=== PATIENT | female | born 1935 | race Caucasian/White ===

== ENCOUNTER 2020-09-26 16:56 | Inpatient (IN) | payer MEDICARE, OTHER, SELFPAY ==
[2020-09-26] VITALS (16 sets, daily range): BP systolic 141–269; BP diastolic 45–107; PULSE 67–83; RESP 12–22; TEMP 36.4–36.8; O2SAT 94–96; BMI 22.1; BMI 22.8
--- NOTE | 2020-09-26 17:09 | ECG_ITS ---
Test Reason : STROKE Blood Pressure : / mmHG Vent. Rate : 068 BPM Atrial Rate : 068 BPM P-R Int : 134 ms QRS Dur : 092 ms QT Int : 428 ms P-R-T Axes : 059 029 079 degrees QTc Int : 455 ms Normal sinus rhythm Possible Left atrial enlargement Left ventricular hypertrophy with repolarization abnormality Abnormal ECG When compared with ECG of 29-JUL-2005 08:41, No significant change was found Referred By: Yue Mao Electronically Signed By:Cisco Grubbs
--- NOTE | 2020-09-26 17:09 | CT_ITS ---
EXAMINATION: CT HEAD WITHOUT CONTRAST (STROKE PROTOCOL) CLINICAL INFORMATION: Stroke protocol. COMPARISON: None TECHNIQUE: Contiguous axial imaging was performed from the skull base to vertex without intravenous administration of contrast. Coronal and sagittal reformatted images are performed at CT scanner This CT examination was performed using dose optimization techniques as appropriate, variously including the following: *Automated exposure control *Adjustment of mA and/or kV according to patient size (this includes techniques or standardized protocols for targeted exams where dose is matched to indication/reason for exam; i.e. extremities or head) *Use of iterative reconstruction technique DLP: 691 mGy-cm FINDINGS: There is a focal parenchymal bleed in the right thalamus which is acute. This is hyperdense and measures about 1.2 cm transverse. There is a small hypodense surrounding rim around the bleed. There is no extra-axial collection. There is no intraventricular hemorrhage. There is atrophy with prominence of the ventricles and the sulci and hypodensity of the periventricular white matter due to chronic small vessel ischemic disease. There are vascular calcifications of the internal carotid arteries bilaterally. The visualized sinuses and middle ears and mastoid air cells show no significant mucosal thickening. There are no air-fluid levels. CT/CT head for stroke IMPRESSION: Acute hemorrhage in the right thalamus. This critical result was discussed with Dr. Mao 09/26/2020, 5:25 PM It was ascertained that the content and urgency of the report was understood at the time of direct communication.
[2020-09-26] MEDS: Labetalol HCL 100 MG/20 ML VIAL 10 MG IVPUSH (17:25)
[2020-09-26 17:34] LABS: Glucose, Whole Blood 79 mg/dL (60-115)
--- NOTE | 2020-09-26 17:34 | ED.NEUROSD ---
HPI - Neuro Symptoms/Deficit General Chief Complaint: Neuro Symptoms/Deficit Stated Complaint: Weakness Time Seen by Provider: 09/26/20 17:04 Source: patient Mode of arrival: ambulatory Limitations: no limitations History of Present Illness HPI Narrative: 84-year-old female who is otherwise healthy no known history of hypertension presented today with left-sided body weakness started about an hour ago. Patient was walking with her son after she finished walking started feel oozy and felt left-sided weakness and unbalanced, patient had to set down before she fell, patient otherwise declined any headache, no nausea, no vomiting, no blurry vision. Patient walked into the emergency department while was triaged patient was rushed into the emergency department for stroke protocol, patient was rushed to the CT which showed right thalamic small bleed with slight vasogenic edema but no brain shift, patient's blood pressure was 264 over 80 initially, patient is still asymptomatic except feeling oozy. Related Data Home Medications Medication Instructions Recorded Confirmed atorvastatin 40 mg PO DAILY 09/26/20 09/26/20 levothyroxine 100 mcg PO DAILY 09/26/20 09/26/20 lisinopril 10 mg PO DAILY 09/26/20 09/26/20 Allergies Allergy/AdvReac Type Severity Reaction Status Date / Time levofloxacin [From Levaquin] Allergy Mild Rash Verified 09/26/20 17:05 Review of Systems Review of Systems: All other systems are reviewed and are negative Constitutional: Reports as per HPI and Reports no additional constitutional complaints Eyes: Reports as per HPI and Reports no additional eye complaints Reports system reviewed and no additional complaints, except as documented Cardiovascular: Reports as per HPI and Reports no additional cardiovascular complaints Respiratory: Reports as per HPI and Reports no additional respiratory complaints Gastrointestinal: Reports as per HPI and Reports no additional gastrointestinal complaints Genitourinary: Reports no additional female genitourinary complaints Musculoskeletal: Reports no additional musculoskeletal complaints Skin/Breast: Reports system reviewed and no additional complaints, except as docu Psychiatric: Reports no additional psychiatric complaints Endocrine: Reports no additional endocrine complaints Hematologic/Lymphatic: Reports no additional hematologic/lymphatic complaints Allergic/Immunologic: Reports no additional allergic/immunologic complaints Reports system reviewed and no additional complaints, except as documented and Reports Abnormal speech present PMFSH Social History Social History Alcohol intake: never Smoked in Last 30 Days: No Use of substances other than those prescribed or required for medical reasons: No Advance Directives: No Advance Directives Information Provided: Yes Physical Exam Vital Signs: Vital Signs: Last Vital Signs Temp 98.3 F 09/26/20 17:19 Pulse 75 09/26/20 19:07 Resp 18 09/26/20 19:07 BP 235/89 H 09/26/20 19:07 Pulse Ox 95 09/26/20 19:07 Body Mass Index 22.1 Vital signs have been reviewed as normal and appeared to be correct. Hypertensive. Heart rate normal. Respiration rate normal. Temperature normal. Oxygen saturation normal. Appearance: Alert. Oriented X3. No acute distress. Head: Normal external exam. Normocephalic. Atraumatic. No Torres signs noted. No raccoon eyes noted Eyes: PERRLA. EOMI. Conjunctiva and sclera normal. Eyelids normal. ENT: EAC normal. TM's Normal. Pharynx normal. Uvula midline. Moist mucous membranes. No trismus noted. No drooling noted. No muffled voice noted. Neck: Normal inspection. Neck supple. FROM. No adenopathy. Thyroid Normal. No meningeal signs. No neck mass noted. CVS: Normal heart rate and rhythm. Heart sound normal. No murmurs noted. Pulses normal throughout. Respiratory: No respiratory distress. Painless inspiration. Breath sounds normal. No wheezes/rales/rhonchi noted. Chest nontender. No accessory muscle usage noted or decreased air movement noted. Abdomen: Soft and nontender. Bowel sounds normal in all 4 quadrants. No distention noted. No organomegaly noted. No visible injury noted. Back: No CVA tenderness. Full range of motion noted. Skin: Skin warm and dry. Normal skin color. Normal skin turgor. No rashes/lesions/lacerations noted. Extremities: No lower extremity edema. Extremities exhibit normal range of motion. Extremities nontender. Neuro: Oriented X 3. No motor deficit (maybe slight left lower extremities weakness is appreciated) patient still able to walk with slight limping. No sensory deficit. Reflexes normal. Course Course Course Narrative: Assessment and plan. 84-year-old female who is otherwise healthy no known history of hypertension walked in with left-sided weakness, patient found to have likely hypertensive right thalamic bleed. The case was discussed with Dr. Novak who recommended to blood pressure management and admit to ICU. The case discussed with Dr. Thompson the quality control industrial engineer, who agreed to admit the patient to the ICU. Patient received 1 dose of labetalol, patient will start on nicarddipine IV drip. Reevaluation(s) Reevaluation #1: Patient still with left-sided weakness, neuro exam is unchanged, blood pressure is 148/107 after 1 dose of labetalol, troponin was elevated but patient has no chest pain and no EKG, will keep serial troponin check. Time: 18:27 Reevaluation #2: Blood pressure has been fluctuating while she is in the emergency department, will start patient on nicardipine drip now to titrate systolic blood pressure between 160-180. Time: 19:10 MDM - Neuro Symptoms/Deficit Lab Data Result diagrams: 09/26/20 18:16 09/26/20 17:30 Labs: Lab Results 09/26/20 09/26/20 09/26/20 Range/Units 17:30 17:30 17:30 WBC 4.4 L (4.8-10.8) X10*3/uL RBC 3.54 L (4.20-5.50) X10*6/uL Hgb 11.4 L (12.0-16.0) g/dl Hct 35.5 L (37-47) % MCV 100.3 H (80-98) fL MCH 32.2 (27.0-33.0) pg MCHC 32.1 (31.0-35.0) g/dl RDW 11.5 (11.0-16.0) % Plt Count 189 (160-400) X10*3/uL MPV 11.9 (9.4-12.3) fL Immature Gran % (Auto) 0.5 H (0.0-0.4) % Neut % (Auto) 61.6 (45-73) % Lymph % (Auto) 25.7 (20-40) % [place] % (Auto) 9.7 (2-11) % Eos % (Auto) 2.0 (0-4) % Baso % (Auto) 0.5 (0-2) % Lymph # (Auto) 1.1 L (1.2-4.9) X10*3/uL [place] # (Auto) 0.4 (0.1-1.2) X10*3/uL Eos # (Auto) 0.1 (0.0-0.4) X10*3/uL Baso # (Auto) 0.0 (0.0-0.2) X10*3/uL Abs Immat Gran (auto) 0.02 (0.00-0.03) X10*3/uL Absolute Neuts (auto) 2.7 (2.0-8.3) X10*3/uL Absolute Nucleated RBC 0.000 (0.0-0.012) X10*3/uL Nucleated RBC % (auto) 0.0 (0.0-0.2) /100WBC PT 11.9 (10.8-13.0) SEC INR 1.0 (0.9-1.1) APTT 31.9 (24.1-38.0) SEC Sodium 143 (135-145) mmol/L Potassium 4.3 (3.3-5.1) mmol/l Chloride 105 (96-108) mmol/L Carbon Dioxide 26 (22-29) mmol/L Anion Gap 16 (12-20) BUN 26 H (9-16) mg/dL Creatinine 1.46 H (0.5-1.4) mg/dL Estim Creat Clear Calc 22.6 Estimated GFR 34 POC Glucose (60-115) mg/dL Random Glucose 80 (60-115) mg/dL Calcium 8.7 (8.4-10.2) mg/dL Total Creatine Kinase 164 H (26-140) U/L Troponin I High Sens (<3.5-17.0) ng/L 09/26/20 09/26/20 Range/Units 17:30 17:31 WBC (4.8-10.8) X10*3/uL RBC (4.20-5.50) X10*6/uL Hgb (12.0-16.0) g/dl Hct (37-47) % MCV (80-98) fL MCH (27.0-33.0) pg MCHC (31.0-35.0) g/dl RDW (11.0-16.0) % Plt Count (160-400) X10*3/uL MPV (9.4-12.3) fL Immature Gran % (Auto) (0.0-0.4) % Neut % (Auto) (45-73) % Lymph % (Auto) (20-40) % [place] % (Auto) (2-11) % Eos % (Auto) (0-4) % Baso % (Auto) (0-2) % Lymph # (Auto) (1.2-4.9) X10*3/uL [place] # (Auto) (0.1-1.2) X10*3/uL Eos # (Auto) (0.0-0.4) X10*3/uL Baso # (Auto) (0.0-0.2) X10*3/uL Abs Immat Gran (auto) (0.00-0.03) X10*3/uL Absolute Neuts (auto) (2.0-8.3) X10*3/uL Absolute Nucleated RBC (0.0-0.012) X10*3/uL Nucleated RBC % (auto) (0.0-0.2) /100WBC PT (10.8-13.0) SEC INR (0.9-1.1) APTT (24.1-38.0) SEC Sodium (135-145) mmol/L Potassium (3.3-5.1) mmol/l Chloride (96-108) mmol/L Carbon Dioxide (22-29) mmol/L Anion Gap (12-20) BUN (9-16) mg/dL Creatinine (0.5-1.4) mg/dL Estim Creat Clear Calc Estimated GFR POC Glucose 79 (60-115) mg/dL Random Glucose (60-115) mg/dL Calcium (8.4-10.2) mg/dL Total Creatine Kinase (26-140) U/L Troponin I High Sens 167.8 H (<3.5-17.0) ng/L Imaging Data CT scan - head: Radiologist's impression: Acute right thalamic hemorrhage. ECG Data Interpretation: Normal sinus rhythm at 68 beats per minutes, normal interval, LVH. NIH Stroke Scale Level of Consciousness: Responds only with reflex motor or autonomic effects, or unresponsive Level of Consciousness Questions: Answers both questions correctly Level of Consciousness Commands: Performs both tasks correctly Best Gaze: Normal Visual: No visual loss Facial Palsy: Normal Motor Arm (Right): No drift Motor Arm (Left): No drift Motor Leg (Right): No drift Motor Leg (Left): Drift Limb Ataxia: Absent Sensory: Normal Best Language: No aphasia Dysarthia: Normal Extinction and Inattention: No abnormality Score: 4 Critical Care Time Critical Care Time Critical Care Time: Yes Total Critical Care Time: 60 Attestation: I spent 60 minutes providing critical care level to the patient, including bedside care, reviewing labs, radiographic study, talking to consultants, discussing situation with patient and family. Monitoring vital sign and blood pressure. Discharge Plan Discharge Clinical Impression: Hypertensive emergency, Intracranial hemorrhage Patient Disposition: Admitted As Inpatient
[2020-09-26 17:40] LABS: Basophils Percent Auto 0.5 % (0-2); Eosinophils Absolute Auto 0.1 X10*3/uL (0.0-0.4); Hematocrit 35.5 % (37-47); Hemoglobin 11.4 g/dl (12.0-16.0); Imm Gran Abs Auto 0.02 X10*3/uL (0.00-0.03); Imm Gran Pct Auto 0.5 % (0.0-0.4); Lymphocytes Absolute Auto 1.1 X10*3/uL (1.2-4.9); Lymphocytes Percent Auto 25.7 % (20-40); MANUAL DIFF FLAG NO; Mean Corpuscular HGB Conc 32.1 g/dl (31.0-35.0); Mean Corpuscular Hemoglobin 32.2 pg (27.0-33.0); Mean Corpuscular Volume 100.3 fL (80-98); Mean Platelet Volume 11.9 fL (9.4-12.3); Monocytes Absolute Auto 0.4 X10*3/uL (0.1-1.2); Monocytes Percent Auto 9.7 % (2-11); Neutrophils Absolute Auto 2.7 X10*3/uL (2.0-8.3); Neutrophils Percent Auto 61.6 % (45-73); Platelet Count 189 X10*3/uL (160-400); Red Blood Count 3.54 X10*6/uL (4.20-5.50); Red Cell Distribution Width 11.5 % (11.0-16.0); White Blood Count 4.4 X10*3/uL (4.8-10.8)
[2020-09-26 17:46] LABS: Prothrombin Time 11.9 SEC (10.8-13.0)
[2020-09-26 17:48] LABS: Partial Thromboplastin Time 31.9 SEC (24.1-38.0)
[2020-09-26 18:09] LABS: Anion Gap 16 (12-20); Blood Urea Nitrogen 26 mg/dL (9-16); Calcium 8.7 mg/dL (8.4-10.2); Carbon Dioxide 26 mmol/L (22-29); Chloride 105 mmol/L (96-108); Creatinine Clr Calc Pharmacy 22.6; Estimated Glomerular Filt Rate 34; Glucose Random 80 mg/dL (60-115); Potassium 4.3 mmol/l (3.3-5.1); Sodium 143 mmol/L (135-145)
[2020-09-26 18:21] LABS: Troponin-I High Sensitivity 167.8 ng/L (<3.5-17.0)
[2020-09-26 18:28] LABS: MANUAL DIFF FLAG NO
[2020-09-26 18:37] LABS: HCO3 VBG 25 mmol/L; PCO2 VBG 53 mmhg; PO2 VBG 40 mmhg; pH VBG 7.29 (7.32-7.43)
[2020-09-26 18:38] LABS: Base Excess VBG -2.2 mmol/L; Blood Gas Serial # 5414; Oxygen Saturation VBG 68.3 %
[2020-09-26 18:39] LABS: Basophils Percent Auto 0.5 % (0-2); Eosinophils Absolute Auto 0.1 X10*3/uL (0.0-0.4); Eosinophils Percent Auto 1.4 % (0-4); Hematocrit 32.4 % (37-47); Hemoglobin 10.3 g/dl (12.0-16.0); Imm Gran Abs Auto 0.01 X10*3/uL (0.00-0.03); Imm Gran Pct Auto 0.2 % (0.0-0.4); Lymphocytes Percent Auto 23.1 % (20-40); Mean Corpuscular HGB Conc 31.8 g/dl (31.0-35.0); Mean Corpuscular Hemoglobin 32.1 pg (27.0-33.0); Mean Corpuscular Volume 100.9 fL (80-98); Mean Platelet Volume 12.2 fL (9.4-12.3); Monocytes Absolute Auto 0.5 X10*3/uL (0.1-1.2); Neutrophils Absolute Auto 2.8 X10*3/uL (2.0-8.3); Neutrophils Percent Auto 63.8 % (45-73); Platelet Count 189 X10*3/uL (160-400); Red Blood Count 3.21 X10*6/uL (4.20-5.50); Red Cell Distribution Width 11.5 % (11.0-16.0); White Blood Count 4.4 X10*3/uL (4.8-10.8)
[2020-09-26 18:45] LABS: COVID-19 Test Negative (Negative); IDNOW Serial# 9DD0AD1C
--- NOTE | 2020-09-26 19:06 | PC.NURSE ---
1803 drip not started and on hold due to b/p 147/106. aware
[2020-09-26] MEDS: niCARdipine HCL 25 MG in 0.9 % Sodium Chloride 250 ML 52 MG IVCONT (19:14)
[2020-09-26 19:37] LABS: Stroke Lab Use COMPLETE
--- NOTE | 2020-09-26 20:48 | PM.CCHP ---
History of Present Illness Date of Service: 09/26/20 Chief Complaint: Weakness The patient is a 84-year-old female with a past medical history of hypertension and hypothyroidism who presented to emergency room with acute left-sided weakness. Wanted emergency room the patient reported feeling ? oozy? and loss of balance while in the waiting room. Her blood pressure noted to be 264/96. Stroke protocol initiated CT scan showed small acute hemorrhage in the right thalamus. She denied any headache, no nausea, no vomiting, no blurry vision. Neurology was consulted. Dr. Novak states this is hypertensive right thalamic bleed, and recommend blood pressure management. Labetalol was given in the ED. Nicardipine drip was initiated. Admitted to the ICU for closely hemodynamic monitoring Review of Systems Constitutional: Constitutional: Reports as per [facility] Past Medical History Medical History (Updated 09/26/20 @ 21:39 by Dakota Nguyen) Hypertension Family History Family history: reviewed and not pertinent Surgical History Surgical History (Updated 09/26/20 @ 21:40 by Dakota Nguyen) H/O thyroidectomy Social History Social History (Updated 09/26/20 @ 21:40 by Dakota Nguyen) Household Members: Children Household Members Other:: Lives with son Alcohol intake: never Smoked in Last 30 Days: No Use of substances other than those prescribed or required for medical reasons: No Advance Directives: No Advance Directives Information Provided: Yes Meds Allergies Allergy/AdvReac Type Severity Reaction Status Date / Time levofloxacin [From Levaquin] Allergy Mild Rash Verified 09/26/20 17:05 Home Medications Medication Instructions Recorded Confirmed Type atorvastatin 40 mg PO DAILY 09/26/20 09/26/20 History levothyroxine 100 mcg PO DAILY 09/26/20 09/26/20 History lisinopril 10 mg PO DAILY 09/26/20 09/26/20 History Physical Exam Vital Signs: Vital Signs: Last Vital Signs Temp 98.3 F 09/26/20 17:19 Pulse 80 09/26/20 20:07 Resp 19 09/26/20 19:38 BP 198/72 H 09/26/20 20:07 Pulse Ox 95 09/26/20 19:07 Body Mass Index 22.1 Const: General: cooperative, comfortable and no acute distress Orientation/consciousness: patient oriented x3 HENMT: Head: Yes normal to inspection Eyes: Pupils: Equal, round and reactive pupils present Neck: Neck: Yes supple and Yes no JVD Resp: Effort & Inspection: normal respiratory effort Auscultation: clear to auscultation bilaterally Cardio: Jugular venous distension: no JVD Rate: regular rate Heart sounds: S1 normal heart sound present and S2 normal heart sound present GI: Inspection: Yes normal to inspection Palpation (GI): Soft to palpation Auscultation: normal bowel sounds Neuro: General: patient oriented x3, moves all extremities and Normal light touch and pain sensation Cranial nerves: Yes Equal, round and reactive pupils present Cognition (Neuro): normal cognition Speech: Other speech findings present (Neuro) Motor exam (neuro): 5/5 motor strength present throughout Results Labs CBC and Chem 7: 09/26/20 18:16 09/26/20 17:30 Labs: Laboratory Results - last 24 hr 09/26/20 09/26/20 09/26/20 17:30 17:30 17:30 MCV 100.3 H MCH 32.2 MCHC 32.1 RDW 11.5 Plt Count 189 MPV 11.9 Immature Gran % (Auto) 0.5 H Neut % (Auto) 61.6 Lymph % (Auto) 25.7 [place] % (Auto) 9.7 Eos % (Auto) 2.0 Baso % (Auto) 0.5 Lymph # (Auto) 1.1 L [place] # (Auto) 0.4 Eos # (Auto) 0.1 Baso # (Auto) 0.0 Abs Immat Gran (auto) 0.02 Absolute Neuts (auto) 2.7 Absolute Nucleated RBC 0.000 Nucleated RBC % (auto) 0.0 PT 11.9 INR 1.0 APTT 31.9 VBG pH VBG pCO2 VBG pO2 VBG HCO3 VBG O2 Saturation VBG Base Excess Anion Gap 16 Estim Creat Clear Calc 22.6 Estimated GFR 34 POC Glucose Random Glucose 80 Calcium 8.7 Total Creatine Kinase 164 H Troponin I High Sens COVID-19 (JAMES) COVID-19 Clin Com 09/26/20 09/26/20 09/26/20 17:30 17:31 18:16 MCV 100.9 H MCH 32.1 MCHC 31.8 RDW 11.5 Plt Count 189 MPV 12.2 Immature Gran % (Auto) 0.2 Neut % (Auto) 63.8 Lymph % (Auto) 23.1 [place] % (Auto) 11.0 Eos % (Auto) 1.4 Baso % (Auto) 0.5 Lymph # (Auto) 1.0 L [place] # (Auto) 0.5 Eos # (Auto) 0.1 Baso # (Auto) 0.0 Abs Immat Gran (auto) 0.01 Absolute Neuts (auto) 2.8 Absolute Nucleated RBC 0.000 Nucleated RBC % (auto) 0.0 PT INR APTT VBG pH VBG pCO2 VBG pO2 VBG HCO3 VBG O2 Saturation VBG Base Excess Anion Gap Estim Creat Clear Calc Estimated GFR POC Glucose 79 Random Glucose Calcium Total Creatine Kinase Troponin I High Sens 167.8 H COVID-19 (JAMES) COVID-19 Clin Com 09/26/20 09/26/20 18:16 18:16 MCV MCH MCHC RDW Plt Count MPV Immature Gran % (Auto) Neut % (Auto) Lymph % (Auto) [place] % (Auto) Eos % (Auto) Baso % (Auto) Lymph # (Auto) [place] # (Auto) Eos # (Auto) Baso # (Auto) Abs Immat Gran (auto) Absolute Neuts (auto) Absolute Nucleated RBC Nucleated RBC % (auto) PT INR APTT VBG pH 7.29 L VBG pCO2 53 VBG pO2 40 VBG HCO3 25 VBG O2 Saturation 68.3 VBG Base Excess -2.2 Anion Gap Estim Creat Clear Calc Estimated GFR POC Glucose Random Glucose Calcium Total Creatine Kinase Troponin I High Sens COVID-19 (JAMES) Negative COVID-19 Clin Com See Note Imaging Radiologist's Impressions: Impressions Head CT 09/26/20 17:09 IMPRESSION: Acute hemorrhage in the right thalamus. This critical result was discussed with Dr. Mao 09/26/2020, 5:25 PM It was ascertained that the content and urgency of the report was understood at the time of direct communication. Assessment and Plan (1) Intracranial hemorrhage: Start date: 09/26/20 Status: Acute 84-year-old female with history of hypertension, here for hypertensive right thalamic hemorrhage. Neuro: Hypertensive right thalamic hemorrhage- patient with no acute neurological changes. Neurology services appreciated. Will cont to achieve blood pressure management with nicardipine drip. Avoid hypotension. Maintain SBP 160-180. Frequent neuro checks Cardiac: Hypertensive emergency, initial BP 260/96. On nicardipine drip. Wean nicardipine drip as stated above. Pulmonary: No acute issues. Renal: No acute issues. Endo: No acute issues. GI: No acute issues. heme/onc: No acute issues. Misc: No acute issues. DVT: Pneumatic boots. NO DVT ANTICOAGULATION FOR THE 1ST 24 HOURS Diet: NPO (2) Hypertensive emergency: Start date: 09/26/20 Status: Acute
[2020-09-27] VITALS (19 sets, daily range): BP systolic 114–188; BP diastolic 38–116; PULSE 60–78; RESP 16–24; TEMP 36.3–36.7; O2SAT 91–96; BMI 21.5
[2020-09-27] MEDS: niCARdipine HCL 25 MG in 0.9 % Sodium Chloride 250 ML 26 MG IVCONT (06:29)
[2020-09-27 06:36] LABS: Alanine Aminotransferase 9 U/L (0-31); Albumin Level 3.9 g/dL (3.5-5.0); Alkaline Phosphatase 75 U/L (39-117); Anion Gap 13 (12-20); Aspartate Amino Transferase 19 U/L (5-31); Bilirubin Total 0.4 mg/dL (0.0-1.0); Blood Urea Nitrogen 21 mg/dL (9-16); Calcium 8.3 mg/dL (8.4-10.2); Carbon Dioxide 27 mmol/L (22-29); Chloride 105 mmol/L (96-108); Creatinine Clr Calc Pharmacy 30.6; Estimated Glomerular Filt Rate 48; Glucose Random 109 mg/dL (60-115); Magnesium 1.8 mg/dL (1.6-2.6); Phosphorus 4.2 mg/dL (2.7-4.5); Sodium 141 mmol/L (135-145); Total Protein 6.6 g/dL (6.5-8.0)
[2020-09-27] MEDS: lisinopriL 20 MG TABLET PO (08:19)
--- NOTE | 2020-09-27 09:36 | PC.NURSE ---
Admitted patient to ICU, room 261. Patient calm, cooperative, oriented x4. BP elevated - on nicardipine drip. Patient neuros - slight left side facial drop noted when not smiling, patient equal strength, but patient having issues w/ manipulation / dexterity in left hand. Patient also unsteady when up to commode, 1 assist to and from commode. Patient repositions independently otherwise. Patient c/o small headache at start of night, but then reported it was relieved, patient sleeping intermit. Titrated nicardipine on and off for SBP 160-180 goal. SBP went down to 130's for a short time - no change in neuro symptoms w/ lower BP. Dr Thompson in - ordered Lisinopril 20mg to be given - given & monitoring BP. Patient now transfer to [facility] level of care.
--- NOTE | 2020-09-27 11:20 | PM.NEUROCN ---
History of Present Illness Data of Consult Service Date: 09/27/20 Primary Care Provider: Mati Raya MD 84 years old woman with underlying history of hypothyroidism and hypertension came to emergency room with new onset of left-sided weakness and dizziness. Her head CT revealed a right thalamic bleed and her blood pressure was quite high and she was admitted for blood pressure management and intensive care unit. This morning she was feeling better though stating that left side was still not the weight used to be in her left hand was clumsy. There was no headache or sign of distress or dizziness or nausea or vomiting. She was right handed Review of Systems Review of Systems: No recent cold or flu-like illness trauma or seizure. [facility] Past Medical History Medical History (Updated 09/27/20 @ 03:51 by Washington Montelongo RN) High cholesterol Hypertension Hypothyroidism Right shoulder injury Family History Family history: reviewed and not pertinent Surgical History Surgical History (Updated 09/26/20 @ 21:40 by Dakota Nguyen) H/O thyroidectomy Social History Social History (Updated 09/26/20 @ 21:40 by Dakota Nguyen) Household Members: Children Household Members Other:: son lives w/ her - [place] Housing: Other Housing Other:: co-op Do you presently have visiting nurse or other home services: No Alcohol intake: never Smoking Status: Former smoker Smoked in Last 30 Days: No Smoking Quit Date: many years ago Use of substances other than those prescribed or required for medical reasons: No Have you been hit, kicked, punched, or otherwise hurt by someone within the past year? If so, by whom?: No Do you feel safe in your current relationship?: Yes Is there a partner from a previous relationship who is making you feel unsafe now?: No Are you made to feel afraid or neglected: No Spiritual Healthcare Practices: none Ep[employer]alian Healthcare Practices: none Cultural Healthcare Practices: none Advance Directives: No Advance Directives Information Provided: Yes Do you have thoughts of harming others: None Do you have a plan to hurt others: No Plan Recently lost weight without trying: No Meds Allergies Allergy/AdvReac Type Severity Reaction Status Date / Time levofloxacin [From Levaquin] Allergy Mild Rash Verified 09/26/20 17:05 Home Medications Medication Instructions Recorded Confirmed Type atorvastatin 40 mg PO DAILY 09/26/20 09/26/20 History levothyroxine 100 mcg PO DAILY 09/26/20 09/26/20 History lisinopril 10 mg PO DAILY 09/26/20 09/26/20 History Physical Exam Vital Signs: Vital Signs: Last Vital Signs Temp 97.4 F 09/27/20 08:00 Pulse 78 09/27/20 10:00 Resp 17 09/27/20 10:00 BP 164/116 H 09/27/20 10:00 Pulse Ox 96 09/27/20 10:00 Body Mass Index 21.5 She was alert and awake with normal spontaneity of speech fluency comprehension and affect. Pupils were round reactive to light. External ocular muscles were intact. Visual grewal are full to threat. There was mild left-sided facial flatness. Left hand was slightly clumsy while she was eating her breakfast. She had difficulty raising her right arm above shoulder level stating that her right shoulder was painful. Deep tendon reflexes were trace to absent with flexor plantars. Results Labs CBC & Chem 7: 09/26/20 18:16 09/27/20 05:08 Labs: Short CBC 09/26/20 09/26/20 Range/Units 17:30 18:16 WBC 4.4 L 4.4 L (4.8-10.8) X10*3/uL Hgb 11.4 L 10.3 L (12.0-16.0) g/dl Hct 35.5 L 32.4 L (37-47) % Plt Count 189 189 (160-400) X10*3/uL BMP 09/26/20 09/27/20 17:30 05:08 Sodium 143 141 Potassium 4.3 4.0 Chloride 105 105 Carbon Dioxide 26 27 BUN 26 H 21 H Creatinine 1.46 H 1.08 Calcium 8.7 8.3 L Cardiac Enzymes 09/26/20 Range/Units 17:30 Total Creatine Kinase 164 H (26-140) U/L Liver Function 09/27/20 Range/Units 05:08 Total Bilirubin 0.4 (0.0-1.0) mg/dL AST 19 (5-31) U/L ALT 9 (0-31) U/L Alkaline Phosphatase 75 (39-117) U/L Albumin 3.9 (3.5-5.0) g/dL Noncontrast head CT revealed a small right mid thalamic hyperdense signal abnormality suggestive of bleed and underlying chronic microvascular ischemic changes. Assessment and Plan (1) Intracranial hemorrhage: Status: Acute 84 years old woman with hypertensive right thalamic small bleed. She was doing reasonably well with no sign of distress headache dizziness or nausea or vomiting. She had mild clumsiness of left hand. Blood pressure was somewhat better. She was educated about this problem and was advised to take her blood pressure medicines regularly and check her blood pressure at regular intervals. For now, her blood pressure medicine regimen should be adjusted but I would avoid too aggressive management to avoid hypotension that might cause more problem. Target systolic blood pressure for next week or so is about 140-160. Physical therapy and occupational therapy consultation is recommended. She could come out of the ICU to intermediate care unit bed.
[2020-09-27] MEDS: Labetalol HCL 100 MG/20 ML VIAL 20 MG IVPUSH (12:14)
--- NOTE | 2020-09-27 13:00 | CT_ITS ---
EXAMINATION: CT HEAD WITHOUT CONTRAST CLINICAL INFORMATION: Thalamic hemorrhage. COMPARISON: CT head from 09/26/2020. TECHNIQUE: Contiguous axial imaging was performed from the skull base to vertex without intravenous administration of contrast. This CT examination was performed using dose optimization techniques as appropriate, variously including the following: *Automated exposure control. *Adjustment of mA and/or kV according to patient size (this includes techniques or standardized protocols for targeted exams where dose is matched to indication/reason for exam; i.e. extremities or head). *Use of iterative reconstruction technique. DLP: 610 mGy-cm FINDINGS: Stable appearance of hyperattenuating hemorrhagic products centered in the right thalamus, measuring 1.2 x 1.1 x 1.1 cm. Hypoattenuating surrounding edema appears to a similar degree as that from exam from 09/26/2020. There is no evidence of new intracranial hemorrhage or edematous territorial infarction. Scattered hypoattenuation in the periventricular and deep white matter are consistent with moderate microangiopathy. Brock-white matter differentiation is preserved. Proportional prominence of the ventricles and sulcal spaces. No evidence for obstructive hydrocephalus. No abnormal mass effect or midline shift. No extra-axial fluid collections. Calcific atherosclerotic disease of the intracranial internal carotid and vertebral arteries. No hyperdense vessel sign. No acute soft tissue or osseous abnormalities. Mild mucosal thickening of the paranasal sinuses. Leftward nasal septal deviation. Prominent right mastoid and middle ear effusion. The left-sided mastoid air cells and middle ear cavities are clear. CT/CT head/brain wo con IMPRESSION: 1. Stable right thalamic hemorrhage and surrounding vasogenic edema. 2. No new intracranial hemorrhage or edematous territorial infarction. Moderate underlying microangiopathy and generalized cerebral volume loss. 3. Prominent right-sided mastoid/middle ear effusion.
--- NOTE | 2020-09-27 13:08 | P.PNCC_ITS ---
Subjective Subjective Date of Service: 09/27/20 Interval History: 84-year-old lady with underlying history of hypertension and hypothyroidism admitted on 09/26/2020 with left-sided weakness secondary to acute right-sided thalamic hemorrhage and hypertensive emergency. Patient started on Cardene drip to maintain systolic blood pressure in 160s. She was evaluated by neurology service and admitted to intensive care unit for further monitoring. Overnight with no events. Titrated off Cardene drip. No changes in neurologic status. Physical Exam Vital Signs: Vital Signs: Last Vital Signs Temp 97.6 F 09/27/20 12:00 Pulse 60 09/27/20 12:23 Resp 16 09/27/20 12:23 BP 188/67 H 09/27/20 12:28 Pulse Ox 95 09/27/20 12:00 Body Mass Index 21.5 Const: General: no acute distress, alert and awake Orientation/consciousness: patient oriented x3 Eyes: Sclerae: sclerae normal EOM: EOMs intact bilaterally Neck: Neck: Yes no lymphadenopathy, Yes trachea midline and Yes supple Resp: Effort & Inspection: normal respiratory effort and no respiratory distress Auscultation: clear to auscultation bilaterally Cardio: Rate: regular rate Rhythm: abnormal rhythm irregularly irregular Heart sounds: no gallops, no murmurs and no rubs GI: Palpation (GI): Soft to palpation and Other GI palpation findings present ( Nontender) Auscultation: normal bowel sounds Neuro: General: patient oriented x3 and other (Left upper and lower extremity motor 4/5, otherwise 5/5) Extrem: General: Yes no pedal edema, No clubbing and No cyanosis Objective Data Labs CBC & Chem 7: 09/26/20 18:16 09/27/20 05:08 Labs: Laboratory Results - last 24 hr 09/26/20 09/26/20 09/26/20 17:30 17:30 17:30 WBC 4.4 L RBC 3.54 L Hgb 11.4 L Hct 35.5 L MCV 100.3 H MCH 32.2 MCHC 32.1 RDW 11.5 Plt Count 189 MPV 11.9 Immature Gran % (Auto) 0.5 H Neut % (Auto) 61.6 Lymph % (Auto) 25.7 [place] % (Auto) 9.7 Eos % (Auto) 2.0 Baso % (Auto) 0.5 Lymph # (Auto) 1.1 L [place] # (Auto) 0.4 Eos # (Auto) 0.1 Baso # (Auto) 0.0 Abs Immat Gran (auto) 0.02 Absolute Neuts (auto) 2.7 Absolute Nucleated RBC 0.000 Nucleated RBC % (auto) 0.0 PT 11.9 INR 1.0 APTT 31.9 VBG pH VBG pCO2 VBG pO2 VBG HCO3 VBG O2 Saturation VBG Base Excess Sodium 143 Potassium 4.3 Chloride 105 Carbon Dioxide 26 Anion Gap 16 BUN 26 H Creatinine 1.46 H Estim Creat Clear Calc 22.6 Estimated GFR 34 POC Glucose Random Glucose 80 Calcium 8.7 Phosphorus Magnesium Total Bilirubin AST ALT Alkaline Phosphatase Total Creatine Kinase 164 H Troponin I High Sens Total Protein Albumin COVID-19 (JAMES) COVID-[address] [facility] 09/26/20 09/26/20 09/26/20 17:30 17:31 18:16 WBC 4.4 L RBC 3.21 L Hgb 10.3 L Hct 32.4 L MCV 100.9 H MCH 32.1 MCHC 31.8 RDW 11.5 Plt Count 189 MPV 12.2 Immature Gran % (Auto) 0.2 Neut % (Auto) 63.8 Lymph % (Auto) 23.1 [place] % (Auto) 11.0 Eos % (Auto) 1.4 Baso % (Auto) 0.5 Lymph # (Auto) 1.0 L [place] # (Auto) 0.5 Eos # (Auto) 0.1 Baso # (Auto) 0.0 Abs Immat Gran (auto) 0.01 Absolute Neuts (auto) 2.8 Absolute Nucleated RBC 0.000 Nucleated RBC % (auto) 0.0 PT INR APTT VBG pH VBG pCO2 VBG pO2 VBG HCO3 VBG O2 Saturation VBG Base Excess Sodium Potassium Chloride Carbon Dioxide Anion Gap BUN Creatinine Estim Creat Clear Calc Estimated GFR POC Glucose 79 Random Glucose Calcium Phosphorus Magnesium Total Bilirubin AST ALT Alkaline Phosphatase Total Creatine Kinase Troponin I High Sens 167.8 H Total Protein Albumin COVID-19 (JAMES) COVID-[facility] 09/26/20 09/26/20 09/27/20 18:16 18:16 05:08 WBC RBC Hgb Hct MCV MCH MCHC RDW Plt Count MPV Immature Gran % (Auto) Neut % (Auto) Lymph % (Auto) [place] % (Auto) Eos % (Auto) Baso % (Auto) Lymph # (Auto) [place] # (Auto) Eos # (Auto) Baso # (Auto) Abs Immat Gran (auto) Absolute Neuts (auto) Absolute Nucleated RBC Nucleated RBC % (auto) PT INR APTT VBG pH 7.29 L VBG pCO2 53 VBG pO2 40 VBG HCO3 25 VBG O2 Saturation 68.3 VBG Base Excess -2.2 Sodium 141 Potassium 4.0 Chloride 105 Carbon Dioxide 27 Anion Gap 13 BUN 21 H Creatinine 1.08 Estim Creat Clear Calc 30.6 Estimated GFR 48 POC Glucose Random Glucose 109 D Calcium 8.3 L Phosphorus 4.2 Magnesium 1.8 Total Bilirubin 0.4 AST 19 ALT 9 Alkaline Phosphatase 75 Total Creatine Kinase Troponin I High Sens Total Protein 6.6 Albumin 3.9 COVID-19 (JAMES) Negative COVID-19 Clin Com See Note Progress Note: A&P Assessment and plan (1) Hypertensive emergency: Status: Acute Assessment and Plan: Assessment: 84-year-old lady admitted with acute right thalamic hemorrhage and hypertensive emergency, monitored in the intensive care unit. Plan: Neuro: Acute right thalamic hemorrhage, appears to be a hypertensive bleed. Neurology service care appreciated. Repeat CT head is pending. No changes in neurologic status. Maintain systolic blood pressure under 180. Passed bedside swallow evaluation. Cardiac: Hypertensive emergency, resolved. Titrated off Cardene drip. Restarted on lisinopril. Pulmonary: No acute issues. Renal: No acute issues. Endo: No acute issues. Underlying history of hypothyroidism GI: No acute issues. ID: No acute issues Heme/Onc: No acute issues. Psych: No acute issues. Miscellaneous: No acute issues. Prophylaxis: Intermittent pneumatic compression Diet: Regular Critical care time spent: 45 minutes (2) Intracranial hemorrhage: Status: Acute (3) Hypertension: Status: Acute (4) Afib: Status: Acute Time Spent With Patient Total time spent with greater than 50% in coordination of care (as documented) at patient's floor/unit and/or counseling patient:: 0 Critical Care Time 45
--- NOTE | 2020-09-27 13:43 | MHC.CM.PN ---
09/27/2020 IMM Female DX Intra-cranial bleed HTN. She lives with her son Duane. She is A+Ox3 independent. Today She required 1 assist to ambulate. LOMAX UE dexterity impaired. DP TBD by Pts recovery. Home vs STR. CM will follow to assess for dc needs.
--- NOTE | 2020-09-27 15:40 | PC.NURSE ---
Shift note Pt awake and alert with noted left sided weakness. left arm drifting with activity and dexterity off. Pt stats that she has been complaining to her son about her weakness and inability to open/ handle objects. Stood at bedside with 1 assist and took 4-5 steps to the chair. Pt noted to have elevated BP despite increase in meds and nicardapine gtt off- labetalol 20 mg ivp adm per orders with decreased SBP to 115. Dr. Thompson made aware.
[2020-09-28] VITALS (13 sets, daily range): BP systolic 137–207; BP diastolic 47–95; PULSE 61–75; RESP 14–20; TEMP 36.4–36.7; O2SAT 95–98; BMI 21.5
[2020-09-28] MEDS: Labetalol HCL 100 MG/20 ML VIAL 20 MG IVPUSH ×2 (00:14→04:06)
[2020-09-28 05:16] LABS: Basophils Percent Auto 0.1 % (0-2); Eosinophils Absolute Auto 0.1 X10*3/uL (0.0-0.4); Eosinophils Percent Auto 1.5 % (0-4); Hematocrit 32.9 % (37-47); Hemoglobin 10.4 g/dl (12.0-16.0); Imm Gran Abs Auto 0.01 X10*3/uL (0.00-0.03); Imm Gran Pct Auto 0.1 % (0.0-0.4); Lymphocytes Absolute Auto 1.5 X10*3/uL (1.2-4.9); Lymphocytes Percent Auto 21.2 % (20-40); Mean Corpuscular HGB Conc 31.6 g/dl (31.0-35.0); Mean Corpuscular Hemoglobin 31.6 pg (27.0-33.0); Mean Platelet Volume 12.2 fL (9.4-12.3); Monocytes Absolute Auto 0.8 X10*3/uL (0.1-1.2); Monocytes Percent Auto 11.9 % (2-11); Neutrophils Absolute Auto 4.5 X10*3/uL (2.0-8.3); Neutrophils Percent Auto 65.2 % (45-73); Platelet Count 195 X10*3/uL (160-400); Red Blood Count 3.29 X10*6/uL (4.20-5.50); Red Cell Distribution Width 11.5 % (11.0-16.0); White Blood Count 6.9 X10*3/uL (4.8-10.8)
[2020-09-28 05:17] LABS: MANUAL DIFF FLAG NO
[2020-09-28 05:42] LABS: Anion Gap 13 (12-20); Blood Urea Nitrogen 29 mg/dL (9-16); Calcium 8.7 mg/dL (8.4-10.2); Carbon Dioxide 28 mmol/L (22-29); Chloride 104 mmol/L (96-108); Creatinine Clr Calc Pharmacy 23.1; Estimated Glomerular Filt Rate 35; Glucose Random 109 mg/dL (60-115); Potassium 4.3 mmol/l (3.3-5.1); Sodium 141 mmol/L (135-145)
[2020-09-28] MEDS: Levothyroxine Sodium 100 MCG TABLET PO (06:14)
--- NOTE | 2020-09-28 06:48 | PC.NURSE ---
Patient administered two doses of IV labetolol 20mg as ordered for SBP >160 suring the midnight shift. Both doses were effective. Pt was asymptomatic, notified. no new orders at this time. Patient resting in bed, up to bedside commode, neuros intact with dexterity issues to the left hand as well as unsteady gait. Patient is alert and oriented X 4 but does have moments of disorientation and needs reorientation. Patient also appears to be very suspicious of staff but was calm and cooperative.
[2020-09-28] MEDS: lisinopriL 20 MG TABLET PO (09:14)
--- NOTE | 2020-09-28 12:39 | HO.PM.IMPN ---
Subjective Subjective Date of Service: 09/28/20 Interval History: mild LUE weakness no chest pain worried about managing at home where she cares for her disabled son Physical Exam Vital Signs: Vital Signs: Last Vital Signs Temp 97.6 F 09/28/20 08:00 Pulse 61 09/28/20 09:14 Resp 17 09/28/20 08:00 BP 179/68 H 09/28/20 09:14 Pulse Ox 97 09/28/20 08:00 Body Mass Index 21.5 Gen: in no acute distress HEENT: sclera anicteric, moist mucus membranes Neck: supple Lungs: clear to auscultation bilaterally Heart: regular rate and rhythm, no murmurs Abd: soft, non-tender, non-distended Ext: no edema Skin: warm/well-perfused Neuro: alert and oriented x3, mild LUE weakness, RUE evaluation limited by chronic pain in shoulder Psych: appropriate affect Objective Data Current Medications Generic Name Dose Route Start Last Admin Trade Name Freq PRN Reason Stop Dose Admin Amlodipine Besylate 5 mg 09/28/20 12:30 Amlodipine Besylate 5 Mg Tablet PO DAILY [facility] Protocol Levothyroxine Sodium 100 mcg 09/28/20 06:00 09/28/20 06:14 Levothyroxine Sodium 100 Mcg Tablet PO 100 mcg DAILY@0600 [facility] Administration Lisinopril 20 mg 09/27/20 09:00 09/28/20 09:14 Lisinopril 20 Mg Tablet PO 20 mg DAILY [facility] Administration Protocol Pharmacy Consult 1 each 09/26/20 17:49 Consult Rx Perform Med Rec MISCELLANE ONCE PRN Consult order Labs CBC & Chem 7: 09/28/20 04:52 09/28/20 04:52 Labs: Laboratory Results - last 24 hr 09/28/20 09/28/20 04:52 04:52 WBC 6.9 RBC 3.29 L Hgb 10.4 L Hct 32.9 L MCV 100.0 H MCH 31.6 MCHC 31.6 RDW 11.5 Plt Count 195 MPV 12.2 Immature Gran % (Auto) 0.1 Neut % (Auto) 65.2 Lymph % (Auto) 21.2 [place] % (Auto) 11.9 H Eos % (Auto) 1.5 Baso % (Auto) 0.1 Lymph # (Auto) 1.5 [place] # (Auto) 0.8 Eos # (Auto) 0.1 Baso # (Auto) 0.0 Abs Immat Gran (auto) 0.01 Absolute Neuts (auto) 4.5 Absolute Nucleated RBC 0.000 Nucleated RBC % (auto) 0.0 Sodium 141 Potassium 4.3 Chloride 104 Carbon Dioxide 28 Anion Gap 13 BUN 29 H Creatinine 1.43 H Estim Creat Clear Calc 23.1 Estimated GFR 35 Random Glucose 109 Calcium 8.[address] 09/26/20 17:09 IMPRESSION: Acute hemorrhage in the right thalamus. This critical result was discussed with Dr. Mao 09/26/2020, 5:25 PM It was ascertained that the content and urgency of the report was understood at the time of direct communication. Head CT 09/27/20 13:00 IMPRESSION: 1. Stable right thalamic hemorrhage and surrounding vasogenic edema. 2. No new intracranial hemorrhage or edematous territorial infarction. Moderate underlying microangiopathy and generalized cerebral volume loss. 3. Prominent right-sided mastoid/middle ear effusion. Assessment and Plan (1) Hypertensive emergency: Status: Acute (2) Intracranial hemorrhage: Status: Acute (3) Thalamic hemorrhage with stroke: Status: Acute Assessment and Plan: hospital d#3 84yo F with HTN + hypothyroidism admitted to the ICU with R thalamic hemorrhagic stroke associated with hypertensive urgency, managed with nicardipine drip stepped down to [facility] 09/27/20 # hypertensive urgency - now on lisniopril 20 mg daily [was on 10 mg daily], add amlodipine 5 mg daily. target SBP 140-160 per Neurology. needs home BP monitor # thalamic hemorrhagic CVA - repeat CT head stable. BP control, PT/OT evaluations # KACIE - recheck BMP in am # hypothyroidism - continue LT4 # VTE ppx - SCDs # dispo - likely home with VNA/PT/OT, requests home health aide, will consult JOSE I updated the pt's son Duane via telephone
[2020-09-28] MEDS: amLODIPine Besylate 5 MG TABLET PO (13:18)
[2020-09-29] VITALS (11 sets, daily range): BP systolic 140–219; BP diastolic 58–91; PULSE 65–75; RESP 17–19; TEMP 36.1–36.7; O2SAT 95–99; BMI 21.7
[2020-09-29] MEDS: Levothyroxine Sodium 100 MCG TABLET PO (05:38)
[2020-09-29 06:29] LABS: MANUAL DIFF FLAG NO
[2020-09-29 06:30] LABS: Basophils Percent Auto 0.3 % (0-2); Eosinophils Absolute Auto 0.1 X10*3/uL (0.0-0.4); Eosinophils Percent Auto 1.7 % (0-4); Hematocrit 32.7 % (37-47); Hemoglobin 10.4 g/dl (12.0-16.0); Imm Gran Abs Auto 0.02 X10*3/uL (0.00-0.03); Imm Gran Pct Auto 0.3 % (0.0-0.4); Lymphocytes Absolute Auto 1.3 X10*3/uL (1.2-4.9); Lymphocytes Percent Auto 17.6 % (20-40); Mean Corpuscular HGB Conc 31.8 g/dl (31.0-35.0); Mean Corpuscular Volume 100.6 fL (80-98); Mean Platelet Volume 12.6 fL (9.4-12.3); Monocytes Absolute Auto 1.1 X10*3/uL (0.1-1.2); Monocytes Percent Auto 14.6 % (2-11); Neutrophils Absolute Auto 4.7 X10*3/uL (2.0-8.3); Neutrophils Percent Auto 65.5 % (45-73); Platelet Count 198 X10*3/uL (160-400); Red Blood Count 3.25 X10*6/uL (4.20-5.50); Red Cell Distribution Width 11.6 % (11.0-16.0); White Blood Count 7.2 X10*3/uL (4.8-10.8)
[2020-09-29 06:55] LABS: Anion Gap 14 (12-20); Blood Urea Nitrogen 30 mg/dL (9-16); Calcium 8.3 mg/dL (8.4-10.2); Carbon Dioxide 26 mmol/L (22-29); Chloride 106 mmol/L (96-108); Creatinine Clr Calc Pharmacy 25.2; Estimated Glomerular Filt Rate 39; Glucose Random 92 mg/dL (60-115); Potassium 4.5 mmol/l (3.3-5.1); Sodium 141 mmol/L (135-145)
[2020-09-29] MEDS: lisinopriL 20 MG TABLET PO (08:10)
[2020-09-29] MEDS: amLODIPine Besylate 5 MG TABLET PO ×2 (08:10→15:54)
[2020-09-29 08:38] LABS: Prothrombin Time Whole Bld POC 12.1 sec (11.1-13.5)
--- NOTE | 2020-09-29 13:19 | MHC.STROKE ---
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 WE DISCUSSED HER DIAGNOSIS, I GAVE HER A SCREENSHOT OF THE CT WITH THE AREA OF THE BLEED IDENTIFIED. WE DISCUSSED HER RISK FACTORS, SPECIFICALLY HTN. SHE SAID HER SON HAS A BLOOD PRESSURE MACHINE AND I ADVISED HER TO TAKE HER BLOOD PRESSURE DAILY. WE REVIEWED STROKE EDUCATION BOOKLET AND POWER POINT SLIDES. I ANSWERED HER QUESTIONS. SHE LIVES WITH HER SON, SHE NO LONGER DRIVES. HER SON BUYS HER GROCERIES AND HELPS HER. I DID HAVE HER SON A STROKE PATIENT IN 2017 AND WE DISCUSSED HIS STROKE WELL. SHE WILL BE GOING HOME WITH A.
--- NOTE | 2020-09-29 15:28 | MHC.CM.PN ---
per rounds antixcapated dc for tues referral to [facility] for homept per physical therapy recemmendation
--- NOTE | 2020-09-29 15:38 | P.PNIM_ITS ---
Subjective Subjective Date of Service: 09/29/20 Interval History: seen and examined feels fine denies symptoms of htn -- no nguyen, blurred vision, cp/sob or other ROS General - no fevers or chills Cardiovascular - no chest pain Respiratory - no shortness of breath or cough Abdominal- no abdominal pain, nausea, vomiting, diarrhea Physical Exam Vital Signs: Vital Signs: Last Vital Signs Temp 97.6 F 09/29/20 15:27 Pulse 72 09/29/20 15:27 Resp 19 09/29/20 15:27 BP 219/91 H 09/29/20 15:27 Pulse Ox 96 09/29/20 15:27 Body Mass Index 21.7 Const: Other: General - no acute distress, appears comfortable Cardiovascular - regular rate and rhythm, S1-S2 Lungs - normal respiratory effort, clear to auscultation bilaterally, no wheezing Abdomen - soft, non-tender, no rebound or guarding Extremities - no edema bilaterally Neuro - awake and alert, no focal deficits Objective Data Current Medications Generic Name Dose Route Start Last Admin Trade Name Jesus PRN Reason Stop Dose Admin Amlodipine Besylate 5 mg 09/28/20 12:30 09/29/20 08:10 Amlodipine Besylate 5 Mg Tablet PO 5 mg DAILY [facility] Administration Protocol Levothyroxine Sodium 100 mcg 09/28/20 06:00 09/29/20 05:38 Levothyroxine Sodium 100 Mcg Tablet PO 100 mcg DAILY@0600 [facility] Administration Lisinopril 20 mg 09/27/20 09:00 09/29/20 08:10 Lisinopril 20 Mg Tablet PO 20 mg DAILY [facility] Administration Protocol Pharmacy Consult 1 each 09/26/20 17:49 Consult Rx Perform Med Rec MISCELLANE ONCE PRN Consult order Labs CBC & Chem 7: 09/29/20 05:39 09/29/20 05:39 Assessment and Plan (1) Hypertensive emergency: Status: Acute (2) Intracranial hemorrhage: Status: Acute (3) Thalamic hemorrhage with stroke: Status: Acute Assessment and Plan: hospital d#3 84yo F with HTN + hypothyroidism admitted to the ICU with R thalamic hemorrhagic stroke associated with hypertensive urgency, managed with nicardipine drip stepped down to [facility] 09/27/20 1. Hypertensive Emergency Remains uncontrolled - give norvasc 5mg now and increase to 10mg daily, continue lisinopril 2. thalamic hemorrhagic CVA - repeat CT head stable. BP control, PT/OT evaluations 3. KACIE improving, monitor 4. hypothyroidism synthroid Full Code DVT pptx, mechanical due to brain bleed Updated son Duane.
[2020-09-30] VITALS (11 sets, daily range): BP systolic 141–190; BP diastolic 60–87; PULSE 69–78; RESP 15–22; TEMP 36.3–36.8; O2SAT 94–97
[2020-09-30] MEDS: hydrALAZINE HCl 20 MG/ML VIAL 5 MG IVPUSH (00:48)
[2020-09-30 05:13] LABS: Anion Gap 15 (12-20); Blood Urea Nitrogen 28 mg/dL (9-16); Calcium 8.6 mg/dL (8.4-10.2); Carbon Dioxide 26 mmol/L (22-29); Chloride 104 mmol/L (96-108); Creatinine Clr Calc Pharmacy 26.7; Estimated Glomerular Filt Rate 41; Glucose Random 85 mg/dL (60-115); Potassium 4.4 mmol/l (3.3-5.1); Sodium 141 mmol/L (135-145)
[2020-09-30] MEDS: Levothyroxine Sodium 100 MCG TABLET PO (05:20)
[2020-09-30] MEDS: lisinopriL 20 MG TABLET PO ×2 (08:33→09:10)
[2020-09-30] MEDS: amLODIPine Besylate 5 MG TABLET 10 MG PO (08:33)
--- NOTE | 2020-09-30 17:56 | HO.PM.IMPN ---
Subjective Subjective Date of Service: 09/30/20 Interval History: seen and examined no new complaints ROS General - no fevers or chills Cardiovascular - no chest pain Respiratory - no shortness of breath or cough Abdominal- no abdominal pain, nausea, vomiting, diarrhea Physical Exam Vital Signs: Vital Signs: Last Vital Signs Temp 97.7 F 09/30/20 15:58 Pulse 75 09/30/20 15:58 Resp 17 09/30/20 15:58 BP 146/87 H 09/30/20 15:58 Pulse Ox 97 09/30/20 15:58 Body Mass Index 21.7 Const: Other: General - no acute distress, appears comfortable Cardiovascular - regular rate and rhythm, S1-S2 Lungs - normal respiratory effort, clear to auscultation bilaterally, no wheezing Abdomen - soft, non-tender, no rebound or guarding Extremities - no edema bilaterally Neuro - awake and alert, no focal deficits Objective Data Current Medications Generic Name Dose Route Start Last Admin Trade Name Freq PRN Reason Stop Dose Admin Amlodipine Besylate 10 mg 09/30/20 09:00 09/30/20 08:33 Amlodipine Besylate 5 Mg Tablet PO 10 mg DAILY [facility] Administration Protocol Hydralazine HCl 5 mg 09/30/20 00:03 09/30/20 00:48 Hydralazine Hcl 20 Mg/Ml Vial IVPUSH 5 mg Q6H PRN Administration SBP > 160 Levothyroxine Sodium 100 mcg 09/28/20 06:00 09/30/20 05:20 Levothyroxine Sodium 100 Mcg Tablet PO 100 mcg DAILY@0600 [facility] Administration Lisinopril 40 mg 10/01/20 09:00 Lisinopril 40 Mg Tablet PO DAILY [facility] Protocol Pharmacy Consult 1 each 09/26/20 17:49 Consult Rx Perform Med Rec MISCELLANE ONCE PRN Consult order Labs CBC & Chem 7: 09/29/20 05:39 09/30/20 04:02 Assessment and Plan (1) Hypertensive emergency: Status: Acute (2) Intracranial hemorrhage: Status: Acute (3) Thalamic hemorrhage with stroke: Status: Acute Assessment and Plan: hospital d#3 84yo F with HTN + hypothyroidism admitted to the ICU with R thalamic hemorrhagic stroke associated with hypertensive urgency, managed with nicardipine drip stepped down to [facility] 09/27/20 1. Hypertensive Emergency improving, but still not ideal - required IV hydralazine over now increase lisinopril to 40mg daily and continue norvasc may need 3rd antihypertensives if uncontrolled tomorrow 2. thalamic hemorrhagic CVA - repeat CT head stable. BP control, PT/OT evaluations 3. KACIE improving, monitor 4. hypothyroidism synthroid Full Code DVT pptx, mechanical due to brain bleed d/w the son Duane @ [phone]
[2020-09-30] MEDS: Acetaminophen 325 MG TABLET 650 MG PO (20:12)
[2020-10-01 03:18] VITALS: BP 154/69; PULSE 70; RESP 16; TEMP 36.5; O2SAT 93
[2020-10-01 06:00] VITALS: BMI 22.4
[2020-10-01] MEDS: Levothyroxine Sodium 100 MCG TABLET PO (06:25)
[2020-10-01 08:00] VITALS: BP 185/79; PULSE 63; RESP 20; TEMP 36.6; O2SAT 94
[2020-10-01] MEDS: Acetaminophen 325 MG TABLET 650 MG PO (08:30)
[2020-10-01] MEDS: amLODIPine Besylate 5 MG TABLET 10 MG PO (08:30)
[2020-10-01] MEDS: lisinopriL 40 MG TABLET PO (08:30)
[2020-10-01 12:00] VITALS: BP 166/72; BP 93/53; PULSE 59; PULSE 65; RESP 16; TEMP 36.4; TEMP 37.2; O2SAT 95
--- NOTE | 2020-10-01 13:07 | P.DS_ITS ---
DS: Providers Provider Date of Service: 10/01/20 Date of admission: 09/26/20 17:42 Primary care physician: Mati Raya MD DS: Diagnosis Discharge Diagnosis (1) Hypertensive emergency: Status: Acute (2) Intracranial hemorrhage: Status: Acute (3) Thalamic hemorrhage with stroke: Status: Acute DS: Medications Discharge Medications Home Medications: Home Medications Medication Instructions Recorded Confirmed atorvastatin 40 mg PO DAILY 09/26/20 09/26/20 levothyroxine 100 mcg PO DAILY 09/26/20 09/26/20 Previous Rx's Medication Instructions Recorded amlodipine [Norvasc] 10 mg PO DAILY #30 tab 10/01/20 lisinopril 40 mg PO DAILY #30 tab 10/01/20 DS: Summary Hospital Course Hospital Course: Patient presented with left-sided weakness. Her CT of the head showed a right thalamic infarct. She was noted to be significantly hypertensive. She was admitted to the intensive care and started on a nicardipine drip with close neuro monitoring. Fortunately she was able to be weaned and started on oral antihypertensives and subsequently transitioned to the floor. Neurology saw the patient and recommended target systolic blood pressure of 1 40-160 for the next week or so. On the floor, her antihypertensives were further up titrated. She ultimately required increasing her baseline lisinopril from 10 mg to 40 mg daily and Norvasc was added slowly initially with 5 mg which subsequently increased to 10 mg daily. With these measures, her blood pressure over 24 hours remained below 160 systolic. She did not require any IV antihypertensives for more than 36 hours prior to discharge. She was seen by Physical therapy and Occupational therapy and will be discharged home with services. Short-term rehabilitation was declined by the patient. She will be discharged home with lisinopril 40 mg and Norvasc 10 mg daily. \ Time Spent with Patient Time attestation: Total time spent providing and/or coordinating discharge services: Discharge coordination time: Greater than 30 minutes Quality: Stroke Pt Provided Written Stroke Discharge Instructions: Patient given written information Physical Exam Vital Signs: Vital Signs: Last Vital Signs Temp 98.9 F 10/01/20 12:00 Pulse 65 10/01/20 12:00 Resp 16 10/01/20 12:00 BP 166/72 H 10/01/20 12:00 Pulse Ox 95 10/01/20 12:00 Body Mass Index 22.4 Const: Other: General - no acute distress, appears comfortable Cardiovascular - regular rate and rhythm, S1-S2 Lungs - normal respiratory effort, clear to auscultation bilaterally, no wheezing Abdomen - soft, nontender, no rebound or guarding Extremities - no edema bilaterally Neuro - awake and alert, LUE mild weakness, RUE exam limited by chronic R shoulder pain; speech normal DS: Data Data Completed and Pending Labs on day of discharge: Laboratory Tests 09/26/20 09/26/20 09/26/20 17:30 17:30 17:30 WBC 4.4 L RBC 3.54 L Hgb 11.4 L Hct 35.5 L MCV 100.3 H MCH 32.2 MCHC 32.1 RDW 11.5 Plt Count 189 MPV 11.9 Immature Gran % (Auto) 0.5 H Neut % (Auto) 61.6 Lymph % (Auto) 25.7 Pitkin % (Auto) 9.7 Eos % (Auto) 2.0 Baso % (Auto) 0.5 Lymph # (Auto) 1.1 L Pitkin # (Auto) 0.4 Eos # (Auto) 0.1 Baso # (Auto) 0.0 Abs Immat Gran (auto) 0.02 Absolute Neuts (auto) 2.7 Absolute Nucleated RBC 0.000 Nucleated RBC % (auto) 0.0 PT 11.9 Whole Blood PT INR 1.0 Whole Blood INR APTT 31.9 VBG pH VBG pCO2 VBG pO2 VBG HCO3 VBG O2 Saturation VBG Base Excess Sodium 143 Potassium 4.3 Chloride 105 Carbon Dioxide 26 Anion Gap 16 BUN 26 H Creatinine 1.46 H Estim Creat Clear Calc 22.6 Estimated GFR 34 POC Glucose Random Glucose 80 Calcium 8.7 Phosphorus Magnesium Total Bilirubin AST ALT Alkaline Phosphatase Total Creatine Kinase 164 H Troponin I High Sens Total Protein Albumin COVID-19 (JAMES) COVID-19 Clin Com 09/26/20 09/26/20 09/26/20 17:30 17:31 17:39 WBC RBC Hgb Hct MCV MCH MCHC RDW Plt Count MPV Immature Gran % (Auto) Neut % (Auto) Lymph % (Auto) Pitkin % (Auto) Eos % (Auto) Baso % (Auto) Lymph # (Auto) Pitkin # (Auto) Eos # (Auto) Baso # (Auto) Abs Immat Gran (auto) Absolute Neuts (auto) Absolute Nucleated RBC Nucleated RBC % (auto) PT Whole Blood PT 12.1 INR Whole Blood INR 1.0 APTT VBG pH VBG pCO2 VBG pO2 VBG HCO3 VBG O2 Saturation VBG Base Excess Sodium Potassium Chloride Carbon Dioxide Anion Gap BUN Creatinine Estim Creat Clear Calc Estimated GFR POC Glucose 79 Random Glucose Calcium Phosphorus Magnesium Total Bilirubin AST ALT Alkaline Phosphatase Total Creatine Kinase Troponin I High Sens 167.8 H Total Protein Albumin COVID-19 (JAMES) COVID-19 Clin Com 09/26/20 09/26/20 09/26/20 18:16 18:16 18:16 WBC 4.4 L RBC 3.21 L Hgb 10.3 L Hct 32.4 L MCV 100.9 H MCH 32.1 MCHC 31.8 RDW 11.5 Plt Count 189 MPV 12.2 Immature Gran % (Auto) 0.2 Neut % (Auto) 63.8 Lymph % (Auto) 23.1 Pitkin % (Auto) 11.0 Eos % (Auto) 1.4 Baso % (Auto) 0.5 Lymph # (Auto) 1.0 L Pitkin # (Auto) 0.5 Eos # (Auto) 0.1 Baso # (Auto) 0.0 Abs Immat Gran (auto) 0.01 Absolute Neuts (auto) 2.8 Absolute Nucleated RBC 0.000 Nucleated RBC % (auto) 0.0 PT Whole Blood PT INR Whole Blood INR APTT VBG pH 7.29 L VBG pCO2 53 VBG pO2 40 VBG HCO3 25 VBG O2 Saturation 68.3 VBG Base Excess -2.2 Sodium Potassium Chloride Carbon Dioxide Anion Gap BUN Creatinine Estim Creat Clear Calc Estimated GFR POC Glucose Random Glucose Calcium Phosphorus Magnesium Total Bilirubin AST ALT Alkaline Phosphatase Total Creatine Kinase Troponin I High Sens Total Protein Albumin COVID-19 (JAMES) Negative COVID-19 Clin Com See Note 09/27/20 09/28/20 09/28/20 05:08 04:52 04:52 WBC 6.9 RBC 3.29 L Hgb 10.4 L Hct 32.9 L MCV 100.0 H MCH 31.6 MCHC 31.6 RDW 11.5 Plt Count 195 MPV 12.2 Immature Gran % (Auto) 0.1 Neut % (Auto) 65.2 Lymph % (Auto) 21.2 Pitkin % (Auto) 11.9 H Eos % (Auto) 1.5 Baso % (Auto) 0.1 Lymph # (Auto) 1.5 Pitkin # (Auto) 0.8 Eos # (Auto) 0.1 Baso # (Auto) 0.0 Abs Immat Gran (auto) 0.01 Absolute Neuts (auto) 4.5 Absolute Nucleated RBC 0.000 Nucleated RBC % (auto) 0.0 PT Whole Blood PT INR Whole Blood INR APTT VBG pH VBG pCO2 VBG pO2 VBG HCO3 VBG O2 Saturation VBG Base Excess Sodium 141 141 Potassium 4.0 4.3 Chloride 105 104 Carbon Dioxide 27 28 Anion Gap 13 13 BUN 21 H 29 H Creatinine 1.08 1.43 H Estim Creat Clear Calc 30.6 23.1 Estimated GFR 48 35 POC Glucose Random Glucose 109 D 109 Calcium 8.3 L 8.7 Phosphorus 4.2 Magnesium 1.8 Total Bilirubin 0.4 AST 19 ALT 9 Alkaline Phosphatase 75 Total Creatine Kinase Troponin I High Sens Total Protein 6.6 Albumin 3.9 COVID-19 (JAMES) COVID-19 Clin [facility] 09/29/20 09/29/20 09/30/20 05:39 05:39 04:02 WBC 7.2 RBC 3.25 L Hgb 10.4 L Hct 32.7 L MCV 100.6 H MCH 32.0 MCHC 31.8 RDW 11.6 Plt Count 198 MPV 12.6 H Immature Gran % (Auto) 0.3 Neut % (Auto) 65.5 Lymph % (Auto) 17.6 L Pitkin % (Auto) 14.6 H Eos % (Auto) 1.7 Baso % (Auto) 0.3 Lymph # (Auto) 1.3 Pitkin # (Auto) 1.1 Eos # (Auto) 0.1 Baso # (Auto) 0.0 Abs Immat Gran (auto) 0.02 Absolute Neuts (auto) 4.7 Absolute Nucleated RBC 0.000 Nucleated RBC % (auto) 0.0 PT Whole Blood PT INR Whole Blood INR APTT VBG pH VBG pCO2 VBG pO2 VBG HCO3 VBG O2 Saturation VBG Base Excess Sodium 141 141 Potassium 4.5 4.4 Chloride 106 104 Carbon Dioxide 26 26 Anion Gap 14 15 BUN 30 H 28 H Creatinine 1.31 1.24 Estim Creat Clear Calc 25.2 26.7 Estimated GFR 39 41 POC Glucose Random Glucose 92 85 Calcium 8.3 L 8.6 Phosphorus Magnesium Total Bilirubin AST ALT Alkaline Phosphatase Total Creatine Kinase Troponin I High Sens Total Protein Albumin COVID-19 (JAMES) COVID-19 Clin Com Discharge Plan Discharge Patient Disposition: Home Health Service Referrals: [facility] [Outside] Mati Raya MD [Primary Care Provider] - Discharge Medications: New amlodipine [Norvasc] 10 mg tablet 10 mg PO DAILY Qty: 30 RF: 0 lisinopril 40 mg tablet 40 mg PO DAILY Qty: 30 RF: 0 Continued atorvastatin 40 mg Tablet 40 mg PO DAILY RF: 0 levothyroxine 100 mcg Tablet 100 mcg PO DAILY RF: 0 Discontinued lisinopril 10 mg Tablet 10 mg PO DAILY RF: 0 Discharge Orders: Discharge Order (Routine); Ordered 10/01/20 Ordered By: Campos Correa Diet: advance to usual diet and low salt diet Activity on Discharge: As tolerated Visit Report Forms: Patient Portal Discharge page Care Plan Goals: To stay healthy and out of the hospital. Health Concerns: Stroke Uncontrolled hypertension Plan of Treatment: Take Lisinopril 40mg daily and Amlodipine 10mg daily. If your blood pressure is consistently above 160/90 or you have any new neurological symptoms -- return to the emergency room immediately Follow up with primary care doctor within 1 week You will have PT/OT and visiting nursing services at home
--- NOTE | 2020-10-01 13:13 | W.MHC.F2F ---
Service Date Service Date: 10/01/20 Encounter Date of encounter: 10/01/20 Reasons for Services Reason for senior living: medication treatment and other (monitoring blood pressure and neurological status) Reason for physical therapy: home safety and mobility and gait/transfer training Reason for occupational therapy: home safety and mobility and gait/transfer training MD Overseeing Care: Mati Raya Homebound: Leaving the home is medically contraindicated at this time without the asist of a device and/or another person due th the listed conditions above and below. Reason homebound: unsteady gait / fall risk and unable to drive Certification: Based on the above findings, I certify that this patient is confined to the home and needs intermittent senior living care, physical therapy and/or speech therapy, or continues to need occupational therapy. The patient is under my care, and I have initiated the establishment of the plan of care. The patient will be followed by a physician who will periodically review the plan of care.
== END 2020-10-01 15:34 | disposition home health service (06) | DRG 64 ==
LOC: HO.ED 17:49 → HO.ICU 18:40 → HO.IMC 09-28 10:40
PROVIDERS: Family Medicine; Admitting Provider Internal Medicine Pulmonary Disease; Emergency Provider Emergency Medicine; PCP Internal Medicine; Visit Provider Family Medicine
DX: I62.9 Nontraumatic intracranial hemorrhage, unspecified (principal); I63.89 Other cerebral infarction; G81.94 Hemiplegia, unspecified affecting left nondominant side; I16.1 Hypertensive emergency; E03.9 Hypothyroidism, unspecified; I10 Essential (primary) hypertension; R29.704 NIHSS score 4; I48.91 Unspecified atrial fibrillation; E78.00 Pure hypercholesterolemia, unspecified; Z20.828 Contact with and (suspected) exposure to other viral communicable diseases; Z79.899 Other long term (current) drug therapy
CPT/HCPCS: 36415; 70450; 80048; 80053; 82550; 82803; 82947; 83735; 84100; 84484; 85025; 85610; 85730; 87635; 93005; 96365; 96375; 97110; 97116; 97161; 97165; 97535; 99285; 99291

== ENCOUNTER 2020-10-20 08:25 | Outpatient (REF) | payer MEDICARE, OTHER, SELFPAY ==
[2020-10-20 09:20] LABS: Blood Urea Nitrogen 28 mg/dL (9-16); Estimated Glomerular Filt Rate 35
== END 2020-10-20 08:26 | disposition home or self-care (01) ==
LOC: HO.LAB 08:25
PROVIDERS: PCP Internal Medicine; Visit Provider Internal Medicine
DX: R79.9 Abnormal finding of blood chemistry, unspecified (principal)
CPT/HCPCS: 36415; 82565; 84520

== ENCOUNTER 2020-11-10 11:50 | Outpatient (REF) | payer MEDICARE, OTHER, SELFPAY ==
[2020-11-10 13:16] LABS: Blood Urea Nitrogen 30 mg/dL (9-16); Estimated Glomerular Filt Rate 32
[2020-11-10 13:32] LABS: TSH reflex Free T4 0.41 uIU/mL (0.32-4.0)
== END 2020-11-10 11:51 | disposition home or self-care (01) ==
LOC: HO.LNP 11:50
PROVIDERS: Visit Provider Internal Medicine
DX: R79.9 Abnormal finding of blood chemistry, unspecified (principal); E03.9 Hypothyroidism, unspecified
CPT/HCPCS: 82565; 84443; 84520

== ENCOUNTER 2020-11-26 09:57 | Outpatient (REF) | payer MEDICARE, OTHER, SELFPAY ==
--- NOTE | ~2020-11-26 | XR_ITS ---
EXAMINATION: XR SHOULDER, RIGHT CLINICAL INFORMATION: Right shoulder pain COMPARISON: None TECHNIQUE: Right shoulder is imaged in 3 views. FINDINGS: There are osteoarthritic changes involving the glenohumeral joint with joint narrowing and subchondral sclerosis. No visible erosive change. No definite visible chondrocalcinosis. There are likely small geodes subchondral humeral head. There is mild flattening femoral head which may represent pressure erosion lateral healed trauma or chronic avascular necrosis. The acromioclavicular alignment is normal. XR/XR shoulder RT min 2V IMPRESSION: 1. Advanced osteoarthritic changes right glenohumeral joint. 2. Mild flattening humeral head, possibly old healed trauma or chronic avascular necrosis.
== END 2020-11-26 09:58 | disposition home or self-care (01) ==
LOC: HO.HOSX 09:57
PROVIDERS: PCP Internal Medicine; Visit Provider Physician Assistant
DX: M19.111 Post-traumatic osteoarthritis, right shoulder (principal)
CPT/HCPCS: 73030; 99202

== ENCOUNTER → 2020-11-28 10:51 | Outpatient (BNVA) | payer MEDICARE, OTHER, SELFPAY | PROVIDERS: PCP Internal Medicine; Visit Provider Orthopaedic Surgery | DX: M12.811 Other specific arthropathies, not elsewhere classified, right shoulder (principal); I61.9 Nontraumatic intracerebral hemorrhage, unspecified | CPT/HCPCS: 20610; 99212; J1100 ==

== ENCOUNTER 2020-12-11 10:21 | Outpatient (REF) | payer MEDICARE, OTHER, SELFPAY ==
[2020-12-11 11:18] LABS: Blood Urea Nitrogen 27 mg/dL (9-16); Estimated Glomerular Filt Rate 37
== END 2020-12-11 10:22 | disposition home or self-care (01) ==
LOC: HO.LNP 10:21
PROVIDERS: PCP Internal Medicine; Visit Provider Internal Medicine
DX: R79.89 Other specified abnormal findings of blood chemistry (principal)
CPT/HCPCS: 82565; 84520

== ENCOUNTER 2021-01-08 09:00 | Outpatient (RCR) | payer MEDICARE, OTHER, SELFPAY ==
--- NOTE | 2020-12-23 16:13 | MHC.PT.EP ---
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 SHE REPORTS A RECENT STROKE IN [place]PT[place] LIMITING HER MOBILITY BUT STRENGTH OF LEFT LOWER EXTREMITY IS RETURNING AND SHE IS PLEASED WITH HER PROGRESS IN THAT REGARD. AT THIS TIME ROSINA IS PURSUING POSSIBLE SURGERY VERSUS CONSERVATIVE TREATMENT. UPON EXAM TODAY SHE DEMONSTRATES DECREASED GH ROM, ROUGH JOINT CREPITUS, POOR STRENGTH, ALTERED POSTURE AND PAIN WITH MOVEMENT. FUNCTIONAL LIMITATIONS INCLUDE DECREASED USE OF UPPER EXTREMITY FOR ADLs AND HOME MAKING TASKS, DECREASED ABILITY TO PERFORM LIFTING, REACHING, PUSHING AND PULLING, SHE REPORTS DECREASED ABILITY TO PARTICIPATE IN FITNESS AND RECREATIONAL ACTIVITIES AND DISRUPTED SLEEP. Frequency and Duration: The patient will be seen 2 X WEEK FOR 6 WEEKS Short Term Goals: TO INITIATE HEP AND EDUC IN JOINT PROTECTION AND APPROPRIATE GH POSITIONING. Retirement Goals: IN 6 WEEKS TO PERFORM ACTIVE SHOULDER ELEVATION TO 90 DEGREES WITH PAIN NO GREATER THAN 3/10 TO PERFORM ALL DRESSING AND BATHING TASKS INDEPENDENTLY WITH ASSISTIVE DEVICES NEEDED WITH PAIN NO GREATER THAN 3/10 TO REPORT NO PAIN AT REST TO DEMONSTRATE INDEPENDENCE WITH HEP AND SELF MANAGEMENT OF RESIDUAL SYMPTOMS Treatment Plan: Modalities to reduce pain, spasms and effusion. Manual therapy to restore motion and function. Therapeutic exercise to improve strength and flexibility. Neuromuscular re-education for posture and balance. Therapeutic activities to return to functional activities of daily living. Electronically signed by: ROLANDA OLVERA PT, DPT Please sign and return to therapist. Thank you for your referral.
--- NOTE | 2021-02-18 08:19 | MHC.PT.DC ---
[facility] [place] Office [place] Office [place] Office [address] Elisabeth Jean [address] [phone] F: [phone] F: [phone] F: [phone] F: [phone] Physical Therapy Discharge Report Diagnosis: RIGHT SHOULDER PAIN, AWAITING POSSIBLE TSA Date of Surgery: NA Date of Evaluation: 12/23/20 Date of Discharge: 01/29/21 Treatments to Date: 5 Cancellations to Date: 0 No Shows to Date: 0 Discharge Status: Discharge Summary: Qian continues to have very limited mobility/shoulder AROM and significant pain resulting in poor tolerance for PT. She reports she is ready to call orthopedics to discuss TSA. She is currently independent with a home program focused on maintaining mobility and promoting strength in UE as able. She is has been educated in joint protection and pain management strategies. Electronically signed by: Belle Crystal PT, DPT Please sign and return to therapist. Thank you for your referral.
== END 2021-02-18 08:20 | disposition other institution (70) ==
LOC: HO.PT 09:00
PROVIDERS: PCP Internal Medicine; Visit Provider Orthopaedic Surgery
DX: M12.811 Other specific arthropathies, not elsewhere classified, right shoulder (principal)
CPT/HCPCS: 97110; 97112; 97162; 97535

== ENCOUNTER 2021-04-14 10:28 | Outpatient (REF) | payer MEDICARE, OTHER, SELFPAY ==
[2021-04-14 10:33] LABS: MANUAL DIFF FLAG NO
[2021-04-14 10:45] LABS: Basophils Percent Auto 0.7 % (0-2); Eosinophils Absolute Auto 0.2 X10*3/uL (0.0-0.4); Hematocrit 36.2 % (37-47); Hemoglobin 11.3 g/dl (12.0-16.0); Imm Gran Abs Auto 0.01 X10*3/uL (0.00-0.03); Imm Gran Pct Auto 0.2 % (0.0-0.4); Lymphocytes Absolute Auto 1.5 X10*3/uL (1.2-4.9); Lymphocytes Percent Auto 34.4 % (20-40); Mean Corpuscular HGB Conc 31.2 g/dl (31.0-35.0); Mean Corpuscular Hemoglobin 31.5 pg (27.0-33.0); Mean Corpuscular Volume 100.8 fL (80-98); Mean Platelet Volume 11.9 fL (9.4-12.3); Monocytes Absolute Auto 0.7 X10*3/uL (0.1-1.2); Monocytes Percent Auto 15.9 % (2-11); Neutrophils Absolute Auto 1.9 X10*3/uL (2.0-8.3); Neutrophils Percent Auto 44.8 % (45-73); Platelet Count 246 X10*3/uL (160-400); Red Blood Count 3.59 X10*6/uL (4.20-5.50); Red Cell Distribution Width 11.9 % (11.0-16.0); White Blood Count 4.2 X10*3/uL (4.8-10.8)
[2021-04-14 10:51] LABS: Estimated Average Glucose 97 mg/dL
[2021-04-14 10:55] LABS: Alanine Aminotransferase 9 U/L (0-31); Albumin Level 4.2 g/dL (3.5-5.0); Alkaline Phosphatase 73 U/L (39-117); Anion Gap 10 (12-20); Aspartate Amino Transferase 16 U/L (5-31); Bilirubin Total 0.4 mg/dL (0.0-1.0); Blood Urea Nitrogen 28 mg/dL (9-16); Carbon Dioxide 24 mmol/L (22-29); Chloride 111 mmol/L (96-108); Cholesterol 138 mg/dL; Estimated Glomerular Filt Rate 33; Glucose Fasting 101 mg/dL (60-99); HDL Cholesterol 62 mg/dL; LDL Cholesterol Calculated 64 mg/dl; Potassium 4.3 mmol/L (3.3-5.1); Sodium 141 mmol/L (135-145); Total Protein 7.3 g/dL (6.5-8.0); Triglycerides 61 mg/dL
[2021-04-14 11:05] LABS: Glucose Urine UA NEG (NEG); Leukocyte Esterase Urine 1+ (NEG); Nitrite Urine NEG (NEG); PH 5.5 (5.0-8.0); Urine Blood NEG (NEG); Urine Ketones NEG (NEG); Urine Protein NEG (NEG-TRACE)
[2021-04-14 11:10] LABS: Appearance Urine CLEAR; Color Urine YELLOW
[2021-04-14 11:18] LABS: TSH reflex Free T4 0.25 uIU/mL (0.32-4.0); Vitamin D 25-OH Total 60.8 ng/mL (>30)
[2021-04-14 11:23] LABS: Reflex LDLD? No
[2021-04-14 11:26] LABS: Creatinine Urine 88.83 mg/dL; Microalbum/Creatinine Ratio Ur 67.5 ug/mg cr
[2021-04-14 11:53] LABS: Bacteria Urine TRACE /LPF; RBC Urine 0 /HPF (0); Squamous Epithelial Cell Urine 2+ /LPF
[2021-04-14 11:55] LABS: Free T4 (Free Thyroxine) 1.16 ng/dL (0.71-1.85)
== END 2021-04-14 10:29 | disposition home or self-care (01) ==
LOC: HO.LNP 10:28
PROVIDERS: Visit Provider Internal Medicine
DX: E03.9 Hypothyroidism, unspecified (principal); E78.00 Pure hypercholesterolemia, unspecified; R73.09 Other abnormal glucose; M85.80 Other specified disorders of bone density and structure, unspecified site; E55.9 Vitamin D deficiency, unspecified
CPT/HCPCS: 80053; 80061; 81001; 81003; 82043; 82306; 83036; 84439; 84443; 85025

== ENCOUNTER 2021-07-24 10:28 | Outpatient (REF) | payer MEDICARE, OTHER, SELFPAY ==
[2021-07-24 11:13] LABS: TSH reflex Free T4 0.16 uIU/mL (0.32-4.0)
[2021-07-24 12:27] LABS: Free T4 (Free Thyroxine) 1.24 ng/dL (0.71-1.85)
== END 2021-07-24 10:29 | disposition home or self-care (01) ==
LOC: HO.LNP 10:28
PROVIDERS: PCP Internal Medicine; Visit Provider Internal Medicine
DX: E03.9 Hypothyroidism, unspecified (principal)
CPT/HCPCS: 84439; 84443

== ENCOUNTER 2021-08-17 12:54 | Outpatient (REF) | payer MEDICARE, OTHER, SELFPAY ==
--- NOTE | ~2021-08-17 | XR_ITS ---
EXAMINATION: XR SHOULDER, RIGHT CLINICAL INFORMATION: Right shoulder pain. COMPARISON: 11/26/2020 TECHNIQUE: AP external rotation, Grashey, scapular Y, and axillary views of the right shoulder. FINDINGS: Severe osteoarthritic changes are seen at the glenohumeral joint with narrowing sclerosis and osteophytes. The humeral head is again noted to be flattened. Differential diagnosis as described previously including old trauma or chronic avascular necrosis. XR/XR shoulder RT min 2V IMPRESSION: Unchanged severe degenerative changes right shoulder with flattening and deformity of the humeral head as described above.
== END 2021-08-17 12:55 | disposition home or self-care (01) ==
LOC: HO.XRAY 12:54
PROVIDERS: Visit Provider Internal Medicine
DX: M25.511 Pain in right shoulder (principal)
CPT/HCPCS: 73030

== ENCOUNTER 2021-08-25 11:30 | Outpatient (REF) | payer MEDICARE, OTHER, SELFPAY ==
--- NOTE | ~2021-08-25 | US_ITS ---
EXAMINATION: US ABDOMEN LIMITED CLINICAL INFORMATION: Periumbilical mass. ?hernia. COMPARISON: None TECHNIQUE: Real-time imaging of the periumbilical region as indicated by the patient. FINDINGS: In the area of periumbilical region where patient complains of pain, there is no mass or hernia seen. There is no abdominal wall dehiscence. The gallbladder appears distended with echogenic sludge with possible nonechogenic stones but no gallbladder wall thickening. US/US abdomen limited IMPRESSION: No abnormality seen on limited ultrasound imaging through the periumbilical region. No hernia or mass. Distended gallbladder with echogenic sludge and likely nonechogenic stones. No gallbladder wall thickening.
== END 2021-08-25 11:31 | disposition home or self-care (01) ==
LOC: HO.HMGCX 11:30
PROVIDERS: PCP Internal Medicine; Visit Provider Internal Medicine
DX: R19.05 Periumbilic swelling, mass or lump (principal)
CPT/HCPCS: 76705

== ENCOUNTER 2021-09-03 09:45 | Outpatient (REF) | payer MEDICARE, OTHER, SELFPAY ==
--- NOTE | ~2021-09-03 | XR_ITS ---
EXAMINATION: XR CHEST CLINICAL INFORMATION: Rales COMPARISON: Chest x-ray 09/26/2006 TECHNIQUE: 2 views of the chest were obtained. FINDINGS: Cardiac silhouette is normal in size. Atherosclerotic disease of the aortic arch. Hyperinflated lungs consistent with emphysematous changes. No gross lobar consolidation. No pleural effusion or pneumothorax. Subtle linear opacities of left lung base are most suggestive of scarring. Diffuse osteopenia with degenerative changes of the spine. Compression deformity at the thoracolumbar junction is age indeterminate. XR/XR chest 2V IMPRESSION: No acute pulmonary pathology.
== END 2021-09-03 09:46 | disposition home or self-care (01) ==
LOC: HO.XRAY 09:45
PROVIDERS: Visit Provider Internal Medicine
DX: R09.89 Other specified symptoms and signs involving the circulatory and respiratory systems (principal)
CPT/HCPCS: 71046

== ENCOUNTER 2021-10-22 10:35 | Outpatient (REF) | payer MEDICARE, OTHER, SELFPAY ==
[2021-10-22 10:57] LABS: Estimated Average Glucose 94 mg/dL; Hemoglobin A1C 89.2839 umol/L; Hemoglobin A1c % 4.9 %
[2021-10-22 11:14] LABS: Alanine Aminotransferase 6 U/L (0-31); Alkaline Phosphatase 83 U/L (39-117); Aspartate Amino Transferase 15 U/L (5-31); Bilirubin Direct < 0.2 mg/dL (0.0-0.5); Bilirubin Total 0.3 mg/dL (0.0-1.0); Cholesterol 137 mg/dL; Glucose Fasting 91 mg/dL (60-99); HDL Cholesterol 57 mg/dL; LDL Cholesterol Calculated 65 mg/dl; Triglycerides 77 mg/dL
[2021-10-22 12:08] LABS: Reflex LDLD? No
== END 2021-10-22 10:36 | disposition home or self-care (01) ==
LOC: HO.LNP 10:35
PROVIDERS: PCP Internal Medicine; Visit Provider Internal Medicine
DX: R73.03 Prediabetes (principal); E78.00 Pure hypercholesterolemia, unspecified
CPT/HCPCS: 80061; 80076; 82947; 83036

== ENCOUNTER 2022-04-23 10:55 | Outpatient (REF) | payer MEDICARE, OTHER, SELFPAY ==
[2022-04-23 11:01] LABS: MANUAL DIFF FLAG NO
[2022-04-23 11:27] LABS: Basophils Percent Auto 0.2 % (0-2); Eosinophils Absolute Auto 0.1 X10*3/uL (0.0-0.4); Eosinophils Percent Auto 2.2 % (0-4); Hematocrit 34.4 % (37.0-47.0); Hemoglobin 10.9 g/dl (12.0-16.0); Imm Gran Abs Auto 0.01 X10*3/uL (0.00-0.03); Imm Gran Pct Auto 0.2 % (0.0-0.4); Lymphocytes Absolute Auto 1.5 X10*3/uL (1.2-4.9); Lymphocytes Percent Auto 26.4 % (20-40); Mean Corpuscular HGB Conc 31.7 g/dl (31.0-35.0); Mean Corpuscular Hemoglobin 32.2 pg (27.0-33.0); Mean Corpuscular Volume 101.5 fL (80.0-98.0); Mean Platelet Volume 11.5 fL (9.4-12.3); Monocytes Absolute Auto 0.8 X10*3/uL (0.1-1.2); Monocytes Percent Auto 14.2 % (2-11); Neutrophils Absolute Auto 3.1 x10*3/uL (2.0-8.3); Neutrophils Percent Auto 56.8 % (45-73); Platelet Count 242 X10*3/uL (160-400); Red Blood Count 3.39 X10*6/uL (4.20-5.50); Red Cell Distribution Width 11.9 % (11.0-16.0); White Blood Count 5.5 X10*3/uL (4.8-10.8)
[2022-04-23 11:36] LABS: Appearance Urine HAZY; Color Urine YELLOW; Glucose Urine UA NEG (NEG); Leukocyte Esterase Urine 1+ (NEG); Nitrite Urine NEG (NEG); PH 5.5 (5.0-8.0); Specific Gravity - Urine 1.015 (1.005-1.025); Urine Blood NEG (NEG); Urine Ketones NEG (NEG); Urine Protein TRACE MG/DL (NEG-TRACE)
[2022-04-23 11:37] LABS: Alanine Aminotransferase 9 U/L (0-31); Alkaline Phosphatase 73 U/L (39-117); Anion Gap 13 (12-20); Aspartate Amino Transferase 16 U/L (5-31); Bilirubin Total 0.4 mg/dL (0.0-1.0); Blood Urea Nitrogen 22 mg/dL (9-16); Calcium 8.5 mg/dL (8.4-10.2); Carbon Dioxide 23 mmol/L (22-29); Chloride 109 mmol/L (96-108); Cholesterol 138 mg/dL; Estimated Glomerular Filt Rate 42; Glucose Fasting 133 mg/dL (60-99); HDL Cholesterol 58 mg/dL; LDL Cholesterol Calculated 59 mg/dl; Potassium 4.4 mmol/L (3.3-5.1); Sodium 141 mmol/L (135-145); Triglycerides 109 mg/dL
[2022-04-23 11:50] LABS: Estimated Average Glucose 94 mg/dL; Hemoglobin A1c % 4.9 %
[2022-04-23 12:00] LABS: Vitamin D 25-OH Total 67.6 ng/mL (>30)
[2022-04-23 12:09] LABS: RBC Urine 0-2 /HPF (0); Squamous Epithelial Cell Urine TRACE /LPF; Urine Talc Crystals 2+ /LPF
[2022-04-23 12:47] LABS: Creatinine Urine 48.75 mg/dL; Microalbum/Creatinine Ratio Ur 145.6 ug/mg cr
[2022-04-23 13:15] LABS: Free T4 (Free Thyroxine) 1.24 ng/dL (0.71-1.85)
== END 2022-04-23 10:56 | disposition home or self-care (01) ==
LOC: HO.LNP 10:55
PROVIDERS: Visit Provider Internal Medicine
DX: I10 Essential (primary) hypertension (principal); E03.9 Hypothyroidism, unspecified; R73.03 Prediabetes; E78.00 Pure hypercholesterolemia, unspecified; E55.9 Vitamin D deficiency, unspecified
CPT/HCPCS: 80053; 80061; 81001; 82043; 82306; 83036; 84439; 84443; 85025

== ENCOUNTER 2022-08-16 11:22 | Outpatient (REF) | payer MEDICARE, OTHER, SELFPAY ==
[2022-08-16 13:03] LABS: TSH reflex Free T4 5.24 uIU/mL (0.32-4.0)
[2022-08-16 14:02] LABS: Free T4 (Free Thyroxine) 1.06 ng/dL (0.71-1.85)
== END 2022-08-16 11:23 | disposition home or self-care (01) ==
LOC: HO.LNP 11:22
PROVIDERS: Visit Provider Internal Medicine
DX: E03.9 Hypothyroidism, unspecified (principal)
CPT/HCPCS: 84439; 84443

== ENCOUNTER 2022-09-25 09:33 | Inpatient (IN) | payer MEDICARE, OTHER, SELFPAY ==
[2022-09-25] VITALS (8 sets, daily range): BP systolic 133–168; BP diastolic 57–80; PULSE 71–94; RESP 14–21; TEMP 36.3–37; O2SAT 88–96
--- NOTE | ~2022-09-25 | XR_ITS ---
EXAMINATION: XR CHEST CLINICAL INFORMATION: Rhonchi, cough, Covid 19 COMPARISON: CTA chest and chest x-ray September 25, 2022 TECHNIQUE: Frontal view of the chest was obtained. FINDINGS: Cardiac silhouette is normal in size. The lungs are adequately aerated. There is diffuse coarsening of the interstitial markings consistent with chronic changes. There is no gross lobar consolidation identified. No pleural effusion or pneumothorax. Old posttraumatic changes of the right shoulder. XR/XR chest 1V IMPRESSION: Chronic lung changes without acute pulmonary pathology.
--- NOTE | ~2022-09-25 | CT_ITS ---
EXAMINATION: CT ANGIOGRAM OF THE CHEST WITH AND WITHOUT CONTRAST (CT PULMONARY ANGIOGRAM FOR PE) CLINICAL INFORMATION: Reason for Exam hypoxia, elevated ddimer COMPARISON: Chest radiograph 09/25/2022 TECHNIQUE: Prior to contrast administration, noncontrast localization images were obtained. Subsequently, multidetector volumetric imaging was performed from the thoracic inlet to below the diaphragms following the administration of 65 mL Omnipaque 350 intravenous contrast. No contrast reaction reported Sagittal, coronal, and MIP oblique sagittal reformatted images were obtained on the CT workstation, uploaded to PACS, and reviewed. This CT examination was performed using dose optimization techniques as appropriate, variously including the following: *Automated exposure control *Adjustment of mA and/or kV according to patient size (this includes techniques or standardized protocols for targeted exams where dose is matched to indication/reason for exam; i.e. extremities or head) *Use of iterative reconstruction technique Total exam dose-length product 251 mGy-cm FINDINGS: QUALITY OF STUDY/CONTRAST BOLUS: Satisfactory. PULMONARY ARTERIES: No central or segmental pulmonary emboli. THORACIC AORTA: No aneurysm or dissection. LUNG: Underlying changes of COPD are present. Multiple areas of tree-in-bud opacities are seen peripherally most prominent in the right upper lobe laterally There is atelectasis/collapse in the posterior basal segment of the left lower lobe there is bronchial wall thickening and occlusion of bronchi extending to this area. There is traction bronchiectasis and some subpleural fibrotic changes seen in the right middle lobe PLEURA: No pleural effusion or pneumothorax. MEDIASTINUM: Thyroid is small if present coronary calcification is present. Heart size normal. No mediastinal or hilar lymphadenopathy. No evidence of septal bowing or right heart strain. CHEST WALL/AXILLA: No axillary or internal mammary lymphadenopathy. OSSEOUS STRUCTURES: No acute or suspicious osseous abnormality. UPPER ABDOMEN: The right kidney is small and atrophic. Extensive vascular calcifications are present. No reflux of contrast into the hepatic veins to suggest elevated right heart pressures. CT/CT angio chest PE protocol IMPRESSION: 1. No evidence of pulmonary emboli. 2. Underlying COPD with some fibrotic changes 3. Tree-in-bud opacities in the right upper lobe consistent with infectious/inflammatory disease. 4. Left lower lobe atelectasis/collapse with bronchial wall thickening and occlusion of bronchi. 5. Atrophic right kidney. VTE: negative.
--- NOTE | ~2022-09-25 | XR_ITS ---
EXAMINATION: XR CHEST CLINICAL INFORMATION: Cough COMPARISON: Chest x-ray September 03, 2021 TECHNIQUE: Frontal view of the chest was obtained. FINDINGS: Cardiac silhouette is at the upper limits of normal in size. The lungs are mildly hyperinflated. Mild diffuse chronic coarsening of the interstitial markings. There is no lobar consolidation. No pleural effusion or pneumothorax. Old posttraumatic changes of the right shoulder. XR/XR chest 1V IMPRESSION: Emphysematous changes of the lungs without acute pulmonary pathology.
--- NOTE | 2022-09-25 09:37 | ECG_ITS ---
Test Reason : weakness Blood Pressure : / mmHG Vent. 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
--- NOTE | 2022-09-25 09:47 | ED_ITS ---
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 She presents with her son who she lives with to help provide history. He states a couple of weeks ago he had a cough and then his mom got it. He reports her cough is keeping her up at night and not allowing her to sleep. He reports her PO intake has decreased. She feels extremely weak and nauseated on arrival to the ER. She had loose stool on her legs and bottom. Unknown if fevers at home. She reports some mild chest pain with coughing. No abdominal pain but states loose stool and she cannot say when it started. She states she feels confused. MD complaint: cough and weakness Onset (ago): day(s) (03-26) Location: chest Radiation: non-radiation Severity: moderate Quality: aching Pain Consistency: constant Relieving factors: none Exacerbating factors: movement Associated symptoms: confusion, chest pain, cough, loss of appetite, malaise, nausea/vomiting, shortness of breath and weakness Treatments prior to arrival: none Related Data Home Medications Medication Instructions Recorded Confirmed atorvastatin 40 mg tablet 40 mg PO BEDTIME 09/26/20 09/25/22 ascorbic acid (vitamin C) 500 mg 500 mg PO DAILY 09/25/22 09/25/22 tablet glucosamine HCl-vitamin D3 1,000 1 tab PO DAILY 09/25/22 09/25/22 mg-200 unit tablet levothyroxine 88 mcg tablet 1 tab PO DAILY@0630 09/25/22 09/25/22 valsartan 320 mg tablet 1 tab PO DAILY 09/25/22 09/25/22 Previous Rx's Medication Instructions Recorded amlodipine 10 mg tablet (Norvasc) 10 mg PO DAILY #30 tabs 10/01/20 Allergies Allergy/AdvReac Type Severity Reaction Status Date / Time levofloxacin [From Levaquin] Allergy Mild Rash Verified 11/28/20 11:06 Review of Systems Review of Systems: Yes all other systems are reviewed and are negative PMFSH Past Medical History Medical History (Updated 09/25/22 @ 11:31 by ADARSH Marcos) High cholesterol Hypertension Hypothyroidism Right shoulder injury Rotator cuff arthropathy of right shoulder Thalamic hemorrhage with stroke Surgical History H/O thyroidectomy Social History Social History Household Members: Children Household Members Other:: son lives w/ her - [place] Housing: Other Housing Other:: co-op Do you presently have visiting nurse or other home services: No Alcohol intake: never Advance Directives: Yes Advance Directives Information Provided: Yes Advance Directives on File: No service: No Current occupational status: retired Physical Exam ED Vital Signs: Vital Signs - 24 hr 09/25/22 09:38 09/25/22 10:55 09/25/22 10:57 Temperature 98.4 F Pulse Rate 94 Respiratory Rate 18 Blood Pressure 168/80 H Pulse Oximetry 94 88 L 92 Oxygen Delivery Method Room Air Room Air Nasal Cannula Oxygen Flow Rate 2 09/25/22 11:28 Temperature 98.2 F Pulse Rate 91 Respiratory Rate 21 H Blood Pressure 154/75 H Pulse Oximetry 96 Oxygen Delivery Method Nasal Cannula Oxygen Flow Rate 2 BMI result Body Mass Index 20.0 Appearance: Alert elderly female laying on the stretcher. Oriented X3. Appears ill Eyes: Pupils equal, round and reactive to light. ENT: Pharynx normal. Dry mucus membranes Neck: Normal inspection. Neck supple. CVS: Normal heart rate and rhythm. Pulses normal. Respiratory: No respiratory distress. Breath sounds normal. Abdomen: Soft and nontender. +BS x4 Skin: Skin warm and dry. Normal skin color. Normal skin turgor. No rashes. Extremities: No lower extremity edema. Neuro: Oriented X 3. No motor deficit. No sensory deficit. Generalized weakness noted. Course Course Course Narrative: 86 yo female with history of HTN, hemorrhage stoke 2020 due to HTN emergency, h ypothyroidism who presents to the ER with 7-8 days of not feeling well - sxs include cough, congestion, diarrhea, weakness, decreased PO intake. On arrival to the ER she is hemodyncamically stable and afebrile. She appears ill. She had episode of loose, yellowish stool. Will check viral swabs, UA, CXR and medicate with zofran & IVF for now. Will reassess. Reevaluation(s) Reevaluation #1: Found to be COVID positive. She is vaccinated x4, has never had COVID before. CXR reviewed - appreciated new patchy opacities bilaterally new compared to prior c/w viral PNA. will treat with IV decadron. Time: 10:45 Reevaluation #2: SpO2 88% on RA. No resp distress. Placed on 2L NC with improvement in saturations to 92%. WBC 16K. procalcitonin low. UA pending. Holding off on antibiotics for now. Time: 10:57 Reevaluation #3: UA negative. No other signs of bacterial infection to indicate abx. not septic at this time. Hospitalist TT for admission. Time: 12:00 Medications Administered Discontinued Medications Generic Name Dose Route Start Last Admin Trade Name Freq PRN Reason Stop Dose Admin Dexamethasone Sodium Phosphate 6 mg 09/25/22 10:45 09/25/22 10:53 Dexamethasone Sod Phosphate 4 Mg/Ml Vial IVPUSH 09/25/22 10:46 6 mg ONCE ONE Administration Sodium Chloride 1,000 mls @ 999 mls/hr 09/25/22 10:00 09/25/22 11:45 Ns IVCONT 09/25/22 11:00 Infused .Q1H1M SARA Infusion Ondansetron HCl 4 mg 09/25/22 09:58 09/25/22 10:53 Ondansetron Hcl 4 Mg/2 Ml Vial IVPUSH 09/25/22 09:59 4 mg ONCE ONE Administration Medical Decision Making Differential Diagnosis Differential Diagnoses: The differential diagnosis associated with the presentation includes COVID, flu, RSV, other viral etiology, pneumonitis, pneumonia, aspiration, UTI, other infectious process Admission/Observation Consideration of admission/observation: Escalation of care including admission/observation considered Patient found to be hypoxic to 88% on room air, COVID positive, will require admission as she is requiring supplemental oxygen. Consult Healthcare Provider Management of the patient was discussed with: Hospitalist Lab Data MDM Lab Attestation statement: I reviewed the patient's lab results. Labs independently reviewed. Leukocytosis noted to 16.1. Stable macrocytic a nemia. No significant metabolic derangement COVID positive. CRP elevated at 8 09/25/22 10:29 09/25/22 10:29 Labs: Lab Results 09/25/22 09/25/22 09/25/22 Range/Units 09:42 09:42 10:29 WBC 16.1 H (4.8-10.8) X10*3/uL RBC 3.39 L (4.20-5.50) X10*6/uL Hgb 10.7 L (12.0-16.0) g/dl Hct 33.8 L (37.0-47.0) % MCV 99.7 H (80.0-98.0) fL MCH 31.6 (27.0-33.0) pg MCHC 31.7 (31.0-35.0) g/dl RDW 12.4 (11.0-16.0) % Plt Count 221 (160-400) X10*3/uL MPV 10.8 (9.4-12.3) fL Immature Gran % (Auto) 0.6 H (0.0-0.4) % Neut % (Auto) 84.3 H (45-73) % Lymph % (Auto) 4.5 L (20-40) % [place] % (Auto) 10.4 (2-11) % Eos % (Auto) 0.1 (0-4) % Baso % (Auto) 0.1 (0-2) % Lymph # (Auto) 0.7 L (1.2-4.9) X10*3/uL [place] # (Auto) 1.7 H (0.1-1.2) X10*3/uL Eos # (Auto) 0.0 (0.0-0.4) X10*3/uL Baso # (Auto) 0.0 (0.0-0.2) X10*3/uL Abs Immat Gran (auto) 0.09 H (0.00-0.03) X10*3/uL Absolute Neuts (auto) 13.6 H (2.0-8.3) x10*3/uL Absolute Nucleated RBC 0.000 (0.0-0.012) X10*3/uL Nucleated RBC % (auto) 0.0 (0.0-0.2) /100WBC Sodium (135-145) mmol/L Potassium (3.3-5.1) mmol/L Chloride (96-108) mmol/L Carbon Dioxide (22-29) mmol/L Anion Gap (12-20) BUN (9-16) mg/dL Creatinine (0.5-1.4) mg/dL Estim Creat Clear Calc Estimated GFR Random Glucose (60-115) mg/dL Calcium (8.4-10.2) mg/dL Magnesium (1.6-2.6) mg/dL Total Bilirubin (0.0-1.0) mg/dL Direct Bilirubin (0.0-0.5) mg/dL AST (5-31) U/L ALT (0-31) U/L Alkaline Phosphatase (39-117) U/L Troponin I High Sens (<3.5-17.0) ng/L C-Reactive Protein (< or = 0.50) mg/dL Total Protein (6.5-8.0) g/dL Albumin (3.5-5.0) g/dL Procalcitonin ng/mL Urine Color Urine Appearance Urine pH (5.0-9.0) Ur Specific [place] (1.005-1.025) Urine Protein (Neg-Trace) mg/dL Urine Glucose (UA) (Negative) mg/dL Urine Ketones (Negative) mg/dL Urine Blood (Negative) Urine Nitrite (Negative) Ur Leukocyte Esterase (Negative) Urine RBC (0-2) /HPF Urine WBC (0-5) /HPF Ur Squamous Epith Cells (0-2) /HPF Urine Bacteria (None Seen) Hyaline Casts (0-2) /LPF COVID-19 (JAMES) Positive A (Negative) COVID-19 Clin Com See Note Influenza Type A (BENJI) Negative (Negative) Influenza Type B (BENJI) Negative (Negative) Influenza A & B Note See Note 09/25/22 09/25/22 09/25/22 Range/Units 10:29 10:29 10:29 WBC (4.8-10.8) X10*3/uL RBC (4.20-5.50) X10*6/uL Hgb (12.0-16.0) g/dl Hct (37.0-47.0) % MCV (80.0-98.0) fL MCH (27.0-33.0) pg MCHC (31.0-35.0) g/dl RDW (11.0-16.0) % Plt Count (160-400) X10*3/uL MPV (9.4-12.3) fL Immature Gran % (Auto) (0.0-0.4) % Neut % (Auto) (45-73) % Lymph % (Auto) (20-40) % [place] % (Auto) (2-11) % Eos % (Auto) (0-4) % Baso % (Auto) (0-2) % Lymph # (Auto) (1.2-4.9) X10*3/uL [place] # (Auto) (0.1-1.2) X10*3/uL Eos # (Auto) (0.0-0.4) X10*3/uL Baso # (Auto) (0.0-0.2) X10*3/uL Abs Immat Gran (auto) (0.00-0.03) X10*3/uL Absolute Neuts (auto) (2.0-8.3) x10*3/uL Absolute Nucleated RBC (0.0-0.012) X10*3/uL Nucleated RBC % (auto) (0.0-0.2) /100WBC Sodium 143 (135-145) mmol/L Potassium 4.0 (3.3-5.1) mmol/L Chloride 111 H (96-108) mmol/L Carbon Dioxide 21 L (22-29) mmol/L Anion Gap 15 (12-20) BUN 23 H (9-16) mg/dL Creatinine 1.32 (0.5-1.4) mg/dL Estim Creat Clear Calc 26.3 Estimated GFR 38 Random Glucose 111 (60-115) mg/dL Calcium 8.8 (8.4-10.2) mg/dL Magnesium 1.9 (1.6-2.6) mg/dL Total Bilirubin 0.4 (0.0-1.0) mg/dL Direct Bilirubin 0.2 (0.0-0.5) mg/dL AST 15 (5-31) U/L ALT 7 (0-31) U/L Alkaline Phosphatase 84 (39-117) U/L Troponin I High Sens 37.4 H (<3.5-17.0) ng/L C-Reactive Protein 8.10 H (< or = 0.50) mg/dL Total Protein 7.1 (6.5-8.0) g/dL Albumin 4.0 (3.5-5.0) g/dL Procalcitonin ng/mL Urine Color Urine Appearance Urine pH (5.0-9.0) Ur Specific [place] (1.005-1.025) Urine Protein (Neg-Trace) mg/dL Urine Glucose (UA) (Negative) mg/dL Urine Ketones (Negative) mg/dL Urine Blood (Negative) Urine Nitrite (Negative) Ur Leukocyte Esterase (Negative) Urine RBC (0-2) /HPF Urine WBC (0-5) /HPF Ur Squamous Epith Cells (0-2) /HPF Urine Bacteria (None Seen) Hyaline Casts (0-2) /LPF COVID-19 (JAMES) (Negative) COVID-19 Clin Com Influenza Type A (BENJI) (Negative) Influenza Type B (BENJI) (Negative) Influenza A & B Note 09/25/22 09/25/22 Range/Units 10:29 11:22 WBC (4.8-10.8) X10*3/uL RBC (4.20-5.50) X10*6/uL Hgb (12.0-16.0) g/dl Hct (37.0-47.0) % MCV (80.0-98.0) fL MCH (27.0-33.0) pg MCHC (31.0-35.0) g/dl RDW (11.0-16.0) % Plt Count (160-400) X10*3/uL MPV (9.4-12.3) fL Immature Gran % (Auto) (0.0-0.4) % Neut % (Auto) (45-73) % Lymph % (Auto) (20-40) % [place] % (Auto) (2-11) % Eos % (Auto) (0-4) % Baso % (Auto) (0-2) % Lymph # (Auto) (1.2-4.9) X10*3/uL [place] # (Auto) (0.1-1.2) X10*3/uL Eos # (Auto) (0.0-0.4) X10*3/uL Baso # (Auto) (0.0-0.2) X10*3/uL Abs Immat Gran (auto) (0.00-0.03) X10*3/uL Absolute Neuts (auto) (2.0-8.3) x10*3/uL Absolute Nucleated RBC (0.0-0.012) X10*3/uL Nucleated RBC % (auto) (0.0-0.2) /100WBC Sodium (135-145) mmol/L Potassium (3.3-5.1) mmol/L Chloride (96-108) mmol/L Carbon Dioxide (22-29) mmol/L Anion Gap (12-20) BUN (9-16) mg/dL Creatinine (0.5-1.4) mg/dL Estim Creat Clear Calc Estimated GFR Random Glucose (60-115) mg/dL Calcium (8.4-10.2) mg/dL Magnesium (1.6-2.6) mg/dL Total Bilirubin (0.0-1.0) mg/dL Direct Bilirubin (0.0-0.5) mg/dL AST (5-31) U/L ALT (0-31) U/L Alkaline Phosphatase (39-117) U/L Troponin I High Sens (<3.5-17.0) ng/L C-Reactive Protein (< or = 0.50) mg/dL Total Protein (6.5-8.0) g/dL Albumin (3.5-5.0) g/dL Procalcitonin 0.46 ng/mL Urine Color Yellow Urine Appearance Clear Urine pH 5.5 (5.0-9.0) Ur Specific [place] 1.020 (1.005-1.025) Urine Protein 100 (2+) H (Neg-Trace) mg/dL Urine Glucose (UA) Negative (Negative) mg/dL Urine Ketones Negative (Negative) mg/dL Urine Blood Negative (Negative) Urine Nitrite Negative (Negative) Ur Leukocyte Esterase Negative (Negative) Urine RBC 0-2 (0-2) /HPF Urine WBC 0-5 (0-5) /HPF Ur Squamous Epith Cells 0-2 (0-2) /HPF Urine Bacteria None Seen (None Seen) Hyaline Casts 0-2 (0-2) /LPF COVID-19 (JAMES) (Negative) COVID-19 Clin Com Influenza Type A (BENJI) (Negative) Influenza Type B (BENJI) (Negative) Influenza A & B Note Independent Interpretation I performed an independent interpretation of an: EKG and Plain X-Ray Interpretation: EKG @ 10:06 - normal sinus rhythm, ventricular rate 84 beats per minute, LVH, normal LA interval, normal QTC, no significant change from prior 2020 cxr with mild bilateral opacities which are new from prior Radiology Impression Discussion of test interpretation with radiology: I have reviewed the radiologist's reading. Radiologist Impression: FINDINGS: Cardiac silhouette is at the upper limits of normal in size. The lungs are mildly hyperinflated. Mild diffuse chronic coarsening of the interstitial markings. There is no lobar consolidation. No pleural effusion or pneumothorax. Old posttraumatic changes of the right shoulder. XR/XR chest 1V IMPRESSION: Emphysematous changes of the lungs without acute pulmonary pathology Independent Historian Clinical information obtained from an independent historian. History obtained from or confirmed by: Other (Son who she lives with) External Record Review External record reviewed: Inpatient record and Prior outpatient labs Prescription Management I considered prescription management with: Antibiotic Critical Care Time Critical Care Time Critical Care Time: Yes Total Critical Care Time: 41 Attestation: I have personally provided critical care time exclusive of time spent on separately billable procedures. Time includes review of lab data, radiology results, discussion with consultants, and monitoring for potential decompensation. Intervention performed as documented. Discharge Plan Discharge Clinical Impression: COVID-19, Generalized weakness, Hypoxia Patient Disposition: Admitted As Inpatient
[2022-09-25 10:07] LABS: COVID-19 Test Positive (Negative); IDNOW Serial# 9DB6401D
[2022-09-25 10:20] LABS: IDNOW Serial# 55D5AD1C; Influenza A Negative (Negative); Influenza B2 Negative (Negative)
[2022-09-25 10:39] LABS: Basophils Percent Auto 0.1 % (0-2); Eosinophils Percent Auto 0.1 % (0-4); Hematocrit 33.8 % (37.0-47.0); Hemoglobin 10.7 g/dl (12.0-16.0); Imm Gran Abs Auto 0.09 X10*3/uL (0.00-0.03); Imm Gran Pct Auto 0.6 % (0.0-0.4); Lymphocytes Absolute Auto 0.7 X10*3/uL (1.2-4.9); Lymphocytes Percent Auto 4.5 % (20-40); Mean Corpuscular HGB Conc 31.7 g/dl (31.0-35.0); Mean Corpuscular Hemoglobin 31.6 pg (27.0-33.0); Mean Corpuscular Volume 99.7 fL (80.0-98.0); Mean Platelet Volume 10.8 fL (9.4-12.3); Monocytes Absolute Auto 1.7 X10*3/uL (0.1-1.2); Neutrophils Absolute Auto 13.6 x10*3/uL (2.0-8.3); Neutrophils Percent Auto 84.3 % (45-73); Platelet Count 221 X10*3/uL (160-400); Red Blood Count 3.39 X10*6/uL (4.20-5.50); Red Cell Distribution Width 12.4 % (11.0-16.0); SCAN SMEAR FLAG 1; White Blood Count 16.1 X10*3/uL (4.8-10.8)
[2022-09-25 10:48] LABS: Monocytes Percent Auto 10.4 % (2-11)
[2022-09-25 10:49] LABS: MANUAL DIFF FLAG NO
[2022-09-25] MEDS: 0.9 % Sodium Chloride 1,000 ML 999 ML IVCONT (10:50)
[2022-09-25] MEDS: dexAMETHasone sod phosphate 4 MG/ML VIAL 6 MG IVPUSH (10:53)
[2022-09-25] MEDS: ondansetron HCL 4 MG/2 ML VIAL IVPUSH (10:53)
[2022-09-25 10:57] LABS: Troponin-I High Sensitivity 37.4 ng/L (<3.5-17.0)
[2022-09-25 11:05] LABS: Alanine Aminotransferase 7 U/L (0-31); Alkaline Phosphatase 84 U/L (39-117); Anion Gap 15 (12-20); Aspartate Amino Transferase 15 U/L (5-31); Bilirubin Direct 0.2 mg/dL (0.0-0.5); Bilirubin Total 0.4 mg/dL (0.0-1.0); Blood Urea Nitrogen 23 mg/dL (9-16); Calcium 8.8 mg/dL (8.4-10.2); Carbon Dioxide 21 mmol/L (22-29); Chloride 111 mmol/L (96-108); Creatinine Clr Calc Pharmacy 26.3; Estimated Glomerular Filt Rate 38; Glucose Random 111 mg/dL (60-115); Magnesium 1.9 mg/dL (1.6-2.6); Sodium 143 mmol/L (135-145); Total Protein 7.1 g/dL (6.5-8.0)
[2022-09-25 11:10] LABS: Procalcitonin 0.46 ng/mL
[2022-09-25 11:32] LABS: Appearance Urine Clear; Color Urine Yellow; Glucose Urine UA Negative (Negative); Leukocyte Esterase Urine Negative (Negative); Nitrite Urine Negative (Negative); PH 5.5 (5.0-9.0); UMIC TRIGGER UACC YES; Urine Blood Negative (Negative); Urine Ketones Negative (Negative); Urine Protein 100 (2+) mg/dL (Neg-Trace)
[2022-09-25 11:34] LABS: Bacteria Urine None Seen (None Seen); Hyaline Casts Urine 0-2 /LPF (0-2); RBC Urine 0-2 /HPF (0-2); Squamous Epithelial Cell Urine 0-2 /HPF (0-2); WBC Urine 0-5 /HPF (0-5)
--- NOTE | 2022-09-25 11:53 | PHA.MEDREC ---
Pharmacy Consult ? Medication Reconciliation Pharmacy has completed the medication reconciliation.spoke with son john who had a med list with him. patient was given all AM medications today.
[2022-09-25 12:22] LABS: Troponin-I High Sensitivity 27.7 ng/L (<3.5-17.0)
--- NOTE | 2022-09-25 13:13 | PM.IMHP ---
History of Present Illness Date of Service: 09/25/22 Attending physician on admission: Magdy Randellshant Chief Complaint: shortness of breath, cough, congestion 86-year-old female with history of hypertension, hypothyroidism, hx thalamic stroke, hyperlipidemia presented to the ED from home earlier today for evaluation of 1 week of worsening cough, congestion, malaise, and dyspnea on exertion. Her p.o. intake has also been decreased with intermittent episodes of nausea but she states she has been eating and drinking. She had 1 episode of diarrhea this morning. Her son who is present on exam, states he had a cough several weeks ago. Denies any fevers, chills, headache, abdominal pain, vomiting, melena, hematochezia, lightheadedness, palpitations, chest pressure. On arrival, patient hemodynamically stable, but developed hypoxia with oximetry of 88%, placed on 2L supplemental O2. WBC 16.1. Mild macromyctic anemia with H/H 10.7/33.8% consistent with baseline. Renal function baseline with CKD stage 3. No significant electrolyte abnormality. CRP 8.10. Procalcitonin 0.46. CXR with diffuse emphysematous changes. Positive for COVID 19. Negative for influenza. She is fully vaccinated against COVID19 with booster x 2. Pt to be admitted for COVID-19 with acute hypoxemic respiratory failure. Review of Systems Review of Systems: General: +malaise, +anorexia. No fevers, unintentional weight loss HEENT: +congestion. No blurred vision, diplopia. No sore throat, rhinorrhea, sinus pain, ear pain Cardiovascular: No chest pain, palpitations, or leg edema Respiratory: +shortness of breath, +cough, No wheezing GI: +diarrhea. No abdominal pain, nausea, vomiting, constipation, melena, hematochezia : No dysuria, hematuria, increased urinary frequency, decreased urinary output MSK: No myalgia, back pain Neuro: No headaches, weakness, paresthesias Skin: No rashes or lesions [facility] Medical History (Updated 09/25/22 @ 13:27 by ADARSH Berumen) COVID-19 High cholesterol Hypertension Hypothyroidism Right shoulder injury Rotator cuff arthropathy of right shoulder Thalamic hemorrhage with stroke Surgical History H/O thyroidectomy Social History Household Members: Children Household Members Other:: son lives w/ her - [place] Housing: Other Housing Other:: co-op Do you presently have visiting nurse or other home services: No Alcohol intake: never Advance Directives: Yes Advance Directives Information Provided: Yes Advance Directives on File: No service: No Current occupational status: retired Meds Allergies Allergy/AdvReac Type Severity Reaction Status Date / Time levofloxacin [From Levaquin] Allergy Mild Rash Verified 11/28/20 11:06 Active Medications: Current Medications Acetaminophen (Acetaminophen 325 Mg Tablet) 650 mg PO Q6H PRN PRN Reason: Pain, Mild (Pain Scale 1-3) Dexamethasone Sodium Phosphate (Dexamethasone Sod Phosphate 4 Mg/Ml Vial) 6 mg IVPUSH DAILY SARA Enoxaparin Sodium (Enoxaparin Sodium 40 Mg/0.4 Ml Syringe) 40 mg SUBCUT Q24H SARA Remdesivir 200 mg/ Sodium (Chloride) 210 mls @ 105 mls/hr IV ONCE ONE Stop: 09/25/22 15:59 Remdesivir 100 mg/ Sodium (Chloride) 230 mls @ 115 mls/hr IV Q24H SARA Stop: 09/29/22 15:59 Ondansetron HCl (Ondansetron Hcl 4 Mg/2 Ml Vial) 4 mg IVPUSH Q8H PRN PRN Reason: Nausea and Vomiting Pharmacy Consult (Consult Rx Perform Med Rec) 1 each MISCELLANE ONCE PRN PRN Reason: Consult order Home Medications Medication Instructions Recorded Confirmed Last Taken Type atorvastatin 40 mg tablet 40 mg PO BEDTIME 09/26/20 09/25/22 09/25/22 History ascorbic acid (vitamin C) 500 mg 500 mg PO DAILY 09/25/22 09/25/22 09/25/22 History tablet glucosamine HCl-vitamin D3 1,000 1 tab PO DAILY 09/25/22 09/25/22 09/25/22 History mg-200 unit tablet levothyroxine 88 mcg tablet 1 tab PO DAILY@0630 09/25/22 09/25/22 09/25/22 History valsartan 320 mg tablet 1 tab PO DAILY 09/25/22 09/25/22 09/25/22 History Physical Exam Vital Signs and Narrative: Vital Signs: Last Vital Signs Temp 98.2 F 09/25/22 11:28 Pulse 91 09/25/22 11:28 Resp 21 H 09/25/22 11:28 BP 154/75 H 09/25/22 11:28 Pulse Ox 96 09/25/22 11:28 O2 Del Method 09/25/22 11:28 O2 Flow Rate 2 09/25/22 11:28 BMI result Body Mass Index 20.0 Constitutional - Awake and Alert, No apparent distress Eyes - PERRLA, EOMI Cardiovascular - S1S2, RRR, No edema Respiratory - Normal lung expansion, Normal respiratory effort, No respiratory distress on 2L supplemental O2. Diffuse coarse crackles bilaterally. No wheezing Gastrointestinal - NT / ND; +BS; No rebound or guarding Extremities - no calf tenderness bilaterally, no swelling Skin - Warm/Dry Neurological - Alert & oriented x3, CN II-XII in tact, 5/5 strength BUE and BLE Psychological - Appropriate affect Results Labs 09/25/22 10:29 09/25/22 10:29 Labs: Laboratory Results - last 24 hr 09/25/22 09/25/22 09/25/22 09:42 09:42 10:29 MCV 99.7 H MCH 31.6 MCHC 31.7 RDW 12.4 Plt Count 221 MPV 10.8 Immature Gran % (Auto) 0.6 H Neut % (Auto) 84.3 H Lymph % (Auto) 4.5 L [place] % (Auto) 10.4 Eos % (Auto) 0.1 Baso % (Auto) 0.1 Lymph # (Auto) 0.7 L [place] # (Auto) 1.7 H Eos # (Auto) 0.0 Baso # (Auto) 0.0 Abs Immat Gran (auto) 0.09 H Absolute Neuts (auto) 13.6 H Absolute Nucleated RBC 0.000 Nucleated RBC % (auto) 0.0 Anion Gap Estim Creat Clear Calc Estimated GFR Random Glucose Calcium Magnesium Total Bilirubin Direct Bilirubin AST ALT Alkaline Phosphatase Troponin I High Sens C-Reactive Protein Total Protein Albumin Procalcitonin Urine Color Urine Appearance Urine pH Ur Specific [place] Urine Protein Urine Glucose (UA) Urine Ketones Urine Blood Urine Nitrite Ur Leukocyte Esterase Urine RBC Urine WBC Ur Squamous Epith Cells Urine Bacteria Hyaline Casts COVID-19 (JAMES) Positive A COVID-19 Clin Com See Note Influenza Type A (BENJI) Negative Influenza Type B (BENJI) Negative Influenza A & B Note See Note 09/25/22 09/25/22 09/25/22 10:29 10:29 10:29 MCV MCH MCHC RDW Plt Count MPV Immature Gran % (Auto) Neut % (Auto) Lymph % (Auto) [place] % (Auto) Eos % (Auto) Baso % (Auto) Lymph # (Auto) [place] # (Auto) Eos # (Auto) Baso # (Auto) Abs Immat Gran (auto) Absolute Neuts (auto) Absolute Nucleated RBC Nucleated RBC % (auto) Anion Gap 15 Estim Creat Clear Calc 26.3 Estimated GFR 38 Random Glucose 111 Calcium 8.8 Magnesium 1.9 Total Bilirubin 0.4 Direct Bilirubin 0.2 AST 15 ALT 7 Alkaline Phosphatase 84 Troponin I High Sens 37.4 H C-Reactive Protein 8.10 H Total Protein 7.1 Albumin 4.0 Procalcitonin Urine Color Urine Appearance Urine pH Ur Specific [place] Urine Protein Urine Glucose (UA) Urine Ketones Urine Blood Urine Nitrite Ur Leukocyte Esterase Urine RBC Urine WBC Ur Squamous Epith Cells Urine Bacteria Hyaline Casts COVID-19 (JAMES) COVID-19 Clin Com Influenza Type A (BENJI) Influenza Type B (BENJI) Influenza A & B Note 09/25/22 09/25/22 09/25/22 10:29 11:22 11:42 MCV MCH MCHC RDW Plt Count MPV Immature Gran % (Auto) Neut % (Auto) Lymph % (Auto) [place] % (Auto) Eos % (Auto) Baso % (Auto) Lymph # (Auto) [place] # (Auto) Eos # (Auto) Baso # (Auto) Abs Immat Gran (auto) Absolute Neuts (auto) Absolute Nucleated RBC Nucleated RBC % (auto) Anion Gap Estim Creat Clear Calc Estimated GFR Random Glucose Calcium Magnesium Total Bilirubin Direct Bilirubin AST ALT Alkaline Phosphatase Troponin I High Sens 27.7 H C-Reactive Protein Total Protein Albumin Procalcitonin 0.46 Urine Color Yellow Urine Appearance Clear Urine pH 5.5 Ur Specific [place] 1.020 Urine Protein 100 (2+) H Urine Glucose (UA) Negative Urine Ketones Negative Urine Blood Negative Urine Nitrite Negative Ur Leukocyte Esterase Negative Urine RBC 0-2 Urine WBC 0-5 Ur Squamous Epith Cells 0-2 Urine Bacteria None Seen Hyaline Casts 0-2 COVID-19 (JAMES) COVID-19 Clin Com Influenza Type A (BENJI) Influenza Type B (BENJI) Influenza A & B Note Imaging Radiologist's Impressions: Impressions Chest X-Ray 09/25/22 10:39 IMPRESSION: Emphysematous changes of the lungs without acute pulmonary pathology. Assessment and Plan (1) COVID-19: Status: Acute (2) Acute hypoxemic respiratory failure: Status: Acute (3) Generalized weakness: Status: Acute Plan 86-year-old female with history of hypertension, hypothyroidism, hx thalamic stroke, hyperlipidemia admitted for management of COVID-19 with acute hypoxemic respiratory failure. # acute hypoxemic respiratory failure-secondary to COVID-19 -desatting to 88% on room air. Continue supplemental O2 to maintain oximetry >92%. -CXR negative for pneumonia but shows diffuse emphysematous changes -VBG, D-dimer, BNP pending # COVID-19 with hypoxia -CRP 8.10, procalcitonin 0.46. WBC 16.1. CXR negative for pneumonia, antibiotics not indicated at this time -IV remdesivir -IV Decadron -symptomatic management -regular diet -consider ID consult if no improvement -consider chest CT if no improvement -follow CBC, BMP -Consider PT eval # hypertension-reasonably controlled -continue home meds # hypothyroidism -stable-last free T4 1.06 -continue levothyroxine # hyperlipidemia -continue statin # chronic macrocytic anemia -vitamin B12 and folic acid pending -H/H baseline DVT prophylaxis-Lovenox DNR/DNI Patient requires inpatient stay of at least 2 midnights for management of COVID-19 with acute hypoxemic respiratory failure on IV remdesivir and Decadron and requiring supplemental O2. Time Spent With Patient Time: Total time managing care of this patient today ____ minutes. Quality Stroke Does the patient have a stroke diagnosis?: No VTE Prior VTE?: No VTE Risk Level:: Medical - moderate - high VTE Device Contraindication: Treatment Not Indicated VTE Drug Contraindication: N/A - Med Ordered
[2022-09-25 13:41] LABS: Venous Blood Gas Refer to POC result
[2022-09-25 13:46] LABS: VBG Base Excess -6.1 mmol/L; VBG HCO3 17 mmol/L (22-26); VBG pCO2 28 mmHg; VBG pH 7.39 (7.32-7.43); VBG pO2 112 mmHg
[2022-09-25 13:50] LABS: D Dimer High Sensitivity 331 NG/ML
[2022-09-25 14:11] LABS: B Type Natriuretic Peptide 205 pg/mL (<100)
[2022-09-25 14:29] LABS: Folate 8.7 ng/mL (> or = 4.0); Vitamin B12 958 pg/mL (200-900)
[2022-09-25] MEDS: Remdesivir 200 MG in 0.9 % Sodium Chloride 210 ML 105 MG IV (14:57)
--- NOTE | 2022-09-25 17:37 | PC.NURSE ---
report given to [facility] [place]
[2022-09-25] MEDS: iohexoL 350 MG/ML 100 ML INFUS..BTL IV (17:57)
[2022-09-25] MEDS: Enoxaparin Sodium 30 MG/0.3 ML SYRINGE SUBCUT (18:29)
[2022-09-25] MEDS: Atorvastatin Calcium 40 MG TABLET PO (20:35)
[2022-09-26] VITALS: BP 154/68; PULSE 80; RESP 16; TEMP 36.1; O2SAT 93
[2022-09-26 04:00] VITALS: BP 160/75; PULSE 74; RESP 16; TEMP 36.5; O2SAT 97
[2022-09-26] MEDS: Levothyroxine Sodium 88 MCG TABLET PO (06:10)
[2022-09-26 06:22] LABS: MANUAL DIFF FLAG NO
[2022-09-26 06:24] LABS: Basophils Percent Auto 0.1 % (0-2); Eosinophils Percent Auto 0.1 % (0-4); Hematocrit 35.3 % (37.0-47.0); Hemoglobin 10.9 g/dl (12.0-16.0); Imm Gran Abs Auto 0.09 X10*3/uL (0.00-0.03); Imm Gran Pct Auto 0.6 % (0.0-0.4); Lymphocytes Absolute Auto 0.7 X10*3/uL (1.2-4.9); Lymphocytes Percent Auto 5.1 % (20-40); Mean Corpuscular HGB Conc 30.9 g/dl (31.0-35.0); Mean Corpuscular Hemoglobin 31.8 pg (27.0-33.0); Mean Corpuscular Volume 102.9 fL (80.0-98.0); Mean Platelet Volume 11.2 fL (9.4-12.3); Monocytes Absolute Auto 1.1 X10*3/uL (0.1-1.2); Monocytes Percent Auto 7.6 % (2-11); Neutrophils Percent Auto 86.5 % (45-73); Platelet Count 213 X10*3/uL (160-400); Red Blood Count 3.43 X10*6/uL (4.20-5.50); Red Cell Distribution Width 12.6 % (11.0-16.0); White Blood Count 13.9 X10*3/uL (4.8-10.8)
[2022-09-26 06:42] LABS: Anion Gap 14 (12-20); Blood Urea Nitrogen 28 mg/dL (9-16); Calcium 8.2 mg/dL (8.4-10.2); Carbon Dioxide 22 mmol/L (22-29); Chloride 114 mmol/L (96-108); Creatinine Clr Calc Pharmacy 28.9; Estimated Glomerular Filt Rate 43; Glucose Random 114 mg/dL (60-115); Potassium 4.7 mmol/L (3.3-5.1); Sodium 145 mmol/L (135-145)
[2022-09-26 08:00] VITALS: BP 150/75; PULSE 75; TEMP 36.7; O2SAT 98
[2022-09-26] MEDS: amLODIPine Besylate 10 MG TABLET PO (09:14)
[2022-09-26] MEDS: Ascorbic Acid 500 MG TABLET PO (09:14)
[2022-09-26] MEDS: dexAMETHasone sod phosphate 4 MG/ML VIAL 6 MG IVPUSH (09:14)
[2022-09-26] MEDS: Valsartan 320 MG TABLET PO (09:14)
[2022-09-26 12:00] VITALS: BP 149/80; PULSE 79; RESP 16; TEMP 36.8; O2SAT 97
--- NOTE | 2022-09-26 12:01 | HO.PM.IMPN ---
Subjective Subjective Date of Service: 09/26/22 Interval History: Seen in follow up for COVID-19, acute hypoxemic respiratory failure Interval history: Pt reporting cough. Resting comfortably in chair on 2L O2. Afebrile Review of Systems Review of Systems: Yes all other systems are reviewed and are negative Physical Exam Vital Signs: Vital Signs: Last Vital Signs Temp 98.0 F 09/26/22 08:00 Pulse 75 09/26/22 08:00 Resp 16 09/26/22 04:00 BP 150/75 H 09/26/22 08:00 Pulse Ox 98 09/26/22 08:00 O2 Del Method 09/26/22 08:00 O2 Flow Rate 2 09/26/22 08:00 BMI result Body Mass Index 20.0 Objective Data Active Medications Acetaminophen (Acetaminophen 325 Mg Tablet) 650 mg PO Q6H PRN PRN Reason: Pain, Mild (Pain Scale 1-3) Albuterol Sulfate (Albuterol Sulfate (0.083%) 2.5 Mg/3 Ml Vial.Neb) 2.5 mg INHALE Q3H PRN PRN Reason: Shortness of Breath/Wheezing Amlodipine Besylate (Amlodipine Besylate 10 Mg Tablet) 10 mg PO DAILY [facility]; Protocol Last Admin: 09/26/22 09:14 Dose: 10 mg Documented By: ANGIE Ascorbic Acid (Ascorbic Acid 500 Mg Tablet) 500 mg PO DAILY [facility] Last Admin: 09/26/22 09:14 Dose: 500 mg Documented By: ANGIE Atorvastatin Calcium (Atorvastatin Calcium 40 Mg Tablet) 40 mg PO BEDTIME [facility] Last Admin: 09/25/22 20:35 Dose: 40 mg Documented By: BOOM Dexamethasone Sodium Phosphate (Dexamethasone Sod Phosphate 4 Mg/Ml Vial) 6 mg IVPUSH DAILY [facility] Last Admin: 09/26/22 09:14 Dose: 6 mg Documented By: ANGIE Enoxaparin Sodium (Enoxaparin Sodium 30 Mg/0.3 Ml Syringe) 30 mg SUBCUT Q24H [facility] Last Admin: 09/25/22 18:29 Dose: 30 mg Documented By: KALEB Guaifenesin (Guaifenesin 200 Mg/10 Ml 10 Ml Liquid) 10 ml PO Q4H PRN PRN Reason: Cough Remdesivir 100 mg/ Sodium (Chloride) 230 mls @ 115 mls/hr IV Q24H [facility] Stop: 09/29/22 15:59 Levothyroxine Sodium (Levothyroxine Sodium 88 Mcg Tablet) 88 mcg PO DAILY@0600 [facility] Last Admin: 09/26/22 06:10 Dose: 88 mcg Documented By: BOOM Ondansetron HCl (Ondansetron Hcl 4 Mg/2 Ml Vial) 4 mg IVPUSH Q8H PRN PRN Reason: Nausea and Vomiting Pharmacy Consult (Consult Rx Perform Med Rec) 1 each MISCELLANE ONCE PRN PRN Reason: Consult order Valsartan (Valsartan 320 Mg Tablet) 320 mg PO DAILY [facility]; Protocol Last Admin: 09/26/22 09:14 Dose: 320 mg Documented By: ANGIE Labs 09/26/22 06:15 09/26/22 06:15 Labs: Laboratory Results - last 24 hr 09/25/22 09/25/22 09/25/22 10:29 11:42 13:21 MCV MCH MCHC RDW Plt Count MPV Immature Gran % (Auto) Neut % (Auto) Lymph % (Auto) [place] % (Auto) Eos % (Auto) Baso % (Auto) Lymph # (Auto) [place] # (Auto) Eos # (Auto) Baso # (Auto) Abs Immat Gran (auto) Absolute Neuts (auto) Absolute Nucleated RBC Nucleated RBC % (auto) D-Dimer High Sensitivty 331 VBG pH VBG pCO2 VBG pO2 VBG HCO3 VBG O2 Saturation VBG Base Excess Anion Gap Estim Creat Clear Calc Estimated GFR Random Glucose Calcium Troponin I High Sens 27.7 H B-Natriuretic Peptide Vitamin B12 958 H Folate 8.7 09/25/22 09/25/22 09/26/22 13:21 13:38 06:15 MCV 102.9 H MCH 31.8 MCHC 30.9 L RDW 12.6 Plt Count 213 MPV 11.2 Immature Gran % (Auto) 0.6 H Neut % (Auto) 86.5 H Lymph % (Auto) 5.1 L [place] % (Auto) 7.6 Eos % (Auto) 0.1 Baso % (Auto) 0.1 Lymph # (Auto) 0.7 L [place] # (Auto) 1.1 Eos # (Auto) 0.0 Baso # (Auto) 0.0 Abs Immat Gran (auto) 0.09 H Absolute Neuts (auto) 12.0 H Absolute Nucleated RBC 0.000 Nucleated RBC % (auto) 0.0 D-Dimer High Sensitivty VBG pH 7.39 VBG pCO2 28 VBG pO2 112 VBG HCO3 17 L VBG O2 Saturation 100.0 VBG Base Excess -6.1 Anion Gap Estim Creat Clear Calc Estimated GFR Random Glucose Calcium Troponin I High Sens B-Natriuretic Peptide 205 H Vitamin B12 Folate 09/26/22 06:15 MCV MCH MCHC RDW Plt Count MPV Immature Gran % (Auto) Neut % (Auto) Lymph % (Auto) [place] % (Auto) Eos % (Auto) Baso % (Auto) Lymph # (Auto) [place] # (Auto) Eos # (Auto) Baso # (Auto) Abs Immat Gran (auto) Absolute Neuts (auto) Absolute Nucleated RBC Nucleated RBC % (auto) D-Dimer High Sensitivty VBG pH VBG pCO2 VBG pO2 VBG HCO3 VBG O2 Saturation VBG Base Excess Anion Gap 14 Estim Creat Clear Calc 28.9 Estimated GFR 43 Random Glucose 114 Calcium 8.2 L D Troponin I High Sens B-Natriuretic Peptide Vitamin B12 Folate Assessment and Plan (1) Acute hypoxemic respiratory failure: Status: Acute (2) COVID-19: Status: Acute Plan 86-year-old female with history of hypertension, hypothyroidism, hx thalamic stroke, hyperlipidemia admitted for management of COVID-19 with acute hypoxemic respiratory failure. # acute hypoxemic respiratory failure-secondary to COVID-19 - Continue supplemental O2 to maintain oximetry >92%, titrate as tolerated -DDimer 331. CTA chest negative for PE, does show tree in bed pattern RUL suggestive of inflammatory/infectious process -VBG reassuring # COVID-19 with hypoxia -WBC trending down, now 13.1. CXR negative yesterday, however has new rhonchi RML/RLL. Repeat CXR ordered -IV remdesivir -IV Decadron -symptomatic management -regular diet -follow CBC, BMP -PT eval # hypertension-reasonably controlled -continue home meds # hypothyroidism -stable-last free T4 1.06 -continue levothyroxine # hyperlipidemia -continue statin # chronic macrocytic anemia -vitamin B12 and folic acid pending -H/H baseline DVT prophylaxis-Lovenox DNR/DNI Patient requires ongoing inpt stay for management of COVID-19 with acute hypoxemic respiratory failure on IV remdesivir and Decadron and requiring supplemental O2. Time Spent With Patient Time: Total time managing care of this patient today 35 minutes. Quality Stroke Does the patient have a stroke diagnosis?: No VTE Prior VTE?: No VTE Risk Level:: Medical - moderate - high VTE Device Contraindication: Treatment Not Indicated VTE Drug Contraindication: N/A - Med Ordered
--- NOTE | 2022-09-26 12:26 | MHC.CM.PN ---
Lives with son Duane in two story home. Patient's bedroom and full bathroom are both on second floor. Patient at times sleeps on the couch but is required to manage a full flight of stairs to take a shower or bathe. She owns a walker for her ambulatory needs. Her son Duane drives her where she needs to go. No prior VNA. Family is not interested in considering any SNF options, should SNF be recommended. They are however, open to in-home nursing and PT should it be determined it necessary. CM to follow.
[2022-09-26] MEDS: Remdesivir 100 MG in 0.9 % Sodium Chloride 230 ML 115 MG IV (15:31)
[2022-09-26 16:00] VITALS: BP 145/85; PULSE 82; RESP 17; TEMP 36.7; O2SAT 97
[2022-09-26] MEDS: Enoxaparin Sodium 30 MG/0.3 ML SYRINGE SUBCUT (17:24)
[2022-09-26] MEDS: methylPREDNISolone Sod Succ 40 MG/ML VIAL IVPUSH (17:25)
[2022-09-26] MEDS: Doxycycline Monohydrate 100 MG CAPSULE PO (17:25)
[2022-09-26 20:00] VITALS: BP 173/70; PULSE 78; RESP 18; TEMP 36.1; O2SAT 92
[2022-09-26] MEDS: Atorvastatin Calcium 40 MG TABLET PO (20:49)
[2022-09-26] MEDS: Melatonin 3 MG TABLET 6 MG PO (22:05)
[2022-09-27] VITALS: BP 177/72; PULSE 82; RESP 20; TEMP 36.2; O2SAT 93
[2022-09-27 03:13] VITALS: BP 160/60; PULSE 81; RESP 20; TEMP 36.1; O2SAT 94
[2022-09-27] MEDS: methylPREDNISolone Sod Succ 40 MG/ML VIAL IVPUSH (05:37)
[2022-09-27] MEDS: Doxycycline Monohydrate 100 MG CAPSULE PO (05:37)
[2022-09-27] MEDS: Levothyroxine Sodium 88 MCG TABLET PO (05:37)
[2022-09-27 06:35] LABS: Hematocrit 33.9 % (37.0-47.0); Hemoglobin 10.9 g/dl (12.0-16.0); Mean Corpuscular HGB Conc 32.2 g/dl (31.0-35.0); Mean Corpuscular Hemoglobin 32.2 pg (27.0-33.0); Mean Corpuscular Volume 100.3 fL (80.0-98.0); Mean Platelet Volume 11.2 fL (9.4-12.3); Platelet Count 236 X10*3/uL (160-400); Red Blood Count 3.38 X10*6/uL (4.20-5.50); Red Cell Distribution Width 12.4 % (11.0-16.0)
[2022-09-27 06:43] LABS: WBC ABN SCTR FOR CBC 1
[2022-09-27 06:44] LABS: Anion Gap 15 (12-20); Blood Urea Nitrogen 34 mg/dL (9-16); Calcium 8.3 mg/dL (8.4-10.2); Carbon Dioxide 20 mmol/L (22-29); Chloride 110 mmol/L (96-108); Creatinine Clr Calc Pharmacy 28.1; Estimated Glomerular Filt Rate 41; Glucose Random 152 mg/dL (60-115); Potassium 4.5 mmol/L (3.3-5.1); Sodium 140 mmol/L (135-145)
[2022-09-27 07:25] LABS: Band Neutrophils Percent 1 % (3-5); Lymphocytes Percent Manual 4 % (20-40); Monocytes Percent Manual 1 % (2-11); Neutrophils Percent Manual 94 % (45-73)
[2022-09-27 07:27] LABS: Macrocytosis 1+ (5-14) /OIF; Ovalocytes 1+ (5-14) /OIF; Platelet Estimate NORMAL (NORMAL); Platelet Morphology Comment NORMAL; RBC Morphology NOTED
[2022-09-27 08:00] VITALS: BP 134/74; PULSE 84; RESP 20; TEMP 36.4; O2SAT 94
[2022-09-27 08:04] LABS: Lymphocytes Absolute Manual 0.5 X10*3/uL (1.2-4.9); Monocytes Absolute Manual 0.1 X10*3/uL (0.1-1.2); Neutrophils Absolute Manual 11.3 X10*3/uL (2.0-8.3); White Blood Count 11.9 X10*3/uL (4.8-10.8)
[2022-09-27] MEDS: dexAMETHasone sod phosphate 4 MG/ML VIAL 6 MG IVPUSH (09:32)
[2022-09-27] MEDS: amLODIPine Besylate 10 MG TABLET PO (09:32)
[2022-09-27] MEDS: Ascorbic Acid 500 MG TABLET PO (09:32)
[2022-09-27] MEDS: hydroCHLOROthiazide 12.5 MG TABLET PO (09:32)
[2022-09-27] MEDS: Valsartan 320 MG TABLET PO (09:32)
--- NOTE | 2022-09-27 09:48 | MHC.CM.PN ---
Addendum entered by Alize Xie 09/27/22 15:51: IMM 09/27/22 Addendum entered by Alize Xie 09/27/22 15:49: PT eval rec Home with PT. Preferences obtained, referral sent. Family will provide transportation home. Original Note: Female Covid+ Lives with son DP Home with family assist and transport. Patient and son are not interested in discharge to a facility. If VNA needed willing to accept. CM will follow for discharge needs.
[2022-09-27 11:16] VITALS: PULSE 100; O2SAT 97
[2022-09-27 11:24] VITALS: BP 137/69; PULSE 77; RESP 16; TEMP 37; O2SAT 94
[2022-09-27] MEDS: Remdesivir 100 MG in 0.9 % Sodium Chloride 230 ML 115 MG IV (14:09)
[2022-09-27 15:21] VITALS: BP 149/67; PULSE 75; RESP 20; TEMP 36.5; O2SAT 96
--- NOTE | 2022-09-27 15:23 | HO.PM.IMPN ---
Subjective Subjective Date of Service: 09/27/22 Interval History: Seen in follow up for COVID-19, acute hypoxemic respiratory failure Interval history: Pt reporting cough. Resting comfortably in chair on 2L O2. Afebrile Review of Systems Review of Systems: Yes all other systems are reviewed and are negative Physical Exam Vital Signs: Vital Signs: Last Vital Signs Temp 97.7 F 09/27/22 15:21 Pulse 75 09/27/22 15:21 Resp 20 09/27/22 15:21 BP 149/67 H 09/27/22 15:21 Pulse Ox 96 09/27/22 15:21 O2 Del Method 09/27/22 15:21 O2 Flow Rate 2 09/26/22 16:00 BMI result Body Mass Index 20.0 Objective Data Active Medications Acetaminophen (Acetaminophen 325 Mg Tablet) 650 mg PO Q6H PRN PRN Reason: Pain, Mild (Pain Scale 1-3) Albuterol Sulfate (Albuterol Sulfate (0.083%) 2.5 Mg/3 Ml Vial.Neb) 2.5 mg INHALE Q3H PRN PRN Reason: Shortness of Breath/Wheezing Amlodipine Besylate (Amlodipine Besylate 10 Mg Tablet) 10 mg PO DAILY [facility]; Protocol Last Admin: 09/27/22 09:32 Dose: 10 mg Documented By: ANGIE Ascorbic Acid (Ascorbic Acid 500 Mg Tablet) 500 mg PO DAILY [facility] Last Admin: 09/27/22 09:32 Dose: 500 mg Documented By: ANGIE Atorvastatin Calcium (Atorvastatin Calcium 40 Mg Tablet) 40 mg PO BEDTIME [facility] Last Admin: 09/26/22 20:49 Dose: 40 mg Documented By: ISAEL Albuterol Sulfate 2.5 mg/ (Ipratropium [place] 0.5 mg) 0 mg INHALE RQ4H WHILE AWAKE [facility] Last Admin: 09/27/22 14:33 Dose: Not Given Documented By: MARA Non-Admin Reason: Patient Refused Dexamethasone Sodium Phosphate (Dexamethasone Sod Phosphate 4 Mg/Ml Vial) 6 mg IVPUSH DAILY [facility] Last Admin: 09/27/22 09:32 Dose: 6 mg Documented By: ANGIE Doxycycline Monohydrate (Doxycycline Monohydrate 100 Mg Capsule) 100 mg PO Q12H [facility] Last Admin: 09/27/22 05:37 Dose: 100 mg Documented By: ISAEL Enoxaparin Sodium (Enoxaparin Sodium 30 Mg/0.3 Ml Syringe) 30 mg SUBCUT Q24H [facility] Last Admin: 09/26/22 17:24 Dose: 30 mg Documented By: ANGIE Guaifenesin (Guaifenesin 200 Mg/10 Ml 10 Ml Liquid) 10 ml PO Q4H PRN PRN Reason: Cough Hydrochlorothiazide (Hydrochlorothiazide 12.5 Mg Tablet) 12.5 mg PO DAILY [facility]; Protocol Last Admin: 09/27/22 09:32 Dose: 12.5 mg Documented By: ANGIE Remdesivir 100 mg/ Sodium (Chloride) 230 mls @ 115 mls/hr IV Q24H [facility] Stop: 09/29/22 15:59 Last Admin: 09/27/22 14:09 Dose: 115 mls/hr Documented By: ANGIE Levothyroxine Sodium (Levothyroxine Sodium 88 Mcg Tablet) 88 mcg PO DAILY@0600 [facility] Last Admin: 09/27/22 05:37 Dose: 88 mcg Documented By: ISAEL Melatonin (Melatonin 3 Mg Tablet) 6 mg PO BEDTIME PRN PRN Reason: Insomnia Last Admin: 09/26/22 22:05 Dose: 6 mg Documented By: ISAEL Methylprednisolone Sodium Succinate (Methylprednisolone Sod Succ 40 Mg/Ml Vial) 40 mg IVPUSH Q12H [facility] Last Admin: 09/27/22 05:37 Dose: 40 mg Documented By: ISAEL Ondansetron HCl (Ondansetron Hcl 4 Mg/2 Ml Vial) 4 mg IVPUSH Q8H PRN PRN Reason: Nausea and Vomiting Pharmacy Consult (Consult Rx Perform Med Rec) 1 each MISCELLANE ONCE PRN PRN Reason: Consult order Valsartan (Valsartan 320 Mg Tablet) 320 mg PO DAILY [facility]; Protocol Last Admin: 09/27/22 09:32 Dose: 320 mg Documented By: ANGIE Labs 09/27/22 06:21 09/27/22 06:21 Labs: Laboratory Results - last 24 hr 09/27/22 09/27/22 06:21 06:21 MCV 100.3 H MCH 32.2 MCHC 32.2 RDW 12.4 Plt Count 236 MPV 11.2 Immature Gran % (Auto) Cancelled Neut % (Auto) Cancelled Lymph % (Auto) Cancelled [place] % (Auto) Cancelled Eos % (Auto) Cancelled Baso % (Auto) Cancelled Lymph # (Auto) Cancelled [place] # (Auto) Cancelled Eos # (Auto) Cancelled Baso # (Auto) Cancelled Abs Immat Gran (auto) Cancelled Absolute Neuts (auto) Cancelled Absolute Nucleated RBC 0.000 Nucleated RBC % (auto) 0.0 Neutrophils % (Manual) 94 H Band Neutrophils % 1 L Lymphocytes % (Manual) 4 L Monocytes % (Manual) 1 L Abs Neuts (Manual) 11.3 H Lymphocytes # (Manual) 0.5 L Monocytes # (Manual) 0.1 Platelet Estimate NORMAL Plt Morphology Comment NORMAL RBC Morphology NOTED Macrocytosis 1+ (5-14) Ovalocytes 1+ (5-14) Anion Gap 15 Estim Creat Clear Calc 28.1 Estimated GFR 41 Random Glucose 152 H Calcium 8.3 L Assessment and Plan Time Spent With Patient Time: Total time managing care of this patient today ____ minutes. Quality Stroke Does the patient have a stroke diagnosis?: No VTE Prior VTE?: No VTE Risk Level:: Medical - moderate - high VTE Device Contraindication: Treatment Not Indicated VTE Drug Contraindication: N/A - Med Ordered
--- NOTE | 2022-09-27 16:32 | PM.DS ---
DS: Providers Provider Date of Service: 09/27/22 Date of admission: 09/25/22 13:03 Date of discharge: 09/27/22 Primary care physician: Mati Raya MD Admitting clinician: Emelina Fabian Attending physician on admission: Magdy Tucker Attending physician on discharge: Campos Correa Discharging clinician: Emelina Fabian DS: Diagnosis Discharge Diagnosis (1) Acute hypoxemic respiratory failure: Status: Acute (2) COVID-19: Status: Acute DS: Summary Hospital Course Hospital Course: HPI on admission 09/25/22: 86-year-old female with history of hypertension, hypothyroidism, hx thalamic stroke, hyperlipidemia presented to the ED from home earlier today for evaluation of 1 week of worsening cough, congestion, malaise, and dyspnea on exertion.? Her p.o. intake has also been decreased with intermittent episodes of nausea but she states she has been eating and drinking.? She had 1 episode of diarrhea this morning. Her son who is present on exam, states he had a cough several weeks ago. Denies any fevers, chills, headache, abdominal pain, vomiting, melena, hematochezia, lightheadedness, palpitations, chest pressure. On arrival, patient hemodynamically stable, but developed hypoxia with oximetry of 88%, placed on 2L supplemental O2. WBC 16.1. Mild macromyctic anemia with H/H 10.7/33.8% consistent with baseline. Renal function baseline with CKD stage 3. No significant electrolyte abnormality. CRP 8.10. Procalcitonin 0.46. CXR with diffuse emphysematous changes. Positive for COVID 19. Negative for influenza. She is fully vaccinated against COVID19 with booster x 2. Pt to be admitted for COVID-19 with acute hypoxemic respiratory failure. Hospital Course: Pt admitted with acute hypoxemic respiratory failure secondary to COVID-19. DDimer elevated at 331. Subsequent CTA chest negative for PE, but did not show underlying COPD/emphysemic and fibrotic changes with tree-in-bud opacities consistent with infectious/inflammatory disease and LLL atelectasis with bronchial wall thickening and occlusion of bronchi. Treated with 3 days IV remdesivir. On D2 noted to have rhonchi RML/RLL and expiratory wheezes. Repeat CXR negative for focal pneumonia. Duonebs added along with IV solumedrol and doxycycline to cover for mild COPD exacerbation and possible superimposed bacterial infection. O2 successfully weaned. Additional COVID-19 symptoms relatively mild requiring symptomatic treatment. Kept on airborne/contact precautions. Evaluted by PT recommending home PT services which she will be discharged with. She will be discharged home with PO prednisone 40mg and doxycycline 100mg BID x 4days. Given albuterol to use prn. Counseled on CDC isolation and masking guidelines. Follow up wtih PCP soon. Status at Discharge Functional status at discharge: uses cane/walker Overall status at discharge: patient is progressing back to baseline Time Spent with Patient Time attestation: Total time managing care of this patient today 45 minutes. Discharge coordination time: Greater than 30 minutes Quality: Safe Use of Opioids Does Pt have an Active Cancer Diagnosis on the Problem List?: No Quality: Stroke Does the patient have a stroke diagnosis?: No Physical Exam Vital Signs: Vital Signs: Last Vital Signs Temp 97.7 F 09/27/22 15:21 Pulse 75 09/27/22 15:21 Resp 20 09/27/22 15:21 BP 149/67 H 09/27/22 15:21 Pulse Ox 96 09/27/22 15:21 O2 Del Method 09/27/22 15:21 O2 Flow Rate 2 09/26/22 16:00 BMI result Body Mass Index 20.0 Constitutional - Awake and Alert, No apparent distress Eyes - PERRLA, EOMI Cardiovascular - S1S2, RRR, No edema Respiratory - Normal lung expansion, Normal respiratory effort, No respiratory distress, rhonchi rml/rll Gastrointestinal - NT / ND; +BS; No rebound or guarding Extremities - no calf tenderness bilaterally, no swelling Skin - Warm/Dry Neurological - Alert & oriented x3 Psychological - Appropriate affect DS: Data Data Completed and Pending Labs on day of discharge: Laboratory Results - last 24 hr 09/27/22 09/27/22 06:21 06:21 WBC 11.9 H RBC 3.38 L Hgb 10.9 L Hct 33.9 L MCV 100.3 H MCH 32.2 MCHC 32.2 RDW 12.4 Plt Count 236 MPV 11.2 Immature Gran % (Auto) Cancelled Neut % (Auto) Cancelled Lymph % (Auto) Cancelled [place] % (Auto) Cancelled Eos % (Auto) Cancelled Baso % (Auto) Cancelled Lymph # (Auto) Cancelled [place] # (Auto) Cancelled Eos # (Auto) Cancelled Baso # (Auto) Cancelled Abs Immat Gran (auto) Cancelled Absolute Neuts (auto) Cancelled Absolute Nucleated RBC 0.000 Nucleated RBC % (auto) 0.0 Neutrophils % (Manual) 94 H Band Neutrophils % 1 L Lymphocytes % (Manual) 4 L Monocytes % (Manual) 1 L Abs Neuts (Manual) 11.3 H Lymphocytes # (Manual) 0.5 L Monocytes # (Manual) 0.1 Platelet Estimate NORMAL Plt Morphology Comment NORMAL RBC Morphology NOTED Macrocytosis 1+ (5-14) Ovalocytes 1+ (5-14) Sodium 140 Potassium 4.5 Chloride 110 H Carbon Dioxide 20 L Anion Gap 15 BUN 34 H Creatinine 1.23 Estim Creat Clear Calc 28.1 Estimated GFR 41 Random Glucose 152 H Calcium 8.3 L Discharge Plan Discharge Anticipated Discharge Date/Time: 09/27/22 16:18 Patient Disposition: Home Health Service Discharge Diagnosis: COVID-19 with acute hypoxemic respiratory failure Referrals: Mati Raya MD [Primary Care Provider] - 1 Week Discharge Medications: New doxycycline monohydrate 100 mg Capsule 100 mg PO Q12H Qty: 8 0RF prednisone 20 mg tablet 40 mg PO DAILY Qty: 8 0RF albuterol sulfate 90 mcg/actuation HFA aerosol inhaler 2 puff inhalation Q6H PRN (Reason: shortness of breath or wheezing) Qty: 8.5 0RF Continued atorvastatin 40 mg Tablet 40 mg PO BEDTIME amlodipine [Norvasc] 10 mg tablet 10 mg PO DAILY Qty: 30 0RF levothyroxine 88 mcg tablet 1 tab PO DAILY@0630 ascorbic acid (vitamin C) 500 mg Tablet 500 mg PO DAILY valsartan 320 mg tablet 1 tab PO DAILY glucosamine HCl-vitamin D3 1,000-200 mg-unit Tablet 1 tab PO DAILY Discharge Orders: Discharge Order (Routine); Ordered 09/27/22 Ordered By: Emelina Fabian Diet: Regular diet Activity on Discharge: As tolerated Stand Alone Forms: Patient Portal Discharge page Care Plan Goals: Resolve COVID-19. Continue treatment for acute pneumonitis/superimposed bacteria lung infection related to COVID-19. Continue physical therapy at home to help with strengthening. Health Concerns: COVID-19 Acute pneumonitis Emphysema Generalized weakness, gait impairement Plan of Treatment: You were treated wtih 3 days of IV remdesivir for COVID-19 due to supplemental oxygen requirement on admission. You were successfully titrated off of oxygen and were breathing without difficulty on room air. Your chest CTA did show underlying emphysema and possible pneumonitis/superimposed bacterial infection, but not definitive pneumonia. Given the background of emphysema we supported your lungs/respiratory function with doxycycline, IV steroids, and nebulizer treatments. PT evaluated you recommending home PT services. On discharge: -Continue doxycycline 100mg twice daily x 8 doses (next dose due 530pm tonight). Be sure to take this medication WITH FOOD AND FULL GLASS OF WATER. Do not lie down for 1 hour after taking -Continue prednisone 40mg (2 tabs) daily x 4 days (next dose due tomorrow am around 6am) -Use albuterol inhaler as needed 2 puffs every 6 hours for shortness of breath or wheezing -[facility] will be contacting you for home PT services -Continue isolating and wear a mask according to CDC guidelines Follow up with PCP soon Assessment: See above Discharge Date/Time: 09/27/22 17:22
--- NOTE | 2022-09-28 10:25 | W.MHC.F2F ---
Service Date Service Date: 09/28/22 Encounter Date of encounter: 09/27/22 Encounter: Pt admitted for acute hypoxemic respiratory failure due to COVID-19 with mild COPD exaceration. Treated with IV remdesivir, IV steroid, duonebs, doxycycline for superimposed bacterial infection. Weaned from O2. Evaluted by PT recommending home PT services for impaired gait pattern, impaired standing balance, muscle weakness, postural asymmetry. Uses cane and walker at baseline. Reasons for Services Signs and symptoms assessed: impaired gait pattern, impaired standing balance, muscle weakness, postural asymmetry Reason for physical therapy: home safety and mobility, therapeutic exercises and gait/transfer training Reason for occupational therapy: home safety and mobility and gait/transfer training Homebound: Leaving the home is medically contraindicated at this time without the asist of a device and/or another person due th the listed conditions above and below. Reason homebound: unsteady gait / fall risk, poor balance / fall risk and weakness related to hospital stay Certification: Based on the above findings, I certify that this patient is confined to the home and needs intermittent snf care, physical therapy and/or speech therapy, or continues to need occupational therapy. The patient is under my care, and I have initiated the establishment of the plan of care. The patient will be followed by a physician who will periodically review the plan of care. Time Spent With Patient Time: Total time managing care of this patient today 45 minutes.
== END 2022-09-27 17:22 | disposition home health service (06) | DRG 177 ==
LOC: HO.ED 11:31 → HO.EDOVER 13:10 → HO.IMC 17:13
PROVIDERS: Physician Assistant; Admitting Provider Physician Assistant; Emergency Provider Emergency Medicine Emergency Medical Services; PCP Internal Medicine; Visit Provider Physician Assistant
DX: U07.1 COVID-19 (principal); J96.01 Acute respiratory failure with hypoxia; J98.11 Atelectasis; Z66 Do not resuscitate; D53.9 Nutritional anemia, unspecified; J43.9 Emphysema, unspecified; I10 Essential (primary) hypertension; E78.00 Pure hypercholesterolemia, unspecified; E03.9 Hypothyroidism, unspecified; Z86.73 Personal history of transient ischemic attack (TIA), and cerebral infarction without residual deficits; Z88.1 Allergy status to other antibiotic agents; Z79.890 Hormone replacement therapy; Z79.899 Other long term (current) drug therapy
CPT/HCPCS: 36415; 71045; 71275; 80048; 80076; 81001; 82607; 82746; 82803; 83735; 83880; 84145; 84484; 85007; 85025; 85027; 85379; 86140; 87502; 87635; 93005; 96361; 96374; 96375; 97161; 99285; J0248; J1100; J1650; J2405; J2920; Q9967

== ENCOUNTER 2022-11-12 16:00 | Outpatient (REF) | payer MEDICARE, OTHER, SELFPAY ==
[2022-11-12 17:07] LABS: TSH reflex Free T4 3.79 uIU/mL (0.32-4.0)
== END 2022-11-12 16:01 | disposition home or self-care (01) ==
LOC: HO.LNP 16:00
PROVIDERS: Visit Provider Internal Medicine
DX: E03.9 Hypothyroidism, unspecified (principal)
CPT/HCPCS: 84443

== ENCOUNTER 2023-05-19 11:22 | Outpatient (REF) | payer MEDICARE, OTHER, SELFPAY ==
[2023-05-19 11:34] LABS: MANUAL DIFF FLAG NO
[2023-05-19 11:44] LABS: Basophils Percent Auto 0.7 % (0-2); Eosinophils Absolute Auto 0.1 X10*3/uL (0.0-0.4); Eosinophils Percent Auto 2.6 % (0-4); Hematocrit 37.3 % (37.0-47.0); Hemoglobin 11.9 g/dl (12.0-16.0); Imm Gran Abs Auto 0.01 X10*3/uL (0.00-0.03); Imm Gran Pct Auto 0.2 % (0.0-0.4); Lymphocytes Absolute Auto 1.4 X10*3/uL (1.2-4.9); Lymphocytes Percent Auto 29.6 % (20-40); Mean Corpuscular HGB Conc 31.9 g/dl (31.0-35.0); Mean Corpuscular Hemoglobin 31.5 pg (27.0-33.0); Mean Corpuscular Volume 98.7 fL (80.0-98.0); Mean Platelet Volume 11.7 fL (9.4-12.3); Monocytes Absolute Auto 0.6 X10*3/uL (0.1-1.2); Monocytes Percent Auto 13.9 % (2-11); Neutrophils Absolute Auto 2.4 x10*3/uL (2.0-8.3); Platelet Count 208 X10*3/uL (160-400); Red Blood Count 3.78 X10*6/uL (4.20-5.50); Red Cell Distribution Width 12.5 % (11.0-16.0); White Blood Count 4.6 X10*3/uL (4.8-10.8)
[2023-05-19 12:02] LABS: Estimated Average Glucose 97 mg/dL
[2023-05-19 12:05] LABS: Appearance Urine Cloudy; Color Urine Yellow; Glucose Urine UA Negative (Negative); Leukocyte Esterase Urine Large (3+) (Negative); Nitrite Urine Negative (Negative); PH 5.5 (5.0-9.0); Specific Gravity - Urine 1.015 (1.005-1.025); UMIC TRIGGER UACC YES; Urine Blood Small (1+) (Negative); Urine Ketones Negative (Negative); Urine Protein 100 (2+) mg/dL (Neg-Trace)
[2023-05-19 12:17] LABS: Bacteria Urine 3+ (None Seen); Hyaline Casts Urine 0-2 /LPF (0-2); RBC Urine 0-2 /HPF (0-2); UACC Culture Trigger YES; WBC Urine >50 /HPF (0-5)
[2023-05-19 12:35] LABS: Alanine Aminotransferase 9 U/L (0-31); Albumin Level 4.3 g/dL (3.5-5.0); Alkaline Phosphatase 73 U/L (39-117); Anion Gap 13 (12-20); Aspartate Amino Transferase 18 U/L (5-31); Bilirubin Total 0.4 mg/dL (0.0-1.0); Blood Urea Nitrogen 28 mg/dL (9-16); Calcium 9.6 mg/dL (8.4-10.2); Carbon Dioxide 26 mmol/L (22-29); Chloride 106 mmol/L (96-108); Cholesterol 155 mg/dL (<200); Estimated Glomerular Filt Rate 38; Glucose Fasting 117 mg/dL (60-99); HDL Cholesterol 63 mg/dL (>40); LDL Cholesterol Calculated 75 mg/dL (<100); Potassium 4.3 mmol/L (3.3-5.1); Sodium 141 mmol/L (135-145); TSH reflex Free T4 1.33 uIU/mL (0.32-4.0); Total Protein 7.7 g/dL (6.5-8.0); Triglycerides 85 mg/dL (<150); Vitamin D 25-OH Total 68.2 ng/mL (>30)
[2023-05-19 12:38] LABS: Microalbum/Creatinine Ratio Ur 316.4 ug/mg cr (<30)
== END 2023-05-19 11:23 | disposition home or self-care (01) ==
LOC: HO.LNP 11:22
PROVIDERS: Visit Provider Internal Medicine
DX: I10 Essential (primary) hypertension (principal); E03.9 Hypothyroidism, unspecified; R73.03 Prediabetes; E78.00 Pure hypercholesterolemia, unspecified; E55.9 Vitamin D deficiency, unspecified
CPT/HCPCS: 80053; 80061; 81001; 82043; 82306; 83036; 84443; 85025; 87086; 87147

== ENCOUNTER 2023-06-17 10:51 | Outpatient (REF) | payer MEDICARE, OTHER, SELFPAY ==
[2023-06-17 10:59] LABS: Appearance Urine Clear; Color Urine Yellow; Glucose Urine UA Negative (Negative); Leukocyte Esterase Urine Moderate (2+) (Negative); Nitrite Urine Negative (Negative); PH 5.5 (5.0-9.0); Specific Gravity - Urine 1.015 (1.005-1.025); UMIC TRIGGER UACC YES; Urine Blood Negative (Negative); Urine Ketones Negative (Negative); Urine Protein 30 (1+) mg/dL (Neg-Trace)
[2023-06-17 11:04] LABS: Bacteria Urine Trace (None Seen); Hyaline Casts Urine 0-2 /LPF (0-2); UACC Culture Trigger YES; WBC Urine 21-50 /HPF (0-5)
== END 2023-06-17 10:52 | disposition home or self-care (01) ==
LOC: HO.LNP 10:51
PROVIDERS: Visit Provider Internal Medicine
DX: R31.9 Hematuria, unspecified (principal)
CPT/HCPCS: 81001; 87086; 87147

== ENCOUNTER 2023-07-15 10:49 | Outpatient (REF) | payer MEDICARE, OTHER, SELFPAY ==
[2023-07-15 11:12] LABS: Appearance Urine Clear; Color Urine Yellow; Glucose Urine UA Negative (Negative); Leukocyte Esterase Urine Moderate (2+) (Negative); Nitrite Urine Negative (Negative); PH 5.5 (5.0-9.0); Specific Gravity - Urine 1.015 (1.005-1.025); UMIC TRIGGER UACC YES; Urine Blood Negative (Negative); Urine Ketones Negative (Negative); Urine Protein 30 (1+) mg/dL (Neg-Trace)
[2023-07-15 11:17] LABS: Bacteria Urine None Seen (None Seen); Hyaline Casts Urine 0-2 /LPF (0-2); RBC Urine 0-2 /HPF (0-2); UACC Culture Trigger YES
== END 2023-07-15 10:50 | disposition home or self-care (01) ==
LOC: HO.LNP 10:49
PROVIDERS: Visit Provider Internal Medicine
DX: R31.9 Hematuria, unspecified (principal)
CPT/HCPCS: 81001; 87086; 87088; 87147; 87186

== ENCOUNTER 2023-07-26 08:00 | Outpatient (REF) | payer MEDICARE, OTHER, SELFPAY ==
[2023-07-26 10:54] LABS: Appearance Urine Clear; Color Urine Yellow; Glucose Urine UA Negative (Negative); Leukocyte Esterase Urine Moderate (2+) (Negative); Nitrite Urine Negative (Negative); PH 5.5 (5.0-9.0); Specific Gravity - Urine 1.015 (1.005-1.025); UMIC TRIGGER UACC YES; Urine Blood Negative (Negative); Urine Ketones Negative (Negative); Urine Protein 30 (1+) mg/dL (Neg-Trace)
[2023-07-26 10:58] LABS: Bacteria Urine Trace (None Seen); Hyaline Casts Urine 0-2 /LPF (0-2); UACC Culture Trigger YES; WBC Urine 21-50 /HPF (0-5)
== END 2023-07-26 08:01 | disposition home or self-care (01) ==
LOC: HO.10HDLNP 08:00
PROVIDERS: Visit Provider Internal Medicine
DX: N39.0 Urinary tract infection, site not specified (principal)
CPT/HCPCS: 81001; 87086; 87147

== ENCOUNTER 2023-08-22 10:34 | Outpatient (REF) | payer MEDICARE, OTHER, SELFPAY ==
[2023-08-22 11:02] LABS: Appearance Urine Clear; Color Urine Yellow; Glucose Urine UA Negative (Negative); Leukocyte Esterase Urine Trace (Negative); Nitrite Urine Negative (Negative); PH 5.5 (5.0-9.0); Specific Gravity - Urine 1.025 (1.005-1.025); UMIC TRIGGER UACC YES; Urine Blood Negative (Negative); Urine Ketones Negative (Negative); Urine Protein Trace mg/dL (Neg-Trace)
[2023-08-22 11:07] LABS: Bacteria Urine None Seen (None Seen); Hyaline Casts Urine 0-2 /LPF (0-2); Squamous Epithelial Cell Urine 0-2 /HPF (0-2); WBC Urine 0-5 /HPF (0-5)
== END 2023-08-22 10:35 | disposition home or self-care (01) ==
LOC: HO.LNP 10:34
PROVIDERS: Visit Provider Internal Medicine
DX: R31.9 Hematuria, unspecified (principal)
CPT/HCPCS: 81001

== ENCOUNTER 2023-09-29 11:23 | Outpatient (REF) | payer MEDICARE, OTHER, SELFPAY ==
[2023-09-29 11:41] LABS: Appearance Urine Clear; Color Urine Yellow; Glucose Urine UA Negative (Negative); Leukocyte Esterase Urine Negative (Negative); Nitrite Urine Negative (Negative); PH 5.5 (5.0-9.0); Specific Gravity - Urine 1.015 (1.005-1.025); UMIC TRIGGER UACC YES; Urine Blood Negative (Negative); Urine Ketones Negative (Negative); Urine Protein 30 (1+) mg/dL (Neg-Trace)
[2023-09-29 11:48] LABS: Bacteria Urine None Seen (None Seen); Hyaline Casts Urine 0-2 /LPF (0-2); RBC Urine 0-2 /HPF (0-2); Squamous Epithelial Cell Urine 0-2 /HPF (0-2); WBC Urine 0-5 /HPF (0-5)
== END 2023-09-29 11:24 | disposition home or self-care (01) ==
LOC: HO.LNP 11:23
PROVIDERS: Visit Provider Internal Medicine
DX: R31.9 Hematuria, unspecified (principal)
CPT/HCPCS: 81001

== ENCOUNTER 2024-01-06 10:38 | Outpatient (REF) | payer MEDICARE, OTHER, SELFPAY ==
[2024-01-06 12:07] LABS: Alanine Aminotransferase 9 U/L (0-31); Albumin Level 4.2 g/dL (3.5-5.0); Alkaline Phosphatase 74 U/L (39-117); Aspartate Amino Transferase 16 U/L (5-31); Bilirubin Direct 0.2 mg/dL (0.0-0.5); Bilirubin Total 0.4 mg/dL (0.0-1.0); Cholesterol 156 mg/dL (<200); Glucose Fasting 103 mg/dL (60-99); HDL Cholesterol 64 mg/dL (>40); LDL Cholesterol Calculated 82 mg/dL (<100); Total Protein 7.6 g/dL (6.5-8.0); Triglycerides 54 mg/dL (<150)
[2024-01-06 14:15] LABS: Reflex LDLD? No
== END 2024-01-06 10:39 | disposition home or self-care (01) ==
LOC: HO.LNP 10:38
PROVIDERS: Visit Provider Internal Medicine
DX: R73.09 Other abnormal glucose (principal); E78.00 Pure hypercholesterolemia, unspecified
CPT/HCPCS: 80061; 80076; 82947; 83036

== ENCOUNTER 2024-06-07 11:07 | Outpatient (REF) | payer MEDICARE, OTHER, SELFPAY ==
[2024-06-07 11:12] LABS: MANUAL DIFF FLAG NO
[2024-06-07 11:26] LABS: Appearance Urine Cloudy; Color Urine Yellow; Glucose Urine UA Negative (Negative); Leukocyte Esterase Urine Moderate (2+) (Negative); Nitrite Urine Negative (Negative); PH 5.5 (5.0-9.0); Specific Gravity - Urine 1.015 (1.005-1.025); UMIC TRIGGER UACC YES; Urine Blood Negative (Negative); Urine Ketones Negative (Negative); Urine Protein 30 (1+) mg/dL (Neg-Trace)
[2024-06-07 11:34] LABS: Bacteria Urine 1+ (None Seen); Hyaline Casts Urine 0-2 /LPF (0-2); RBC Urine 0-2 /HPF (0-2); UACC Culture Trigger YES; WBC Urine >50 /HPF (0-5)
[2024-06-07 11:37] LABS: Basophils Percent Auto 0.6 % (0-2); Eosinophils Absolute Auto 0.1 X10*3/uL (0.0-0.4); Eosinophils Percent Auto 2.1 % (0-4); Hematocrit 37.1 % (37.0-47.0); Hemoglobin 11.5 g/dl (12.0-16.0); Imm Gran Abs Auto 0.02 X10*3/uL (0.00-0.03); Imm Gran Pct Auto 0.4 % (0.0-0.4); Lymphocytes Absolute Auto 1.7 X10*3/uL (1.2-4.9); Lymphocytes Percent Auto 34.4 % (20-40); Mean Corpuscular Hemoglobin 30.9 pg (27.0-33.0); Mean Corpuscular Volume 99.7 fL (80.0-98.0); Mean Platelet Volume 11.9 fL (9.4-12.3); Monocytes Absolute Auto 0.8 X10*3/uL (0.1-1.2); Monocytes Percent Auto 16.2 % (2-11); Neutrophils Absolute Auto 2.2 x10*3/uL (2.0-8.3); Neutrophils Percent Auto 46.3 % (45-73); Platelet Count 224 X10*3/uL (160-400); Red Blood Count 3.72 X10*6/uL (4.20-5.50); Red Cell Distribution Width 12.9 % (11.0-16.0); White Blood Count 4.8 X10*3/uL (4.8-10.8)
[2024-06-07 12:06] LABS: Alanine Aminotransferase 16 U/L (0-31); Albumin Level 4.1 g/dL (3.5-5.0); Alkaline Phosphatase 57 U/L (39-117); Anion Gap 13 (12-20); Aspartate Amino Transferase 14 U/L (5-31); Bilirubin Total 0.2 mg/dL (0.0-1.0); Blood Urea Nitrogen 21 mg/dL (9-16); Calcium 9.6 mg/dL (8.4-10.2); Carbon Dioxide 26 mmol/L (22-29); Chloride 106 mmol/L (96-108); Cholesterol 135 mg/dL (<200); Estimated Glomerular Filt Rate 40; Glucose Fasting 115 mg/dL (60-99); HDL Cholesterol 44 mg/dL (>40); LDL Cholesterol Calculated 64 mg/dL (<100); Potassium 4.1 mmol/L (3.3-5.1); Sodium 141 mmol/L (135-145); Total Protein 7.1 g/dL (6.5-8.0); Triglycerides 139 mg/dL (<150)
== END 2024-06-07 11:08 | disposition home or self-care (01) ==
LOC: HO.LNP 11:07
PROVIDERS: Visit Provider Internal Medicine
DX: I10 Essential (primary) hypertension (principal); E03.9 Hypothyroidism, unspecified; E78.00 Pure hypercholesterolemia, unspecified; E55.9 Vitamin D deficiency, unspecified
CPT/HCPCS: 80053; 80061; 81001; 82306; 84443; 85025; 87086

== ENCOUNTER 2024-07-19 15:32 | Outpatient (REF) | payer MEDICARE, OTHER, SELFPAY ==
[2024-07-19 16:00] LABS: Uric Acid 6.7 mg/dL (2.4-5.7)
== END 2024-07-19 15:33 | disposition home or self-care (01) ==
LOC: HO.LNP 15:32
PROVIDERS: Visit Provider Internal Medicine
DX: M10.072 Idiopathic gout, left ankle and foot (principal)
CPT/HCPCS: 84550

== ENCOUNTER 2024-10-11 13:42 | Outpatient (REF) | payer MEDICARE, OTHER, SELFPAY ==
[2024-10-11 14:31] LABS: Folate 5.8 ng/mL (> or = 4.0); Vitamin B12 1458 pg/mL (200-900)
--- OUTSIDE RECORDS SUMMARY | 2024-10-11 16:10 | XMS_ITS ---
Author Organization Mati Raya MD Address [address] [place] [phone] Care Team Providers Care Java Application Engineer Name Role Phone Mati Raya Primary Care Provider [phone] REASON FOR VISIT REFILL CELEBRX Medications Medication SIG (Take, Route, Fr equency, Duration) Notes Start Date End Date Status CeleBREX 200 MG 1 capsule with food Orally Once a day for 30 days 07/19/2024 Active Encounters Encounter Location Date Provider Diagnosis Mati Raya MD [address] [place] [phone] 08/13/2024 Mati Raya 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 Assessments Encounter Date Diagnosis (ICD Code) Assessment Notes Treatment Notes Treatment Clinical Notes Section Notes 08/13/2024 Acute idiopathic gout of left foot (ICD-10 - M10.072) Plan Of Treatment Medication Medication Name Sig Start Date Stop Date Notes CeleBREX 200 MG 1 capsule with food Orally Once a day for 30 days 07/19/2024 Next Appt Details Provider Name:Mati sol, 12/03/2024 07:30:00 AM, [address], [address], [place], [place], [phone], Provider Name:Mati Silverman ier, 12/10/2024 10:00:00 AM, [address] [place] [address], [address], [place], [phone], Provider Name:Mati Silverman ier, 06/06/2025 07:30:00 AM, [address] [place] [address], [address], [place], [phone], Provider Name:Mati Silverman ier, 06/13/2025 11:00:00 AM, [address] [place] [address], Suite [facility], [place], [phone], Progress Notes * Qian LARA CDOB:[birth year] (88 yo F)Acc No.[id number]:08/13/2024 Patient:?Qian Lara C :1935???Age:88 Y???Sex:Female Address:[address] [place] [address] , [place] [address] * Refills? Refill CeleBREX Capsule, 200 MG, Orally, 30, 1 capsule with food, Once a day, 30 days, Refills=0 * true * Date:? Generated for Bill somers/Juanita/Richsmitting on:?10/11/2024 04:10 PM EST
--- OUTSIDE RECORDS SUMMARY | 2024-10-11 16:10 | XMS_ITS ---
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 Assessments Encounter Date Diagnosis (ICD Code) Assessment Notes Treatment Notes Treatment Clinical Notes Section Notes 09/18/2024 Acute idiopathic gout of left foot (ICD-10 - M10.072) Plan Of Treatment Medication Medication Name Sig Start Date Stop Date Notes CeleBREX 200 MG 1 capsule with food Orally Once a day for 30 days 07/19/2024 Next Appt Details Provider Name:Mati sol, 12/03/2024 07:30:00 AM, [address], [address], [place], [phone], Provider Name:Mati Silverman ier, 12/10/2024 10:00:00 AM, [address], [address], [place], [phone], Provider Name:Mati Silverman ier, 06/06/2025 07:30:00 AM, [address] [facility], [address], [place], [phone], Provider Name:Mati Silverman ier, 06/13/2025 11:00:00 AM, [address] [facility], [address], [place], [phone], Progress Notes * Qian LARA CDOB:[birth year] (88 yo F)Acc No.[id number]:09/18/2024 Patient:?Qian Lara C :1935???Age:88 Y???Sex:Female [facility] [place] [address] * Refills? Continue CeleBREX Capsule, 200 MG, Orally, 30, 1 capsule with food, Once a day, 30 days, Refills=3 * true * Date:? Generated for Bill somers/Juanita/Richsmitting on:?10/11/2024 04:10 PM EST
--- OUTSIDE RECORDS SUMMARY | 2024-10-11 16:10 | XMS_ITS ---
Author Organization Mati Raya MD Address [address] [place], [place] [phone] Care Team Providers Care Roll On Worker Name Role Phone Mati Raya Primary Care Provider [phone] Allergies Allergen (clinical drug ingredient) Drug/Non Drug Allergy documented on EMR Reaction Allergy Type Onset Date Status levoquin (uncoded) rash Allergy A ctive REASON FOR VISIT Memory loss, confused x 1 month, Accompianied by her son Medications Medication SIG (Take, Route, Frequency, Duration) Notes Start Date End Date Status traMADol HCl 50 MG 1 tablet as needed Orally every 6 hours as needed for 30 days 09/24/2021 Not-Taking Tylenol 325 MG 1 tablet as needed Orally every 4 hrs Not-Taking CeleBREX 200 MG 1 capsule with food Orally Once a day for 30 days 07/19/2024 Active amLODIPine Besylate 10 MG 1 tablet Orall y Once a day for 90 days Active Donepezil HCl 5 MG 1 tablet at bedtime Orally Once a day for 30 days 10/11/2024 Active predniSONE 20 MG 2 tablets Orally Onc e a day for 5 days 07/19/2024 Not-Taking Levoxyl 88 MCG 1 tablet on an empty stomach in the morning Orally Once a day for 90 days Active Vitamin D 1000 UNIT 1 tablet Orally Once a day Active Valsartan 320 MG TAKE 1 TABLET BY TK TH EVERY DAY Orally Once a day Active Atorvastatin Calcium 40 MG TAKE 1 TABLET BY MOUTH EVERY DAY Active Vital Signs Blood pressure systolic 104 mm Hg 10/11/19 25 Blood pressure diastolic 58 mm Hg 025 Height 62 in 10/11/2024 Weight 118 lbs 10/11/2024 BMI 21.58 kg/m2 10/11/2024 weight is down 6 pounds [facility] 07-19-24 Encounters Encounter Location Date Provider Diagnosis Mati Raya MD [address] [place] [phone] 10/11/2024 Mati Raya Advancing dementia F03.90 Assessments Encounter Date Diagnosis (ICD Code) Assessment Notes Treatment Notes Treatment Clinical Notes Section Notes 10/11/2024 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) Plan Of Treatment Medication Medication Name Sig Start Date Stop Date Notes Donepezil HCl 5 MG 1 tablet at bedtime Orally Once a day for 30 days 10/11/2024 Pending Test Test Name Order Date VITAMIN B12 AND FOLATE 10/11/2024 Next Appt Details Provider Name:Mati sol, 12/03/2024 07:30:00 AM, [address] [place] [address], [address], [phone], Provider Name:Mati sol, 12/10/2024 10:00:00 AM, [address] [place] [address], [phone], Provider Name:Mati sol, 06/06/2025 07:30:00 AM, [address] [place] [address], [phone], Provider Name:Mati sol, 06/13/2025 11:00:00 AM, [address] [place] [address], [phone], Progress Notes * Qian LARA CDOB:[birth year] (88 yo F)Acc No.[id number]:10/11/2024 Progress Notes Patient:?Qian LARA Provider:?Mati Raya MD :1935???Age:88 Y???Sex:Female D ate:10/11/2024 Address:[address] [place] [address] [place], [id number] Subjective: * Chief Complaints: * ???1. Memory loss, confused x 1 month. 2. Accompianied by her son. * HPI: ???Symptom(s):?patient is a 88 yo female with complaint for the last month is confused. is getting worse. subtle but worse in late evening. * ROS:?General/Constitutional:?Denies?Chills.?Denies?Fatigue.?Denies?Fever.?Denies?Headache.?ENT:?Patient denies?decreased sense of smell, any loss of taste, sore throat.?Denies?Sore throat.?Respiratory:?Denies?Cough.?Denies?Shortness of breath at rest.?Denies?Shortness of breath with exertion.?Gastrointestinal:?Denies?Diarrhea.?Denies?Nausea.?Musculoskeletal:?Patient denies?muscle aches.?Peripheral Vascular:?Patient denies?red and blue toes.? 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 refuses meds - discussed 06/02/20. * Medications:?Taking Vitamin D 1000 UNIT Tablet 1 tablet Orally Once a day , Taking Levoxyl 88 MCG Tablet 1 tablet on an empty stomach in the morning Orally Once a day , Taking Atorvastatin Calcium 40 MG Tablet TAKE 1 TABLET BY MOUTH EVERY DAY , Taking Valsartan 320 MG Tablet TAKE 1 TABLET BY MOUTH EVERY DAY Orally Once a day , Taking amLODIPine Besylate 10 MG Tablet 1 tablet Orally Once a day , Taking CeleBREX 200 MG Capsule 1 capsule with food Orally Once a day , Not-Taking/PRN predniSONE 20 MG Tablet 2 tablets Orally Once a day , Not-Taking/PRN Tylenol 325 MG Tablet 1 tablet as needed Orally every 4 hrs , Not-Taking/PRN traMADol HCl 50 MG Tablet 1 tablet as needed Orally every 6 hours as needed , Medication List reviewed and reconciled with the patient * Allergies:?Levoquin: Rash. Objective: * Vitals:?Ht: 62, Wt: 118, BMI :21.58, BP:104/58, Wt-k.52. weight is down 6 pounds since 07-19-24. * Examination: ???General Examination: ?GENERAL APPEARANCE:?alert, well hydrated, in no distress.?HEAD:?normocephalic.?EYES:?extraocular movement full and smooth.?SKIN:?good turgor.?HEART:?grade 2/6 systolic murmur at left sternal border.?LUNGS:?no wheezes, rales, rhonchi, good air movement, clear to auscultation bilaterally.? 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 Plan: * Treatment: * Procedure Codes:?54920 VENIP UNCT, ROUTINE* * * The named appointment provid er may or may not be the originator of this progress note, and it is not deemed complete until electronically signed by the appointment provider. Sign off status: Pending * Provider:?Mati Raya MD Date:?0 10/11/2024 Generated for Bill somers/Juanita/Devynitting on:?10/11/2024 04:09 PM EST History and Physical Notes * HPI (History of Present Illness) Category Sub-Category Detail Notes Category Not es Symptom(s) patient is a 88 yo female with complaint for the last month is confused. is getting worse. subtle but worse in late evening Examination Category Sub-Category Detail Notes Category Not es General Examination GENERAL APPEARANCE: alert, w ell hydrated, in no distress HEAD: normocephalic EYES: extraocular movement full and smooth HEART: grade 2/6 systolic m urmur at left sternal border LUNGS: no wheezes, rales, r honchi, good air movement, clear to auscultation bilaterally SKIN: good turgor
== END 2024-10-11 13:43 | disposition home or self-care (01) ==
LOC: HO.LNP 13:42
PROVIDERS: Visit Provider Internal Medicine
DX: F03.90 Unspecified dementia, unspecified severity, without behavioral disturbance, psychotic disturbance, mood disturbance, and anxiety (principal)
CPT/HCPCS: 82607; 82746

== ENCOUNTER 2024-10-15 20:26 | Inpatient (IN) | payer MEDICARE, OTHER, SELFPAY ==
--- NOTE | ~2024-10-15 | MR_ITS ---
CLINICAL HISTORY: R O CVA MR Brain without gadolinium Comparison: CT/REG - CT HEAD/BRAIN WO CON - 09/27/20 15:43 EST Findings: No restricted diffusion. No intracranial mass or hemorrhage. Small focus of susceptibility artifact within the right ventral thalamus most likely represent remote lacunar hemorrhage / hemosiderin deposition. No midline shift. No hydrocephalus. Vascular flow voids are intact. Moderate generalized cerebral volume loss and moderate periventricular and subcortical T2/FLAIR hyperintensities consistent with chronic microvascular ischemic change. Orbital contents are unremarkable. The sinuses and mastoid air cells are clear. No focal bone lesion. IMPRESSION: No acute infarct, intracranial hemorrhage, or mass lesions. Moderate generalized cerebral volume loss and chronic microvascular ischemic changes of the periventricular and subcortical white matter. This document has been electronically signed by: Andrae Cross MD on 10/16/2024 19:35:45
--- NOTE | ~2024-10-15 | XR_ITS ---
CLINICAL HISTORY: weakness confusion 2 view chest x-ray Comparison: CR/SR - XR CHEST 1V - 09/26/22 14:07 EST Findings: Diffuse interstitial prominence in both lungs. No pleural effusion or pneumothorax. Normal size heart. No acute fracture. IMPRESSION: 1. Diffuse interstitial prominence in both lungs likely represent mild pulmonary edema. This document has been electronically signed by: Andrae Cross MD on 10/15/2024 21:42:42
[2024-10-15 20:38] VITALS: BP 155/66; PULSE 81; RESP 18; TEMP 37; O2SAT 90; BMI 22.5
--- NOTE | 2024-10-15 20:41 | ED.GENADULT ---
HPI - General Adult General Chief complaint: Altered Mental Status Stated complaint: +covid /confusion Time Seen by Provider: 10/15/24 23:28 Source: patient and family ( son) Mode of arrival: ambulatory Limitations: no limitations History of Present Illness ED Provider: DR. Mao HPI narrative: 88-year-old female brought in by her son after tested positive for COVID at home, son was concern about change of mental status and being confused. patient normally lives home with her son mostly independently for the last 2 days patient with decreased activity, son stated that she has been confused and disoriented for the past couple days. no subjective complaint of shortness of breath but patient found to have O2 sat of 90% on room air. No coughing, no fever, no chills. Related Data Home Medications ?Medication ?Instructions ?Recorded ?Confirmed atorvastatin 40 mg tablet 40 mg PO BEDTIME 09/26/20 09/25/22 ascorbic acid (vitamin C) 500 mg 500 mg PO DAILY 09/25/22 09/25/22 tablet glucosamine HCl-vitamin D3 1,000 1 tab PO DAILY 09/25/22 09/25/22 mg-200 unit tablet levothyroxine 88 mcg tablet 1 tab PO DAILY@0630 09/25/22 09/25/22 valsartan 320 mg tablet 1 tab PO DAILY 09/25/22 09/25/22 Previous Rx's ?Medication ?Instructions ?Recorded amlodipine 10 mg tablet (Norvasc) 10 mg PO DAILY #30 tabs 10/01/20 albuterol sulfate 90 mcg/actuation 2 puff inhalation Q6H PRN 09/27/22 aerosol inhaler shortness of breath or wheezing #8.5 grams doxycycline monohydrate 100 mg 100 mg PO Q12H #8 caps 09/27/22 capsule prednisone 20 mg tablet 40 mg (2 x 20 mg) PO DAILY #8 tabs 09/27/22 Allergies Allergy/AdvReac Type Severity Reaction Status Date / Time levofloxacin [From Levaquin] Allergy Mild Rash Verified 10/15/24 20:39 Review of Systems Review of Systems: All other systems are reviewed and are negative Constitutional: Reports as per HPI and Reports no additional constitutional complaints Eyes: Reports as per HPI and Reports no additional eye complaints Reports system reviewed and no additional complaints, except as documented Cardiovascular: Reports as per HPI and Reports no additional cardiovascular complaints Respiratory: Reports as per HPI and Reports no additional respiratory complaints Gastrointestinal: Reports as per HPI and Reports no additional gastrointestinal complaints Genitourinary: Reports no additional female genitourinary complaints Musculoskeletal: Reports no additional musculoskeletal complaints Skin/Breast: Reports system reviewed and no additional complaints, except as docu Psychiatric: Reports no additional psychiatric complaints Endocrine: Reports no additional endocrine complaints Hematologic/Lymphatic: Reports no additional hematologic/lymphatic complaints Allergic/Immunologic: Reports no additional allergic/immunologic complaints Reports system reviewed and no additional complaints, except as documented and Reports Abnormal speech present [facility] Past Medical History Medical History COVID-19 Rotator cuff arthropathy of right shoulder Thalamic hemorrhage with stroke Hypothyroidism High cholesterol Right shoulder injury Hypertension Surgical History H/O thyroidectomy Social History Social History Household Members: Children Household Members Other:: one sone Housing: House Housing Other:: co-op Do you presently have visiting nurse or other home services: No Alcohol intake: never Patient Tobacco Use Status: Never used Tobacco Advance Directives Date on File: 09/25/22 Do you have a plan to hurt others: No Plan service: No Current occupational status: retired Physical Exam ED Vital Signs: Vital Signs - 24 hr 10/15/24 20:38 Temperature 98.6 F Pulse Rate 81 Respiratory Rate 18 Blood Pressure 155/66 H Pulse Oximetry 90 L Oxygen Delivery Method Room Air BMI result Body Mass Index 22.5 Vital signs have been reviewed and appear to be correct. Blood pressure elevated. Heart rate normal. Respiratory rate normal. Temperature normal. Oxygen saturation normal. Appearance: Alert. Oriented X2, No acute distress. Head: Normal external exam. Normocephalic. Atraumatic. No Torres signs noted. No raccoon eyes noted Eyes: PERRLA. EOMI. Conjunctiva and sclera normal. Eyelids normal. ENT: TM's Normal. Pharynx normal. Uvula midline. Moist mucous membranes. No trismus noted. No drooling noted. No muffled voice noted. Neck: Normal inspection. Neck supple. FROM. No adenopathy. Thyroid Normal. No meningeal signs. No neck mass noted. CVS: Normal heart rate and rhythm. Heart sound normal. No murmurs noted. Pulses normal throughout. Respiratory: No respiratory distress. Painless inspiration. Breath sounds normal. No wheezes/rales/rhonchi noted. Chest nontender. No accessory muscle usage noted or decreased air movement noted. Abdomen: Soft and nontender. Bowel sounds normal in all 4 quadrants. No distention noted. No organomegaly noted. No visible injury noted. Back: No CVA tenderness. Full range of motion noted. Skin: Skin warm and dry. Normal skin color. Normal skin turgor. No rashes/lesions/lacerations noted. Extremities: No lower extremity edema. Extremities exhibit normal range of motion. Extremities nontender. Neuro: Oriented X 2 for time and person. Cranial nerve exam: II-XII are grossly intact No motor deficit. No sensory deficit. Reflexes normal. Course Course Course Narrative: RME performed by Francy Mario PA-C. Patient is an 88 year old assigned female at presenting to the emergency department with confusion and weakness. Patient's son states the patient has been acting more confused and tested positive for COVID-19 today. Detailed physical exam and review of systems are deferred to the truck dock material mover. EKG, labs, imaging, and swabs ordered. Patient placed back in the waiting room pending room availability and results. Reevaluation(s) Reevaluation #1: COVID-19 infection and hypoxia with mental status , no unremarkable chest x-ray, KACIE will IV hydrate. Admit, continue to L of nasal cannula. Time: 23:47 Medical Decision Making Differential Diagnosis Differential Diagnoses: The differential diagnosis associated with the presentation includes ( pneumonia, pneumothorax, pleural effusion, COVID-19 infection, influenza, RSV, hypoxia, ACS , dehydration, KACIE.) Admission/Observation Consideration of admission/observation: Escalation of care including admission/observation considered Consult Healthcare Provider Management of the patient was discussed with: Hospitalist ( Dr. Tucker) Lab Data MDM Lab Attestation statement: I reviewed the patient's lab results. 10/15/24 21:14 10/15/24 21:14 Labs: Lab Results 10/15/24 10/15/24 Range/Units 21:13 21:14 WBC 6.2 (4.8-10.8) X10*3/uL RBC 3.72 L (4.20-5.50) X10*6/uL Hgb 11.5 L (12.0-16.0) g/dl Hct 36.1 L (37.0-47.0) % MCV 97.0 (80.0-98.0) fL MCH 30.9 (27.0-33.0) pg MCHC 31.9 (31.0-35.0) g/dl RDW 13.0 (11.0-16.0) % Plt Count 135 L D (160-400) X10*3/uL MPV 12.3 (9.4-12.3) fL Immature Gran % (Auto) 0.2 (0.0-0.4) % Neut % (Auto) 58.1 (45-73) % Lymph % (Auto) 12.5 L (20-40) % Edmonson % (Auto) 28.0 H (2-11) % Eos % (Auto) 1.0 (0-4) % Baso % (Auto) 0.2 (0-2) % Lymph # (Auto) 0.8 L (1.2-4.9) X10*3/uL Edmonson # (Auto) 1.7 H (0.1-1.2) X10*3/uL Eos # (Auto) 0.1 (0.0-0.4) X10*3/uL Baso # (Auto) 0.0 (0.0-0.2) X10*3/uL Abs Immat Gran (auto) 0.01 (0.00-0.03) X10*3/uL Absolute Neuts (auto) 3.6 (2.0-8.3) x10*3/uL Absolute Nucleated RBC 0.000 (0.0-0.012) X10*3/uL Nucleated RBC % (auto) 0.0 (0.0-0.2) /100WBC Smear Tech's Comments VERIFIED Sodium 140 (135-145) mmol/L Potassium 4.3 (3.3-5.1) mmol/L Chloride 111 H (96-108) mmol/L Carbon Dioxide 23 (22-29) mmol/L Anion Gap 10 L (12-20) BUN 28 H (9-16) mg/dL Creatinine 1.48 H (0.5-1.4) mg/dL Estim Creat Clear Calc 18.9 Estimated GFR 33 Random Glucose 106 (60-115) mg/dL Calcium 9.3 (8.4-10.2) mg/dL Magnesium 2.1 (1.6-2.6) mg/dL Total Bilirubin 0.4 (0.0-1.0) mg/dL AST 22 (5-31) U/L ALT 8 (0-31) U/L Alkaline Phosphatase 79 (39-117) U/L Troponin I High Sens 43.3 H D (<3.5-17.0) ng/L Total Protein 7.3 (6.5-8.0) g/dL Albumin 4.0 (3.5-5.0) g/dL Influenza Type A (PCR) NEGATIVE (Negative) Influenza Type B (PCR) NEGATIVE (Negative) RSV RNA Qual (PCR) NEGATIVE (Negative) SARS-CoV-2 RNA (RT-PCR) POSITIVE A (Negative) Independent Interpretation I performed an independent interpretation of an: Plain X-Ray ( chest:Diffuse interstitial prominence in both lungs. No pleural effusion or pneumothorax. Normal size heart. No acute fracture.) Discharge Plan Discharge Clinical Impression: COVID-19, KACIE (acute kidney injury) Patient Disposition: Admitted As Inpatient Prescriptions: No Action atorvastatin 40 mg Tablet 40 mg PO BEDTIME amlodipine [Norvasc] 10 mg tablet 10 mg PO DAILY Qty: 30 0RF levothyroxine 88 mcg tablet 1 tab PO DAILY@0630 ascorbic acid (vitamin C) 500 mg Tablet 500 mg PO DAILY valsartan 320 mg tablet 1 tab PO DAILY glucosamine HCl-vitamin D3 1,000-200 mg-unit Tablet 1 tab PO DAILY doxycycline monohydrate 100 mg Capsule 100 mg PO Q12H Qty: 8 0RF prednisone 20 mg tablet 40 mg PO DAILY Qty: 8 0RF albuterol sulfate 90 mcg/actuation HFA aerosol inhaler 2 puff inhalation Q6H PRN (Reason: shortness of breath or wheezing) Qty: 8.5 0RF Print Language: Lao
--- NOTE | 2024-10-15 20:42 | ECG_ITS ---
Test Reason : CONFUSION Blood Pressure : */* mmHG Vent. Rate : 80 BPM Atrial Rate : 80 BPM P-R Int : 130 ms QRS Dur : 80 ms QT Int : 374 ms P-R-T Axes : 63 27 83 degrees QTcB Int : 431 ms Normal sinus rhythm Minimal voltage criteria for LVH, may be normal variant ( Sokolow-Beltran ) Borderline ECG When compared with ECG of 25-Sep-2022 10:06, No significant change was found Referred By: Francy Mario Electronically Signed By: VERONICA FONTENOT
[2024-10-15 21:36] LABS: Alanine Aminotransferase 8 U/L (0-31); Alkaline Phosphatase 79 U/L (39-117); Anion Gap 10 (12-20); Aspartate Amino Transferase 22 U/L (5-31); Basophils Percent Auto 0.2 % (0-2); Bilirubin Total 0.4 mg/dL (0.0-1.0); Blood Urea Nitrogen 28 mg/dL (9-16); Calcium 9.3 mg/dL (8.4-10.2); Carbon Dioxide 23 mmol/L (22-29); Chloride 111 mmol/L (96-108); Creatinine Clr Calc Pharmacy 18.9; Eosinophils Absolute Auto 0.1 X10*3/uL (0.0-0.4); Estimated Glomerular Filt Rate 33; Glucose Random 106 mg/dL (60-115); Hematocrit 36.1 % (37.0-47.0); Hemoglobin 11.5 g/dl (12.0-16.0); Imm Gran Abs Auto 0.01 X10*3/uL (0.00-0.03); Imm Gran Pct Auto 0.2 % (0.0-0.4); Lymphocytes Absolute Auto 0.8 X10*3/uL (1.2-4.9); Lymphocytes Percent Auto 12.5 % (20-40); MANUAL DIFF FLAG SCAN; Magnesium 2.1 mg/dL (1.6-2.6); Mean Corpuscular HGB Conc 31.9 g/dl (31.0-35.0); Mean Corpuscular Hemoglobin 30.9 pg (27.0-33.0); Mean Platelet Volume 12.3 fL (9.4-12.3); Monocytes Absolute Auto 1.7 X10*3/uL (0.1-1.2); Neutrophils Absolute Auto 3.6 x10*3/uL (2.0-8.3); Neutrophils Percent Auto 58.1 % (45-73); Platelet Count 135 X10*3/uL (160-400); Potassium 4.3 mmol/L (3.3-5.1); Red Blood Count 3.72 X10*6/uL (4.20-5.50); SCAN SMEAR FLAG 1; Sodium 140 mmol/L (135-145); Total Protein 7.3 g/dL (6.5-8.0); White Blood Count 6.2 X10*3/uL (4.8-10.8)
[2024-10-15 21:43] LABS: Troponin-I High Sensitivity 43.3 ng/L (<3.5-17.0)
[2024-10-15 21:59] LABS: Influenza A PCR NEGATIVE (Negative); Influenza B PCR NEGATIVE (Negative); Resp Syncy Virus RNA Qual PCR NEGATIVE (Negative); SARS COV2 PCR INHOUSE POSITIVE (Negative)
[2024-10-15 22:09] LABS: SLIDE REVIEW VERIFIED
[2024-10-16] VITALS (7 sets, daily range): BP systolic 122–168; BP diastolic 54–74; PULSE 67–90; RESP 14–20; TEMP 36.6–36.8; O2SAT 93–98; BMI 21.3
[2024-10-16] MEDS: 0.9 % Sodium Chloride 1,000 ML 999 ML IV (00:08)
--- NOTE | 2024-10-16 00:51 | MHC.EDTECH ---
Patient repeated labs drawn and sent to lab ,And Patient belongings list done .
--- NOTE | 2024-10-16 00:52 | PM.IMHP ---
History of Present Illness Date of Service: 10/16/24 Attending physician on admission: Magdy Tucker Chief Complaint: confusion, COVD Patient is an 88-year-old female with a past medical history significant for HTN, HLD, hypothyroid, thalamic stroke (5 years ago), CKD unspecified, and COPD, who presented to the ED today due to confusion and mild cough for the past 2 days. The patient reports some aphasia however son disagrees. She denies any weakness. She has a mild runny nose but denies any congestion, sore throat, chest pain, orthopnea, abdominal pain or urinary symptoms including frequency, urgency or dysuria. She does have a history of chronic UTIs. She does not use any medications for COPD at baseline aside from albuterol as needed. Previously when she had COVID she had confusion. Review of Systems Constitutional: Constitutional: Denies body ache(s), Denies chills, Denies fatigue, Denies fever(s) and Denies headache(s) Eyes: Eyes: Denies change in vision, Denies loss of vision and Denies photophobia ENT: Denies headache(s), Denies nasal congestion, Reports nasal discharge and Denies sore throat Cardiovascular: Cardiovascular: Denies chest pain, Denies rapid heart rate, Denies leg edema, Denies lightheadedness, Denies dyspnea and Denies dyspnea on exertion Respiratory: Respiratory: Denies chest congestion, Reports cough, Denies dyspnea, Denies dyspnea on exertion and Denies wheezing Gastrointestinal: Gastrointestinal: Denies melena, Denies hematochezia, Denies constipation, Denies diarrhea, Denies nausea and Denies vomiting Genitourinary: Genitourinary: Denies hematuria, Denies difficulty voiding, Denies dysuria and Denies urinary urgency Musculoskeletal: Musculoskeletal: Denies back pain, Denies myalgias and Denies muscle weakness Integumentary/Breasts: Skin/Breast: Denies rash Neurologic: Reports confusion, Denies headache(s), Denies lack of coordination, Denies focal weakness, Denies loss of vision and Denies seizure-like activity Psychiatric: Psychiatric: Reports confusion Endocrine: Endocrine: Denies fatigue Hematologic/Lymphatic: Hematologic/Lymphatic: Denies easy bleeding and Denies easy bruising Allergic/Immunologic: Allergic/Immunologic: Denies wheezing [facility] Medical History (Updated 10/16/24 @ 01:20 by Annette Jackson PA-C) CKD (chronic kidney disease) stage 3, GFR 30-59 ml/min COVID-19 Rotator cuff arthropathy of right shoulder Thalamic hemorrhage with stroke Hypothyroidism High cholesterol Right shoulder injury Hypertension Surgical History H/O thyroidectomy Social History Household Members: Children Household Members Other:: one sone Housing: House Housing Other:: co-op Do you presently have visiting nurse or other home services: No Alcohol intake: never Patient Tobacco Use Status: Never used Tobacco Advance Directives Date on File: 09/25/22 service: No Current occupational status: retired Narrative: No smoking, alcohol or drug use Meds Allergies Allergy/AdvReac Type Severity Reaction Status Date / Time levofloxacin [From Levaquin] Allergy Mild Rash Verified 10/15/24 20:39 Active Medications: Current Medications Acetaminophen (Acetaminophen 325 Mg Tablet) 975 mg PO Q6H PRN PRN Reason: Pain, Mild 1-3,fever,headache Benzonatate (Benzonatate 100 Mg Capsule) 100 mg PO TID PRN PRN Reason: Cough Calcium Carbonate (Calcium Carbonate 750 Mg Tab.Chew) 750 mg PO Q4H PRN PRN Reason: Heartburn Magnesium Hydroxide (Milk Of Magnesia 30 Ml Oral.Susp) 30 ml PO DAILY PRN PRN Reason: Constipation Melatonin (Melatonin 3 Mg Tablet) 6 mg PO BEDTIME PRN PRN Reason: Insomnia Ondansetron HCl (Ondansetron Hcl 4 Mg/2 Ml Vial) 4 mg IVPUSH Q8H PRN PRN Reason: Nausea and Vomiting Sodium Chloride (0.9 % Sodium Chloride Flush 3 Ml Syringe) 3 [facility] Medications ?Medication ?Instructions ?Recorded ?Confirmed ?Last Taken ?Type atorvastatin 40 mg tablet 40 mg PO BEDTIME 09/26/20 09/25/22 09/25/22 History ascorbic acid (vitamin C) 500 mg 500 mg PO DAILY 09/25/22 09/25/22 09/25/22 History tablet glucosamine HCl-vitamin D3 1,000 1 tab PO DAILY 09/25/22 09/25/22 09/25/22 History mg-200 unit tablet levothyroxine 88 mcg tablet 1 tab PO DAILY@0630 09/25/22 09/25/22 09/25/22 History valsartan 320 mg tablet 1 tab PO DAILY 09/25/22 09/25/22 09/25/22 History Physical Exam Vital Signs and Narrative: Vital Signs: Last Vital Signs Temp 98.0 F 10/16/24 00:03 Pulse 73 10/16/24 00:03 Resp 20 10/16/24 00:03 BP 139/56 L 10/16/24 00:03 Pulse Ox 98 10/16/24 00:03 O2 Del Method Nasal Cannula 10/16/24 00:03 O2 Flow Rate 2 10/16/24 00:03 BMI result Body Mass Index 22.5 General: Alert, oriented to person and place, does not know year or her age. no acute distress Resp: Mild congestion bilaterally, diminished throughout, no wheezing CVS: S1, S2, RRR GI: +BS, NT, no distention Skin: Warm, dry Neuro: Cranial nerves II-XII grossly intact bilaterally. Motor grossly intact bilaterally. Sensation intact bilateral upper and lower extremities. No pronator drift. Extremities: No lower extremity edema Psych: Appropriate affect Const: General: confusion Orientation/consciousness: confusion Eyes: Direct Ophthalmoscopy: No photophobia Neuro: General: confusion Results Labs 10/15/24 21:14 10/15/24 21:14 Labs: Laboratory Results - last 24 hr 10/15/24 10/15/24 21:13 21:14 MCV 97.0 MCH 30.9 MCHC 31.9 RDW 13.0 Plt Count 135 L D MPV 12.3 Immature Gran % (Auto) 0.2 Neut % (Auto) 58.1 Lymph % (Auto) 12.5 L Rock % (Auto) 28.0 H Eos % (Auto) 1.0 Baso % (Auto) 0.2 Lymph # (Auto) 0.8 L Rock # (Auto) 1.7 H Eos # (Auto) 0.1 Baso # (Auto) 0.0 Abs Immat Gran (auto) 0.01 Absolute Neuts (auto) 3.6 Absolute Nucleated RBC 0.000 Nucleated RBC % (auto) 0.0 Smear Tech's Comments VERIFIED Anion Gap 10 L Estim Creat Clear Calc 18.9 Estimated GFR 33 Random Glucose 106 Calcium 9.3 Magnesium 2.1 Total Bilirubin 0.4 AST 22 ALT 8 Alkaline Phosphatase 79 Troponin I High Sens 43.3 H D Total Protein 7.3 Albumin 4.0 Influenza Type A (PCR) NEGATIVE Influenza Type B (PCR) NEGATIVE RSV RNA Qual (PCR) NEGATIVE SARS-CoV-2 RNA (RT-PCR) POSITIVE A Assessment and Plan (1) Acute hypoxemic respiratory failure: Status: Acute (2) AMS (altered mental status): Status: Acute (3) COVID-19: Status: Acute (4) CKD (chronic kidney disease) stage 3, GFR 30-59 ml/min: Status: Acute Plan Patient is an 88-year-old female with a past medical history significant for HTN, HLD, hypothyroid, thalamic stroke (5 years ago), CKD unspecified, and COPD, who presented to the ED today due to confusion and mild cough for the past 2 days. History for hemorrhagic CVA as well as confusion with COVID on separate occasions in the past. acute hypoxic respiratory failure secondary to COVID - WBC normal, no fever, no tachycardia or tachypnea, no sepsis - CXR with mild pulmonary edema - BNP 137 - EKG with NSR, troponin 43.3, repeat 38.9 - started on 2 L via NC in ED with improvement of oxygen saturation from 90-98%, titrate off as appropriate - COVID positive, flu and RSV negative - Tessalon as needed for cough - supportive care - monitor CBC and BMP Altered mental status - history of CVA, MRI brain ordered to r/o repeat - neurologic exam normal - UA not yet done - consider confusion secondary to metabolic acidosis from COVID-19 if above w/u negative HTN - continue home meds HLD - continue home meds Hypothyroid - TSH pending - continue home meds CKD 3B - creatinine 1.48, appears around baseline - given 1 L IV fluids in ED - monitor BMP COPD unspecified - no acute exacerbation - albuterol as needed med rec not complete upon admission DNR/DNI VTE prophylaxis: Pneumoboots until MRI back Patient with acute hypoxic respiratory failure and altered mental status secondary to COVID, requiring admission for at least 2 midnight stay for supplemental oxygen and further workup. Quality Stroke Does the patient have a stroke diagnosis?: No VTE Prior VTE?: No VTE Risk Level:: Medical - moderate - high VTE Device Contraindication: N/A - Device Ordered VTE Drug Contraindication: Treatment Not Indicated
[2024-10-16 01:09] LABS: B Type Natriuretic Peptide 137 pg/mL (<100); Troponin-I High Sensitivity 38.9 ng/L (<3.5-17.0)
--- OUTSIDE RECORDS SUMMARY | 2024-10-16 01:24 | XMS_ITS ---
Author Organization [facility] Address [address] [place] [address] RANDY Lugo [address] Care Team Providers Care Stress Test Technician Name Role Phone Mati Raya MD Primary Care Provider Karissa Hanley Unavailable [phone] Encounters Encounter Location Date Provider Diagnosis [address] [address] 07/20/2024 Karissa Neal Plan Of Treatment No Information Progress Notes * Qian LARADOB:1935 (88 yo F)Acc No.[id number]:07/20/2024 Progress Notes Patient:?Qian LARA Provider:?Karissa Neal DPM :1935???Age:88 Y???Sex:Female D ate:07/20/2024 Address:[address] [place] [address] [id number] Pcp:Mati Raya MD Subjective: * Chief Complaints: * ??? * Medical History:? Objective: * Vitals:? Assessment: Plan: * Treatment: * Images: * The named appointment provid er may or may not be the originator of this progress note, and it is not deemed complete until electronically signed by the appointment provider. Sign off status: Pending * Provider:?Karissa Neal DPM Date:?1 09/19/2023 Generated for Dharai ng/Fakeng/eTransmitting on:?10/16/2024 01:24 AM EST
--- OUTSIDE RECORDS SUMMARY | 2024-10-16 01:25 | XMS_ITS ---
Author Organization Mati Raya MD Address [address] [place] [phone] Care Team Providers Care Corrections Identification Technician Name Role Phone Mati Raya Primary Care Provider Medications Medication SIG (Take, Route, Fr equency, Duration) Notes Start Date End Date Status CeleBREX 200 MG 1 capsule with food Orally Once a day for 30 days 07/19/2024 Active Encounters Encounter Location Date Provider Diagnosis Mati Raya MD [address] [place] [phone] 09/18/2024 Mati Raya Acute idiopathic gout of [...] AM, [address], [address], [place], [phone], Provider Name:Mati Silverman ier, 12/10/2024 10:00:00 AM, [address], [address], [place], [phone], Provider Name:Mati Silverman ier, 06/06/2025 07:30:00 AM, [address] [facility], [address], [place], [phone], Provider Name:Mati Silverman ier, 06/13/2025 11:00:00 AM, [address] [facility], [address], [place], [phone], Progress Notes * Qian LARA CDOB:[birth year] (88 yo F)Acc No.[id number]:09/18/2024 Patient:?Qian Lara C :1935???Age:88 Y???Sex:Female Address: [address] , [place] [address] * Refills? Continue CeleBREX Capsule, 200 MG, Orally, 30, 1 capsule with food, Once a day, 30 days, Refills=3 * true * Date:? Generated for Bill somers/Juanita/Richsmitting on:?10/16/2024 01:25 AM EST
--- OUTSIDE RECORDS SUMMARY | 2024-10-16 01:25 | XMS_ITS ---
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 Assessments [...] Details Provider Name:Mati sol, 12/03/2024 07:30:00 AM, [address] [place] [address], [address], [phone], Provider Name:Mati sol, 12/10/2024 10:00:00 AM, [address] [place] [address], [phone], Provider Name:Mati sol, 06/06/2025 07:30:00 AM, [address] [place] [address], [phone], Provider Name:Mati sol, 06/13/2025 11:00:00 AM, [address] [place] [address], [phone], Progress Notes * Qian LARA CDOB:[birth year] (88 yo F)Acc No.[id number]:10/11/2024 Progress Notes Patient:?Qian LARA Provider:?Mati Raya MD :1935???Age:88 Y???Sex:Female D ate:10/11/2024 Address:[address] [place] [address] [place], [id number] Subjective: * Chief Complaints: * ???1. Memory [...] Hypertension, Anemia, Colonoscopy 2005 due in 2015, [employer] appt 11/30 in [place], Osteoporosis. refuses meds [...] 90 (Primary)??? Plan: * Treatment: * Procedure Codes:?89087 VENIP UNCT, ROUTINE* * * The named appointment provid er may or may not be the originator of this progress note, and it is not deemed complete until electronically signed by the appointment provider. Sign off status: Pending * Provider:?Mati Raya MD Date:?0 10/11/2024 Generated for Bill somers/Juanita/Devynitting on:?10/16/2024 01:25 AM EST History and Physical Notes * HPI [...]
--- OUTSIDE RECORDS SUMMARY | 2024-10-16 01:25 | XMS_ITS | Patient Health Record ---
Author Organization [facility] [place] Address [address] [facility] [place] [place] [address] Care Team Providers Care Liquefied Natural Gas Operator Name Role Phone Mati Raya MD Primary Care Provider Karissa Hanley Unavailable [phone] Jose Huerta Unavailable [phone] Allergies Allergen (clinical drug ingredient) Drug/Non Drug Allergy documented on EMR Reaction Allergy Type Onset Date Status Levaquin Unknown Drug Allergy Active Reason For Referral No Information Medications Medication SIG (Take, Route, Frequency, Duration) Notes Start Date End Date Status Levothyroxine Sodium 88 MCG 1 capsule in the morning on an empty stomach Orally Once a day Active Glucosamine Active Vitamin C Active Valsartan 320 MG 1 tablet Orally Once a day Active amLODIPine Besylate Active Ciclopirox Olamine 0.77 % 1 application to affected area Externally Twice a day for 30 days 05/30/2017 Not-Taking Lisinopril 10 MG Orally QD Not -Taking Atorvastatin Calcium 40 MG Orally Once a day Active amLODIPine Besylate 10 MG 1 tablet Orall y Once a day Active Levothyroxine Sodium 75 MCG Orally Once a day Not-Taking Vitamin D Not-Taking Medrol reji 4mg as directed orally a s directed for 6 days 06/25/2024 Not-Taking Social History Tobacco Use: Social History Observation Description Date Details (start date - stop date) Former Smoker NA - NA Tobacco Use/Smoking Question Answer Notes Are you a: former smoker Additional Findings: Tobacco Non-User Current no n-smoker Alcohol Screen Question Answer Notes Did you have a drink containing alcohol in the p ast year? No Points 0 Interpretation Negative Tobacco use other than smoking: Question Answer Notes Are you an other tobacco user? 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 Rx drug management (4) Vital Signs Blood pressure diastolic 75 mm Hg 06/25/2024 Height 5 ft 4 in in 07/16/2024 Blood pressure systolic 118 mm Hg 06/25/2024 Weight 120 lbs 07/16/2024 BMI 20.6 kg/m2 07/16/2024 Procedures Procedure Date Ordered Date Performed Result Body Sit e , A7383-QYHZE/INJECT, JOINT/BURSA 06/25/2024 N/A Encounters Encounter Location Date Provider Diagnosis [facility] [address] 06/25/2024 Karissa Neal 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 ; Pain in joint involving left ankle and foot M25.572 ; Gout of left foot M10.9 and Bursitis of intermetatarsal bursa of right foot M77.51 [facility] [address] 07/16/2024 Jose Huerta Chronic gout involvi ng toe with tophus M1A.9XX1 ; Pain in joint involving left ankle and foot M25.572 and Gout of left foot M10.9 Assessments Encounter Date Diagnosis (ICD Code) Assessment Notes Treatment Notes Treatment Clinical Notes Section Notes 06/25/2024 Chronic gout involving toe with tophus (ICD-10 - M1A.9XX1) Rx drug management (4) 07/16/2024 Chronic gout involving toe with tophus (ICD-10 - M1A.9XX1) 07/16/2024 Pain in joint involving left ankle and foot (ICD-10 - M25.572) 06/25/2024 Pain in joint involving left ankle and foot (ICD-10 - M25.572) 07/16/2024 Gout of left foot (ICD-10 - M10.9) 06/25/2024 Gout of left foot (ICD-10 - M10.9) Rx drug management (4) 06/25/2024 Bursitis of intermetatarsal bursa of right foot (ICD-10 - M77.51) Patient Educated with: RICE THERAPY.pdf (RICE THERAPY.pdf) Patient Educated with: INJECTIONTHER APY.pdf (INJECTIONTHE RAPY.pdf) 06/25/2024 Other Patient Educated with: GOUT.pdf (GOUT.pdf) Patient Educated with: LOW PURINE DIET.pdf (LOW PURINE DIET.pdf) Patient Educated with: GOUT.pdf (GOUT.pdf) Patient Educated with: LOW PURINE DIET.pdf (LOW PURINE DIET.pdf) Patient Educated with: RICE THERAPY.pdf (RICE THERAPY.pdf) Patient Educated with: INJECTIONTHER APY.pdf (INJECTIONTHE RAPY.pdf) 07/16/2024 Other Plan Of Treatment Pending Test Test Name Order Date X ray : Foot, left 3V 06/25/2024 X ray : Foot, right 3V 06/25/2024 [id number] NAIL, 6 OR MORE 02/24/2017 [id number] NAIL, 6 OR MORE 05/30/2017 [id number] NAIL, 6 OR MORE 08/29/2017 [id number] NAIL, 6 OR MORE 11/28/2017 [id number] NAIL, 6 OR MORE 02/27/2018 [id number] NAIL, 1-5 11/01/2016 25556- Debride <25 sq cm 08/09/2016 65401, I5660-EFKYU/INJECT, JOINT/BURSA 1 Insurance Providers Payer Name Payer Address Payer Phone Subscriber Number Group Number Insured Name Patient Relationship to Insured Coverage Start Date Coverage End Date Medicare National [employer] [address] [place] [address] [id number] Qian Evans Self - patient is the insured [employer]) [address] [place] [id number] [phone] [id number] Qian Evans Self - patient is the insured Medical (General) History Medical History History ICD Code Thyroid disorder Hypertension covid-19 High Blood Pressure Stroke Mumps Chicken pox Surgical History Surgery Date(Month/Year) tonsillectomy Hospitalization History Reason Date(Month/Year) [facility] [place]- Covid 2021
--- OUTSIDE RECORDS SUMMARY | 2024-10-16 01:25 | XMS_ITS ---
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 Name Role Phone Mati Raya MD Primary Care Provider Karissa Hanley Unavailable [phone] Allergies Allergen (clinical drug ingredient) Drug/Non Drug Allergy documented on EMR Reaction Allergy Type Onset Date Status Levaquin Unknown Drug Allergy Active REASON FOR VISIT Pcp-06/16/24, Foot pain Medications Medication SIG (Take, Route, Frequency, Duration) Notes Start Date End Date Status Lisinopril 10 MG Orally QD Not -Taking Levothyroxine Sodium 75 MCG Orally Once a day Not-Taking Atorvastatin Calcium 40 MG Orally Once a day Active Ciclopirox Olamine 0.77 % 1 application to affected area Externally Twice a day for 30 days 05/30/2017 Not-Taking Medrol reji 4mg as directed orally a s directed for 6 days 06/25/2024 Active Vitamin D Not-Taking amLODIPine Besylate Active Valsartan 320 MG 1 tablet Orally Once a day Active Levothyroxine Sodium 88 MCG 1 capsule in the morning on an empty stomach Orally Once a day Active amLODIPine Besylate 10 MG 1 tablet Orall y Once a day Active Glucosamine Active Vitamin C Active Social History Tobacco Use: Social History Observation [...] Status W/U Status Risk Notes Problem Gout (22980132) Gout of right foot (M10.9) Active confirmed Rx drug management (4) 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 (848395160 ) 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 Rx drug management (4) Problem Gout (34947945) Gout of left foot (M10.9) Active confirmed Rx drug management (4) Vital Signs Height 5 ft 4 in in 06/25/2024 Weight 120 lbs 06/25/2024 BMI 20.6 kg/m2 06/25/2024 Blood pressure systolic 118 mm Hg 06/25/20 24 Blood pressure diastolic 75 mm Hg 024 Procedures Procedure Date Ordered Date Performed Result Body Sit e , U6852-OZESH/INJECT, JOINT/BURSA 06/25/2024 N/A Encounters Encounter Location Date Provider Diagnosis [facility] [address] [address] 06/25/2024 Karissa Bowlingaker 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 ; Pain in joint involving left ankle and foot M25.572 ; Gout of left foot M10.9 and Bursitis of intermetatarsal bursa of right foot M77.51 Assessments Encounter Date Diagnosis (ICD Code) Assessment Notes Treatment Notes Treatment Clinical Notes Section Notes 06/25/2024 Chronic gout involving toe with tophus (ICD-10 - M1A.9XX1) Rx drug management (4) 06/25/2024 Pain in joint involving left ankle and foot (ICD-10 - M25.572) 06/25/2024 Gout of left foot (ICD-10 - [...] Patient Educated with: INJECTIONTHER APY.pdf (INJECTIONTHE RAPY.pdf) Plan Of Treatment Medication Medication Name Sig Start Date Stop Date Notes Medrol reji 4mg as directed orally as directed for 6 days 1 Treatment Notes Assessment Notes Bursitis of intermetatarsal bursa of right foot Patient Educated with: RICE THERAPY.pdf (RICE THERAPY.pdf) Patient Educated with: INJECTIONTHERAPY.pdf (INJECTIONTHERAPY.pdf) Other Patient Educated wit h: GOUT.pdf (GOUT.pdf) Patient Educated with: LOW PURINE DIET.pdf (LOW PURINE DIET.pdf) Patient Educated with: GOUT.pdf (GOUT.pdf) Patient Educated with: LOW PURINE DIET.pdf (LOW PURINE DIET.pdf) Patient Educated with: RICE THERAPY.pdf (RICE THERAPY.pdf) Patient Educated with: INJECTIONTHERAPY.pdf (INJECTIONTHERAPY.pdf) Pending Test Test Name Order Date X ray : Foot, left 3V 06/25/2024 X ray : Foot, right 3V 06/25/2024 [id number], [id number]/INJECT, JOINT/BURSA 1 Next Appt Details Follow Up: 3 Weeks, Reason: Procedure Notes * Category Sub-Category Detail Notes Injection Sm. Joint, Bursa , J0702 In jection - 1st MPJ with 1cc of 1 percent Xylo.pl with 3mg Celestone Soluspan utilizing aseptic technique. The patient tolerated the procedure well. A dry sterile dressing was applied. Post injection instructions were dispensed, verbally discussed, and confirmed understood by the patient. I explained that a steroid and local anesthetic injection usually decreases pain and inflammation in order to restore proper function. I explained the possible complications including but not limited to signs/symptoms of steroid flare, change/deviation in toe position, infection, bruising, atrophy, discoloration of skin, and that additional injections may be necessary. Patient relates post-procedural pain assessment improved at ( 0-1) out of 10, LEFT Progress Notes * Qian LARADOB:1935 (88 yo F)Acc No.[id number]:06/25/2024 Progress Notes Patient:?Qian Lara Provider:?Karissa Neal DPM :1935???Age:88 Y???Sex:Female D ate:06/25/2024 Address:[address] [place] [address] , [place], [id number] Pcp:Mati Raya MD Subjective: * Chief Complaints: * ???Pcp-06/16/24Foot pain * HPI: ???Foot Pain:?Nature:?aching, swelling, tenderness, throbbing.?Location:?Great toe joint.?Onset:?sudden, unknown, denies trauma, denies any history of open lesions.?Course:?worse.?Aggravated:?any pressure.?Treatments:?rest/alter normal daily activity, extra strength tylenol.?Severity/Quality:?Pre-injection procedure pain assessment - (9 ) out of 10.?Misc:?Patient states previous conservative therapy has not provided acceptable relief. Despite previous treatments/efforts, patient continues to relate substantial pain and significant functional disability during activity , Patient normally takes daily walks for exercise but has been unable secondary to the pain in her left foot, she has taken extra strength tylenol daily without relief, The patient denies to have received any vaccine therapy within the past month.? * ROS:?General/Constitutional:?Nausea?denies.?Vomiting?denies.?Hunger Thirst?denies.?Loss appetite?denies.?Chills?denies.?Fatigue?denies.?Fever?denies.?Night Sweats?denies.?Unexplained weight loss?denies.?Unexplained weight gain?denies.?HEENTM:?Dentures?denies.?Dizziness?denies.?Glasses/contacts?admits.?Retinopathy?de nies.?Blurred/double vision?denies.?TMJ?denies.?Discharge/drainage?denies.?Implants?denies.?Sore throat?denies.?Dental implants?denies.?Hard of hearing ?denies.?Difficulty chewing/swallowing/speaking?denies.?Nose bleeds?denies.?Sore mouth?denies.?Respiratory:?On Oxygen?denies.?Pneumonia/pleurisy?denies.?Bronchitis?denies.?Emphysema?denies.?C oughing?denies.?Cough blood?denies.?Shortness of breath?denies.?Wheezing?denies.?Cardiovascular:?Pacemaker?denies.?MVP?denies.?WPW?denies.?CHF?denies.?Heart attack?denies.?Septal defect?denies.?Rapid beat?denies.?Chest pain ?denies.?Atrial Fib.?denies.?Murmur/Palpitations?denies.?Gastrointestinal:?Hemorrhoids?denies.?Stomach/Abdominal pain?denies.?Dark blood stool?denies.?Irritable bowel ?denies.?Constipation?denies.?Diarrhea?denies.?Hematology:?Swelling?denies.?Clots?denies.?Varicose Veins?denies.?Bruising?denies.?Bleeding problem?denies.?Genitourinary:?Blood urine?denies.?Frequent/Painfu/urination/bladder control?denies.?Kidney stones?denies.?Infection (UTI)?denies.?Nephropathy?denies.?sex trans dis (STD)?denies.?Prostate?denies.?Musculoskeletal:?Hammertoes?denies.?Bunions?admits.?Back Pain?denies.?Muscle Cramps/ Resting?denies.?Muscle cramps / walking?denies.?Generalized aches and pains?denies.?Weakness?denies.?Integ.:?Martinez?denies.?Scars?denies.?Corns/calluses?denies.?Ingrown nails?denies.?Painful nails?denies.?Open Sores?denies.?Rashes?denies.?Neurologic:?Difficulty sleeping?denies.?Brain disorder?denies.?Numbness?denies.?Balance trouble?denies.?Confusion?denies.?Fainting/blackouts?denies.?Tingling?denies.?Tr emors?denies.? * Medical History:? * Surgical History:?tonsillect eusebio * Hospitalization/Major Diagno stic Procedure:?[facility] – [place]- Covid 2021 * Family History:?Mother: dece ased, diagnosed with Other malignant neoplasm of unspecified site.?Father: .?Son(s): poor circulation, diagnosed with Unspecified essential hypertension, Unspecified heart disease, Unspecified cerebral artery occlusion with cerebral infarction.?Siblings: diagnosed with Unspecified heart disease.? * Social History:?Tobacco Use:?Tobacco Use/Smoking?Are you a:?former smoker ?Additional Findings: Tobacco Non-User?Current non-smoker ?Tobacco use other than smoking?Are you an other tobacco user??No ???Drugs/Alcohol:?Drugs?Have you used drugs other than those for medical reasons in the past 12 months??No ?Alcohol Screen?Did you have a drink containing alcohol in the past year??No ?Points?0 ?Interpretation?Negative ???Miscellaneous:?Caffeine: yes, frequency:. ?Children: yes, 4. ?no Exercise. ?Marital status: . ?Occupation: retired, [employer]. * Medications:?TakingGlucosami ne Vitamin C amLODIPine Besylate 10 MG Tablet 1 tablet Orally Once a dayLevothyroxine Sodium 88 MCG Capsule 1 capsule in the morning on an empty stomach Orally Once a dayValsartan 320 MG Tablet 1 tablet Orally Once a dayamLODIPine Besylate Atorvastatin Calcium 40 MG Tablet Orally Once a dayTaking Glucosamine Taking Vitamin C Taking amLODIPine Besylate 10 MG Tablet 1 tablet Orally Once a dayTaking Levothyroxine Sodium 88 MCG Capsule 1 capsule in the morning on an empty stomach Orally Once a dayTaking Valsartan 320 MG Tablet 1 tablet Orally Once a dayTaking amLODIPine Besylate Taking Atorvastatin Calcium 40 MG Tablet Orally Once a dayNot-Taking/PRNVitamin D Levothyroxine Sodium 75 MCG Tablet Orally Once a dayLisinopril 10 MG Tablet Orally QDCiclopirox Olamine 0.77 % Cream 1 application to affected area Externally Twice a dayMedication List reviewed and reconciled with the patientNot-Taking/PRN Vitamin D Not-Taking/PRN Levothyroxine Sodium 75 MCG Tablet Orally Once a dayNot-Taking/PRN Lisinopril 10 MG Tablet Orally QDNot-Taking/PRN Ciclopirox Olamine 0.77 % Cream 1 application to affected area Externally Twice a dayMedication List reviewed and reconciled with the patient * Allergies:?Levaquinyes[Aller gies Verified] Objective: * Vitals:?Ht:5 ft 4 in, Wt:120 , BMI: 20.6, Shoe size: 8.5W, BP: 118/75 mm Hg, Ht- cm: 162.56 cm, Wt-k.43 kg. * Examination: ???General Examination: ?GENERAL APPEARANCE:?Reveals a pleasant, alert, well nourished, well- developed, well hydrated individual, who demonstrates proper attention to hygiene/body habitus, and is in no acute distress, Pt serves as own historian for office visit today, she is accompanied by her son who serves as an additional historian.?Orthopedic: ?GAIT ABNORMALITY:?antalgic.?BUNION:?(+) Pain on palpation, inflammation present, 1st MPJ Range of motion is limited with discomfort, 1st MPJ is erythematous and edematous, no open lesions, no streaking or lymphangitis, no fluctuance or crepitus.?X-Rays - IMAGING REPORT: ?Clinical Indication(s):? Evaluate for Fracture, Evaluate for Osteomyelitis.?Views:? 3 views of Foot, AP, LAT, MO .?Findings:? increase in soft tissue contour and density at the symptomatic site, radiolucent soft tissue gas absent.?HAV:? there is no Horace sign .?Fracture:?Negative fractures identified .?Signs of Osteomyelitis?Absent.?Vascular: ?DP PULSES(B):? 2/4, B/L.?PT PULSES(B):?0/4, B/L.?CAPILLARY FILL TIME:?3 secs. per digit.?TROPHIC CONDITION-TEXTURE/ELASTICITY/TURGOR/HAIR GROWTH(B):?fragile, thin, shiny skin , B/L.?TEMPERTURE GRADIENT(C):?normal, warm to cool, proximal to distal, B/L, B/L.?EDEMA(C):?absent, B/L.?VARICOSITIES:?present, moderate, nonpainful, B/L.?Neurological: ?SENSORY:?Neurological exam reveals intact sensorium, pain sensation normal, vibration sensation intact, pinprick sensation is normal in the lower extremities, Pt denies, anesthesia, burning, paresthesia, tingling, B/L.?Dermatologic: ?SKIN FINDINGS:?Skin exam reveals normal color, texture, elasticity, and turgor. There are no masses, nor excrescences. The interspaces are clear, B/L.? Assessment: * Assessment: 1.?Chronic gout involving to e with tophus - M1A.9XX1, Chronic problem, Worse (4), Rx drug management (4)?2.?Pain in joint involving left ankle and foot - M25.572?3.?Gout of left foot - M10.9, Acute problem, Complicated w/ Multiple Tx Options(4), Rx drug management (4)?4.?Bursitis of intermetatarsal bursa of right foot - M77.51 (Primary), Resistant to previous conservative treatment? Plan: * Treatment: 2.?Pain in joint involving l eft ankle and foot?Imaging: X ray : Foot, left 3V 3.?Others? Start Medrol reji Tablet Therapy Pack, 4mg, as directed, orally, as directed, 6 days, 1 reji, Refills 0.?? Notes: Patient Educated with: GOUT.pdf (GOUT.pdf) Patient Educated with: LOW PURINE DIET.pdf (LOW PURINE DIET.pdf) Patient Educated with: GOUT.pdf (GOUT.pdf) Patient Educated with: LOW PURINE DIET.pdf (LOW PURINE DIET.pdf) Patient Educated with: RICE THERAPY.pdf (RICE THERAPY.pdf) Patient Educated with: INJECTIONTHERAPY.pdf (INJECTIONTHERAPY.pdf)?? * Procedures:?Injection:?Sm. Joint, Bursa?, J701 Injection - 1st MPJ with 1cc of 1 percent?Xylo.pl?with 3mg Celestone Soluspan utilizing aseptic technique. The patient tolerated the procedure well. A dry sterile dressing was applied. Post injection instructions were dispensed, verbally discussed, and confirmed understood by the patient. I explained that a steroid and local anesthetic injection usually decreases pain and inflammation in order to restore proper function. I explained the possible complications including but not limited to signs/symptoms of steroid flare, change/deviation in toe position, infection, bruising, atrophy, discoloration of skin, and that additional injections may be necessary. Patient relates post-procedural pain assessment improved at ( 0-1) out of 10, LEFT.? * Imaging:? * ?Imaging: X ray : Foot, right 3V * Procedure Codes:? DRAIN /INJECT, JOINT/BURSA, Modifiers: XS , [id number] INJ BETAMETHSN ACTAT&SOD PHOSPH-3MG, Modifiers: XS , [id number] X-RAY EXAM OF LEFT FOOT 3V, Modifiers: 26 , LT * Preventive Medicine:? ??Counseling:?Discussion:?-04: Office or other outpatient visit for the evaluation and management of a new patient, which required a medically appropriate history and/or examination and MODERATE level of DECISION MAKING for: 1 OR MORE CHRONIC PROBLEM(S) THATS WORSENING, 2 STABLE CHRONIC PROBLEMS, A NEWLY DIAGNOSED PROBLEM WITH UNCERTAIN PROGNOSIS, AN ACUTE COMPLICATED INJURY WITH MULTIPLE TREATMENT OPTIONS, OR AN ACUTE PROBLEM WITH ACCOMPANYING SYSTEMIC SYMPTOMS, THAT POSE(S) A MODERATE RISK OF MORBIDITY. THIS CONDITION MAY ALSO INCLUDE RX DRUG MANAGEMENT, OR A DECISON FOR MINOR SURGERY. The visit on the day of the encounter encompassed interpreting the data and educating the patient as to the nature of their condition, treatment options available according to their individual PMH, meds, allergies, and overall health/living conditions, as well as any potential risks or complications that may occur from a failure to adhere to, and participate in, the recommended course of therapy. The discussion included a complete verbal, and/or written explanation of the examination results, any x-rays taken, the proposed diagnosis, and outline of the treatment plan. A schedule for future care needs was also explained. The patient verbalized an understanding of the instructions at this time and agreed to be an active participant in their treatment. If the patient should think of any questions or concerns after the visit, I have encouraged the patient to call the office.?Gout:?I explained to the patient the possible etiologies for Gout, including genetic, excess dietary protein, excess dietary sugar, alcohol, diuretic medications, dehydration, and/or previous surgery. An information sheet re: the foods to enjoy as well as avoid was dispensed and detailed at the time of visit. We discussed the risks/benefits of all the different treatment options for Gout including: No treatment at all, Rest, Ice, NSAIDs(only if well tolerated after meals), Oral steroids, Colchicine, New/supportive Shoegear, Foot/Ankle AFO Bracing, Arch support/shoe inserts, Custom orthoses, Topical analgesics including Aspercream/Voltaren gel/Custom compounded combination therapy, and Dietary modification. Advantages and disadvantages of each option were discussed and the patients questions re: shoegear, custom vs prefabricated inserts, activity level, PO vs Topical medications (and their respective potential complications/drug interactions/side effects including the possible interaction with statin medications ), diet, and consistency in home treatment regimens for optimal success were answered to their verbally confirmed satisfaction.?P.R.I.C.E.:?The patient was counseled on the use of P.R.I.C.E. and NSAIDS (if well tolerated) to aid in the recovery from their painful condition, The patient was counseled on the use of P.R.I.C.E. and NSAIDS (if well tolerated) to aid in the recovery from their painful condition.?Steriod Injection:?I explained that a steroid and local anesthetic injections are administered to relieve pain and inflammation and thereby meant to improve function. I explained the possible complications including but not limited to signs/symptoms of steroid flare, infection, bruising, atrophy, discoloration of skin, change/deviation in toe position, and that additional injections may be necessary, cortisone post-injection informative educational handout was dispensed to and reviewed with the patient, In order to prevent any compromise of an effective immune response, it was recommended the patient refrain from any vaccine therapy for the next month. Patient verbally confirmed understanding the previously mentioned protocol.? * Follow Up:?3 Weeks * Images: * Sign off status: Completed true * Provider:?Karissa Neal DPM Date:?1 Generated for Bill somers/Juanita/Dereck on:?10/16/2024 01:25 AM EST History and Physical Notes * HPI (History of Present Illness) Category Sub-Category Detail Notes Category Not es Foot Pain Nature: aching, swelling, tenderness , throbbing Location: Great toe joint Onset: sudden, unknown, den ies trauma, denies any history of open lesions Course: worse Aggravated: any pressure Treatments: rest/alter normal da caitlin activity, extra strength tylenol Severity/Quality: Pre-injection proced ure pain assessment - (9 ) out of 10 Misc: Patient states previ ous conservative therapy has not provided acceptable relief. Despite previous treatments/efforts, patient continues to relate substantial pain and significant functional disability during activity , Patient normally takes daily walks for exercise but has been unable secondary to the pain in her left foot, she has taken extra strength tylenol daily without relief, The patient denies to have received any vaccine therapy within the past month Examination Category Sub-Category Detail Notes Category Not es Neurological SENSORY: Neurological exa m reveals intact sensorium, pain sensation normal, vibration sensation intact, pinprick sensation is normal in the lower extremities, Pt denies, anesthesia, burning, paresthesia, tingling, B/L Dermatologic SKIN FINDINGS: Skin exam reveal s normal color, texture, elasticity, and turgor. There are no masses, nor excrescences. The interspaces are clear, B/L Orthopedic GAIT ABNORMALITY: antalgic BUNION: (+) Pain on palpatio n, inflammation present, 1st MPJ Range of motion is limited with discomfort, 1st MPJ is erythematous and edematous, no open lesions, no streaking or lymphangitis, no fluctuance or crepitus General Examination GENERAL APPEARANCE: Reveals a pleasant, alert, well nourished, well-developed, well hydrated individual, who demonstrates proper attention to hygiene/body habitus, and is in no acute distress, Pt serves as own historian for office visit today, she is accompanied by her son who serves as an additional historian Vascular DP PULSES (B): 2/4, B/L PT PULSES (B): 0/4, B/L CAPILLARY FILL TIME: 3 secs. per digit TEMPERTURE GRADIENT (C): normal, warm to cool, proximal to distal, B/L, B/L TROPHIC CONDITION-TEXTURE/ELASTICITY/TURGOR/HAIR GROWTH (B): fragile, thin, shiny skin , B/L EDEMA (C): absent, B/L VARICOSITIES: present, moderate, n onpainful, B/L X-Rays - IMAGING REPORT Findings: increase in soft tissue contour and density at the symptomatic site, radiolucent soft tissue gas absent Fracture: Negative fractures i dentified Signs of Osteomyelitis Absent HAV: there is no Horace s ign Views: 3 views of Foot, AP, LAT, MO Clinical Indication(s): Evaluate for Fra cture, Evaluate for Osteomyelitis
--- OUTSIDE RECORDS SUMMARY | 2024-10-16 01:25 | XMS_ITS ---
Author Organization [facility] navid Winston Address [address] [place] [address] [place] [address] Care Team Providers Care Assistant Real Estate Manager Name Role Phone Mati Raya MD Primary Care Provider Karissa Hanley Unavailable [phone] Jose Huerta Unavailable [phone] Allergies Allergen (clinical drug ingredient) Drug/Non Drug Allergy documented on EMR Reaction Allergy Type Onset Date Status Levaquin Unknown Drug Allergy Active REASON FOR VISIT Foot pain Medications Medication SIG (Take, Route, Frequency, Duration) Notes Start Date End Date Status Ciclopirox Olamine 0.77 % 1 application to affected area Externally Twice a day for 30 days 05/30/2017 Not-Taking Lisinopril 10 MG Orally QD Not -Taking Levothyroxine Sodium 75 MCG Orally Once a day Not-Taking Vitamin D Not-Taking Medrol reji 4mg as directed orally a s directed for 6 days 06/25/2024 Not-Taking Levothyroxine Sodium 88 MCG 1 capsule in the morning on an empty stomach Orally Once a day Active Glucosamine Active Vitamin C Active Valsartan 320 MG 1 tablet Orally Once a day Active Atorvastatin Calcium 40 MG Orally Once a day Active amLODIPine Besylate Active amLODIPine Besylate 10 MG 1 tablet Orall y Once a day Active Social History Tobacco Use: Social History [...] Are you an other tobacco user? No Vital Signs Height 5 ft 4 in in 07/16/2024 Weight 120 lbs 07/16/2024 BMI 20.6 kg/m2 07/16/2024 Encounters Encounter Location Date Provider Diagnosis [facility] [place] [address] 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 ; Pain in joint involving left ankle and foot M25.572 and Gout of left foot M10.9 Assessments Encounter Date Diagnosis (ICD Code) Assessment Notes Treatment Notes Treatment Clinical Notes Section Notes 07/16/2024 Chronic gout involving toe with tophus (ICD-10 - M1A.9XX1) 07/16/2024 Pain in joint involving left ankle and foot (ICD-10 - M25.572) 07/16/2024 Gout of left foot (ICD-10 - M10.9) 07/16/2024 Other Plan Of Treatment Next Appt Details Follow Up: prn, Reason: Progress Notes * Qian LARADOB:1935 (88 yo F)Acc No.[id number]:07/16/2024 Progress Notes Patient:?SANDYFLOSurendra Qian Provider:?Jose Huerta DPM :1935???Age:88 Y???Sex:Female D ate:07/16/2024 Address:[address] [place] [address] , [facility] Pcp:Mati Raya MD Subjective: * Chief Complaints: * ???Foot pain * HPI: ???Foot Pain:?Location:?Great toe joint , LEFT.?Treatments:?rest/alter normal daily activity, extra strength tylenol , ice, elevation, cortisone injection , medication ( Medrol dose pack).? * ROS:?General/Constitutional:?Nausea?denies.?Vomiting?denies.?Hunger Thirst?denies.?Loss appetite?denies.?Chills?denies.?Fatigue?denies.?Fever?denies.?Night Sweats?denies.?Unexplained weight loss?denies.?Unexplained [...] Surgical History:?tonsillect eusebio * Hospitalization/Major Diagno stic Procedure:?[facility]- Covid 2021 * Family History:?Mother: dece ased, diagnosed with Other malignant neoplasm of unspecified site.?Father: .?Son(s): poor circulation, diagnosed with Unspecified heart disease, Unspecified cerebral artery occlusion with cerebral infarction, Unspecified essential hypertension.?Siblings: diagnosed with Unspecified heart disease.? * Social History:?Tobacco Use:?Tobacco Use/Smoking?Are you a:?former smoker ?Additional Findings: Tobacco Non-User?Current non-smoker ?Tobacco use other than smoking?Are you an other tobacco user??No ???Drugs/Alcohol:?Drugs?Have you used drugs other than those for medical reasons in the past 12 months??No ?Alcohol Screen?Did you have a drink containing alcohol in the past year??No ?Points?0 ?Interpretation?Negative ???Miscellaneous:?Caffeine: yes, frequency:. ?Children: yes, 4. ?Exercise: no. ?Marital status: . 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 * Medications:?TakingamLODIPin e Besylate amLODIPine Besylate 10 MG Tablet 1 tablet Orally Once a day Atorvastatin Calcium 40 MG Tablet Orally Once a day Glucosamine Levothyroxine Sodium 88 MCG Capsule 1 capsule in the morning on an empty stomach Orally Once a day Valsartan 320 MG Tablet 1 tablet Orally Once a day Vitamin C Taking amLODIPine Besylate Taking amLODIPine Besylate 10 MG Tablet 1 tablet Orally Once a day Taking Atorvastatin Calcium 40 MG Tablet Orally Once a day Taking Glucosamine Taking Levothyroxine Sodium 88 MCG Capsule 1 capsule in the morning on an empty stomach Orally Once a day Taking Valsartan 320 MG Tablet 1 tablet Orally Once a day Taking Vitamin C Not-Taking/PRNMedrol reji 4mg Tablet Therapy Pack as directed orally as directed Vitamin D Levothyroxine Sodium 75 MCG Tablet Orally Once a day Lisinopril 10 MG Tablet Orally QD Ciclopirox Olamine 0.77 % Cream 1 application to affected area Externally Twice a day Medication List reviewed and reconciled with the patientNot-Taking/PRN Medrol reji 4mg Tablet Therapy Pack as directed orally as directed Not-Taking/PRN Vitamin D Not-Taking/PRN Levothyroxine Sodium 75 MCG Tablet Orally Once a day Not-Taking/PRN Lisinopril 10 MG Tablet Orally QD Not- Taking/PRN Ciclopirox Olamine 0.77 % Cream 1 application to affected area Externally Twice a day Medication List reviewed and reconciled with the patient * Allergies:?Levaquinyes[Aller gies Verified] Objective: * Vitals:?Ht: 5 ft 4 in, Wt:12 0, BMI: 20.6, Shoe size:8.5W, Ht-cm: 162.56 cm, Wt- k.43 kg. * Examination: ???Orthopedic: ?BUNION:?States 60-70 percent LESS, Pain on palpation, inflammation present, 1st MPJ Range of motion is limited with discomfort , LEFT.? Assessment: * Assessment: 1.?Chronic gout involving to e with tophus - M1A.9XX1???2.?Pain in joint involving left ankle and foot - M25.572???3.?Gout of left foot - M10.9???Specify :Acute problem, Stable,Response to treatment - Improvement??? Plan: * Treatment: * Procedure Codes:? * Preventive Medicine:? ??Counseling:?Discussion:?-13: Office or other outpatient visit for the evaluation and management of an established patient, which required a medically appropriate history and/or examination and LOW level of DECISION MAKING for: 1 STABLE ACUTE UNCOMPLICATED PROBLEM, 2 OR MORE MINOR PROBLEMS, OR 1 STABLE CHRONIC PROBLEM, THAT POSE(S) A LOW RISK FOR MORBIDITY/MORTALITY. The visit on the day of the [...] have encouraged the patient to call the office.?Consult:?The patient was counseled on the diagnosis, treatment options, and the need for a, PCP Consult for Uric acid testing, possible Rx Allopurinol, Pt indicated understanding the recommendations and accepts this treatment plan. The patient would like to make their appt themself.?Gout:?Given recent successful results to treatment, the patient wishes to continue with the present plan for their condition.? ??Screening/Special Tests:?Fall Risk?Screening:?No falls in the past year ?FALLS: Screening for Future Fall Risk?Have you had any falls with injury in the past year??No * Follow Up:?prn * Images: * Sign off status: Completed true * Provider:?Jose Huerta DPM Date:?2023 Generated for Bill somers/Juanita/Devynitting on:?10/16/2024 01:25 AM EST History and Physical Notes * HPI (History of Present Illness) Category Sub-Category Detail Notes Category Not es Foot Pain Location: Great toe joint , LEFT Treatments: rest/alter normal da caitlin activity, extra strength tylenol , ice, elevation, cortisone injection , medication ( Medrol dose pack) Examination Category Sub-Category Detail Notes Category Not es Orthopedic BUNION: States 60-70 per cent LESS, Pain on palpation, inflammation present, 1st MPJ Range of motion is limited with discomfort , LEFT
[2024-10-16 01:35] LABS: Thyroid Stimulating Hormone 0.72 uIU/mL (0.32-4.0)
--- NOTE | 2024-10-16 02:04 | MHC.EDTECH ---
Patient was assisted unto bedside commode ,urine sample collected and sent to lab ,vitals taken ,Patient resting quietly with eyes closed .
[2024-10-16 02:10] LABS: Appearance Urine Clear; Color Urine Yellow; Glucose Urine UA Negative (Negative); Leukocyte Esterase Urine Negative (Negative); Nitrite Urine Negative (Negative); Specific Gravity - Urine 1.015 (1.005-1.025); UMIC TRIGGER UACC YES; Urine Blood Negative (Negative); Urine Ketones Trace mg/dL (Negative); Urine Protein 30 (1+) mg/dL (Neg-Trace)
[2024-10-16 02:15] LABS: Bacteria Urine None Seen (None Seen); RBC Urine 0-2 /HPF (0-2); WBC Urine 0-5 /HPF (0-5)
--- NOTE | 2024-10-16 03:37 | MHC.EDTECH ---
0400 rounding done ,vitals taken ,Patient sleeping ,all safety measure in Place .
--- NOTE | 2024-10-16 06:03 | PC.NURSE ---
assist pt to commode, incont of urine, bed and gown changed. assist back into bed, resting comfortably, call franks w/in reach
[2024-10-16 06:15] LABS: Hemoglobin 11.8 g/dl (12.0-16.0); Mean Corpuscular HGB Conc 31.1 g/dl (31.0-35.0); Mean Corpuscular Hemoglobin 30.4 pg (27.0-33.0); Mean Corpuscular Volume 97.9 fL (80.0-98.0); Mean Platelet Volume 12.1 fL (9.4-12.3); PLT CLUMP 1; Red Blood Count 3.88 X10*6/uL (4.20-5.50); Red Cell Distribution Width 13.2 % (11.0-16.0); WBC ABN SCTR FOR CBC 1
[2024-10-16 06:27] LABS: Anion Gap 12 (12-20); Blood Urea Nitrogen 23 mg/dL (9-16); Calcium 9.1 mg/dL (8.4-10.2); Carbon Dioxide 21 mmol/L (22-29); Chloride 112 mmol/L (96-108); Creatinine Clr Calc Pharmacy 22.5; Estimated Glomerular Filt Rate 41; Glucose Random 85 mg/dL (60-115); Potassium 4.4 mmol/L (3.3-5.1); Sodium 141 mmol/L (135-145)
--- NOTE | 2024-10-16 06:39 | PC.NURSE ---
pt self removed IV from arm
[2024-10-16] MEDS: Levothyroxine Sodium 88 MCG TABLET PO (06:47)
[2024-10-16 07:08] LABS: Band Neutrophils Percent 4 % (3-5); Basophils Percent Manual 1 % (0-2); Eosinophils Percent Manual 3 % (0-4); Lymphocytes Percent Manual 22 % (20-40); Monocytes Percent Manual 29 % (2-11); Neutrophils Percent Manual 41 % (45-73)
[2024-10-16 07:10] LABS: Macrocytosis 1+ (5-14) /OIF; RBC Morphology NOTED
[2024-10-16 07:12] LABS: Large Platelet PRESENT; Ovalocytes 1+ (5-14) /OIF; Platelet Estimate SLIGHTLY DECREASED (NORMAL); Platelet Morphology Comment NOTED
[2024-10-16 07:13] LABS: Basophils Abs Manual 0.1 X10*3/uL (0.0-0.2); Eosinophils Absolute Manual 0.2 X10*3/uL (0.0-0.4); Lymphocytes Absolute Manual 1.2 X10*3/uL (1.2-4.9); Monocytes Absolute Manual 1.6 X10*3/uL (0.1-1.2); Neutrophils Absolute Manual 2.5 X10*3/uL (2.0-8.3); Platelet Count 132 X10*3/uL (160-400); White Blood Count 5.6 X10*3/uL (4.8-10.8)
--- NOTE | 2024-10-16 09:28 | PHA.MEDREC ---
Pharmacy Consult ? Medication Reconciliation Pharmacy has completed the medication reconciliation, spoke to patient's son Duane at bedside who had a list of pt's medications written out. When asked about donepezil, he was unfamiliar with it and did not recall, called [facility] and confirmed it was picked up on 10/11/24 so it was left on the list as it appears new.
[2024-10-16] MEDS: Donepezil HCl 5 MG TABLET PO (09:48)
[2024-10-16] MEDS: 0.9 % Sodium Chloride Flush 3 ML SYRINGE IVFLUSH ×2 (09:48→20:03)
[2024-10-16] MEDS: amLODIPine Besylate 10 MG TABLET PO (09:48)
--- NOTE | 2024-10-16 09:50 | PC.NURSE ---
pt is alert and at this time answering questions appropriately, knows that she is in a hospital but did state it was [facility], knows the month and the president, skin is pwd, respirations even and unlabored, ls clear, pt denies pain, but the pt does periodly remove her oxygen and she desats to 90, but jumps tight back to 95% with the oxygen, vs stable at this time, ns on the monitor mri screening form completed and faxed over
[2024-10-16] MEDS: Valsartan 320 MG TABLET PO (10:20)
[2024-10-16] MEDS: Celecoxib 200 MG CAPSULE PO (11:29)
[2024-10-16] MEDS: Cholecalciferol (Vitamin D3) 25 MCG TABLET 50 MCG PO (11:29)
[2024-10-16] MEDS: Cyanocobalamin (Vitamin B-12) 1,000 MCG TABLET 1000 MCG PO (11:30)
[2024-10-16] MEDS: Ascorbic Acid 500 MG TABLET PO ×2 (11:30→20:01)
--- NOTE | 2024-10-16 12:17 | PM.EVENT ---
Event Note Date of Service: 10/16/24 Event Note: Chart reviewed patient examined. No acute issues since admission. Agree with history and physical and plan as outlined Time Spent With Patient Time: Total time managing care of this patient today ____ minutes.
--- NOTE | 2024-10-16 12:36 | P.CDIM_ITS ---
PROVIDER RESPONSE TEXT: To clarify, the appropriate diagnosis supported by the clinical indicators: Acute QUERY TEXT: PHYSICIAN'S DOCUMENTATION REQUEST Date of Query: 10/16/2024 11:52 AM EST Patient Name: Qian Evans Admit Date: 10/16/2024 Dear Wellington Cruz DO, A review of the medical record indicates additional documentation may be needed. Please review below and update the documentation accordingly. Clinical Indicators: H&P 10/16 - Altered mental status. Consider confusion secondary to metabolic acidosis from COVID-19. Clarify which of the following accurately represents the acuity of the metabolic acidosis: Possible options might include: Acute Acute on chronic Chronic Other (explain) Clinically unable to determine (explain) Thank you, Karli Mckeon, CCS, CDIS Use of terms such as suspected, likely, concern for, or probable (associated with a specific diagnosi s that is being evaluated, monitored, or treated as if it exists) are acceptable and can be coded in the inpatient se tting, when documented at the time of discharge. Please use your independent medical judgment in providing your response. THIS QUERY IS PART OF THE PERMANENT MEDICAL RECORD
[2024-10-16] MEDS: Atorvastatin Calcium 40 MG TABLET PO (20:01)
[2024-10-17] VITALS: BP 164/64; PULSE 87; RESP 20; TEMP 36.7; O2SAT 96
[2024-10-17 04:00] VITALS: BP 153/70; PULSE 83; RESP 20; TEMP 36.9; O2SAT 95
--- NOTE | 2024-10-17 06:16 | HO.SKINPHOTO ---
Location: Category: Stage: Length: Width: Depth: cm
[2024-10-17] MEDS: Levothyroxine Sodium 88 MCG TABLET PO (06:25)
[2024-10-17 07:09] LABS: Basophils Percent Auto 0.3 % (0-2); Eosinophils Absolute Auto 0.1 X10*3/uL (0.0-0.4); Eosinophils Percent Auto 1.4 % (0-4); Hematocrit 38.6 % (37.0-47.0); Imm Gran Abs Auto 0.02 X10*3/uL (0.00-0.03); Imm Gran Pct Auto 0.3 % (0.0-0.4); Lymphocytes Absolute Auto 1.1 X10*3/uL (1.2-4.9); MANUAL DIFF FLAG SCAN; Mean Corpuscular HGB Conc 31.1 g/dl (31.0-35.0); Mean Corpuscular Hemoglobin 30.6 pg (27.0-33.0); Mean Corpuscular Volume 98.5 fL (80.0-98.0); Mean Platelet Volume 12.7 fL (9.4-12.3); Monocytes Absolute Auto 2.2 X10*3/uL (0.1-1.2); Monocytes Percent Auto 33.6 % (2-11); Neutrophils Percent Auto 47.4 % (45-73); Platelet Count 126 X10*3/uL (160-400); Red Blood Count 3.92 X10*6/uL (4.20-5.50); Red Cell Distribution Width 12.9 % (11.0-16.0); SCAN SMEAR FLAG 1; White Blood Count 6.4 X10*3/uL (4.8-10.8)
[2024-10-17 07:14] VITALS: BP 146/74; PULSE 87; RESP 17; TEMP 36.1; O2SAT 96
[2024-10-17 07:20] LABS: Anion Gap 16 (12-20); Blood Urea Nitrogen 20 mg/dL (9-16); Calcium 9.4 mg/dL (8.4-10.2); Carbon Dioxide 20 mmol/L (22-29); Chloride 109 mmol/L (96-108); Creatinine Clr Calc Pharmacy 25.2; Estimated Glomerular Filt Rate 46; Glucose Random 84 mg/dL (60-115); Potassium 4.5 mmol/L (3.3-5.1); Sodium 140 mmol/L (135-145)
[2024-10-17 08:21] LABS: SLIDE REVIEW VERIFIED
--- NOTE | 2024-10-17 09:00 | MHC.CM.PN ---
IMM 10/17/24 DELIEVERED TO PT'S SON/HCP ALICE AT NUMBER ON FILE D/T PT W/CONFUSION AND COVID19, ALICE REPORTS PT LIVES W/HIM, BEDROOM ON FIRST FLOOR AND VALENCIA ASSISTS PT'S WHEN SHE GOES UP AND DOWN THE STAIRS OTHER ESCOBAR PT IS INDEPENDENT W/MOBILITY IN THE HOME AND USES A ROLLATOR IN THE COMMUNITY, PT HAS NO VNA SERVICES HOWEVER DID HAVE A VNA THE LAST TIME SHE HAD COVID AND PT/SON OPEN TO VNA SERVICES IF RECOMMENDED. PCP ON FILE VERIFIED, ALICE REPORTS HE IS PT'S HCP AND WE SHOULD HAVE COPY ON FILE, CM WILL LOOK INTO PREVIOUS ADMITS THERE IS NO COPY ON TE2/Peonut.
[2024-10-17] MEDS: Cyanocobalamin (Vitamin B-12) 1,000 MCG TABLET 1000 MCG PO (09:18)
[2024-10-17] MEDS: Valsartan 320 MG TABLET PO (09:18)
[2024-10-17] MEDS: Celecoxib 200 MG CAPSULE PO (09:18)
[2024-10-17] MEDS: Cholecalciferol (Vitamin D3) 25 MCG TABLET 50 MCG PO (09:18)
[2024-10-17] MEDS: Donepezil HCl 5 MG TABLET PO (09:18)
[2024-10-17] MEDS: amLODIPine Besylate 10 MG TABLET PO (09:18)
[2024-10-17] MEDS: Ascorbic Acid 500 MG TABLET PO (09:18)
[2024-10-17] MEDS: 0.9 % Sodium Chloride Flush 3 ML SYRINGE IVFLUSH (09:19)
[2024-10-17 11:06] VITALS: BP 129/60; PULSE 84; RESP 18; TEMP 36.2; O2SAT 92
--- NOTE | 2024-10-17 12:27 | W.MHC.F2F ---
Service Date Service Date: 10/17/24 Encounter Date of encounter: 10/17/24 Reasons for Services Signs and symptoms assessed: respiratory status mental status monitoring physical therapy Reason for mcc: neurological assessment and other (respiratory assessment) Reason for physical therapy: home safety and mobility and therapeutic exercises Overseeing Care: Mati Raya Homebound: Leaving the home is medically contraindicated at this time without the asist of a device and/or another person due th the listed conditions above and below. Reason homebound: unsteady gait / fall risk and cognitively impaired / unsafe Certification: Based on the above findings, I certify that this patient is confined to the home and needs intermittent mcc care, physical therapy and/or speech therapy, or continues to need occupational therapy. The patient is under my care, and I have initiated the establishment of the plan of care. The patient will be followed by a physician who will periodically review the plan of care. Time Spent With Patient Time: Total time managing care of this patient today ____ minutes.
--- NOTE | 2024-10-17 12:28 | PM.DS ---
DS: Providers Provider Date of Service: 10/17/24 Date of admission: 10/16/24 01:22 Date of discharge: 10/17/24 Primary care physician: Mati Raya MD Consults: 10/17/24 10:41 Consult to Wound Care Routine Reason for consultation: stage 1 coccyx DS: Diagnosis Discharge Diagnosis (1) Acute hypoxemic respiratory failure: Status: Acute (2) AMS (altered mental status): Status: Acute (3) COVID-19: Status: Acute (4) CKD (chronic kidney disease) stage 3, GFR 30-59 ml/min: Status: Acute DS: Summary Hospital Course Hospital Course: HPI from admission H&P: Chief Complaint: confusion, COVD Patient is an 88-year-old female with a past medical history significant for HTN, HLD, hypothyroid, thalamic stroke (5 years ago), CKD unspecified, and COPD, who presented to the ED today due to confusion and mild cough for the past 2 days. The patient reports some aphasia however son disagrees. She denies any weakness. She has a mild runny nose but denies any congestion, sore throat, chest pain, orthopnea, abdominal pain or urinary symptoms including frequency, urgency or dysuria. She does have a history of chronic UTIs. She does not use any medications for COPD at baseline aside from albuterol as needed. Previously when she had COVID she had confusion. Hospital Course: Patient was placed on supplemental oxygen and isolation. She was given supportive care. Over the course of 2 nights in the hospital, her hypoxia has resolved. In regards to mental status, she has improve and is likely at baseline now. MRI is negative. She is tolerating RA. She will be d/c home on 5 more days of presdnisone. She will have VNA services at home. Discharge diagnosis: 1. Acute resp failure with hypoxia 2. Alterned mental status due Acute metabolic encephalopathy from to COVID / hypoxia 3. COVID 19 4. HTN 5. CKD3 6. HLD 7. Hypothyroidism Time Attestation Discharge Coordination Time (in mins): 40 Quality: Safe Use of Opioids Does Pt have an Active Cancer Diagnosis on the Problem List?: No Quality: Stroke Does the patient have a stroke diagnosis?: No Physical Exam Vital Signs: Vital Signs: Last Vital Signs Temp 97.1 F 10/17/24 11:06 Pulse 84 10/17/24 11:06 Resp 18 10/17/24 11:06 BP 129/60 10/17/24 11:06 Pulse Ox 92 10/17/24 11:06 O2 Del Method Room Air 10/17/24 11:06 O2 Flow Rate 2 10/17/24 07:14 BMI result Body Mass Index 21.3 Const: Other: General - no acute distress, appears comfortable Cardiovascular - regular rate and rhythm, S1-S2 Lungs - normal respiratory effort, clear to auscultation bilaterally, no wheezing Abdomen - soft, nontender, no rebound or guarding Extremities - no edema bilaterally Neuro - awake and alert, no focal deficits DS: Data Data Completed and Pending Completed studies during hospitalization [Text1]: Procedures Introduction of Remdesivir Anti-infective into Peripheral Vein, Percutaneous Approach, [employer] 5 (09/25/22) Labs on day of discharge: Laboratory Results - last 24 hr 10/17/24 06:37 WBC 6.4 RBC 3.92 L Hgb 12.0 Hct 38.6 MCV 98.5 H MCH 30.6 MCHC 31.1 RDW 12.9 Plt Count 126 L MPV 12.7 H Immature Gran % (Auto) 0.3 Neut % (Auto) 47.4 Lymph % (Auto) 17.0 L Baker % (Auto) 33.6 H Eos % (Auto) 1.4 Baso % (Auto) 0.3 Lymph # (Auto) 1.1 L Baker # (Auto) 2.2 H Eos # (Auto) 0.1 Baso # (Auto) 0.0 Abs Immat Gran (auto) 0.02 Absolute Neuts (auto) 3.0 Absolute Nucleated RBC 0.000 Nucleated RBC % (auto) 0.0 Smear Tech's Comments VERIFIED Sodium 140 Potassium 4.5 Chloride 109 H Carbon Dioxide 20 L Anion Gap 16 BUN 20 H Creatinine 1.11 Estim Creat Clear Calc 25.2 Estimated GFR 46 Random Glucose 84 Calcium 9.4 Discharge Plan Discharge Anticipated Discharge Date/Time: 10/17/24 12:25 Patient Disposition: Home Health Service Discharge Diagnosis: hypoxia, covid Referrals: Mati Raya MD [Primary Care Provider] - 1 Week Discharge Medications: New prednisone 20 mg tablet 40 mg PO DAILY Qty: 10 0RF Continued atorvastatin 40 mg Tablet 40 mg PO BEDTIME amlodipine [Norvasc] 10 mg tablet 10 mg PO DAILY Qty: 30 0RF levothyroxine 88 mcg tablet 1 tab PO DAILY@0600 ascorbic acid (vitamin C) 500 mg Tablet 500 mg PO BID valsartan 320 mg tablet 1 tab PO DAILY glucosamine HCl-vitamin D3 1,000-200 mg-unit Tablet 1 tab PO DAILY celecoxib 200 mg capsule 200 mg PO DAILY donepezil 5 mg tablet 5 mg PO BEDTIME cyanocobalamin (vitamin B-12) 1,000 mcg Tablet 1,000 mcg PO DAILY cholecalciferol (vitamin D3) [Vitamin D3] 50 mcg (2,000 unit) Tablet 50 mcg PO DAILY Discharge Orders: Discharge Order (Routine); Ordered 10/17/24 Ordered By: Campos Correa Diet: Advance to usual diet Activity on Discharge: As tolerated Stand Alone Forms: Patient Portal Discharge page Print Language: Sudanese Care Plan Goals: Finish 5 more days of prednisone Health Concerns: see d/c summary Plan of Treatment: see d/c summary Assessment: see d/c summary Patient Instructions: Prednisone (By mouth), COVID-19 (Coronavirus Disease 2019) (DC)
--- NOTE | 2024-10-17 13:48 | HO.WOUND ---
Wound Consult: Initial 88yr old?female admitted to [facility] on 10/16/24 - See progress notes and H&P for detailed history.? Wound consult placed for sacrum / buttock.? Patient agreeable to assessment and photo documentation.? Sacrum and Buttock Etiology: Fungal Dermatitis and MASD (Moisture Associated Skin Damage)?? Wound Bed: blanchable redness with scattered areas of partial thickness tissue loss advancing boarders with satellite lesions noted Drainage / Odor: None noted Edges: mirrored and advancing ? Rosa wound: Intact dry desquamation noted - No Induration, Fluctuance or Warmth noted Pain: mild tenderness reported Goals of Treatment: ? Antifungal powder or ointment to area twice a day for 10-14 days past clinical clearing Recommendations: 1. Turn and Reposition every 2 hours and as needed for patient comfort.? Use pillows or wedges to support off loading positions. 2. Off Load all bony prominences with use of pillows and heel boots if needed.? Apply Preventative foams where needed. ? 3. Monitor for incontinence and moisture control, use barrier creams when needed for prevention and treatment. 4. Provide adequate and supplemental nutrition.? 5. Order low air loss mattress. 6. When applicable maintain blood glucose levels per Providers order. 7. Sacrum and Buttock - Cleanse with PH balance wipes, pat dry with soft cloth.? Apply antifungal power or ointment to assist with moisture management twice daily. Be sure to dust of excess powder to prevent caking on skin and in folds. Apply per provider orders. Re-consult wound care Nurse for wound deterioration or wound changes.
--- NOTE | 2024-10-17 14:11 | MHC.CM.PN ---
PT MEDICALLY CLEARED FOR DC HOME W/NEW COMFORT PLUS VNA FOR SN/PT, CM ATTEMPTED TO MEET W/PT HOWEVER PT HAD ALREADY DISCHARGED W/SON, CM TO CONTACT PT'S SON TO INFORM HIM OF VNA WHO WILL BE CONTACTING HIM.
== END 2024-10-17 13:39 | disposition home health service (06) | DRG 177 ==
LOC: HO.ED 10-16 01:23 → HO.EDOVER 10-16 01:24 → HO.IMC 10-16 15:33
PROVIDERS: Physician Assistant Medical; Admitting Provider Physician Assistant; Emergency Provider Emergency Medicine; PCP Internal Medicine; Visit Provider Family Medicine
DX: U07.1 COVID-19 (principal); G93.41 Metabolic encephalopathy; J96.01 Acute respiratory failure with hypoxia; E87.21 Acute metabolic acidosis; I12.9 Hypertensive chronic kidney disease with stage 1 through stage 4 chronic kidney disease, or unspecified chronic kidney disease; B36.9 Superficial mycosis, unspecified; N18.32 Chronic kidney disease, stage 3b; J44.9 Chronic obstructive pulmonary disease, unspecified; Z66 Do not resuscitate; E78.5 Hyperlipidemia, unspecified; E89.0 Postprocedural hypothyroidism; Z86.73 Personal history of transient ischemic attack (TIA), and cerebral infarction without residual deficits; Z87.440 Personal history of urinary (tract) infections; Z79.890 Hormone replacement therapy; Z79.899 Other long term (current) drug therapy
CPT/HCPCS: 0241U; 36415; 70551; 71046; 80048; 80053; 81001; 83735; 83880; 84443; 84484; 85007; 85025; 85027; 93005; 99285

== ENCOUNTER → 2024-10-15 20:42 | Outpatient (BNV) | payer MEDICARE, OTHER, SELFPAY | PROVIDERS: Admitting Provider Physician Assistant; Emergency Provider Emergency Medicine; PCP Internal Medicine; Visit Provider Internal Medicine | DX: R41.0 Disorientation, unspecified (principal) | CPT/HCPCS: 93010 ==

== ENCOUNTER → 2024-10-15 20:42 | Outpatient (BNV) | payer MEDICARE, OTHER, SELFPAY | PROVIDERS: PCP Internal Medicine; Visit Provider Student in an Organized Health Care Education/Training Program | DX: R53.1 Weakness (principal); R41.0 Disorientation, unspecified | CPT/HCPCS: 71046 ==

== ENCOUNTER 2024-10-16 01:22 | Outpatient (BNV) | payer MEDICARE, OTHER, SELFPAY | END 2024-10-16 18:54 | PROVIDERS: Admitting Provider Physician Assistant; Emergency Provider Emergency Medicine; PCP Internal Medicine; Visit Provider Student in an Organized Health Care Education/Training Program | DX: G31.89 Other specified degenerative diseases of nervous system (principal); I67.82 Cerebral ischemia; R90.82 White matter disease, unspecified | CPT/HCPCS: 70551 ==

== ENCOUNTER → 2024-10-16 01:22 | Outpatient (BNV) | payer MEDICARE, OTHER, SELFPAY | PROVIDERS: Admitting Provider Physician Assistant; Emergency Provider Emergency Medicine; PCP Internal Medicine; Visit Provider Physician Assistant | DX: J96.01 Acute respiratory failure with hypoxia (principal); R41.82 Altered mental status, unspecified; U07.1 COVID-19; N18.30 Chronic kidney disease, stage 3 unspecified | CPT/HCPCS: 99239; G0180 ==

== ENCOUNTER 2024-10-23 11:17 | Outpatient (REF) | payer MEDICARE, OTHER, SELFPAY ==
--- NOTE | ~2024-10-23 | XR_ITS ---
EXAMINATION: XR CHEST CLINICAL INFORMATION: COUGH COMPARISON: 10/15/2024. 09/26/2022. TECHNIQUE: 2 views of the chest were obtained. FINDINGS: The cardiac, hilar, and mediastinal contours are normal. Aorta is calcified. Lungs are diffusely hyperaerated, hyperlucent, with fine increased interstitial markings diffusely, findings suggestive of COPD. There are calcified granulomata in the bilateral upper lung regions. There is no pneumothorax or pleural effusion. Chronic appearing wedge compression deformities of L1 and L4. Degenerative changes of the spine with exaggerated kyphosis. Degenerative changes right greater than left shoulder joints. XR/XR chest 2V IMPRESSION: 1. COPD without superimposed active disease. 2. Chronic compression deformities L1 and L4. Electronically signed by: Guillaume Schmidt MD 10/23/2024 11:53 AM SILVIO
== END 2024-10-23 11:18 | disposition home or self-care (01) ==
LOC: HO.XRAY 11:17
PROVIDERS: Visit Provider Internal Medicine
DX: R05.9 Cough, unspecified (principal)
CPT/HCPCS: 71046

== ENCOUNTER → 2024-10-23 11:23 | Outpatient (BNV) | payer MEDICARE, OTHER, SELFPAY | PROVIDERS: Visit Provider Radiology Diagnostic Radiology | DX: R05.9 Cough, unspecified (principal) | CPT/HCPCS: 71046 ==

== ENCOUNTER 2024-11-09 13:29 | Outpatient (REF) | payer MEDICARE, OTHER, SELFPAY ==
[2024-11-09 13:51] LABS: Appearance Urine Cloudy; Color Urine Dark Yellow; Glucose Urine UA Negative (Negative); Leukocyte Esterase Urine Trace (Negative); Nitrite Urine Negative (Negative); Specific Gravity - Urine 1.025 (1.005-1.025); UMIC TRIGGER UACC YES; Urine Blood Negative (Negative); Urine Ketones Trace mg/dL (Negative); Urine Protein 100 (2+) mg/dL (Neg-Trace)
--- OUTSIDE RECORDS SUMMARY | 2024-11-09 13:51 | XMS_ITS ---
Author Organization Mati Raya MD Address [address] [place], [place] [phone] Care Team Providers Care Training Lead Name Role Phone Mati Raya Primary Care Provider [phone] Allergies Allergen (clinical drug ingredient) Drug/Non Drug Allergy documented on EMR Reaction Allergy Type Onset Date Status levoquin (uncoded) rash Allergy A ctive REASON FOR VISIT PH/TCM Medications Medication SIG (Take, Route, Frequency, Duration) Notes Start Date End Date Status Mucinex Fast-Max Chest Jorge MS 400 MG/20ML as directed 20 ml Orally 4 times a day for 10 days 10/23/2024 Active Albuterol Sulfate HFA 108 (90 Base) MCG/ACT 1 puff as needed Inhalation every 4 hrs for 30 days 10/23/2024 Active Tylenol 325 MG 1 tablet as needed Orally every 4 hrs Not-Taking predniSONE 20 MG 2 tablets Orally Onc e a day for 5 days 07/19/2024 Not-Taking traMADol HCl 50 MG 1 tablet as needed Orally every 6 hours as needed for 30 days 09/24/2021 Not-Taking amLODIPine Besylate 10 MG 1 tablet Orall y Once a day for 90 days Active Valsartan 320 MG TAKE 1 TABLET BY TK TH EVERY DAY Orally Once a day Active Donepezil HCl 5 MG 1 tablet at bedtime Orally Once a day for 30 days 10/11/2024 Active CeleBREX 200 MG 1 capsule with food Orally Once a day for 30 days 07/19/2024 Active predniSONE 10 MG 1 tablet with food o r milk Orally 4 tabs for 3 days,3tabs for 3 days, 2 tabs for 3 days, and 1 tab for 3 days for 14 days 10/23/2024 Active Vitamin D 1000 UNIT 1 tablet Orally Once a day Active Atorvastatin Calcium 40 MG TAKE 1 TABLET BY MOUTH EVERY DAY Active Levoxyl 88 MCG 1 tablet on an empty stomach in the morning Orally Once a day for 90 days Active Vital Signs Blood pressure systolic 132 mm Hg 11/01/19 25 Blood pressure diastolic 50 mm Hg 025 Height 62 in 11/01/2024 Weight 115 lbs 11/01/2024 BMI 21.03 kg/m2 11/01/2024 Encounters Encounter Location Date Provider Diagnosis Mati Raya MD [address] [place] [address] [place] [phone] 11/01/2024 Mati Raya COVID-19 virus infection U07.1 Assessments Encounter Date Diagnosis (ICD Code) Assessment Notes Treatment Notes Treatment Clinical Notes Section Notes 11/01/2024 COVID-19 virus infection (ICD-10 - U07.1) has recovered with no symptoms. coming off prednison Plan Of Treatment Treatment Notes Assessment Notes COVID-19 virus infection has recovered w ith no symptoms. coming off prednison Next Appt Details Provider Name:Mati sol, 11/16/2024 08:15:00 AM, [address] [place] [address], [address] [place] [address], [phone], Provider Name:Mati sol, 12/03/2024 07:30:00 AM, [address] [place] [address], [address] [place] [address], [phone], Provider Name:Mati sol, 12/10/2024 10:00:00 AM, [address] [place] [address], [address], [phone], Provider Name:Mati Silverman ier, 06/06/2025 07:30:00 AM, [address], [address], [place], [phone], Provider Name:Mati Silverman ier, 06/13/2025 11:00:00 AM, [address], [address], [place], [phone], Progress Notes * Qian LARA CDOB:[birth year] (88 yo F)Acc No.[id number]:11/01/2024 Patient:?Qian LARA C Provider:?Mati Raya MD :1935???Age:88 Y???Sex:Female D ate:11/01/2024 Address:[address] [place] [address], [place], [id number] Subjective: * Chief Complaints: * ???PH/TCM * HPI: ???Symptom(s):?patient is a 88 yo female here for follow up of covid following recent? hospitalization. Discharge summary has been reviewed and medications reconcilled. * ROS:?General/Constitutional:?Denies?Chills.?Denies?Fatigue.?Denies?Fever.?Denies?Headache.?ENT:?Patient denies?decreased sense of smell, any loss of taste, sore throat.?Denies?Sore throat.?Respiratory:?Denies?Cough.?Denies?Shortness of breath at rest.?Denies?Shortness of breath with exertion.?Gastrointestinal:?Denies?Diarrhea.?Denies?Nausea.?Musculoskeletal:?Patient denies?muscle aches.?Peripheral Vascular:?Patient denies?red and blue toes.? * Medical History:? * Surgical History:? * Hospitalization/Major Diagno stic Procedure:? * Medications:?TakingVitamin D 1000 UNIT Tablet 1 tablet Orally Once a day Levoxyl 88 MCG Tablet 1 tablet on an empty stomach in the morning Orally Once a day Atorvastatin Calcium 40 MG Tablet TAKE 1 TABLET BY MOUTH EVERY DAY Valsartan 320 MG Tablet TAKE 1 TABLET BY MOUTH EVERY DAY Orally Once a day amLODIPine Besylate 10 MG Tablet 1 tablet Orally Once a day CeleBREX 200 MG Capsule 1 capsule with food Orally Once a day Donepezil HCl 5 MG Tablet 1 tablet at bedtime Orally Once a day predniSONE 10 MG Tablet 1 tablet with food or milk Orally 4 tabs for 3 days,3tabs for 3 days, 2 tabs for 3 days, and 1 tab for 3 days Albuterol Sulfate HFA 108 (90 Base) MCG/ACT Aerosol Solution 1 puff as needed Inhalation every 4 hrs Mucinex Fast-Max Chest Jorge MS 400 MG/20ML Liquid as directed 20 ml Orally 4 times a day Taking Vitamin D 1000 UNIT Tablet 1 tablet Orally Once a day Taking Levoxyl 88 MCG Tablet 1 tablet on an empty stomach in the morning Orally Once a day Taking Atorvastatin Calcium 40 MG Tablet TAKE 1 TABLET BY MOUTH EVERY DAY Taking Valsartan 320 MG Tablet TAKE 1 TABLET BY MOUTH EVERY DAY Orally Once a day Taking amLODIPine Besylate 10 MG Tablet 1 tablet Orally Once a day Taking CeleBREX 200 MG Capsule 1 capsule with food Orally Once a day Taking Donepezil HCl 5 MG Tablet 1 tablet at bedtime Orally Once a day Taking predniSONE 10 MG Tablet 1 tablet with food or milk Orally 4 tabs for 3 days,3tabs for 3 days, 2 tabs for 3 days, and 1 tab for 3 days Taking Albuterol Sulfate HFA 108 (90 Base) MCG/ACT Aerosol Solution 1 puff as needed Inhalation every 4 hrs Taking Mucinex Fast-Max Chest Jorge MS 400 MG/20ML Liquid as directed 20 ml Orally 4 times a day Not-Taking/PRNpredniSONE 20 MG Tablet 2 tablets Orally Once a day Tylenol 325 MG Tablet 1 tablet as needed Orally every 4 hrs traMADol HCl 50 MG Tablet 1 tablet as needed Orally every 6 hours as needed Medication List reviewed and reconciled with the patientNot-Taking/PRN predniSONE 20 MG Tablet 2 tablets Orally Once a day Not-Taking/PRN Tylenol 325 MG Tablet 1 tablet as needed Orally every 4 hrs Not-Taking/PRN traMADol HCl 50 MG Tablet 1 tablet as needed Orally every 6 hours as needed Medication List reviewed and reconciled with the patient * Allergies:?levoquin: rashyes [Allergies Verified] Objective: * Vitals:?Ht: 62, Wt: 115, BMI :21.03, BP:132/50, Wt-k.16. * Examination: ???General Examination: ?GENERAL APPEARANCE:?alert, well hydrated, in no distress.?HEAD:?normocephalic.?SKIN:?good turgor.?HEART:?3/6 holosystoic murmer unchanged.?LUNGS:?no wheezes, rales, rhonchi, good air movement, clear to auscultation bilaterally.? Assessment: * Assessment: 1.?COVID-19 virus infection - U07.1 (Primary)??? Plan: * Treatment: * Procedure Codes:? * * Sign off status: Completed true * Provider:?Mati Raya MD Date:?0 11/01/2024 Generated for Bill somers/Juanita/Dereck on:?11/09/2024 01:51 PM EST History and Physical Notes * HPI (History of Present Illness) Category Sub-Category Detail Notes Category Not es Symptom(s) patient is a 88 yo female here for follow up of covid following recent hospitalization. Discharge summary has been reviewed and medications reconcilled. Examination Category Sub-Category Detail Notes Category Not es General Examination GENERAL APPEARANCE: alert, w ell hydrated, in no distress HEAD: normocephalic HEART: 3/6 holosystoic murm er unchanged LUNGS: no wheezes, rales, r honchi, good air movement, clear to auscultation bilaterally SKIN: good turgor
--- OUTSIDE RECORDS SUMMARY | 2024-11-09 13:52 | XMS_ITS ---
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 ?Marital status: . 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 * Medications:?TakingamLODIPin e Besylate amLODIPine Besylate 10 [...] Provider:?Jose Huerta DPM Date:?2023 Generated for Bill somers/Juanita/Dereck on:?11/09/2024 01:52 PM EST History and Physical Notes * [...]
--- OUTSIDE RECORDS SUMMARY | 2024-11-09 13:52 | XMS_ITS ---
Author Organization 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 Rx drug management (4) Problem Gout (23011452) Gout of left foot (M10.9) Active confirmed Rx drug management (4) Vital Signs Height 5 ft 4 in in 06/25/2024 Weight 120 lbs 06/25/2024 BMI 20.6 kg/m2 06/25/2024 Blood pressure systolic 118 mm Hg 06/25/20 24 Blood pressure diastolic 75 mm Hg 024 Procedures Procedure Date Ordered Date Performed Result Body Sit e , R9392-MTHTK/INJECT, JOINT/BURSA 06/25/2024 N/A Encounters Encounter Location Date Provider Diagnosis [facility] [address] [address] 06/25/2024 Karissa Bowlingaker Chronic gout involving toe [...] X ray : Foot, right 3V 06/25/2024 22440, M9352-GMIED/INJECT, JOINT/BURSA 1 Next Appt Details Follow Up: [...] Notes * Qian LARADOB:1935 (88 yo F)Acc No.[id number]:06/25/2024 Progress Notes Patient:?Qian Lara Provider:?Karissa Neal DPM :1935???Age:88 Y???Sex:Female D ate:06/25/2024 Address:[address] [place] [address] , [id number] Pcp:Mati Raya MD Subjective: * Chief Complaints: [...] Surgical History:?tonsillect eusebio * Hospitalization/Major Diagno stic Procedure:[place] [place] * Family History:?Mother: dece ased, [...] ?no Exercise. ?Marital status: . 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 * Medications:?TakingGlucosami ne Vitamin C amLODIPine Besylate [...] Codes:? DRAIN /INJECT, JOINT/BURSA, Modifiers: XS , [id number] INJ BETAMETHSN ACTAT&SOD PHOSPH-3MG, Modifiers: XS , [id number] X-RAY EXAM OF LEFT FOOT 3V, Modifiers: [...] Neal DPM Date:?1 Generated for Bill somers/Juanita/Dereck on:?11/09/2024 01:52 PM [...]
--- OUTSIDE RECORDS SUMMARY | 2024-11-09 13:52 | XMS_ITS ---
Author Organization Mati Raya MD Address [address] [place] [phone] Care Team Providers Care Property Disposal Officer Name Role Phone Mati Raya Primary Care Provider REASON FOR VISIT U/A Encounters Encounter Location Date Provider Diagnosis Mati Raya MD [address] [place] [phone] 11/09/2024 Mati Raya UTI (urinary tract infection) N39.0 Assessments Encounter Date Diagnosis (ICD Code) Assessment Notes Treatment Notes Treatment Clinical Notes Section Notes 11/09/2024 UTI (urinary tract infection) (ICD-10 - N39.0) Plan Of Treatment Pending Test Test Name Order Date UA ClnCatch+Micro w/rflx Cult 11/09/2024 Next Appt Details Provider Name:Mati sol, 11/16/2024 08:15:00 AM, [address], [address], [place], [place], [phone], Provider Name:Mati sol, 12/03/2024 07:30:00 AM, [address], [address], [place], [phone], Provider Name:Matihiwot Silverman ier, 12/10/2024 10:00:00 AM, [address], [address], [place], [phone], Provider Name:Mati Silverman ier, 06/06/2025 07:30:00 AM, [address], [address], [place], [phone], Provider Name:Mati Silverman ier, 06/13/2025 11:00:00 AM, [address], [address], [place], [phone], Progress Notes * Qian LARA CDOB:[birth year] (88 yo F)Acc No.[id number]:11/09/2024 Progress Note Patient:?Qian LARA C Provider:?Mati Raya MD :1935???Age:88 Y???Sex:Female D ate:11/09/2024 Address:[address] [place] [address], [place], [id number] Subjective: * Chief Complaints: * ???1. U/A. * Medical History:? Objective: * Vitals:? Assessment: * Assessment: 1.?UTI (urinary tract infect ion) - N39.0??? Plan: * Treatment: * * The named appointment provid er may or may not be the originator of this progress note, and it is not deemed complete until electronically signed by the appointment provider. Sign off status: Pending * Provider:?Mati Raya MD Date:?0 11/09/2024 Generated for iBll somers/Juanita/Devynitting on:?11/09/2024 01:51 PM EST
--- OUTSIDE RECORDS SUMMARY | 2024-11-09 13:52 | XMS_ITS ---
Author Organization [facility] Address [address] [place] [address] [place] [address] Care Team Providers Care Roadway Engineer Name Role Phone Mati Raya MD Primary Care Provider Karissa Hanley Unavailable [phone] Encounters Encounter Location Date Provider Diagnosis [address] [address] 07/20/2024 Karissa Neal Plan Of Treatment No Information Progress Notes * Qian LARADOB:1935 (88 yo F)Acc No.[id number]:07/20/2024 Progress Notes Patient:?Qian LARA Provider:?Karissa Neal DPM :1935???Age:88 Y???Sex:Female D ate:07/20/2024 Address:[address] [place] [address] [id number] Pcp:Mati Raya MD Subjective: * Chief Complaints: [...] Neal DPM Date:?1 09/19/2023 Generated for Dharai yonis/Fakeng/eTransmitting on:?11/09/2024 01:51 PM EST
--- OUTSIDE RECORDS SUMMARY | 2024-11-09 13:52 | XMS_ITS ---
Author Organization Mati Raya MD Address [address] [place] [phone] Care Team Providers Care Greenhouse Assistant Name Role Phone Mati Raya Primary Care Provider Encounters Encounter Location Date Provider Diagnosis Mati Raya MD [address] [facility] [address] [place] [phone] 11/08/2024 Mati Raya Plan Of Treatment Next Appt Details Provider Name:Mati sol, 11/16/2024 08:15:00 AM, [address] [place] [address], Suite [facility], [place], [place], [phone], Provider Name:Mati sol, 12/03/2024 07:30:00 AM, [address] [place] [address], [place] [address], [place], [phone], Provider Name:Mati sol, 12/10/2024 10:00:00 AM, [address] [place] [address], [place] [address], [place], [phone], Provider Name:Mati Silverman ier, 06/06/2025 07:30:00 AM, [address], [address], [place], [phone], Provider Name:Mati Silverman ier, 06/13/2025 11:00:00 AM, [address], [address], [place], [phone], Progress Notes * Qian LARA CDOB:[birth year] (88 yo F)Acc No.[id number]:11/08/2024 Patient:?Qian LARA C :1935???Age:88 Y???Sex:Female [facility] [place] [address] * true * Date:? Generated for Bill somers/Juanita/Richsmitting on:?11/09/2024 01:51 PM EST
--- OUTSIDE RECORDS SUMMARY | 2024-11-09 13:52 | XMS_ITS | Patient Health Record ---
Author Organization [facility] navid GonsalezParish Address [address] [facility] [place] [address] Care Team Providers Care Line Technician Name Role Phone Mati Raya MD Primary Care Provider Karissa Hanley Unavailable [phone] Jose Huerta Unavailable [phone] Allergies Allergen (clinical drug ingredient) Drug/Non Drug [...] Status W/U Status Risk Notes Problem Gout (62660889) Gout of left foot (M10.9) Active confirmed Rx drug management (4) Problem Gout (89635148) Gout of right foot (M10.9) Active confirmed Rx drug management (4) 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 (918752931 ) 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 Rx drug management (4) Vital Signs Blood pressure diastolic 75 mm Hg 06/25/2024 Height 5 ft 4 in in 07/16/2024 Blood pressure systolic 118 mm Hg 06/25/2024 Weight 120 lbs 07/16/2024 BMI 20.6 kg/m2 07/16/2024 Procedures Procedure Date Ordered Date Performed Result Body Sit e , J0057-IBWBV/INJECT, JOINT/BURSA 06/25/2024 N/A Encounters Encounter Location Date Provider Diagnosis [facility] [address] 06/25/2024 Karissa Neal 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 ; Pain in joint involving left ankle and foot M25.572 ; Gout of left foot M10.9 and Bursitis of intermetatarsal bursa of right foot M77.[address] [facility] [address] 07/16/2024 Jose Huerta Chronic gout involvi ng [...] X ray : Foot, right 3V 06/25/2024 64488-TVUPYJS NAIL, 6 OR MORE 02/24/2017 01634-IIXIPEJ NAIL, 6 OR MORE 05/30/2017 44250-XRAILZZ NAIL, 6 OR MORE 08/29/2017 18270-HJHLJNM NAIL, 6 OR MORE 11/28/2017 79716-CXPOQEG NAIL, 6 OR MORE 02/27/2018 82283-RSIWXNN NAIL, 1-5 11/01/2016 82331- Debride <25 sq cm 08/09/2016 63543, X5268-JRFDJ/INJECT, JOINT/BURSA 1 Insurance Providers Payer Name Payer Address Payer Phone Subscriber Number Group Number Insured Name Patient Relationship to Insured Coverage Start Date Coverage End Date Medicare National Govt Sv[employer] [address] [place] [address] [id number] Qian Evans Self - patient is the insured [employer]) [address] [place] [id number] [phone] [id number] Qian Evans Self - patient is the insured Medical (General) History Medical History History ICD Code Thyroid disorder Hypertension covid-19 High Blood Pressure Stroke Mumps Chicken pox Surgical History Surgery Date(Month/Year) tonsillectomy Hospitalization History Reason Date(Month/Year) [facility] [place] Cov[place] 2021
[2024-11-09 14:03] LABS: Bacteria Urine 1+ (None Seen); RBC Urine 0-2 /HPF (0-2); UACC Culture Trigger YES
== END 2024-11-09 13:30 | disposition home or self-care (01) ==
LOC: HO.LNP 13:29
PROVIDERS: Visit Provider Internal Medicine
DX: N39.0 Urinary tract infection, site not specified (principal)
CPT/HCPCS: 81001; 87086

== ENCOUNTER 2024-11-15 08:15 | Outpatient (REF) | payer MEDICARE, OTHER, SELFPAY ==
[2024-11-15 10:52] LABS: MANUAL DIFF FLAG NO
[2024-11-15 11:01] LABS: Basophils Percent Auto 0.3 % (0-2); Eosinophils Absolute Auto 0.1 X10*3/uL (0.0-0.4); Eosinophils Percent Auto 2.3 % (0-4); Hematocrit 36.7 % (37.0-47.0); Hemoglobin 11.1 g/dl (12.0-16.0); Imm Gran Abs Auto 0.05 X10*3/uL (0.00-0.03); Imm Gran Pct Auto 0.9 % (0.0-0.4); Lymphocytes Absolute Auto 1.6 X10*3/uL (1.2-4.9); Lymphocytes Percent Auto 28.1 % (20-40); Mean Corpuscular HGB Conc 30.2 g/dl (31.0-35.0); Mean Corpuscular Hemoglobin 29.9 pg (27.0-33.0); Mean Corpuscular Volume 98.9 fL (80.0-98.0); Mean Platelet Volume 12.2 fL (9.4-12.3); Monocytes Absolute Auto 1.1 X10*3/uL (0.1-1.2); Monocytes Percent Auto 18.9 % (2-11); Neutrophils Absolute Auto 2.8 x10*3/uL (2.0-8.3); Neutrophils Percent Auto 49.5 % (45-73); Platelet Count 156 X10*3/uL (160-400); Red Blood Count 3.71 X10*6/uL (4.20-5.50); Red Cell Distribution Width 13.9 % (11.0-16.0); White Blood Count 5.7 X10*3/uL (4.8-10.8)
--- OUTSIDE RECORDS SUMMARY | 2024-11-15 12:52 | XMS_ITS ---
Author Organization Mati Raya MD Address [address] [place], [place] [phone] Care Team Providers Care Echo Technologist Name Role Phone Mati Raya Primary Care Provider [phone] Results Component Value Reference Range Notes Complete Blood Count Auto Di ff (Not yet reviewed by provider) Interpretation: Performing Lab:[facility], [address] [place] [phone] Notes/Report: White Blood Count 5.7 4.8-10.8 X10*3/uL Red Blood Count 3.71 4.20-5.50 X10*6/uL Hemoglobin 11.1 12.0-16.0 g/dl Hematocrit 36.7 37.0-47.0 % Mean Corpuscular Volume 98.9 80.0-98.0 fL Mean Corpuscular Hemoglobin 29.9 27.0-33.0 pg Mean Corpuscular HGB Conc 30.2 31.0-35.0 g/dl Red Cell Distribution Width 13.9 11.0-16.0 % Platelet Count 156 160-400 X10*3/uL Mean Platelet Volume 12.2 9.4-12.3 fL Neutrophils Percent Auto 49.5 45-73 % Imm Gran Pct Auto 0.9 0.0-0.4 % Lymphocytes Percent Auto 28.1 20-40 % Monocytes Percent Auto 18.9 2-11 % Eosinophils Percent Auto 2.3 0-4 % Basophils Percent Auto 0.3 0-2 % NRBC Pct Auto 0.0 0.0-0.2 /100WBC Neutrophils Absolute Auto 2.8 2.0-8.3 x10*3/u L Imm Gran Abs Auto 0.05 0.00-0.03 X10*3/uL Lymphocytes Absolute Auto 1.6 1.2-4.9 X10*3/u L Monocytes Absolute Auto 1.1 0.1-1.2 X10*3/uL Eosinophils Absolute Auto 0.1 0.0-0.4 X10*3/u L Basophils Absolute Auto 0.0 0.0-0.2 X10*3/uL NRBC Abs Auto 0.000 0.0-0.012 X10*3/uL REASON FOR VISIT CBC Encounters Encounter Location Date Provider Diagnosis Mati Raya MD [address] [place] [phone] 11/15/2024 Mati Raya Anemia, unspecified type D64.9 Assessments Encounter Date Diagnosis (ICD Code) Assessment Notes Treatment Notes Treatment Clinical Notes Section Notes 11/15/2024 Anemia, unspecified type (ICD-10 - D64.9) Plan Of Treatment Pending Test Test Name Order Date Complete Blood Count Auto Diff Next Appt Details Provider Name:Mati sol, 12/03/2024 07:30:00 AM, [address] [place] [address], [address], [phone], Provider Name:Mati sol, 12/10/2024 10:00:00 AM, [address] [place] [address], [phone], Provider Name:Mati sol, 06/06/2025 07:30:00 AM, [address] [place] [address], [phone], Provider Name:Mati Silverman ier, 06/13/2025 11:00:00 AM, [address], [address], [place], [phone], Progress Notes * Qian LARA CDOB:[birth year] (88 yo F)Acc No.[id number]:11/15/2024 Progress Note Patient:?Qian LARA Provider:?Mati Raya MD :1935???Age:88 Y???Sex:Female D ate:11/15/2024 Address:[address] [place] [address] , [place], [id number] Subjective: * Chief Complaints: * ???1. CBC. * Medical History:? Objective: * Vitals:? Assessment: * Assessment: 1.?Anemia, unspecified type - D64.9 (Primary)??? Plan: * Treatment: * Procedure Codes:?91518 VENIP UNCT, ROUTINE* * * The named appointment provid er may or may not be the originator of this progress note, and it is not deemed complete until electronically signed by the appointment provider. Sign off status: Pending * Provider:?Mati Raya MD Date:?0 11/15/2024 Generated for Bill somers/Juanita/Devynitting on:?11/15/2024 12:52 PM EST
--- OUTSIDE RECORDS SUMMARY | 2024-11-15 12:52 | XMS_ITS ---
Author Organization [facility] Address [address] [place] [address] [place] [address] Care Team Providers Care Gre Instructor Name Role Phone Mati Raya MD Primary Care Provider Karissa Hanley Unavailable [phone] Encounters Encounter Location Date Provider Diagnosis [address] [address] 07/20/2024 Karissa Neal Plan Of Treatment No Information Progress Notes * Qian LARADOB:1935 (88 yo F)Acc No.[id number]:07/20/2024 Progress Notes Patient:?Qian LARA Provider:?Karissa Neal DPM :1935???Age:88 Y???Sex:Female D ate:07/20/2024 Address:[address] [place] [address] [id number] Pcp:Mati Raya MD Subjective: * Chief Complaints: [...] DPM Date:?1 09/19/2023 Generated for Dharai yonis/Fakeng/eTransmitting on:?11/15/2024 12:51 PM EST
--- OUTSIDE RECORDS SUMMARY | 2024-11-15 12:52 | XMS_ITS ---
Author Organization Mati Raya MD Address [address] [place] [phone] Care Team Providers Care Concierge Name Role Phone Mati Raya Primary Care Provider Encounters Encounter Location Date Provider Diagnosis Mati Raya MD [address] [facility] [address] [place] [phone] 11/08/2024 Mati Raya Plan Of Treatment Next Appt Details Provider Name:Mati sol, 12/03/2024 07:30:00 AM, [address] [place] [address], Suite [facility], [place], [place], [phone], Provider Name:Mati sol, 12/10/2024 10:00:00 AM, [address] [place] [address], [place] [address], [place], [place], [phone], Provider Name:Mati sol, 06/06/2025 07:30:00 AM, [address] [place] [address], [place] [address], [place], [phone], Provider Name:Mati Hernadez Andra sol, 06/13/2025 11:00:00 AM, [address], [address], [place], [phone], Progress Notes * Qian LARA CDOB:[birth year] (88 yo F)Acc No.[id number]:11/08/2024 Patient:?SANDYFLOQian Agosto C :1935???Age:88 Y???Sex:Female Address:[address] [place] [address] , [place] [address] * true * Date:? Generated for Bill somers/Juanita/Richsmitting on:?11/15/2024 12:51 PM EST
--- OUTSIDE RECORDS SUMMARY | 2024-11-15 12:52 | XMS_ITS ---
Author Organization Mati Raya MD Address [address] [place], [place] [phone] Care Team Providers Care Timber Hewer Name Role Phone Mati Raya Primary Care Provider [phone] Results Component Value Reference Range Notes UA ClnCatch+Micro w/rflx Cul t Reviewed date:11/09/2024 04:29:25 PM Interpretation: Performing Lab:[facility], [address] [place] [id number] Notes/Report: Urine, Clean Catch Color Urine Dark Yellow Appearance Urine Cloudy PH 5.0 5.0-9.0 Glucose Urine UA Negative Negative mg/dL Urine Blood Negative Negative Specific [place] - Urine 1.025 1.005-1.025 Urine Protein 100 (2+) Neg-Trace mg/dL Urine Ketones Trace Negative mg/dL Nitrite Urine Negative Negative Leukocyte Esterase Urine Trace Negative RBC Urine 0-2 0-2 /HPF WBC Urine 6-10 0-5 /HPF Squamous Epithelial Cell Urine 6-10 0-2 /HPF Bacteria Urine 1+ None Seen Hyaline Casts Urine 3-5 0-2 /LPF REASON FOR VISIT U/A Encounters Encounter Location Date Provider Diagnosis Mati Raya MD [address] [facility] [address] [place] [phone] 11/09/2024 Mati Raya UTI (urinary tract infection) N39.0 Assessments Encounter Date Diagnosis (ICD Code) Assessment Notes Treatment Notes Treatment Clinical Notes Section Notes 11/09/2024 UTI (urinary tract infection) (ICD-10 - N39.0) Plan Of Treatment Next Appt Details Provider Name:Mati sol, 12/03/2024 07:30:00 AM, [address] [place] [address], Suite [facility], [place], [place], [phone], Provider Name:Mati sol, 12/10/2024 10:00:00 AM, [address] [place] [address], Suite [facility], [place], [place], [phone], Provider Name:Mati sol, 06/06/2025 07:30:00 AM, [address] [place] [address], [address], [phone], Provider Name:Mati sol, 06/13/2025 11:00:00 AM, [address] [place] [address], [address] [place] [address], [phone], Progress Notes * Perlita LARAcy CDOB:[birth year] (88 yo F)Acc No.[id number]:11/09/2024 Progress Note Patient:?Qian LARA C Provider:?Mati Raya MD :1935???Age:88 Y???Sex:Female D ate:11/09/2024 Address:[address] [place] [address] , [id number] Subjective: * Chief Complaints: * ???1. U/A. * Medical History:? Objective: * Vitals:? Assessment: * Assessment: 1.?UTI (urinary tract infect ion) - N39.0 (Primary)??? Plan: * Treatment: * * The named appointment provid er may or may not be the originator of this progress note, and it is not deemed complete until electronically signed by the appointment provider. Sign off status: Pending * Provider:?Mati Raya MD Date:?0 11/09/2024 Generated for Bill somers/Juanita/Dereck on:?11/15/2024 12:51 PM EST
--- OUTSIDE RECORDS SUMMARY | 2024-11-15 12:53 | XMS_ITS ---
Author Organization [facility] navid [place] Address [address] [place] [address] [place] [address] Care Team Providers Care Human Services Case Manager Name Role Phone Mati Raya MD Primary Care Provider Karissa Hanley Unavailable [phone] Jose Huerta Unavailable [phone] Allergies Allergen (clinical drug ingredient) Drug/Non Drug [...] 07/16/2024 Encounters Encounter Location Date Provider Diagnosis [facility] [facility] [address] [place] [address] 07/16/2024 Jose Huerta Chronic gout involving toe [...] Notes * Qian LARADOB:1935 (88 yo F)Acc No.[id number]:07/16/2024 Progress Notes Patient:?SANDYFLOSurendra Qian Provider:?Jose Huerta DPM :1935???Age:88 Y???Sex:Female D ate:07/16/2024 Address:[address] [place] [address] , [facility] Pcp:Mati Raya MD Subjective: * Chief Complaints: [...] Surgical History:?tonsillect eusebio * [place]ization/Major Diagno stic [place] [place] * Family History:?Mother: dece ased, [...] ?Exercise: no. ?Marital status: . 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 * Medications:?TakingamLODIPin e Besylate amLODIPine Besylate 10 [...] Huerta DPM Date:?2023 Generated for Bill somers/Juanita/Devynitting on:?11/15/2024 12:52 PM EST History and Physical Notes * [...]
--- OUTSIDE RECORDS SUMMARY | 2024-11-15 12:53 | XMS_ITS ---
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 Rx drug management (4) Problem Gout (09455715) Gout of left foot (M10.9) Active confirmed Rx drug management (4) Vital Signs Height 5 ft 4 in in 06/25/2024 Weight 120 lbs 06/25/2024 BMI 20.6 kg/m2 06/25/2024 Blood pressure systolic 118 mm Hg 06/25/20 24 Blood pressure diastolic 75 mm Hg 024 Procedures Procedure Date Ordered Date Performed Result Body Sit e , W4854-BYORI/INJECT, JOINT/BURSA 06/25/2024 N/A Encounters Encounter Location Date Provider Diagnosis [facility] [address] [address] 06/25/2024 Karissa Bowlingaker Chronic gout involving toe [...] X ray : Foot, right 3V 06/25/2024 [address]36[address], T0304-LHLVR/INJECT, JOINT/BURSA 1 Next Appt Details Follow Up: [...] Notes * Qian LARADOB:1935 (88 yo F)Acc No.[id number]:06/25/2024 Progress Notes Patient:?Qian Lara Provider:?Karissa Neal DPM :1935???Age:88 Y???Sex:Female D ate:06/25/2024 Address:[address] [place] [address] , [place], [id number] Pcp:Mati Raya MD Subjective: * Chief Complaints: [...] Surgical History:?tonsillect eusebio * Hospitalization/Major Diagno stic Procedure:[place] [place] * [...] ?no Exercise. ?Marital status: . ?Occupation: retired, [employer]. * Medications:?TakingGlucosami ne Vitamin C amLODIPine Besylate [...] Codes:? DRAIN /INJECT, JOINT/BURSA, Modifiers: XS , [id number] INJ BETAMETHSN ACTAT&SOD PHOSPH-3MG, Modifiers: XS , [id number] X-RAY EXAM OF LEFT FOOT 3V, Modifiers: [...] Neal DPM Date:?1 Generated for Bill somers/Juanita/Dereck on:?11/15/2024 12:52 PM EST History and Physical [...]
== END 2024-11-15 08:16 | disposition home or self-care (01) ==
LOC: HO.LNP 08:15
PROVIDERS: Visit Provider Internal Medicine
DX: D64.9 Anemia, unspecified (principal)
CPT/HCPCS: 85025

== ENCOUNTER 2024-12-03 10:37 | Outpatient (REF) | payer MEDICARE, OTHER, SELFPAY ==
[2024-12-03 12:43] LABS: Alanine Aminotransferase 28 U/L (0-31); Alkaline Phosphatase 71 U/L (39-117); Aspartate Amino Transferase 31 U/L (5-31); Bilirubin Direct 0.1 mg/dL (0.0-0.5); Bilirubin Total 0.3 mg/dL (0.0-1.0); Cholesterol 150 mg/dL (<200); HDL Cholesterol 72 mg/dL (>40); LDL Cholesterol Calculated 66 mg/dL (<100); Total Protein 7.4 g/dL (6.5-8.0); Triglycerides 60 mg/dL (<150)
[2024-12-03 13:20] LABS: Reflex LDLD? No
== END 2024-12-03 10:38 | disposition home or self-care (01) ==
LOC: HO.LNP 10:37
PROVIDERS: Visit Provider Internal Medicine
DX: E78.00 Pure hypercholesterolemia, unspecified (principal)
CPT/HCPCS: 80061; 80076

== ENCOUNTER 2025-06-06 10:18 | Outpatient (REF) | payer MEDICARE, OTHER, SELFPAY ==
[2025-06-06 10:23] LABS: MANUAL DIFF FLAG NO
[2025-06-06 11:01] LABS: Hematocrit 36.7 % (37.0-47.0); Hemoglobin 11.5 g/dl (12.0-16.0); Imm Gran Abs Auto 0.04 X10*3/uL (0.00-0.03); Imm Gran Pct Auto 0.7 % (0.0-0.4); Lymphocytes Absolute Auto 1.8 X10*3/uL (1.2-4.9); Mean Corpuscular HGB Conc 31.3 g/dl (31.0-35.0); Mean Corpuscular Hemoglobin 31.9 pg (27.0-33.0); Mean Corpuscular Volume 101.9 fL (80.0-98.0); NRBC Abs Auto 0.000 X10*3/uL (0.0-0.012); NRBC Pct Auto 0.0 /100WBC (0.0-0.2); Platelet Count 166 X10*3/uL (160-400); Red Blood Count 3.60 X10*6/uL (4.20-5.50); White Blood Count 5.8 X10*3/uL (4.8-10.8)
[2025-06-06 11:07] LABS: Appearance Urine Cloudy; Glucose Urine UA Negative (Negative); PH 5.5 (5.0-9.0); Specific Gravity - Urine 1.015 (1.005-1.025); UMIC TRIGGER UACC YES
[2025-06-06 11:18] LABS: Hemoglobin A1C 111.3789 umol/L; Total Hemoglobin (HGBA1C) 3039.6708 umol/L
[2025-06-06 11:20] LABS: UACC Culture Trigger YES
[2025-06-06 11:44] LABS: Alanine Aminotransferase 22 U/L (0-31); Albumin Level 4.6 g/dL (3.5-5.0); Alkaline Phosphatase 88 U/L (39-117); Anion Gap 10 (12-20); Aspartate Amino Transferase 32 U/L (5-31); Blood Urea Nitrogen 31 mg/dL (9-16); Calcium 9.5 mg/dL (8.4-10.2); Carbon Dioxide 29 mmol/L (22-29); Chloride 108 mmol/L (96-108); Cholesterol 156 mg/dL (<200); Estimated Glomerular Filt Rate 31; HDL Cholesterol 60 mg/dL (>40); Potassium 4.7 mmol/L (3.3-5.1); Sodium 142 mmol/L (135-145); Total Protein 7.8 g/dL (6.5-8.0); Triglycerides 93 mg/dL (<150)
[2025-06-06 12:22] LABS: Free T4 (Free Thyroxine) 0.90 ng/dL (0.71-1.85)
[2025-06-06 16:04] LABS: Microalbum/Creatinine Ratio Ur 797.0 ug/mg cr (<30)
== END 2025-06-06 10:19 | disposition home or self-care (01) ==
LOC: HO.LNP 10:18
PROVIDERS: Visit Provider Internal Medicine
DX: I10 Essential (primary) hypertension (principal); E87.5 Hyperkalemia; R73.09 Other abnormal glucose; E55.9 Vitamin D deficiency, unspecified; E03.9 Hypothyroidism, unspecified
CPT/HCPCS: 80053; 80061; 81001; 82043; 82306; 82570; 83036; 84439; 84443; 85025; 87086

== ENCOUNTER 2025-06-13 12:39 | Outpatient (REF) | payer MEDICARE, OTHER, SELFPAY ==
--- OUTSIDE RECORDS SUMMARY | 2024-07-20 07:15 | XMS_ITS ---
Author Organization [facility] Address [address] [place] [address] [place] [address] Care Team Providers Care Director Of Learning Name Role Phone Mati Raya MD Primary Care Provider Karissa Hanley [phone] Encounters Encounter Location Date Provider Diagnosis [address] [phone] 07/20/2024 Karissa Neal Plan Of Treatment No Information Progress Notes * Qian LARADOB:1935 (89 yo F)Acc No.[id number]:07/20/2024 Progress Notes Patient: Qian MATT Provider: Scott Neal DPM :1935 A ge:88 Y S ex:Female Date:07/20/2024 Address:[address] [place] [address] Jennifer Cr[id number] Pcp:Mati Raya MD Subjective: * Chief Complaints: [...] Neal DPM Date: 09/19/2023 Generated for Dharai ng/Fakeng/eTransmitting on: 0 06/13/2025 05:27 PM EDT
--- OUTSIDE RECORDS SUMMARY | 2025-04-09 06:30 | XMS_ITS ---
Author Organization Mati Raya MD Address [address] [place], [place] [id number] Care Team Providers Care Statistical Geneticist Name Role Phone Mati Raya Primary Care Provider Allergies Allergen (clinical drug ingredient) Drug/Non Drug [...] Status W/U Status Risk Notes Problem Depression (532081640) Depression (F32.9) Active confirmed Vital Signs Blood pressure systolic 120 mm Hg 04/09/20 25 Blood pressure diastolic 52 mm Hg 025 Height 62 in 04/09/2025 Weight 119 lbs 04/09/2025 BMI 21.76 kg/m2 04/09/2025 Encounters Encounter Location Date Provider Diagnosis Mati Raya MD [address] [place] [phone] 04/09/2025 Mati Raya Depression F32.9 Assessments Encounter [...] Up: 3 Weeks, Reason: Provider Name:Mati sol, 09/02/2025 11:15:00 AM, [address] [place] [address], [address], [phone], Provider Name:Mati sol, 12/02/2025 07:45:00 AM, [address] [place] [address], [address], [phone], Provider Name:Mati Silverman ier, 12/09/2025 11:00:00 AM, [address], [address], [place], [place], [phone], Provider Name:Mati Silverman ier, 07/10/2026 07:00:00 AM, [address], [address], [place], [phone], Provider Name:Mati Silverman ier, 07/17/2026 11:00:00 AM, [address], [address], [place], [phone], Progress Notes * Qian LARA CDOB:[birth year] (89 yo F)Acc No.[id number]:04/09/2025 Progress Notes Patient: Qian MATT Provider: Silver Raya MD :1935 A ge:89 Y S ex:Female Date:04/09/2025 Address:[address] [place] [address] , [place], [id number] Subjective: * Chief Complaints: * D epressionAccompanied [...] inimal Depression. * ROS: G eneral/Constitutional: Denies Scott hills. D enies F atigue. D enies F ever. D enies H eadache. E NT: Denies S ore throat. R espiratory: Denies Scott ough. Obi enies S hortness of breath with exertion. D enies S putum production. G astrointestinal: Denies Obi iarrhea. D enies N ausea. P sychiatric: [...] with the patient * Allergies: l evoquin: rashyes[Allergies Verified] Objective: * Vitals: H t: 62, [...] 0 04/09/2025 Generated for Bill somers/Juanita/Dereck on: 0 06/13/2025 05:27 PM EDT History and Physical Notes * HPI (History [...]
--- OUTSIDE RECORDS SUMMARY | 2025-04-29 07:30 | XMS_ITS ---
Author Organization Mati Raya MD Address [address] [place], [place] [phone] Care Team Providers Care Electric Switch Tester Name Role Phone Mati Raya Primary Care [...] Location Date Provider Diagnosis Mati Raya MD [address] [place] [phone] 04/29/2025 Mati Raya Depression F32.9 Assessments Encounter [...] Up: 4 Weeks, Reason: Provider Name:Mati sol, 09/02/2025 11:15:00 AM, [address] [place] [address], [address], [phone], Provider Name:Mati sol, 12/02/2025 07:45:00 AM, [address] [place] [address], [address], [phone], Provider Name:Mati sol, 12/09/2025 11:00:00 AM, [address] [place] [address], [phone], Provider Name:Mati Silverman ier, 07/10/2026 07:00:00 AM, [address], [address], [place], [place], [phone], Provider Name:Mati Silverman ier, 07/17/2026 11:00:00 AM, [address], [address], [place], [phone], Progress Notes * Qian LARA CDOB:[birth year] (89 yo F)Acc No.[id number]:04/29/2025 Progress Notes Patient: Qian MATT C Provider: Silver Raya MD :1935 A ge:89 Y S ex:Female Date:04/29/2025 Address:[address] [place] [address] [place], [id number] Subjective: * Chief Complaints: * 3 weekThinks [...] reconciled with the patient * Allergies: l cliffoquin: andrea[Allergies Verified] Objective: * Vitals: H t: [...] 0 04/29/2025 Generated for Bill somers/Juanita/Devynitting on: 0 06/13/2025 05:27 PM EDT History [...]
--- OUTSIDE RECORDS SUMMARY | 2025-05-28 07:00 | XMS_ITS ---
Author Organization Mati Raya MD Address [address] [place], [place] [phone] Care Team Providers Care Insurance Examiner Name Role Phone Mati Raya Primary Care Provider [phone] Allergies Allergen (clinical drug ingredient) Drug/Non Drug [...] Date Provider Diagnosis Mati Raya MD [address] [place] [phone] 05/28/2025 Mati Raya Encounter for administration of [...] Up: 2 Months, Reason: Provider Name:Mati sol, 09/02/2025 11:15:00 AM, [address] [place] [address], Suite [facility], [place], [place], [phone], Provider Name:Mati sol, 12/02/2025 07:45:00 AM, [address] [place] [address], Suite [facility], [place], [place], [phone], Provider Name:Mati Silverman ier, 12/09/2025 11:00:00 AM, [address], [address], [place], [phone], Provider Name:Mati Silverman ier, 07/10/2026 07:00:00 AM, [address], [address], [place], [phone], Provider Name:Mati Silverman ier, 07/17/2026 11:00:00 AM, [address], [address], [place], [phone], Progress Notes * Qian LARA CDOB:[birth year] (89 yo F)Acc No.[id number]:05/28/2025 Progress Notes Patient: Qian MATT Provider: Silver Raya MD :1935 A ge:89 Y S ex:Female Date:05/28/2025 Address:[address] [place] [address] , [place], [id number] Subjective: * Chief Complaints: * 4 weekAccompanied [...] 9 0662 FLU VACC PRSV FREE INC [id number] ADMN FLU VAC NO FEE SCHED SAME DAY * Follow Up: 2 Months * * Sign off status: Completed true * Provider: Silver Raya MD Date: 0 05/28/2025 Generated for Bill somers/Juanita/Devynitting on: 0 06/13/2025 05:26 PM EDT History and Physical Notes * [...]
--- OUTSIDE RECORDS SUMMARY | 2025-06-06 03:30 | XMS_ITS ---
Author Organization Mati Raya MD Address [address] [place], [place] [phone] Care Team Providers Care Pin Sticker Name Role Phone Mati Raya Primary Care Provider Results Component Value Reference Range Notes Complete Blood Count Auto Di ff Reviewed date:06/06/2025 04:53:16 PM Interpretation: Performing Lab:[facility], [address] [place] [phone] Notes/Report: White Blood Count 5.8 4.8-10.8 X10*3/uL [...] Panel Reviewed date:06/06/2025 12:24:27 PM Interpretation: Performing Lab:[facility], [address] [place] [phone] Notes/Report: Triglycerides 93 <150 mg/dL Desirable Triglyceride: [...] Total Reviewed date:06/06/2025 12:24:53 PM Interpretation: Performing Lab:[facility], [address] [place] [phone] Notes/Report: Vitamin D 25-OH Total 54.8 >30 [...] T4 Reviewed date:06/13/2025 12:41:11 PM Interpretation:06-13-2025 Performing Lab:[address] [phone] Notes/Report: TSH reflex Free T4 40.08 0.32-4.0 uIU/mL Microalbumin, Random Reviewed date:06/06/2025 04:51:34 PM Interpretation: Performing Lab:[facility], [address] [place] [phone] Notes/Report: Creatinine Urine 51.19 Microalbumin Urine 408.0 Microalbum/Creatinine Ratio Ur 797.0 <30 ug/mg cr Albumin/Creatinine Ratio Reference Ranges: Normal: < 30 ug/mg creatinine Microalbuminuria: 30 - 300 ug/mg creatinine Clinical Albuminuria: > 300 ug/mg creatinine Hemoglobin A1c Reviewed date:06/06/2025 12:21:31 PM Interpretation: Performing Lab:[facility], [address] [place] [phone] Notes/Report: Hemoglobin A1c % 5.5 <6.0 % [...] average glucose, using the formula of the C3B-Awizxua Average Glucose study (ADAG), Diabetes Care, Vol.31,#8, Apr. 2007 UA ClnCatch+Micro w/rflx Cul t Reviewed date:06/06/2025 04:54:25 PM Interpretation: Performing Lab:[facility], [address] [place] [phone] Notes/Report: Urine, Clean Catch Color Urine Yellow Appearance Urine Cloudy PH 5.5 5.0-9.0 Glucose Urine UA Negative Negative mg/dL Urine Blood Negative Negative Specific [place] - Urine 1.015 1.005-1.025 Urine Protein 100 [...] Location Date Provider Diagnosis Mati Raya MD [address] [place] [address] [address] [place], [place] [phone] 06/06/2025 Mati Raya Essential hypertensi on I10 [...] Pending Test Test Name Order Date Comprehensive [place]. Panel Fast Next Appt Details Provider Name:Mati Silverman ier, 09/02/2025 11:15:00 AM, [address] [facility], Suite [facility], [place], [phone], Provider Name:Mati Silverman ier, 12/02/2025 07:45:00 AM, [address] [facility], Suite [facility], [place], [place], [phone], Provider Name:Mati Silverman ier, 12/09/2025 11:00:00 AM, [address] [facility], Suite [facility], [place], [place], [phone], Provider Name:Mati Silverman ier, 07/10/2026 07:00:00 AM, [address] [place] [address], Suite [facility], [place], [place], [phone], Provider Name:Mati Silverman ier, 07/17/2026 11:00:00 AM, [address] [place] [address], Suite [facility], [place], [place], [phone], Progress Notes * Qian LARA CDOB:[birth year] (89 yo F)Acc No.[id number]:06/06/2025 Progress Note Patient: Qian MATT Provider: Silver Raya MD :1935 A ge:89 Y S ex:Female Date:06/06/2025 Address:[address] [place] [address] , [place], [id number] Subjective: * Chief Complaints: * 1 . [...] Treatment: 2. P rediabetes L AB: Comprehensive [place]. Panel Fast L AB: Complete Blood Count [...] AM) 3. H yperkalemia L AB: Comprehensive [place]. Panel Fast L AB: Complete Blood Count [...] itamin D deficiency, unspecified L AB: Comprehensive [place]. Panel Fast L AB: Complete Blood Count [...] 5. A cquired hypothyroidism L AB: Comprehensive [place]. Panel Fast L AB: Complete Blood Count [...] MD Date: 0 06/06/2025 Generated for Bill somers/Juanita/Devynitting on: 06/13/2025 05:27 PM EDT
--- OUTSIDE RECORDS SUMMARY | 2025-06-13 07:00 | XMS_ITS ---
Author Organization Mati Raya MD Address [address] [place], [place] [id number] Care Team Providers Care Yarding Engineer Name Role Phone Mati Raya Primary Care Provider Allergies Allergen (clinical drug ingredient) Drug/Non Drug Allergy documented on EMR Reaction Allergy Type Onset Date Status levoquin (uncoded) rash Allergy A ctive Results Component Value Reference Range Notes TSH reflex Free T4 (Not yet reviewed by provider) Interpretation: Performing Lab:[facility], [address] [place] [id number] Notes/Report: TSH reflex Free T4 37.65 0.32-4.0 uIU/mL REASON FOR VISIT comp visit/ must see TSH, Accompanied by son Medications [...] kg/m2 06/13/2025 weight is down 2 pounds [facility] e 05-28-25 Encounters Encounter Location Date Provider Diagnosis Mati Raya MD [address] [place] [address] [address] [place], [place] [phone] 06/13/2025 Mati Raya Acquired hypothyroid ism E03.9 [...] on m eds Essential hypertension well controlled Pending Test Test Name Order Date TSH reflex Free T4 06/13/2025 Next Appt Details Follow Up: 3 Months, Reason: Provider Name:Mati Silverman ier, 09/02/2025 11:15:00 AM, [address] [place] [address], [address] [place] [address], [phone], Provider Name:Mati Silverman ier, 12/02/2025 07:45:00 AM, [address] [place] [address], [address], [phone], Provider Name:Mati Silverman ier, 12/09/2025 11:00:00 AM, [address] [place] [address], [address], [phone], Provider Name:Mati Silverman ier, 07/10/2026 07:00:00 AM, [address] [place] [address], [place] [address], [place], [place], [phone], Provider Name:Mati Silverman ier, 07/17/2026 11:00:00 AM, [address] [place] [address], [place] [address], [place], [place], [phone], Progress Notes * MARYSurendraQian CDOB:[birth year] (89 yo F)Acc No.[id number]:06/13/2025 Patient: Qian MATT C Provider: Silver Raya MD :1935 A ge:89 Y S ex:Female Date:06/13/2025 Address:[address] [place] [address] , [id number] Subjective: * Chief Complaints: * 1 . comp visit/ must see TSH. 2. Accompanied by son. [...] of PHQ-9 found negative result, no follow-up needed. 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 refuses meds [...] L ab:Free T4 (Free Thyroxine) (Order Date - 06/06/2025) (Collection Date & Time - 06/06/2025 07:30 AM) Value Reference Range Free T4 (Free Thyroxine) 0.90 0.71-1.85 - ng/ dL L ab:Vitamin D 25-OH Total (Order Date - 06/06/2025) (Collection Date & Time - 06/06/2025 07:30 AM) Value Reference Range Vitamin D 25-OH Total 54.8 >30 - ng/mL L ab:Microalbumin, Random (Order Date - 06/06/2025) (Collection Date & Time - 06/06/2025 07:30 AM) Value Reference Range Creatinine Urine 51.19 - mg/dL Microalbumin Urine 408.0 - mg/L Microalbum Creatinine Ratio Ur 797.0 H <30 - ug/mg cr L ab:Hemoglobin A1c (Order Date - 06/06/2025) (Collection Date & Time - 06/06/2025 07:30 AM) Value Reference Range Hemoglobin A1c % 5.5 <6.0 - % Estimated Average Glucose 111 - mg/dL L ab:UA ClnCatch+Micro w/rflx Cult (Order Date - 06/06/2025) (Collection Date & Time - 06/06/2025 07:30 AM) Value Reference Range Color Urine Yellow - Appearance Urine Cloudy - PH 5.5 5.0-9.0 - Glucose Urine UA Negative Negative - mg/dL Urine Blood Negative Negative - Specific [place] - Urine 1.015 1.005-1.025 - Urine Protein [...] ab:Complete Blood Count Auto Diff (Order Date - 06/06/2025) (Collection Date & [...] Pending * Provider: Silver Raya MD Date: 06/13/2025 Generated for Bill somers/Juanita/Dereck on: 06/13/2025 05:26 PM EDT History and Physical [...] Q-9 found negative result, no follow-up needed SDOH Questions SDOH Questions In the past [...] had two or more falls in the st year?: No Communication Needs Communication Needs Does [...]
[2025-06-13 13:59] LABS: Free T4 (Free Thyroxine) 0.92 ng/dL (0.71-1.85)
--- OUTSIDE RECORDS SUMMARY | 2025-06-13 17:27 | XMS_ITS | Patient Health Record ---
Author Organization Mati Raya MD Address [address] [place], [place] [id number] Care Team Providers Care Social Insurance Adviser Name Role Phone Mati Raya Primary Care Provider [phone] Allergies Allergen (clinical drug ingredient) Drug/Non Drug Allergy documented on EMR Reaction Allergy Type Onset Date Status levoquin (uncoded) rash Allergy A ctive Results Component Value Reference Range Notes UA ClnCatch+Micro w/rflx Cul t Reviewed date:11/09/2024 04:29:25 PM Interpretation: Performing Lab:[facility], [address] [place] [phone] Notes/Report: Urine, Clean Catch Color Urine Dark Yellow Appearance Urine Cloudy PH 5.0 5.0-9.0 Glucose Urine UA Negative Negative mg/dL Urine Blood Negative Negative Specific [place] - Urine 1.025 1.005-1.025 Urine Protein 100 (2+) Neg-Trace mg/dL Urine Ketones Trace Negative mg/dL Nitrite Urine Negative Negative Leukocyte Esterase Urine Trace Negative RBC Urine 0-2 0-2 /HPF WBC Urine 6-10 0-5 /HPF Squamous Epithelial Cell Urine 6-10 0-2 /HPF Bacteria Urine 1+ None Seen Hyaline Casts Urine 3-5 0-2 /LPF Complete Blood Count Auto Di ff Reviewed date:11/15/2024 05:01:20 PM Interpretation: Performing Lab:[facility], [address] [place] [phone] Notes/Report: White Blood Count 5.7 4.8-10.8 X10*3/uL [...] 0.0-0.2 /100WBC Neutrophils Absolute Auto 2.8 2.0-8.3 x10*3/uL Imm Gran Abs Auto 0.05 0.00-0.03 X10*3/uL Lymphocytes Absolute Auto 1.6 1.2-4.9 X10*3/uL Monocytes Absolute Auto 1.1 0.1-1.2 X10*3/uL Eosinophils Absolute Auto 0.1 0.0-0.4 X10*3/uL Basophils Absolute Auto 0.0 0.0-0.2 X10*3/uL NRBC Abs Auto 0.000 0.0-0.012 X10*3/uL Liver Panel Reviewed date:12/03/2024 04:21:48 PM Interpretation: Performing Lab:[facility], [address] [place] [phone] Notes/Report: Bilirubin Total 0.3 0.0-1.0 mg/dL Bilirubin Direct 0.1 0.0-0.5 mg/dL Aspartate Amino Transferase 31 5-31 U/L Alanine Aminotransferase 28 0-31 U/L Total Protein 7.4 6.5-8.0 g/dL Albumin Level 4.0 3.5-5.0 g/dL Alkaline Phosphatase 71 39-117 U/L Lipid Panel with Reflex Reviewed date:12/03/2024 04:25:46 PM Interpretation: Performing Lab:[address] [phone] Notes/Report: Triglycerides 60 <150 mg/dL Desirable Triglyceride: less than 150 mg/dL Borderline High Triglyceride 150-199 mg/dL High Triglyceride: 200-499 mg/dL Very High Triglyceride: greater than or equal to 5OO mg/dL Cholesterol 150 <200 mg/dL Desirable Cholesterol: less than 200 mg/dL Borderline High Cholesterol: 200-239 mg/dL High Cholesterol: greater than 239 mg/dL LDL Cholesterol Calculated 66 <100 mg/dL Desirable LDL: less than 100 mg/dL Near Optimal/Above Optimal LDL: 110-129 mg/dL Borderline High LDL: 130-159 mg/dL High LDL: 160-189 mg/dL Very High LDL: greater than or equal to 190 mg/dL HDL Cholesterol 72 >40 mg/dL Desirable HDL: greater than 40 mg/dL Note: This HDL assay may give artificially low results in patients with liver disease. Complete Blood Count Auto Di ff Reviewed date:06/06/2025 04:53:16 PM Interpretation: Performing Lab:[address] [phone] Notes/Report: White Blood Count 5.8 4.8-10.8 X10*3/uL [...] 0.0-0.2 /100WBC Neutrophils Absolute Auto 2.8 2.0-8.3 x10*3/uL Imm Gran Abs Auto 0.04 0.00-0.03 X10*3/uL Lymphocytes Absolute Auto 1.8 1.2-4.9 X10*3/uL Monocytes Absolute Auto 0.9 0.1-1.2 X10*3/uL Eosinophils Absolute Auto 0.1 0.0-0.4 X10*3/uL Basophils Absolute Auto 0.0 0.0-0.2 X10*3/uL NRBC Abs Auto 0.000 0.0-0.012 X10*3/uL Lipid Panel Reviewed date:06/06/2025 12:24:27 PM Interpretation: Performing Lab:[facility], [address] [place] [phone] Notes/Report: Triglycerides 93 <150 mg/dL Desirable Triglyceride: [...] Total Reviewed date:06/06/2025 12:24:53 PM Interpretation: Performing Lab:[address] [phone] Notes/Report: Vitamin D 25-OH Total 54.8 >30 [...] T4 Reviewed date:06/13/2025 12:41:11 PM Interpretation:06-13-2025 Performing Lab:[address] [phone] Notes/Report: TSH reflex Free T4 40.08 0.32-4.0 uIU/mL Microalbumin, Random Reviewed date:06/06/2025 04:51:34 PM Interpretation: Performing Lab:[facility], [address] [place] [phone] Notes/Report: Creatinine Urine 51.19 Microalbumin Urine 408.0 Microalbum/Creatinine Ratio Ur 797.0 <30 ug/mg cr Albumin/Creatinine Ratio Reference Ranges: Normal: < 30 ug/mg creatinine Microalbuminuria: 30 - 300 ug/mg creatinine Clinical Albuminuria: > 300 ug/mg creatinine Hemoglobin A1c Reviewed date:06/06/2025 12:21:31 PM Interpretation: Performing Lab:[address] [phone] Notes/Report: Hemoglobin A1c % 5.5 <6.0 % [...] average glucose, using the formula of the D8K-Hus[place]on Average Glucose study (ADAG), Diabetes Care, Vol.31,#8, Apr. 2007 UA ClnCatch+Micro w/rflx Cul t Reviewed date:06/06/2025 04:54:25 PM Interpretation: Performing Lab:[facility], [address] [place] [phone] Notes/Report: Urine, Clean Catch Color Urine Yellow Appearance Urine Cloudy PH 5.5 5.0-9.0 Glucose Urine UA Negative Negative mg/dL Urine Blood Negative Negative Specific [place] - Urine 1.015 1.005-1.025 Urine Protein 100 (2+) Neg-Trace mg/dL Urine Ketones Negative Negative mg/dL Nitrite Urine Negative Negative Leukocyte Esterase Urine Large (3+) Negative RBC Urine 0-2 0-2 /HPF WBC Urine 21-50 0-5 /HPF Squamous Epithelial Cell Urine 11-20 0-2 /HPF Bacteria Urine 2+ None Seen Hyaline Casts Urine 0-2 0-2 /LPF TSH reflex Free T4 (Not yet reviewed by provider) Interpretation: Performing Lab:[facility], [address] [place] [phone] Notes/Report: TSH reflex Free T4 37.65 0.32-4.0 uIU/mL Uric Acid Reviewed date:07/19/2024 04:57:22 PM Interpretation: Performing Lab:[facility], [address] [place] [phone] Notes/Report: Uric Acid 6.7 2.4-5.7 mg/dL XR chest 2V Reviewed date:10/23/2024 12:30:38 PM Interpretation: Performing Lab: Notes/Report: [address] [address] XRay Report Signed Patient: Qian Lara MR#: [id number] 877 : 1935 Acct:[id number] Age/Sex: 88 / F ADM Date: 10/23/24 Loc: [facility] Attending Dr: Mati Raya MD Ordering Physician: Mati Raya MD Date of Service: 10/23/24 Procedure(s): XR chest 2V Accession Number(s): [id number] cc: Mati Raya MD EXAMINATION: XR CHEST CLINICAL INFORMATION: COUGH COMPARISON: 10/15/2024. 09/26/2022. TECHNIQUE: 2 views of the chest were obtained. FINDINGS: The cardiac, hilar, and mediastinal contours are normal. Aorta is calcified. Lungs are diffusely hyperaerated, hyperlucent, with fine increased interstitial markings diffusely, findings suggestive of COPD. There are calcified granulomata in the bilateral upper lung regions. There is no pneumothorax or pleural effusion. Chronic appearing wedge compression deformities of L1 and L4. Degenerative changes of the spine with exaggerated kyphosis. Degenerative changes right greater than left shoulder joints. XR/XR chest 2V IMPRESSION: 1. COPD without superimposed active disease. 2. Chronic compression deformities L1 and L4. Electronically signed by: Guillaume Schmidt MD 10/23/2024 11:53 AM [facility] [place]ictated By: Guillaume Schmidt MD Signed By: <Electronically signed by Guillaume Schmidt MD in OV> 10/23/24 1153 DD/ 1123 TD/TT: 10/23/24 1138 It Administrator: [address] [address] XRay Report Signed Patient: Perlita Lara MR#: [id number] 877 : 1935 Acct:[id number] Age/Sex: 88 / F ADM Date: 10/23/24 Loc: [facility] Attending Dr: Mati Raya MD Ordering Physician: Mati Raya MD Date of Service: 10/23/24 Procedure(s): XR de[address] st 2V Accession Number(s): [id number] cc: Mati Raya MD EXAMINATION: XR CHEST CLINICAL INFORMATION: COUGH COMPARISON: 10/15/2024. 09/26/2022. TECHNIQUE: 2 views of the chest were obtained. FINDINGS: The cardiac, hilar, and mediastinal contours are normal. Aorta is calcified. Lungs are diffusely hyperaerated, hyperlucent, with fine increased interstitial marking s diffusely, findings suggestive of COPD. There are calcified granulomat a in the bilateral upper lung regions. There is no pneumothorax or pleu ral effusion. Chronic appearing we dge compression deformities of L1 and L4. Degenerative changes of the spine with exaggerated kyphosis. Degenerative changes right greater than left shoulder joints. XR/XR chest 2V IMPRESSION: 1. COPD without superimposed active disease. 2. Chronic compressi on deformities L1 and L4. Electronically sarah d by: Guillaume Schmidt MD 10/23/2024 11:53 AM [facility] [place] Dictated By: Guillaume Schmidt MD Signed By: <Electronically signed by Guillaume Schmidt MD in OV> 10/23/24 1153 DD/ 1123 TD/TT: 10/23/24 1138 It Administrator: Vitamin B12 and Folate Reviewed date:10/11/2024 05:35:26 PM Interpretation: Performing Lab:[address] [phone] Notes/Report: Vitamin B12 1458 200-900 pg/mL NORMAL 200-900 PG/ML INDETERMINATE 160-199 PG/ML DEFICIENT < 160 PG/ML Folate 5.8 > or = 4.0 ng/mL Reference Values: > or = 4.0 ng/mL < 4.0 ng/mL suggests folate deficiency Methotrexate, aminopterin and folinic acid (leucovorin) are chemotherapeutic agents whose molecular structures are similar to folate; therefore, the Farm Equipment Maintenance Supervisor folate assay cannot be used for patients using these drugs. Complete Blood Count Auto Di ff Reviewed date:10/16/2024 12:49:20 PM Interpretation: Performing Lab:[address] [phone] Notes/Report: White Blood Count 6.2 4.8-10.8 X10*3/uL Red Blood Count 3.72 4.20-5.50 X10*6/uL Hemoglobin 11.5 12.0-16.0 g/dl Hematocrit 36.1 37.0-47.0 % Mean Corpuscular Volume 97.0 80.0-98.0 fL Mean Corpuscular Hemoglobin 30.9 27.0-33.0 pg Mean Corpuscular HGB Conc 31.9 31.0-35.0 g/dl Red Cell Distribution Width 13.0 11.0-16.0 % Platelet Count 135 160-400 X10*3/uL Mean Platelet Volume 12.3 9.4-12.3 fL Neutrophils Percent Auto 58.1 45-73 % Imm Gran Pct Auto 0.2 0.0-0.4 % Lymphocytes Percent Auto 12.5 20-40 % Monocytes Percent Auto 28.0 2-11 % Eosinophils Percent Auto 1.0 0-4 % Basophils Percent Auto 0.2 0-2 % NRBC Pct Auto 0.0 0.0-0.2 /100WBC Neutrophils Absolute Auto 3.6 2.0-8.3 x10*3/uL Imm Gran Abs Auto 0.01 0.00-0.03 X10*3/uL Lymphocytes Absolute Auto 0.8 1.2-4.9 X10*3/uL Monocytes Absolute Auto 1.7 0.1-1.2 X10*3/uL Eosinophils Absolute Auto 0.1 0.0-0.4 X10*3/uL Basophils Absolute Auto 0.0 0.0-0.2 X10*3/uL NRBC Abs Auto 0.000 0.0-0.012 X10*3/uL White Blood Count 6.2 4.8-10.8 X10*3/uL Red Blood Count 3.72 4.20-5.50 X10*6/uL Hemoglobin 11.5 12.0-16.0 g/dl Hematocrit 36.1 37.0-47.0 % Mean Corpuscular Volume 97.0 80.0-98.0 fL Mean Corpuscular Hemoglobin 30.9 27.0-33.0 pg Mean Corpuscular HGB Conc 31.9 31.0-35.0 g/dl Red Cell Distribution Width 13.0 11.0-16.0 % Platelet Count 135 160-400 X10*3/uL Mean Platelet Volume 12.3 9.4-12.3 fL Neutrophils Percent Auto 58.1 45-73 % Imm Gran Pct Auto 0.2 0.0-0.4 % Lymphocytes Percent Auto 12.5 20-40 % Monocytes Percent Auto 28.0 2-11 % Eosinophils Percent Auto 1.0 0-4 % Basophils Percent Auto 0.2 0-2 % NRBC Pct Auto 0.0 0.0-0.2 /100WBC Neutrophils Absolute Auto 3.6 2.0-8.3 x10*3/uL Imm Gran Abs Auto 0.01 0.00-0.03 X10*3/uL Lymphocytes Absolute Auto 0.8 1.2-4.9 X10*3/uL Monocytes Absolute Auto 1.7 0.1-1.2 X10*3/uL Eosinophils Absolute Auto 0.1 0.0-0.4 X10*3/uL Basophils Absolute Auto 0.0 0.0-0.2 X10*3/uL NRBC Abs Auto 0.000 0.0-0.012 X10*3/uL C ORRECTED REPORT C ORRECTED REPORT Comprehensive Met. Panel Reviewed date:10/16/2024 12:46:26 PM Interpretation: Performing Lab:[facility], [address] [place] [phone] Notes/Report: Sodium 140 135-145 mmol/L Potassium 4.3 3.3-5.1 mmol/L Chloride 111 96-108 mmol/L Carbon Dioxide 23 22-29 mmol/L Anion Gap 10 12-20 Blood Urea Nitrogen 28 9-16 mg/dL Creatinine 1.48 0.5-1.4 mg/dL Creatinine Clr Calc Pharmacy 18.9 Provided height and weight: 152.4 cm, 52.163 kg. eGFR (calculated from the MDRD study equation) and eCrCl (calculated from the Cockcroft-Gault equation) are based on different parameters and may not yield comparable results. If eCrCl result is absurd, please check patient's height/weight. Estimated Glomerular Filt Rate 33 Chronic Kidney Disease: Estimated GFR < 60 mL/min/1.73m2 Severe Kidney Disease: Estimated GFR < 15 mL/min/1.73m2 Glucose Random 106 60-115 mg/dL Calcium 9.3 8.4-10.2 mg/dL Bilirubin Total 0.4 0.0-1.0 mg/dL Aspartate Amino Transferase 22 5-31 U/L Alanine Aminotransferase 8 0-31 U/L Total Protein 7.3 6.5-8.0 g/dL Albumin Level 4.0 3.5-5.0 g/dL Alkaline Phosphatase 79 39-117 U/L Magnesium Reviewed date:10/16/2024 12:41:51 PM Interpretation: Performing Lab:[address] [phone] Notes/Report: Magnesium 2.1 1.6-2.6 mg/dL Troponin-I High Sensitivity Reviewed date:10/16/2024 12:50:07 PM Interpretation: Performing Lab:[address] [phone] Notes/Report: Troponin-I High Sensitivity 43.3 <3.5-17.0 ng/L The Simpson high sensitivity Troponin-I results should be used in conjunction with other diagnostic information such as ECG, clinical observations and information, and patient symptoms to aid in the diagnosis of RI. Thyroid Stimulating Hormone Reviewed date:10/16/2024 12:40:59 PM Interpretation: Performing Lab:[facility], [address] [place] [phone] Notes/Report: Thyroid Stimulating Hormone 0.72 0.32-4.0 uIU/mL TSH 3rd Generation ([facility]) SLIDE REVIEW Reviewed date:10/16/2024 12:42:00 PM Interpretation: Performing Lab:[address] [phone] Notes/Report: SLIDE REVIEW VERIFIED SARS-CoV2/FLU/RSV Reviewed date:10/16/2024 12:41:42 PM Interpretation: Performing Lab:[address] [phone] Notes/Report: Influenza A PCR NEGATIVE Negative Influenza B PCR NEGATIVE Negative Resp Syncy Virus RNA Qual PCR NEGATIVE Negative SARS COV2 PCR INHOUSE POSITIVE Negative All test results must be correlated with clinical findings. Negative results do not preclude SARS-CoV2, influenza A virus, influenza B virus and/or RSV infection and should not be used as the sole basis for treatment or other patient management decisions. Negative results must be combined with clinical observations, patient history, and epidemiological information. This test has not been evaluated for monitoring treatment of infection. This test has been authorized by the FDA under an Emergency Use Authorization (EUA) for use by authorized laboratories. Testing performed on the [employer] GeneXpert utilizing real-time RT-PCR. All SARS CoV2 and positive influenza A/B results are reported to [facility]. XR chest 2V Reviewed date:10/16/2024 12:41:32 PM Interpretation: Performing Lab: Notes/Report: [address] [address] XRay Report Signed Patient: Qian Lara MR#: [id number] 877 : 1935 Acct:[id number] Age/Sex: 88 / F ADM Date: 10/15/24 Loc: HO.ED Attending Dr: Ordering Physician: Francy Mario Date of Service: 10/15/24 Procedure(s): XR chest 2V Accession Number(s): [id number] cc: Mati Raya MD; Francy Mario CLINICAL HISTORY: weakness confusion 2 view chest x-ray Comparison: CR/SR - XR CHEST 1V - 09/26/22 14:07 EST Findings: Diffuse interstitial prominence in both lungs. No pleural effusion or pneumothorax. Normal size heart. No acute fracture. IMPRESSION: 1. Diffuse interstitial prominence in both lungs likely represent mild pulmonary edema. This document has been electronically signed by: Andrae Cross MD on 10/15/2024 21:42:42 Dictated By: Andrae Cross MD Signed By: <Electronically signed by Andrae Cross MD in OV> 10/15/242142 DD/ 41 TD/TT: 10/15/242141 It Administrator: [address] [address] XRay Report Signed Patient: Perlita Lara MR#: [id number] 877 : 1935 Acct:[id number] Age/Sex: 88 / F ADM Date: 10/15/24 Loc: HO.ED Attending Dr: Ordering Physician: Francy Mario Date of Service: 10/15/24 Procedure(s): XR [address] st 2V Accession Number(s): [id number] cc: Mati Raya MD; Francy Mario CLINICAL HISTORY: weakness confusion 2 view chest x-ray Comparison: CR/SR - XR CHEST 1V - 09/26/22 14:07 EST Findings: Diffuse interstitial prominence in both lungs. No pleural effusion or pneumothorax. Normal size heart. No acute fracture. IMPRESSION: 1. Diffuse interstit ial prominence in both lungs likely represent mild pulmonary edema. This document has be en electronically signed by: Andrae Cross MD on 10/15/2024 21:42:42 Dictated By: Andrae Cross MD Signed By: <Electronically signed by Andrae Cross MD in OV> 10/15/242142 DD/ 41 TD/TT: 10/15/242141 It Administrator: Complete Blood Count Man Dif Reviewed date:10/16/2024 01:01:04 PM Interpretation: Performing Lab:[facility], [address] [place] [phone] Notes/Report: White Blood Count 5.6 4.8-10.8 X10*3/uL Red Blood Count 3.88 4.20-5.50 X10*6/uL Hemoglobin 11.8 12.0-16.0 g/dl Hematocrit 38.0 37.0-47.0 % Mean Corpuscular Volume 97.9 80.0-98.0 fL Mean Corpuscular Hemoglobin 30.4 27.0-33.0 pg Mean Corpuscular HGB Conc 31.1 31.0-35.0 g/dl Red Cell Distribution Width 13.2 11.0-16.0 % Platelet Count 132 160-400 X10*3/uL Mean Platelet Volume 12.1 9.4-12.3 fL NRBC Pct Auto 0.0 0.0-0.2 /100WBC NRBC Abs Auto 0.000 0.0-0.012 X10*3/uL Neutrophils Percent Manual 41 45-73 % Band Neutrophils Percent 4 3-5 % Lymphocytes Percent Manual 22 20-40 % Monocytes Percent Manual 29 2-11 % Eosinophils Percent Manual 3 0-4 % Basophils Percent Manual 1 0-2 % Neutrophils Absolute Manual 2.5 2.0-8.3 X10*3/uL Lymphocytes Absolute Manual 1.2 1.2-4.9 X10*3/uL Monocytes Absolute Manual 1.6 0.1-1.2 X10*3/uL Eosinophils Absolute Manual 0.2 0.0-0.4 X10*3/uL Basophils Abs Manual 0.1 0.0-0.2 X10*3/uL Platelet Estimate SLIGHTLY DECREASED NORMAL Large Platelet PRESENT Platelet Morphology Comment NOTED RBC Morphology NOTED Macrocytosis 1+ (5-14) Ovalocytes 1+ (5-14) Basic Metabolic Panel Reviewed date:10/16/2024 12:42:11 PM Interpretation: Performing Lab:[facility], [address] [place] [phone] Notes/Report: Sodium 141 135-145 mmol/L Potassium 4.4 3.3-5.1 mmol/L Chloride 112 96-108 mmol/L Carbon Dioxide 21 22-29 mmol/L Anion Gap 12 12-20 Blood Urea Nitrogen 23 9-16 mg/dL Creatinine 1.24 0.5-1.4 mg/dL Creatinine Clr Calc Pharmacy 22.5 Provided height and weight: 152.4 cm, 52.163 kg. eGFR (calculated from the MDRD study equation) and eCrCl (calculated from the Cockcroft-Gault equation) are based on different parameters and may not yield comparable results. If eCrCl result is absurd, please check patient's height/weight. Estimated Glomerular Filt Rate 41 Chronic Kidney Disease: Estimated GFR < 60 mL/min/1.73m2 Severe Kidney Disease: Estimated GFR < 15 mL/min/1.73m2 Glucose Random 85 60-115 mg/dL Calcium 9.1 8.4-10.2 mg/dL Troponin-I High Sensitivity Reviewed date:10/16/2024 12:49:58 PM Interpretation: Performing Lab:[facility], [address] [place] [phone] Notes/Report: Troponin-I High Sensitivity 38.9 <3.5-17.0 ng/L The Simpson high sensitivity Troponin-I results should be used in conjunction with other diagnostic information such as ECG, clinical observations and information, and patient symptoms to aid in the diagnosis of RI. B Type Natriuretic Peptide Reviewed date:10/16/2024 12:47:06 PM Interpretation: Performing Lab:[address] [phone] Notes/Report: B Type Natriuretic Peptide 137 <100 pg/mL For those patients who are being treated with Natrecor (nesiritide, recombinant BNP), BNP testing should be performed at least two hours post treatment in order to ensure that only endogenous levels of BNP are detected. UA ClnCatch+Micro w/rflx Cul t Reviewed date:10/16/2024 01:27:52 PM Interpretation: Performing Lab:[address] [address] Notes/Report: Urine, Clean Catch Color Urine Yellow Appearance Urine Clear PH 5.0 5.0-9.0 Glucose Urine UA Negative Negative mg/dL Urine Blood Negative Negative Specific [place] - Urine 1.015 1.005-1.025 Urine Protein 30 (1+) Neg-Trace mg/dL Urine Ketones Trace Negative mg/dL Nitrite Urine Negative Negative Leukocyte Esterase Urine Negative Negative RBC Urine 0-2 0-2 /HPF WBC Urine 0-5 0-5 /HPF Squamous Epithelial Cell Urine 3-5 0-2 /HPF Bacteria Urine None Seen None Seen Hyaline Casts Urine 3-5 0-2 /LPF MR head/brain wo con Reviewed date:10/17/2024 05:29:52 PM Interpretation: Performing Lab: Notes/Report: [address] [address] Magnetic Resonance Report Signed Patient: Qian Lara MR#: [id number] 877 : 1935 Acct:[id number] Age/Sex: 88 / F ADM Date: 10/16/24 Loc: [facility] 473-[address]: Wellington Cruz DO Ordering Physician: Viktoriya Reardon MD Date of Service: 10/16/24 Procedure(s): MR head/brain wo con Accession Number(s): [id number] cc: Viktoriya Reardon MD; Mati Raya MD CLINICAL HISTORY: R O CVA MR Brain without gadolinium Comparison: CT/REG - CT HEAD/BRAIN WO CON - 09/27/20 15:43 EST Findings: No restricted diffusion. No intracranial mass or hemorrhage. Small focus of susceptibility artifact within the right ventral thalamus most likely represent remote lacunar hemorrhage / hemosiderin deposition. No midline shift. No hydrocephalus. Vascular flow voids are intact. Moderate generalized cerebral volume loss and moderate periventricular and subcortical T2/FLAIR hyperintensities consistent with chronic microvascular ischemic change. Orbital contents are unremarkable. The sinuses and mastoid air cells are clear. No focal bone lesion. IMPRESSION: No acute infarct, intracranial hemorrhage, or mass lesions. Moderate generalized cerebral volume loss and chronic microvascular ischemic changes of the periventricular and subcortical white matter. This document has been electronically signed by: Andrae Cross MD on 10/16/2024 19:35:45 Dictated By: Andrae Cross MD Signed By: <Electronically signed by Andrae Cross MD in OV> 10/16/241935 DD/ 34 TD/TT: 10/16/241934 It Administrator: [place] [address] Magnetic Resonance Report Signed Patient: Perlita Lara MR#: [id number] 877 : 1935 Acct:[id number] Age/Sex: 88 / F ADM Date: 10/16/24 Loc: [facility] 473-[address]: Wellington Cruz DO Ordering Physician: Viktoriya Reardon MD Date of Service: 10/16/24 Procedure(s): MR head/brain wo con Accession Number(s): [id number] cc: Kevin Reardon MD; Mati Raya MD CLINICAL HISTORY: R O CVA MR Brain without gadolinium Comparison: CT/REG - CT HEAD/BRAIN WO CON - 09/27/20 15:43 EST Findings: No restricted diffusion. No intracranial mass or hemorrhage. Small focus of susceptibility artifact within the right ventral thalamus most likely represen t remote lacunar hemorrhage / hemosiderin deposition. No midline shift. No hydrocephalus. Vascular flow voids are intact. Moderate generalized cerebral volume loss and moderate periventricular and subcortical T2/FLAIR hyperintensities consistent with chronic microvascular ischem ic change. Orbital contents are unremarkable. The sinuses and mast oid air cells are clear. No focal bone lesion. IMPRESSION: No acute infarct, intracranial hemorrhage, or mass lesions. Moderate generalized cerebral volume loss and chronic microvascular ischemic changes of the periventricular and subcortical white matter. This document has be en electronically signed by: Andrae Cross MD on 10/16/2024 19:35:45 Dictated By: Andrae Cross MD Signed By: <Electronically signed by Andrae Cross MD in OV> 10/16/241935 DD/ 34 TD/TT: 10/16/241934 It Administrator: Complete Blood Count Auto Di ff Reviewed date:10/19/2024 07:34:47 AM Interpretation: Performing Lab:[facility], [address] [place] [phone] Notes/Report: White Blood Count 6.4 4.8-10.8 X10*3/uL Red Blood Count 3.92 4.20-5.50 X10*6/uL Hemoglobin 12.0 12.0-16.0 g/dl Hematocrit 38.6 37.0-47.0 % Mean Corpuscular Volume 98.5 80.0-98.0 fL Mean Corpuscular Hemoglobin 30.6 27.0-33.0 pg Mean Corpuscular HGB Conc 31.1 31.0-35.0 g/dl Red Cell Distribution Width 12.9 11.0-16.0 % Platelet Count 126 160-400 X10*3/uL Mean Platelet Volume 12.7 9.4-12.3 fL Neutrophils Percent Auto 47.4 45-73 % Imm Gran Pct Auto 0.3 0.0-0.4 % Lymphocytes Percent Auto 17.0 20-40 % Monocytes Percent Auto 33.6 2-11 % Eosinophils Percent Auto 1.4 0-4 % Basophils Percent Auto 0.3 0-2 % NRBC Pct Auto 0.0 0.0-0.2 /100WBC Neutrophils Absolute Auto 3.0 2.0-8.3 x10*3/uL Imm Gran Abs Auto 0.02 0.00-0.03 X10*3/uL Lymphocytes Absolute Auto 1.1 1.2-4.9 X10*3/uL Monocytes Absolute Auto 2.2 0.1-1.2 X10*3/uL Eosinophils Absolute Auto 0.1 0.0-0.4 X10*3/uL Basophils Absolute Auto 0.0 0.0-0.2 X10*3/uL NRBC Abs Auto 0.000 0.0-0.012 X10*3/uL White Blood Count 6.4 4.8-10.8 X10*3/uL Red Blood Count 3.92 4.20-5.50 X10*6/uL Hemoglobin 12.0 12.0-16.0 g/dl Hematocrit 38.6 37.0-47.0 % Mean Corpuscular Volume 98.5 80.0-98.0 fL Mean Corpuscular Hemoglobin 30.6 27.0-33.0 pg Mean Corpuscular HGB Conc 31.1 31.0-35.0 g/dl Red Cell Distribution Width 12.9 11.0-16.0 % Platelet Count 126 160-400 X10*3/uL Mean Platelet Volume 12.7 9.4-12.3 fL Neutrophils Percent Auto 47.4 45-73 % Imm Gran Pct Auto 0.3 0.0-0.4 % Lymphocytes Percent Auto 17.0 20-40 % Monocytes Percent Auto 33.6 2-11 % Eosinophils Percent Auto 1.4 0-4 % Basophils Percent Auto 0.3 0-2 % NRBC Pct Auto 0.0 0.0-0.2 /100WBC Neutrophils Absolute Auto 3.0 2.0-8.3 x10*3/uL Imm Gran Abs Auto 0.02 0.00-0.03 X10*3/uL Lymphocytes Absolute Auto 1.1 1.2-4.9 X10*3/uL Monocytes Absolute Auto 2.2 0.1-1.2 X10*3/uL Eosinophils Absolute Auto 0.1 0.0-0.4 X10*3/uL Basophils Absolute Auto 0.0 0.0-0.2 X10*3/uL NRBC Abs Auto 0.000 0.0-0.012 X10*3/uL C ORRECTED REPORT C ORRECTED REPORT Basic Metabolic Panel Reviewed date:10/18/2024 04:53:47 PM Interpretation: Performing Lab:[facility], [address] [place] [phone] Notes/Report: Sodium 140 135-145 mmol/L Potassium 4.5 3.3-5.1 mmol/L Chloride 109 96-108 mmol/L Carbon Dioxide 20 22-29 mmol/L Anion Gap 16 12-20 Blood Urea Nitrogen 20 9-16 mg/dL Creatinine 1.11 0.5-1.4 mg/dL Creatinine Clr Calc Pharmacy 25.2 Provided height and weight: 152.4 cm, 49.5 kg. eGFR (calculated from the MDRD study equation) and eCrCl (calculated from the Cockcroft-Gault equation) are based on different parameters and may not yield comparable results. If eCrCl result is absurd, please check patient's height/weight. Estimated Glomerular Filt Rate 46 Chronic Kidney Disease: Estimated GFR < 60 mL/min/1.73m2 Severe Kidney Disease: Estimated GFR < 15 mL/min/1.73m2 Glucose Random 84 60-115 mg/dL Calcium 9.4 8.4-10.2 mg/dL SLIDE REVIEW Reviewed date:10/17/2024 05:26:13 PM Interpretation: Performing Lab:[facility], [address] [place] [phone] Notes/Report: SLIDE REVIEW VERIFIED Urine Culture Reviewed date:11/11/2024 09:34:04 AM Interpretation: Performing Lab:[facility], [address] [place] [phone] Notes/Report: Urine Culture Report Result Urine Culture < 10,000 cfu/ml Tayo Jordan Reviewed date:12/03/2024 11:59:46 AM Interpretation: Performing Lab:[facility], [address] [place] [phone] Notes/Report: Tayo Jordan See Note Specimen held untested for 24 hours; Call to request Chemistry testing. Comprehensive Met. Panel Reviewed date:06/06/2025 12:24:18 PM Interpretation: Performing Lab:[address] [phone] Notes/Report: Sodium 142 135-145 mmol/L Potassium 4.7 3.3-5.1 mmol/L Chloride 108 96-108 mmol/L Carbon Dioxide 29 22-29 mmol/L Anion Gap 10 12-20 Blood Urea Nitrogen 31 9-16 mg/dL Creatinine 1.57 0.5-1.4 mg/dL Estimated Glomerular Filt Rate 31 Chronic Kidney Disease: Estimated GFR < 60 mL/min/1.73m2 Severe Kidney Disease: Estimated GFR < 15 mL/min/1.73m2 Glucose Random 91 60-115 mg/dL Calcium 9.5 8.4-10.2 mg/dL Bilirubin Total 0.4 0.0-1.0 mg/dL Aspartate Amino Transferase 32 5-31 U/L Alanine Aminotransferase 22 0-31 U/L Total Protein 7.8 6.5-8.0 g/dL Albumin Level 4.6 3.5-5.0 g/dL Alkaline Phosphatase 88 39-117 U/L Free T4 (Free Thyroxine) Reviewed date:06/06/2025 12:33:52 PM Interpretation: Performing Lab:[address] [phone] Notes/Report: Free T4 (Free Thyroxine) 0.90 0.71-1.85 ng/dL Tayo Jordan Reviewed date:06/06/2025 12:17:15 PM Interpretation: Performing Lab:[address] [phone] Notes/Report: Tayo Jordan See Note Specimen held untested for 24 hours; Call to request Chemistry testing. Urine Culture Reviewed date:06/09/2025 02:47:09 PM Interpretation: Performing Lab:[address] [phone] Notes/Report: Urine Culture Report Result Urine Culture > 100,000 cfu/ml Urine Culture Mixed bacterial el a characteristic of Urine Culture urogenital contamination. Free T4 (Free Thyroxine) Reviewed date:06/13/2025 04:24:47 PM Interpretation: Performing Lab:[address] [place] [address] Notes/Report: Free T4 (Free Thyroxine) 0.92 0.71-1.85 ng/dL Tayo Julian Reviewed date:06/13/2025 04:18:41 PM Interpretation: Performing Lab:[facility], [address] [place] [phone] Notes/Report: Tayo Jordan See Note Specimen held untested for 24 hours; Call to request Chemistry testing. Reason For Referral No Information Medications Medication SIG (Take, Route, Frequency, Duration) Notes Start Date End Date Status Valsartan 320 MG TAKE 1 TABLET BY TK TH EVERY DAY FOR 90 DAYS for 90 Active Atorvastatin Calcium 40 MG TAKE 1 TABLET BY MOUTH EVERY DAY Active amLODIPine Besylate 10 MG 1 tablet Orall y Once a day Active Glucosamine Chond Triple/Vit D - as directed Orally Active predniSONE 20 MG 2 tablets Orally Onc e a day for 5 days 07/19/2024 Not-Taking Vitamin D 1000 UNIT 1 tablet Orally Once a day Not-Taking Celecoxib 200 MG TAKE 1 CAPSULE BY MOUTH EVERY DAY WITH FOOD FOR 30 DAYS for 30 Active Escitalopram Oxalate 5 MG 1 tablet Orall y Once a day 04/09/2025 Active Levothyroxine Sodium 88 MCG TAKE 1 TABLET BY MOUTH EVERY DAY IN THE MORNING ON EMPTY STOMACH FOR 90 DAYS for 90 Active Mucinex Fast-Max Chest Jorge MS 400 MG/20ML as directed 20 ml Orally 4 times a day for 10 days 10/23/2024 Active Albuterol Sulfate HFA 108 (90 Base) MCG/ACT 1 puff as needed Inhalation every 4 hrs for 30 days 10/23/2024 Active traMADol HCl 50 MG 1 tablet as needed Orally every 6 hours as needed for 30 days 09/24/2021 Not-Taking Donepezil HCl 5 MG 1 tablet at bedtime Orally Once a day for 30 days 10/11/2024 Active Tylenol 325 MG 1 tablet as needed Orally every 4 hrs Not-Taking Immunizations Vaccine Route Administration Date Status Comme nts Shingles Unknown 03/03/2012 Administered [facility] Flu Vaccine Unknown 06/07/2012 Administered [facility] PPSV23 (Pnemovax) Unknown 04/20/1998 Administered Prevnar 13 IM Intramuscular 04/20/2013 Administered Flu Vaccine Unknown 05/28/2013 Administered [facility] Unknown 04/20/2013 Administered Flu Vaccine ID Intradermal 05/12/2014 Administered [facility] PPSV23 (Pnemovax) IM Intramuscular 01/10/2015 Administered Flu Vaccine IM Intramuscular 05/19/2015 Administered given at [facility] in [facility]. Flu Vaccine IM Intramuscular 06/02/2016 Administered pt wa s given high dose at the [facility] on [address] Flu Vaccine IM Intramuscular 06/09/2017 Administered pt wa s given the high dose flu at [facility] in [facility] on [address] [facility] Unknown 01/21/2018 Administered pt was given the vaccine at [facility] in [place] on [address] Influenza High Dose Unknown 07/04/2018 Administered pt states she go t it [facility] in [place]. Shingrix IM Intramuscular 08/31/2018 Administered pt was given the vaccine at [facility] on [address] [place] Shingrix IM Intramuscular 11/02/2018 Administered pt was given the vaccine [facility] Influenza High Dose IM Intramuscular 05/16/2019 Administered Pt was given th e vaccine at [facility]. PPSV23 (Pnemovax) IM Intramuscular 04/08/2020 Administered Influenza High Dose IM Intramuscular 05/06/2020 Administered [facility] [place] on [address]. Influenza High Dose Unknown 05/20/2020 [facility]ered [facility] Covid Vaccine Unknown 10/30/2020 Administered Pfizer Covid Vaccine Unknown 11/20/2020 Administered Pfizer Influenza High Dose Unknown 05/24/2021 [facility]ered [facility] SARS-COV-2 Pfizer Unknown 08/24/2021 [facility]ered [facility] SARS-COV-2 Pfizer Unknown 03/02/2022 [facility]ered [facility] Influenza High Dose IM Intramuscular 05/25/2022 Administered Fluarix Quadrivalent Unknown 06/09/2023 [facility]ered [facility] SARS-COV-2 Moderna 2022 Unknown 09/26/2023 [facility]ered [facility] Influenza High Dose IM Intramuscular 06/11/2024 Administered SARS-COV-2 Moderna 2022 Unknown 07/12/2024 [facility]ered [facility] Influenza High Dose IM Intramuscular 05/28/2025 Administered Social History Tobacco Use: Social History Observation [...] ast year? No Points 0 Interpretation Negative Problems Problem Type SNOMED Code ICD Code Onset Dates Problem Status W/U Status Risk Notes Problem Vitamin D deficiency (80995183) Vitamin D deficiency, unspecified (E55.9) Active confirmed Problem 43710673 Age-related osteoporosis without current pathological fracture (M81.0) Active confirmed Problem Depression (738477992) Depression (F32.9) Active confirmed Problem 44695392 Hyperkalemia (E87.5) Active confirmed Problem 226435988 Cough (R05) Active confirmed Problem 16986670 Essential hypert ension (I10) Active confirmed Problem 776277448 Acquired hypothyroidism (E03.9) Active confirmed Problem 7598024 Prediabetes (R73.09) Active confirmed Problem 01478622 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 confirmed Problem 394496987 Gall stones (K80.20) Active confirmed Problem 941395681 Pure hypercholesterolemia (E78.00) Active confirmed Problem 925824622 Age related osteoporosis, unspecified pathological fracture presence (M81.0) Active confirmed Problem 18807276852793 Pressure injury of sacral region, stage 1 (L89.151) Active confirmed Problem 646567199 Thalamic hemorrh age with stroke (I61.9) Active confirmed Vital Signs Blood pressure diastolic 70 mm Hg 06/13/2025 mercedes ght is down 2 pounds since 05-28-25 Height 62 in 06/13/2025 weight is down 2 pounds since 05-28-25 Blood pressure systolic 154 mm Hg 06/13/2025 weig ht is down 2 pounds since 05-28-25 Weight 118 lbs 06/13/2025 weight is down 2 pounds since 05-28-25 BMI 21.58 kg/m2 06/13/2025 weight is down 2 pounds since 05-28-25 Encounters Encounter Location Date Provider Diagnosis Mati Raya MD [address] [place] [address] Drive [address] [place] [address] [id number] 11/09/2024 Mati Raya UTI (urinary tract infection) N39.0 Mati Raya MD [address] [place] [address] [id number] 11/15/2024 Mati Raya Anemia, unspecified type D64.9 Mati Raya MD [address] [place] [address] [id number] 12/03/2024 Mati Raya Pure hypercholestero lemia E78.00 Mati Raya MD [address] [place] [address] [id number] 06/06/2025 Mati Raya Essential hypertensi on I10 ; Prediabetes R73.09 ; Hyperkalemia E87.5 ; Vitamin D deficiency, unspecified E55.9 and Acquired hypothyroidism E03.9 Mati Raya MD [address] [place] [address] [id number] 06/13/2025 Mati Raya Acquired hypothyroid ism E03.9 ; Pure hypercholesterolemia E78.00 and Essential hypertension I10 Mati Raya MD [address] [place] [address] [id number] 07/19/2024 Mati Raya Acute idiopathic gou t of left foot M10.072 Mati Raya MD [address] [place] [address] [id number] 10/11/2024 Mati Raya 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 Mati Raya MD [address] [place] [address] [id number] 10/23/2024 Mati Raya COVID-19 U07.1 Mati Raya MD [address] [place] [address] [id number] 11/01/2024 Mati Raya COVID-19 virus infec tion U07.1 Mati Raya MD [address] [place] [address] [id number] 12/10/2024 Mati Raya Essential hypertensi on I10 ; Thalamic hemorrhage with stroke I61.9 and Pure hypercholesterolemia E78.00 Mati Raya MD [address] [place] [address] [id number] 04/09/2025 Mati Raya Depression F32.9 Mati Raya MD [address] [place] [address] [id number] 04/29/2025 Mati Raya Depression F32.9 Mati Raya MD [address] [place] [address] [id number] 05/28/2025 Mati Raya Encounter for administration of vaccine Z23 and Depression F32.9 Mati Ryaa MD [address] [place] [address] [id number] 06/18/2024 Mati Raya MD [address] [place] [address] [id number] 07/23/2024 Mati Raya MD [address] [place] [address] [id number] 08/13/2024 Mati Raya Acute idiopathic gou t of left foot M10.072 Mati Raya MD [address] [place] [address] [id number] 09/18/2024 Mati Raya Acute idiopathic gou t of left foot M10.072 Mati Raya MD [address] [id number] 10/18/2024 Mati Raya MD [address] [place] [address] [id number] 10/22/2024 Mati Raya MD [address] [id number] 10/22/2024 Mati Raya Cough R05.9 Mati Raya MD [address] [id number] 11/08/2024 Mati Raya Assessments Encounter Date Diagnosis (ICD Code) Assessment Notes Treatment Notes Treatment Clinical Notes Section Notes 11/09/2024 UTI (urinary tract infection) (ICD-10 - N39.0) 11/15/2024 Anemia, unspecified type (ICD-10 - D64.9) 12/03/2024 Pure hypercholesterolemia (ICD-10 - E78.00) 06/06/2025 Essential hypertensi on (ICD-10 - I10) 06/13/2025 Acquired hypothyroid ism (ICD-10 - E03.9) 07/19/2024 Acute idiopathic gou t of left foot (ICD-10 - M10.072) patient verbalized understanding of medication and directions for use, pending lab 10/11/2024 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 coming off prednison 12/10/2024 Essential hypertensi on (ICD-10 - I10) doing great.will continue current regiment 04/09/2025 Depression (ICD-10 - F32.9) patient verbalized understanding of medicatio and directions for use 04/29/2025 Depression (ICD-10 - F32.9) doing better with antidepressant 05/28/2025 Encounter for administration of vaccine (ICD-10 - Z23) HD flu vaccine administered 05/28/2025 Depression (ICD-10 - F32.9) still wanting hospice. have explained that she does not qualify 08/13/2024 Acute idiopathic gou t of left foot (ICD-10 - M10.072) 09/18/2024 Acute idiopathic gou t of left foot (ICD-10 - M10.072) 10/22/2024 Cough (ICD-10 - R05.9) 06/06/2025 Prediabetes (ICD-10 - R73.09) 06/13/2025 Pure hypercholesterolemia (ICD-10 - E78.00) doingwell on meds 12/10/2024 Thalamic hemorrhage with stroke (ICD-10 - I61.9) doing great. walking every day 06/06/2025 Hyperkalemia (ICD-10 - E87.5) 06/13/2025 Essential hypertensi on (ICD-10 - I10) well controlled 12/10/2024 Pure hypercholesterolemia (ICD-10 - E78.00) stable, will continue current regiment 06/06/2025 Vitamin D deficiency , unspecified (ICD-10 - E55.9) 06/06/2025 Acquired hypothyroid ism (ICD-10 - E03.9) Plan Of Treatment Pending Test Test Name Order Date Electrocardiogram (EKG) 01/20/2018 Electrocardiogram (EKG) 07/12/2011 Electrocardiogram (EKG) 02/01/2019 Electrocardiogram (EKG) 11/13/2015 XR CHEST 2 VIEW PA & LAT 09/03/2021 XR SHOULDER RT 2 VIEWS 08/17/2021 Comprehensive [place]. Panel Fast TSH reflex Free T4 06/13/2025 US abdomen complete 08/07/2021 Next Appt Details Provider Name:Mati Silverman ier, 09/02/2025 11:15:00 AM, [address] [place] [address], Suite [facility], [place], [place], [phone], Provider Name:Mati Silverman ier, 12/02/2025 07:45:00 AM, [address] [place] [address], Suite [facility], [place], [place], [phone], Provider Name:Mati Silverman ier, 12/09/2025 11:00:00 AM, [address] [place] [address], [place] [address], [place], [place], [phone], Provider Name:Mati Silverman ier, 07/10/2026 07:00:00 AM, [address] [place] [address], [place] [address], [place], [place], [phone], Provider Name:Mati Silverman ier, 07/17/2026 11:00:00 AM, [address] [place] [address], [place] [address], [place], [place], [phone], Insurance Providers Payer Name Payer Address Payer Phone Subscriber Number Group Number Insured Name Patient Relationship to Insured Coverage Start Date Coverage End Date [employer] [address] [place] [address] [id number] CristinaPerlitacy Self - patient is the insured [facility] [address] [place] [phone] [id number] Qian Lara Self - patient is the insured Medical (General) History Medical History History ICD Code hashimotos hypercholesterolemia hypertension anemia colonoscopy 2005 due in 2014 [facility] appt 11/30 in [place] osteoporosis. refuses meds - discussed
--- OUTSIDE RECORDS SUMMARY | 2025-06-13 17:27 | XMS_ITS | Patient Health Record ---
Author Organization [facility] navid GonsalezParish Address [address] [place] [address] Care Team Providers Care Information Management Officer Name Role Phone Mati Raya MD Primary Care Provider Karissa Hanley Unavailable [phone] Jose Huerta Unavailable [phone] Allergies Allergen (clinical drug ingredient) Drug/Non Drug [...] application to affected area Externally Twice a day; Duration: 30 days 05/30/2017 Not-Taking Lisinopril 10 MG Orally QD Not -Taking Atorvastatin Calcium 40 MG Orally Once a day Active amLODIPine Besylate 10 MG 1 tablet Orall y Once a day Active Levothyroxine Sodium 75 MCG Orally Once a day Not-Taking Vitamin D Not-Taking Medrol reji 4mg as directed orally a s directed; Duration: 6 days 06/25/2024 Not-Taking Social History Tobacco [...] Status W/U Status Risk Notes Problem Gout (14639583) Gout of left foot (M10.9) Active confirmed Rx drug management (4) Problem Gout (28933793) Gout of right foot (M10.9) Active confirmed Rx drug management (4) 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 (850448785 ) 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 Rx drug management (4) Vital Signs Blood pressure diastolic 75 mm Hg 06/25/2024 Height 5 ft 4 in in 07/16/2024 Blood pressure systolic 118 mm Hg 06/25/2024 Weight 120 lbs 07/16/2024 BMI 20.6 kg/m2 07/16/2024 Procedures Procedure Date Ordered Date Performed Result Body Sit e , [id number]/[id number], JOINT/BURSA 06/25/2024 N/A Encounters Encounter Location Date Provider Diagnosis [facility] [address] [address] 06/25/2024 Karissa Neal 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 ; Pain in joint involving left ankle and foot M25.572 ; Gout of left foot M10.9 and Bursitis of intermetatarsal bursa of right foot M77.[address] [facility] [address] 07/16/2024 Jose Huerta Chronic gout involvi ng [...] X ray : Foot, right 3V 06/25/2024 [id number] NAIL, 6 OR MORE 02/24/2017 [id number] NAIL, 6 OR MORE 05/30/2017 [id number] NAIL, 6 OR MORE 08/29/2017 [id number] NAIL, 6 OR MORE 11/28/2017 [id number] NAIL, 6 OR MORE 02/27/2018 [id number] NAIL, 1-5 11/01/2016 83685- Debride <25 sq cm 08/09/2016 75843, [id number]/INJECT, JOINT/BURSA 1 Insurance Providers Payer Name Payer Address Payer Phone Subscriber Number Group Number Insured Name Patient Relationship to Insured Coverage Start Date Coverage End Date Medicare National [employer] [address] [place] [address] [id number] Qian Evans Self - patient is the insured 1 [employer]) [address] [place] [address] [id number] Qian Evans Self - patient is the insured Medical (General) History Medical History History ICD Code Thyroid disorder Hypertension covid-19 High Blood Pressure Stroke Mumps Chicken pox Surgical History Surgery Date(Month/Year) tonsillectomy Hospitalization History Reason Date(Month/Year) [facility] [place]
== END 2025-06-13 12:40 | disposition home or self-care (01) ==
LOC: HO.LNP 12:39
PROVIDERS: Visit Provider Internal Medicine
DX: E03.9 Hypothyroidism, unspecified (principal)
CPT/HCPCS: 84439; 84443

== ENCOUNTER 2025-07-23 10:47 | Outpatient (REF) | payer MEDICARE, OTHER, SELFPAY ==
--- OUTSIDE RECORDS SUMMARY | 2024-07-20 06:15 | XMS_ITS ---
Author Organization [facility] Address [address] [place] [address] [place] [address] Care Team Providers Care Dispensary Clerk Name Role Phone Mati Raya MD Primary Care Provider Karissa Hanley [phone] Encounters Encounter Location Date Provider Diagnosis [address] [address] 07/20/2024 Karissa Neal Plan Of Treatment No Information Progress Notes * Qian LARADOB:1935 (89 yo F)Acc No.[id number]:07/20/2024 Progress Notes Patient: Qian MATT Provider: Scott Neal DPM :1935 A ge:88 Y S ex:Female Date:07/20/2024 Address:[address] [place] [address] [id number] Pcp:Mati Raya MD Subjective: * Chief Complaints: * * Medical History: Objective: * Vitals: Assessment: Plan: * Treatment: * Images: * The named appointment provid er may or may not be the originator of this progress note, and it is not deemed complete until electronically signed by the appointment provider. Sign off status: Pending * Provider: Scott Neal DPM Date: 09/19/2023 Generated for Dharai yonis/Facata/eTransmitting on: 09/22/2024 01:03 PM EST
--- OUTSIDE RECORDS SUMMARY | 2024-12-10 05:00 | XMS_ITS ---
Author Organization Mati Raya MD Address [address] [place], [place] [id number] Care Team Providers Care Basketballs And Footballs Reverser Name Role Phone Mati Raya Primary Care Provider [phone] Allergies Allergen (clinical drug ingredient) Drug/Non Drug Allergy documented on EMR Reaction Allergy Type Onset Date Status levoquin (uncoded) rash Allergy A ctive REASON FOR VISIT 6 month, Accompanied by son Medications Medication SIG (Take, Route, Frequency, Duration) Notes Start Date End Date Status predniSONE 20 MG 2 tablets Orally Onc e a day for 5 days 07/19/2024 Not-Taking Tylenol 325 MG 1 tablet as needed Orally every 4 hrs Not-Taking traMADol HCl 50 MG 1 tablet as needed Orally every 6 hours as needed for 30 days 09/24/2021 Not-Taking Valsartan 320 MG TAKE 1 TABLET BY TK TH EVERY DAY Orally Once a day Active amLODIPine Besylate 10 MG 1 tablet Orall y Once a day Active Albuterol Sulfate HFA 108 (90 Base) MCG/ACT 1 puff as needed Inhalation every 4 hrs for 30 days 10/23/2024 Active Mucinex Fast-Max Chest Jorge MS 400 MG/20ML as directed 20 ml Orally 4 times a day for 10 days 10/23/2024 Active Levothyroxine Sodium 88 MCG TAKE 1 TABLET BY MOUTH EVERY DAY IN THE MORNING ON EMPTY STOMACH FOR 90 DAYS for 90 Active Donepezil HCl 5 MG 1 tablet at bedtime Orally Once a day for 30 days 10/11/2024 Active Vitamin D 1000 UNIT 1 tablet Orally Once a day Active CeleBREX 200 MG 1 capsule with food Orally Once a day for 30 days 07/19/2024 Active Atorvastatin Calcium 40 MG TAKE 1 TABLET BY MOUTH EVERY DAY Active Vital Signs Blood pressure systolic 132 mm Hg 12/11/19 25 Blood pressure diastolic 58 mm Hg 025 Height 62 in 12/10/2024 Weight 119 lbs 12/10/2024 BMI 21.76 kg/m2 12/10/2024 weight is up 4 pounds since 11-01-24 Encounters Encounter Location Date Provider Diagnosis Mati Raya MD [address] [place] [address] [address] [place], [place] [phone] 12/10/2024 Mati Raya Essential hypertensi on I10 ; Thalamic hemorrhage with stroke I61.9 and Pure hypercholesterolemia E78.00 Assessments Encounter Date Diagnosis (ICD Code) Assessment Notes Treatment Notes Treatment Clinical Notes Section Notes 12/10/2024 Essential hypertensi on (ICD-10 - I10) doing great.will continue current regiment 12/10/2024 Thalamic hemorrhage with stroke (ICD-10 - I61.9) doing great. walking every day 12/10/2024 Pure hypercholesterolemia (ICD-10 - E78.00) stable, will continue current regiment Plan Of Treatment Medication Medication Name Sig Start Date Stop Date Notes Valsartan 320 MG TAKE 1 TABLET BY TK TH EVERY DAY Orally Once a day amLODIPine Besylate 10 MG 1 tablet Orally Once a day Atorvastatin Calcium 40 MG TAKE 1 TABLET BY MOUTH EVERY DAY Treatment Notes Assessment Notes Essential hypertension doing great.will continue current regiment Thalamic hemorrhage with stroke doing gr eat. walking every day Pure hypercholesterolemia stable, will c ontinue current regiment Next Appt Details Provider Name:Mati sol, 08/02/2025 11:45:00 AM, [address], [address], [place], [place], [phone], Provider Name:Mati Silverman ier, 09/02/2025 11:15:00 AM, [address], [address], [place], [place], [phone], Provider Name:Mati Silverman ier, 12/02/2025 07:45:00 AM, [address], [address], [place], [phone], Provider Name:Mati Silverman ier, 12/09/2025 11:00:00 AM, [address], [address], [place], [phone], Provider Name:Mati Silverman ier, 07/10/2026 07:00:00 AM, [address], [address], [place], [place], [phone], Provider Name:Mati Silverman ier, 07/17/2026 11:00:00 AM, [address] [place] [address], [address] [facility], [place], [place], [phone], Progress Notes * Qian LARA CDOB:[birth year] (88 yo F)Acc No.[id number]:12/10/2024 Progress Notes Patient: Qian MATT Provider: Silver Raya MD :1935 A ge:88 Y S ex:Female Date:12/10/2024 Address:[address] [place] [address], [place], [id number] Subjective: * Chief Complaints: * 6 monthAccompanied by son * HPI: S ymptom(s): patient is a 88 yo female here for 6 month follow up visit/ doing well. * ROS: G eneral/Constitutional: Denies C hills. D enies F atigue. D enies F ever. D enies H eadache. E NT: Patient denies d ecreased sense of smell, any loss of taste, sore throat. D enies S ore throat. R espiratory: Denies C ough. D enies S hortness of breath at rest. D enies S hortness of breath with exertion. G astrointestinal: Denies D iarrhea. D enies N ausea. M usculoskeletal: Patient denies m uscle aches. P eripheral Vascular: Patient denies r ed and blue toes. * Medical History: * Surgical History: * Hospitalization/Major Diagno stic Procedure: * Medications: T akingVitamin D 1000 UNIT Tablet 1 tablet Orally Once a day Valsartan 320 MG Tablet TAKE 1 TABLET BY MOUTH EVERY DAY Orally Once a day amLODIPine Besylate 10 MG Tablet 1 tablet Orally Once a day CeleBREX 200 MG Capsule 1 capsule with food Orally Once a day Donepezil HCl 5 MG Tablet 1 tablet at bedtime Orally Once a day Albuterol Sulfate HFA 108 (90 Base) MCG/ACT Aerosol Solution 1 puff as needed Inhalation every 4 hrs Mucinex Fast-Max Chest Jorge MS 400 MG/20ML Liquid as directed 20 ml Orally 4 times a day Atorvastatin Calcium 40 MG Tablet TAKE 1 TABLET BY MOUTH EVERY DAY Levothyroxine Sodium 88 MCG Tablet TAKE 1 TABLET BY MOUTH EVERY DAY IN THE MORNING ON EMPTY STOMACH FOR 90 DAYS Taking Vitamin D 1000 UNIT Tablet 1 tablet Orally Once a day Taking Valsartan 320 MG Tablet TAKE 1 TABLET BY MOUTH EVERY DAY Orally Once a day Taking amLODIPine Besylate 10 MG Tablet 1 tablet Orally Once a day Taking CeleBREX 200 MG Capsule 1 capsule with food Orally Once a day Taking Donepezil HCl 5 MG Tablet 1 tablet at bedtime Orally Once a day Taking Albuterol Sulfate HFA 108 (90 Base) MCG/ACT Aerosol Solution 1 puff as needed Inhalation every 4 hrs Taking Mucinex Fast-Max Chest Jorge MS 400 MG/20ML Liquid as directed 20 ml Orally 4 times a day Taking Atorvastatin Calcium 40 MG Tablet TAKE 1 TABLET BY MOUTH EVERY DAY Taking Levothyroxine Sodium 88 MCG Tablet TAKE 1 TABLET BY MOUTH EVERY DAY IN THE MORNING ON EMPTY STOMACH FOR 90 DAYS Not-Taking/PRNpredniSONE 20 MG Tablet 2 tablets Orally Once a day Tylenol 325 MG Tablet 1 tablet as needed Orally every 4 hrs traMADol HCl 50 MG Tablet 1 tablet as needed Orally every 6 hours as needed Not-Taking/PRN predniSONE 20 MG Tablet 2 tablets Orally Once a day Not-Taking/PRN Tylenol 325 MG Tablet 1 tablet as needed Orally every 4 hrs Not-Taking/PRN traMADol HCl 50 MG Tablet 1 tablet as needed Orally every 6 hours as needed DiscontinuedpredniSONE 10 MG Tablet 1 tablet with food or milk Orally 4 tabs for 3 days,3tabs for 3 days, 2 tabs for 3 days, and 1 tab for 3 days Medication List reviewed and reconciled with the patientDiscontinued predniSONE 10 MG Tablet 1 tablet with food or milk Orally 4 tabs for 3 days,3tabs for 3 days, 2 tabs for 3 days, and 1 tab for 3 days Medication List reviewed and reconciled with the patient * Allergies: l evoquin: irisyeshagufta[Allergies Verified] Objective: * Vitals: H t: 62, Wt: 119, BMI:21.76, BP:132/58, Wt-k.98. weight is up 4 pounds since 11-01-24. * P ast Orders: L ab:Liver Panel (Order Date - 12/03/2024) (Collection Date & Time - 12/03/2024 07:30 AM) Value Reference Range Bilirubin Total 0.3 0.0-1.0 - mg/dL Bilirubin Direct 0.1 0.0-0.5 - mg/dL Aspartate Amino Transferase 31 5-31 - U/L Alanine Aminotransferase 28 0-31 - U/L Total Protein 7.4 6.5-8.0 - g/dL Albumin Level 4.0 3.5-5.0 - g/dL Alkaline Phosphatase 71 39-117 - U/L L ab:Lipid Panel with Reflex (Order Date - 12/03/2024) (Collection Date & Time - 12/03/2024 07:30 AM) Value Reference Range Triglycerides 60 <150 - mg/dL Cholesterol 150 <200 - mg/dL LDL Cholesterol Calculated 66 <100 - mg/dL HDL Cholesterol 72 >40 - mg/dL * Examination: G eneral Examination: GENERAL APPEARANCE: w ell developed, well nourished. HEAD: n ormocephalic. SKIN: g ood turgor. HEART: g rade 2/6 systolic murmur at left sternal border.? LUNGS: n o wheezes, rales, rhonchi, good air movement, clear to auscultation bilaterally. Assessment: * Assessment: 1. E ssential hypertension - I10 (Primary) 2 . T halamic hemorrhage with stroke - I61.9 3 . P ure hypercholesterolemia - E78.00 Plan: * Treatment: 2. T halamic hemorrhage with stroke Notes: doing great. walking every day 3. P ure hypercholesterolemia Continue Atorvastatin Calcium Tablet, 40 MG, TAKE 1 TABLET BY MOUTH EVERY DAY. Notes: stable, will continue current regiment * Procedure Codes: * * Sign off status: Completed true * Provider: Silver Raya MD Date: 0 12/10/2024 Generated for Bill somers/Juanita/Devynitting on: 09/22/2024 01:02 PM EST History and Physical Notes * HPI (History of Present Illness) Category Sub-Category Detail Notes Category Not es Symptom(s) patient is a 88 yo female here for 6 month follow up visit/ doing well Examination Category Sub-Category Detail Notes Category Not es General Examination GENERAL APPEARANCE: well developed , well nourished HEAD: normocephalic HEART: grade 2/6 systolic m urmur at left sternal border LUNGS: no wheezes, rales, r honchi, good air movement, clear to auscultation bilaterally SKIN: good turgor
--- OUTSIDE RECORDS SUMMARY | 2025-04-09 05:30 | XMS_ITS ---
Author Organization Mati Raya MD Address [address] [place], [place] [id number] Care Team Providers Care Employment Consultant Name Role Phone Mati Raya Primary Care Provider [phone] Allergies Allergen (clinical drug ingredient) Drug/Non Drug Allergy documented on EMR Reaction Allergy Type Onset Date Status levoquin (uncoded) rash Allergy A ctive REASON FOR VISIT depression, Accompanied by son Medications Medication SIG (Take, Route, Frequency, Duration) Notes Start Date End Date Status Tylenol 325 MG 1 tablet as needed Orally every 4 hrs Not-Taking Vitamin D 1000 UNIT 1 tablet Orally Once a day Not-Taking traMADol HCl 50 MG 1 tablet as needed Orally every 6 hours as needed for 30 days 09/24/2021 Not-Taking Escitalopram Oxalate 5 MG 1 tablet Orall y Once a day for 30 days 04/09/2025 Active Glucosamine Chond Triple/Vit D - as directed Orally Active amLODIPine Besylate 10 MG 1 tablet Orall y Once a day Active Atorvastatin Calcium 40 MG TAKE 1 TABLET BY MOUTH EVERY DAY Active Celecoxib 200 MG TAKE 1 CAPSULE BY MOUTH EVERY DAY WITH FOOD FOR 30 DAYS for 30 Active Valsartan 320 MG TAKE 1 TABLET BY TK TH EVERY DAY FOR 90 DAYS for 90 Active predniSONE 20 MG 2 tablets Orally Onc e a day for 5 days 07/19/2024 Not-Taking Donepezil HCl 5 MG 1 tablet at bedtime Orally Once a day for 30 days 10/11/2024 Active Albuterol Sulfate HFA 108 (90 Base) [...] STOMACH FOR 90 DAYS for 90 Active Problems Problem Type SNOMED Code ICD Code Onset Dates Problem Status W/U Status Risk Notes Problem Depression (448398304) Depression (F32.9) Active confirmed Vital Signs Blood pressure systolic 120 mm Hg 04/09/20 25 Blood pressure diastolic 52 mm Hg 025 Height 62 in 04/09/2025 Weight 119 lbs 04/09/2025 BMI 21.76 kg/m2 04/09/2025 Encounters Encounter Location Date Provider Diagnosis Mati Raya MD [address] [place] [phone] 04/09/2025 Mati Raya Depression F32.9 Assessments Encounter Date Diagnosis (ICD Code) Assessment Notes Treatment Notes Treatment Clinical Notes Section Notes 04/09/2025 Depression (ICD-10 - F32.9) patient verbalized understanding of medicatio and directions for use Plan Of Treatment Medication Medication Name Sig Start Date Stop Date Notes Escitalopram Oxalate 5 MG 1 tablet Orall y Once a day for 30 days 04/09/2025 Treatment Notes Assessment Notes Depression patient verbalized u nderstanding of medicatio and directions for use Next Appt Details Follow Up: 3 Weeks, Reason: Provider Name:Mati sol, 08/02/2025 11:45:00 AM, [address] [place] [address], [address], [phone], Provider Name:Mati sol, 09/02/2025 11:15:00 AM, [address] [place] [address], [address], [phone], Provider Name:Mati Silverman ier, 12/02/2025 07:45:00 AM, [address], [address], [place], [place], [phone], Provider Name:Mati Silverman ier, 12/09/2025 11:00:00 AM, [address], [address], [place], [phone], Provider Name:Mati Silverman ier, 07/10/2026 07:00:00 AM, [address], [address], [place], [place], [phone], Provider Name:Mati Silverman ier, 07/17/2026 11:00:00 AM, [address], [address], [place], [phone], Progress Notes * Qian LARA CDOB:[birth year] (89 yo F)Acc No.[id number]:04/09/2025 Progress Notes Patient: Qian MATT Provider: Silver Raya MD :1935 A ge:89 Y S ex:Female Date:04/09/2025 Address:[address] [place] [address] , [place], [id number] Subjective: * Chief Complaints: * D epressionAccompanied by son * HPI: S ymptom(s): patient is a 89 yo female here to discus issues with depression/ feeling depressed. someone she knows and is talking about hospice. ever since her son got scheduled for surgery she started feeling depressed. D epression Screening: PHQ-9 L ittle interest or pleasure in doing things N ot at all, F eeling down, depressed, or hopeless M ore than half the days, T rouble falling or staying asleep, or sleeping too much N ot at all, F eeling tired or having little energy M ore than half the days, P oor appetite or overeating N ot at all, F eeling bad about yourself or that you are a failure, or have let yourself or your family down N ot at all, T rouble concentrating on things, such as reading the newspaper or watching television N ot at all, M oving or speaking so slowly that other people could have noticed; or the opposite, being so fidgety or restless that you have been moving around a lot more than usual N ot at all, T houghts that you would be better off or of hurting yourself in some way N ot at all, T otal Score 4 , I nterpretation M inimal Depression. * ROS: G eneral/Constitutional: Denies C hills. D enies F atigue. D enies F ever. D enies H eadache. E NT: Denies S ore throat. R espiratory: Denies C ough. D engeorge S hortness of breath with exertion. D enies S putum production. G astrointestinal: Denies D iarrhea. D enies N ausea. P sychiatric: Admits A nxiety. A dmits D epressed mood. L oss of appetite A dmits. D enies S uicidal thoughts. * Medical History: * Surgical History: * Hospitalization/Major Diagno stic Procedure: * Medications: T akingGlucosamine Chond Triple/Vit D - Tablet as directed Orally Donepezil HCl 5 MG Tablet 1 tablet at bedtime Orally Once a day Albuterol Sulfate HFA 108 (90 Base) MCG/ACT Aerosol Solution 1 puff as needed Inhalation every 4 hrs Mucinex Fast- Max Chest Jorge MS 400 MG/20ML Liquid as directed 20 ml Orally 4 times a day Levothyroxine Sodium 88 MCG Tablet TAKE 1 TABLET BY MOUTH EVERY DAY IN THE MORNING ON EMPTY STOMACH FOR 90 DAYS amLODIPine Besylate 10 MG Tablet 1 tablet Orally Once a day Atorvastatin Calcium 40 MG Tablet TAKE 1 TABLET BY MOUTH EVERY DAY Celecoxib 200 MG Capsule TAKE 1 CAPSULE BY MOUTH EVERY DAY WITH FOOD FOR 30 DAYS Valsartan 320 MG Tablet TAKE 1 TABLET BY MOUTH EVERY DAY FOR 90 DAYS Taking Glucosamine Chond Triple/Vit D - Tablet as directed Orally Taking Donepezil HCl 5 MG Tablet 1 tablet at bedtime Orally Once a day Taking Albuterol Sulfate HFA 108 (90 Base) MCG/ACT Aerosol Solution 1 puff as needed Inhalation every 4 hrs Taking Mucinex Fast-Max Chest Jorge MS 400 MG/20ML Liquid as directed 20 ml Orally 4 times a day Taking Levothyroxine Sodium 88 MCG Tablet TAKE 1 TABLET BY MOUTH EVERY DAY IN THE MORNING ON EMPTY STOMACH FOR 90 DAYS Taking amLODIPine Besylate 10 MG Tablet 1 tablet Orally Once a day Taking Atorvastatin Calcium 40 MG Tablet TAKE 1 TABLET BY MOUTH EVERY DAY Taking Celecoxib 200 MG Capsule TAKE 1 CAPSULE BY MOUTH EVERY DAY WITH FOOD FOR 30 DAYS Taking Valsartan 320 MG Tablet TAKE 1 TABLET BY MOUTH EVERY DAY FOR 90 DAYS Not-Taking/PRNVitamin D 1000 UNIT Tablet 1 tablet Orally Once a day predniSONE 20 MG Tablet 2 tablets Orally Once a day Tylenol 325 MG Tablet 1 tablet as needed Orally every 4 hrs traMADol HCl 50 MG Tablet 1 tablet as needed Orally every 6 hours as needed Medication List reviewed and reconciled with the patientNot-Taking/PRN Vitamin D 1000 UNIT Tablet 1 tablet Orally Once a day Not-Taking/PRN predniSONE 20 MG Tablet 2 tablets Orally Once a day Not-Taking/PRN Tylenol 325 MG Tablet 1 tablet as needed Orally every 4 hrs Not-Taking/PRN traMADol HCl 50 MG Tablet 1 tablet as needed Orally every 6 hours as needed Medication List reviewed and reconciled with the patient * Allergies: l evoquin: andrea[Allergies Verified] Objective: * Vitals: H t: 62, Wt: 119, BMI:21.76, BP:120/52, Wt-k.98. * Examination: G eneral Examination: GENERAL APPEARANCE: a lert, well hydrated, in no distress.? HEAD: n ormocephalic. SKIN: g ood turgor. HEART: g rade 3/6 systolic murmur at left sternal border.? LUNGS: f ew rales in left lower lobe. ? Assessment: * Assessment: 1. D epression - F32.9 (Primary) Plan: * Treatment: * Procedure Codes: * Follow Up: 3 Weeks * * Sign off status: Completed true * Provider: Silver Raya MD Date: 0 04/09/2025 Generated for Bill somers/Juanita/Dereck on: 09/22/2024 01:02 PM EST History and Physical Notes * HPI (History of Present Illness) Category Sub-Category Detail Notes Category Not es Symptom(s) patient is a 89 yo female here to discus issues with depression/ feeling depressed. someone she knows and is talking about hospice. ever since her son got scheduled for surgery she started feeling depressed. Depression Screening PHQ-9 Little inte rest or pleasure in doing things: Not at all Feeling down, depressed, or hopeless: Mo re than half the days Trouble falling or staying asleep, or sl eeping too much: Not at all Feeling tired or having little energy: M ore than half the days Poor appetite or overeating: Not at all Feeling bad about yourself o r that you are a failure, or have let yourself or your family down: Not at all Trouble concentrating on thi ngs, such as reading the newspaper or watching television: Not at all Moving or speaking so slowly that other people could have noticed; or the opposite, being so fidgety or restless that you have been moving around a lot more than usual: Not at all Thoughts that you would be b rafaela off or of hurting yourself in some way: Not at all Total Score: 4 Interpretation: Minimal Depression Examination Category Sub-Category Detail Notes Category Not es General Examination GENERAL APPEARANCE: alert, w ell hydrated, in no distress HEAD: normocephalic HEART: grade 3/6 systolic m urmur at left sternal border LUNGS: few rales in left lo wer lobe SKIN: good turgor
--- OUTSIDE RECORDS SUMMARY | 2025-04-29 06:30 | XMS_ITS ---
Author Organization Mati Raya MD Address [address] [place], [place] [phone] Care Team Providers Care Automatic Riveting Machine Operator Name Role Phone Mati Raya Primary Care Provider Allergies Allergen (clinical drug ingredient) Drug/Non Drug Allergy documented on EMR Reaction Allergy Type Onset Date Status levoquin (uncoded) rash Allergy A ctive REASON FOR VISIT 3 week, Thinks she is ready for Hospice, Accompanied by son Medications Medication SIG (Take, Route, Frequency, Duration) Notes Start Date End Date Status amLODIPine Besylate 10 MG 1 tablet Orall y Once a day Active Levothyroxine Sodium 88 MCG TAKE 1 TABLET BY MOUTH EVERY DAY IN THE MORNING ON EMPTY STOMACH FOR 90 DAYS for 90 Active Atorvastatin Calcium 40 MG TAKE 1 TABLET BY MOUTH EVERY DAY Active Mucinex Fast-Max Chest Jorge MS 400 MG/20ML as directed 20 ml Orally 4 times a day for 10 days 10/23/2024 Active Albuterol Sulfate HFA 108 (90 Base) MCG/ACT 1 puff as needed Inhalation every 4 hrs for 30 days 10/23/2024 Active Glucosamine Chond Triple/Vit D - as directed Orally Active Donepezil HCl 5 MG 1 tablet at bedtime Orally Once a day for 30 days 10/11/2024 Active Tylenol 325 MG 1 tablet as needed Orally every 4 hrs Not-Taking predniSONE 20 MG 2 tablets Orally Onc e a day for 5 days 07/19/2024 Not-Taking traMADol HCl 50 MG 1 tablet as needed Orally every 6 hours as needed for 30 days 09/24/2021 Not-Taking Escitalopram Oxalate 5 MG 1 tablet Orall y Once a day 04/09/2025 Active Valsartan 320 MG TAKE 1 TABLET BY TK TH EVERY DAY FOR 90 DAYS for 90 Active Vitamin D 1000 UNIT 1 tablet Orally Once a day Not-Taking Celecoxib 200 MG TAKE 1 CAPSULE BY MOUTH EVERY DAY WITH FOOD FOR 30 DAYS for 30 Active Vital Signs Blood pressure systolic 152 mm Hg 04/29/20 25 Blood pressure diastolic 60 mm Hg 025 Height 62 in 04/29/2025 Weight 118 lbs 04/29/2025 BMI 21.58 kg/m2 04/29/2025 Encounters Encounter Location Date Provider Diagnosis Mati Raya MD [address] [place] [phone] 04/29/2025 Mati Raya Depression F32.9 Assessments Encounter Date Diagnosis (ICD Code) Assessment Notes Treatment Notes Treatment Clinical Notes Section Notes 04/29/2025 Depression (ICD-10 - F32.9) doing better with antidepressant Plan Of Treatment Medication Medication Name Sig Start Date Stop Date Notes Escitalopram Oxalate 5 MG 1 tablet Orally Once a day 04/09 Treatment Notes Assessment Notes Depression doing better with an tidepressant Next Appt Details Follow Up: 4 Weeks, Reason: Provider Name:Mati sol, 08/02/2025 11:45:00 AM, [address] [place] [address], [address], [phone], Provider Name:Mati sol, 09/02/2025 11:15:00 AM, [address] [place] [address], [address], [phone], Provider Name:Mati sol, 12/02/2025 07:45:00 AM, [address] [place] [address], [phone], Provider Name:Mati Silverman ier, 12/09/2025 11:00:00 AM, [address], [address], [place], [place], [phone], Provider Name:Mati Silverman ier, 07/10/2026 07:00:00 AM, [address], [address], [place], [place], [phone], Provider Name:Mati Silverman ier, 07/17/2026 11:00:00 AM, [address], [address], [place], [phone], Progress Notes * Qian LARA CDOB:[birth year] (89 yo F)Acc No.[id number]:04/29/2025 Progress Notes Patient: Qian MATT Provider: Silver Raya MD :1935 A ge:89 Y S ex:Female Date:04/29/2025 Address:[address] [place] [address] , [place], [id number] Subjective: * Chief Complaints: * 3 weekThinks she is ready for HospiceAccompanied by son * HPI: S ymptom(s): patient is a 89 yo female here for 3 week follow up visit , feeling less depressed. * ROS: G eneral/Constitutional: Patient denies c hills, fatigue, fever, headache. D enies C hills. D enies F atigue. D enies F ever. D enies H eadache. ? E NT: Patient denies d ecreased sense [...] Patient denies r ed and blue toes. P sychiatric: Admits A nxiety. A dmits D epressed mood. D enies D ifficulty sleeping. A dmits S tressors. * Medical History: * Surgical History: * [...] BY MOUTH EVERY DAY FOR 90 DAYS Escitalopram Oxalate 5 MG Tablet 1 tablet Orally Once a day Taking Glucosamine Chond Triple/Vit D - Tablet [...] MOUTH EVERY DAY FOR 90 DAYS Taking Escitalopram Oxalate 5 MG Tablet 1 tablet Orally Once a day Not-Taking/PRNVitamin D 1000 UNIT Tablet 1 tablet [...] Tablet 2 tablets Orally Once a day Not- Taking/PRN Tylenol 325 MG Tablet 1 tablet as needed Orally every 4 hrs Not-Taking/PRN traMADol HCl 50 MG Tablet 1 tablet as needed Orally every 6 hours as needed Medication List reviewed and reconciled with the patient * Allergies: jann stevens: andrea[Allergies Verified] Objective: * Vitals: H t: 62, Wt: 118, BMI:21.58, BP:152/60, Wt-k.52. * Examination: G eneral Examination: GENERAL APPEARANCE: i n no acute distress. HEAD: n ormocephalic. SKIN: g ood turgor. HEART: r egular rate and rhythm, grade 2/6 systolic murmur at left sternal border. LUNGS: n o wheezes, rales, rhonchi, good air movement, clear to auscultation bilaterally. Assessment: * Assessment: 1. D epression - F32.9 (Primary) Plan: * Treatment: * Procedure Codes: * Follow Up: 4 Weeks * * Sign off status: Completed true * Provider: Silver Raya MD Date: 0 04/29/2025 Generated for Bill somers/Juanita/Devynitting on: 09/22/2024 01:03 PM EST History and Physical Notes * HPI (History of Present Illness) Category Sub-Category Detail Notes Category Not es Symptom(s) patient is a 89 yo female here for 3 week follow up visit , feeling less depressed. Examination Category Sub-Category Detail Notes Category Not es General Examination GENERAL APPEARANCE: in no acute di stress HEAD: normocephalic HEART: regular rate and rhy thm, grade 2/6 systolic murmur at left sternal border LUNGS: no wheezes, rales, r honchi, good air movement, clear to auscultation bilaterally SKIN: good turgor
--- OUTSIDE RECORDS SUMMARY | 2025-05-28 06:00 | XMS_ITS ---
Author Organization Mati Raya MD Address [address] [place], [place] [phone] Care Team Providers Care Shutdown Planner Name Role Phone Mati Raya Primary Care Provider Allergies Allergen (clinical drug ingredient) Drug/Non Drug Allergy documented on EMR Reaction Allergy Type Onset Date Status levoquin (uncoded) rash Allergy A ctive REASON FOR VISIT 4 week, Accompanied by son Medications Medication SIG (Take, Route, Frequency, Duration) Notes Start Date End Date Status Vitamin D 1000 UNIT 1 tablet Orally Once a day Not-Taking Celecoxib 200 MG TAKE 1 CAPSULE BY MOUTH EVERY DAY WITH FOOD FOR 30 DAYS for 30 Active Tylenol 325 MG 1 tablet as [...] STOMACH FOR 90 DAYS for 90 Active Valsartan 320 MG TAKE 1 TABLET BY TK TH EVERY DAY FOR 90 DAYS for 90 Active Atorvastatin Calcium 40 MG TAKE 1 TABLET BY MOUTH EVERY DAY Active Escitalopram Oxalate 5 MG 1 tablet Orall y Once a day 04/09/2025 Active Donepezil HCl 5 MG 1 tablet at bedtime Orally Once a day for 30 days 10/11/2024 Active Glucosamine Chond Triple/Vit D - as directed Orally Active Mucinex Fast-Max Chest Jorge MS 400 MG/20ML as directed 20 ml Orally 4 times a day for 10 days 10/23/2024 Active Albuterol Sulfate HFA 108 (90 Base) MCG/ACT 1 puff as needed Inhalation every 4 hrs for 30 days 10/23/2024 Active Immunizations Vaccine Route Administration Date Status Comme nts Influenza High Dose IM Intramuscular 05/28/2025 Administer ed Vital Signs Blood pressure systolic 138 mm Hg 05/28/20 25 Blood pressure diastolic 56 mm Hg 025 Height 62 in 05/28/2025 Weight 120 lbs 05/28/2025 BMI 21.95 kg/m2 05/28/2025 weight is up 2 pounds since 04-29-25 Encounters Encounter Location Date Provider Diagnosis Mati Raya MD 10 [facility] [address] [place] [phone] 05/28/2025 Mati Raya Encounter for administration of vaccine Z23 and Depression F32.9 Assessments Encounter Date Diagnosis (ICD Code) Assessment Notes Treatment Notes Treatment Clinical Notes Section Notes 05/28/2025 Encounter for administration of vaccine (ICD-10 - Z23) HD flu vaccine administered 05/28/2025 Depression (ICD-10 - F32.9) still wanting hospice. have explained that she does not qualify Plan Of Treatment Treatment Notes Assessment Notes Encounter for administration of vaccine HD flu vaccine administered Depression still wanting hospic e. have explained that she does not qualify Next Appt Details Follow Up: 2 Months, Reason: Provider Name:Mati sol, 08/02/2025 11:45:00 AM, [address] [place] [address], Suite [facility], [place], [place], [phone], Provider Name:Mati sol, 09/02/2025 11:15:00 AM, [address] [place] [address], Suite [facility], [place], [place], [phone], Provider Name:Mati Silverman ier, 12/02/2025 07:45:00 AM, [address], [address], [place], [phone], Provider Name:Mati Silverman ier, 12/09/2025 11:00:00 AM, [address], [address], [place], [phone], Provider Name:Mati Silverman ier, 07/10/2026 07:00:00 AM, [address], [address], [place], [phone], Provider Name:Mati Silverman ier, 07/17/2026 11:00:00 AM, [address], [address], [place], [phone], Progress Notes * MARCOQian CDOB:[birth year] (89 yo F)Acc No.[id number]:05/28/2025 Progress Notes Patient: Qian MATT C Provider: Silver Raya MD :1935 A ge:89 Y S ex:Female Date:05/28/2025 Address:[address] [place] [address] , [place], [id number] Subjective: * Chief Complaints: * 4 weekAccompanied by son * HPI: S ymptom(s): patient is a 89 yo female here for 4 week follow up visit/ has been doing well since her son's surgery. depression is better. still wants to get into hospice. * ROS: G eneral/Constitutional: Denies C hills. D enies F atigue. D enies F ever. D enies H eadache. E NT: Denies S ore throat. R espiratory: Denies C ough. D enies S hortness of breath at rest. D enies S hortness of breath with exertion. G astrointestinal: Denies D iarrhea. D enies N ausea. P sychiatric: Denies A nxiety. A dmits D epressed mood. ? * Medical History: * Surgical History: * [...] Tablet 1 tablet Orally Once a day Celecoxib 200 MG Capsule TAKE 1 CAPSULE BY MOUTH EVERY DAY WITH FOOD FOR 30 DAYS Taking Glucosamine Chond Triple/Vit D - [...] 1 tablet Orally Once a day Taking Celecoxib 200 MG Capsule TAKE 1 CAPSULE BY MOUTH EVERY DAY WITH FOOD FOR 30 DAYS Not-Taking/PRNVitamin D 1000 UNIT Tablet 1 [...] reconciled with the patient * Allergies: l rodney: andrea[Allergies Verified] Objective: * Vitals: H t: 62, Wt: 120, BMI:21.95, BP:138/56, Wt-k.43. weight is up 2 pounds since 04-29-25. * Examination: G eneral Examination: GENERAL APPEARANCE: a lert, well hydrated, in no distress.? HEAD: n ormocephalic. SKIN: g ood turgor. HEART: n o rubs, gallops 3/6 murmur. LUNGS: n o wheezes, , rhonchi, good air movement, clear to auscultation rales in left lower lobe. Assessment: * Assessment: 1. D epression - F32.9 (Primary) 2 . E ncounter for administration of vaccine - Z23 Plan: * Treatment: 2. E ncounter for administration of vaccine Notes: HD flu vaccine administered * Immunizations: Influenza High Dose : 0.5 mL (Dose No:1) (Route: Intramuscular) given by Donna Gibson , Office Staff on Left Deltoid * Procedure Codes: 9 0662 FLU VACC PRSV FREE INC [id number] ADMN FLU VAC NO FEE SCHED SAME DAY * Follow Up: 2 Months * * Sign off status: Completed true * Provider: Silver Raya MD Date: 0 05/28/2025 Generated for Bill somers/Juanita/eTransmitting on: 09/22/2024 01:00 PM EST History and Physical Notes * HPI (History of Present Illness) Category Sub-Category Detail Notes Category Not es Symptom(s) patient is a 89 yo female here for 4 week follow up visit/ has been doing well since her son's surgery. depression is better. still wants to get into hospice. Examination Category Sub-Category Detail Notes Category Not es General Examination GENERAL APPEARANCE: alert, w ell hydrated, in no distress HEAD: normocephalic HEART: no rubs, gallops 3/6 murmur LUNGS: no wheezes, , rhonch i, good air movement, clear to auscultation rales in left lower lobe SKIN: good turgor
--- OUTSIDE RECORDS SUMMARY | 2025-06-06 02:30 | XMS_ITS ---
Author Organization Mati Raya MD Address [address] [place], [place] [phone] Care Team Providers Care Contract Lead Name Role Phone Mati Raya Primary Care Provider Results Component Value Reference Range Notes Complete Blood Count Auto Di ff Reviewed date:06/06/2025 04:53:16 PM Interpretation: Performing Lab:[facility], [address] [place] [phone] Notes/Report: White Blood Count 5.8 4.8-10.8 X10*3/uL Red Blood Count 3.60 4.20-5.50 X10*6/uL Hemoglobin 11.5 12.0-16.0 g/dl Hematocrit 36.7 37.0-47.0 % Mean Corpuscular Volume 101.9 80.0-98.0 fL Mean Corpuscular Hemoglobin 31.9 27.0-33.0 pg Mean Corpuscular HGB Conc 31.3 31.0-35.0 g/dl Red Cell Distribution Width 13.2 11.0-16.0 % Platelet Count 166 160-400 X10*3/uL Mean Platelet Volume 12.3 9.4-12.3 fL Neutrophils Percent Auto 48.8 45-73 % Imm Gran Pct Auto 0.7 0.0-0.4 % Lymphocytes Percent Auto 32.0 20-40 % Monocytes Percent Auto 15.8 2-11 % Eosinophils Percent Auto 2.4 0-4 % Basophils Percent Auto 0.3 0-2 % NRBC Pct Auto 0.0 0.0-0.2 /100WBC Neutrophils Absolute Auto 2.8 2.0-8.3 x10*3/u L Imm Gran Abs Auto 0.04 0.00-0.03 X10*3/uL Lymphocytes Absolute Auto 1.8 1.2-4.9 X10*3/u L Monocytes Absolute Auto 0.9 0.1-1.2 X10*3/uL Eosinophils Absolute Auto 0.1 0.0-0.4 X10*3/u L Basophils Absolute Auto 0.0 0.0-0.2 X10*3/uL NRBC Abs Auto 0.000 0.0-0.012 X10*3/uL Lipid Panel Reviewed date:06/06/2025 12:24:27 PM Interpretation: Performing Lab:[facility], [address] [place] [phone] Notes/Report: Triglycerides 93 <150 mg/dL Desirable Triglyceride: less than 150 mg/dL Borderline High Triglyceride 150-199 mg/dL High Triglyceride: 200-499 mg/dL Very High Triglyceride: greater than or equal to 5OO mg/dL Cholesterol 156 <200 mg/dL Desirable Cholesterol: less than 200 mg/dL Borderline High Cholesterol: 200-239 mg/dL High Cholesterol: greater than 239 mg/dL LDL Cholesterol Calculated 78 <100 mg/dL Desirable LDL: less than 100 mg/dL Near Optimal/Above Optimal LDL: 110-129 mg/dL Borderline High LDL: 130-159 mg/dL High LDL: 160-189 mg/dL Very High LDL: greater than or equal to 190 mg/dL HDL Cholesterol 60 >40 mg/dL Desirable HDL: greater than 40 mg/dL Note: This HDL assay may give artificially low results in patients with liver disease. Vitamin D 25-OH Total Reviewed date:06/06/2025 12:24:53 PM Interpretation: Performing Lab:[facility], [address] [place] [phone] Notes/Report: Vitamin D 25-OH Total 54.8 >30 ng/mL Health Based Reference Values* < 20 ng/mL Deficient 20-30 ng/mL Insufficient > 30 ng/mL Sufficient *Sunny HIGGINS. N Engl J Med. 2007;357:266-280 There is no well-established upper level of normal vitamin D levels. Some laboratories use 50 ng/mL as an upper limit of normal. However, toxicity is patient-dependent and may occur at any level. Careful correlation with the patient's presentation is necessary and, if there is concern for vitamin D toxicity, treatment should be considered irrespective of the serum level. Care must be taken in interpreting Vitamin D results from different laboratories and methodologies. Published data demonstrated that results from patients undergoing hemodialysis may show a negative bias when tested with various automated 25-OH vitamin D assays when compared to LC-MS/MS. When testing samples from patients whose predominant form of Vitamin D is Vitamin D2, such as patients receiving Vitamin D2 supplementation, results that are subtherapeutic should be confirmed with another method such as LC-MS/MS. TSH reflex Free T4 Reviewed date:06/13/2025 12:41:11 PM Interpretation:06-13-2025 Performing Lab:[address] [phone] Notes/Report: TSH reflex Free T4 40.08 0.32-4.0 uIU/mL Microalbumin, Random Reviewed date:06/06/2025 04:51:34 PM Interpretation: Performing Lab:[facility], [address] [place] [phone] Notes/Report: Creatinine Urine 51.19 Microalbumin Urine 408.0 Microalbum/Creatinine Ratio Ur 797.0 <30 ug/mg cr Albumin/Creatinine Ratio Reference Ranges: Normal: < 30 ug/mg creatinine Microalbuminuria: 30 - 300 ug/mg creatinine Clinical Albuminuria: > 300 ug/mg creatinine Hemoglobin A1c Reviewed date:06/06/2025 12:21:31 PM Interpretation: Performing Lab:[facility], [address] [place] [phone] Notes/Report: Hemoglobin A1c % 5.5 <6.0 % Hemoglobin A1C Reference Range Adults: 4.8 - 6.0 % Non diabetic: < 6.0 % Goal: < 7.0 % Additional Action Suggested: > 8.0 % Note: Hemoglobin A1c results are invalid for patients with abnormal amounts of HbF. Blood transfusions may impact the HbA1c concentration in the patient sample. Estimated Average Glucose 111 eAG = Estimated average glucose which is %A1C expressed as average glucose, using the formula of the Y1R-Wvnricd Average Glucose study (ADAG), Diabetes Care, Vol.31,#8, Apr. 2007 UA ClnCatch+Micro w/rflx Cul t Reviewed date:06/06/2025 04:54:25 PM Interpretation: Performing Lab:[facility], [address] [place] [phone] Notes/Report: Urine, Clean Catch Color Urine Yellow Appearance Urine Cloudy PH 5.5 5.0-9.0 Glucose Urine UA Negative Negative mg/dL Urine Blood Negative Negative Specific [place] - Urine 1.015 1.005-1.025 Urine Protein 100 (2+) Neg-Trace mg/dL Urine Ketones Negative Negative mg/dL Nitrite Urine Negative Negative Leukocyte Esterase Urine Large (3+) Negative RBC Urine 0-2 0-2 /HPF WBC Urine 21-50 0-5 /HPF Squamous Epithelial Cell Urine 11-20 0-2 /HPF Bacteria Urine 2+ None Seen Hyaline Casts Urine 0-2 0-2 /LPF REASON FOR VISIT yearly fasting labs Encounters Encounter Location Date Provider Diagnosis Mati Raya MD [address] [place] [address] [address] [place], [place] [phone] 06/06/2025 Mati Raya Essential hypertensi on I10 ; Prediabetes R73.09 ; Hyperkalemia E87.5 ; Vitamin D deficiency, unspecified E55.9 and Acquired hypothyroidism E03.9 Assessments Encounter Date Diagnosis (ICD Code) Assessment Notes Treatment Notes Treatment Clinical Notes Section Notes 06/06/2025 Essential hypertension (ICD-10 - I10) 06/06/2025 Prediabetes (ICD-10 - R73.09) 06/06/2025 Hyperkalemia (ICD-10 - E87.5) 06/06/2025 Vitamin D deficiency, unspecified (ICD-10 - E55.9) 06/06/2025 Acquired hypothyroidism (ICD-10 - E03.9) Plan Of Treatment Pending Test Test Name Order Date Comprehensive [place]. Panel Fast Next Appt Details Provider Name:Mati Silverman ier, 08/02/2025 11:45:00 AM, [address], [address], [place], [place], [phone], Provider Name:Mati Silverman ier, 09/02/2025 11:15:00 AM, [address] [facility], [address], [place], [place], [phone], Provider Name:Mati Silverman ier, 12/02/2025 07:45:00 AM, [address] [facility] [address], [address], [place], [place], [phone], Provider Name:Mati Silverman ier, 12/09/2025 11:00:00 AM, [address] [place] [address], Suite [facility], [place], [place], [phone], Provider Name:Mati Silverman ier, 07/10/2026 07:00:00 AM, [address] [place] [address], Suite [facility], [place], [place], [phone], Provider Name:Mati Silverman ier, 07/17/2026 11:00:00 AM, [address] [place] [address], Suite [facility], [place], [place], [phone], Progress Notes * Qian LARA CDOB:[birth year] (89 yo F)Acc No.[id number]:06/06/2025 Progress Note Patient: Qian MATT Provider: Silver Raya MD :1935 A ge:89 Y S ex:Female Date:06/06/2025 Address:[address] [place] [address] , [id number] Subjective: * Chief Complaints: * 1 . Yearly fasting labs. * Medical History: Objective: * Vitals: Assessment: * Assessment: 1. E ssential hypertension - I10 (Primary) 2 . P rediabetes - R73.09 ? 3 . H yperkalemia - E87.5 4 . V itamin D deficiency, unspecified - E55.9 5 . A cquired hypothyroidism - E03.9 Plan: * Treatment: 2. P rediabetes L AB: Comprehensive [place]. Panel Fast L AB: Complete Blood Count Auto Diff (Collection Date & Time - 06/06/2025 07:30 AM) L AB: Lipid Panel (Collection Date & Time - 06/06/2025 07:30 AM) L AB: Vitamin D 25-OH Total (Collection Date & Time - 06/06/2025 07:30 AM) L AB: TSH reflex Free T4 (Collection Date & Time - 06/06/2025 07:30 AM) L AB: Microalbumin, Random (Collection Date & Time - 06/06/2025 07:30 AM) L AB: Hemoglobin A1c (Collection Date & Time - 06/06/2025 07:30 AM) L AB: UA ClnCatch+Micro w/rflx Cult (Collection Date & Time - 06/06/2025 07:30 AM) 3. H yperkalemia L AB: Comprehensive [place]. Panel Fast L AB: Complete Blood Count Auto Diff (Collection Date & Time - 06/06/2025 07:30 AM) L AB: Lipid Panel (Collection Date & Time - 06/06/2025 07:30 AM) L AB: Vitamin D 25-OH Total (Collection Date & Time - 06/06/2025 07:30 AM) L AB: TSH reflex Free T4 (Collection Date & Time - 06/06/2025 07:30 AM) L AB: Microalbumin, Random (Collection Date & Time - 06/06/2025 07:30 AM) L AB: Hemoglobin A1c (Collection Date & Time - 06/06/2025 07:30 AM) L AB: UA ClnCatch+Micro w/rflx Cult (Collection Date & Time - 06/06/2025 07:30 AM) 4. V itamin D deficiency, unspecified L AB: Comprehensive [place]. Panel Fast L AB: Complete Blood Count Auto Diff (Collection Date & Time - 06/06/2025 07:30 AM) L AB: Lipid Panel (Collection Date & Time - 06/06/2025 07:30 AM) L AB: Vitamin D 25-OH Total (Collection Date & Time - 06/06/2025 07:30 AM) L AB: TSH reflex Free T4 (Collection Date & Time - 06/06/2025 07:30 AM) L AB: Microalbumin, Random (Collection Date & Time - 06/06/2025 07:30 AM) L AB: Hemoglobin A1c (Collection Date & Time - 06/06/2025 07:30 AM) L AB: UA ClnCatch+Micro w/rflx Cult (Collection Date & Time - 06/06/2025 07:30 AM) 5. A cquired hypothyroidism L AB: Comprehensive [place]. Panel Fast L AB: Complete Blood Count Auto Diff (Collection Date & Time - 06/06/2025 07:30 AM) L AB: Lipid Panel (Collection Date & Time - 06/06/2025 07:30 AM) L AB: Vitamin D 25-OH Total (Collection Date & Time - 06/06/2025 07:30 AM) L AB: TSH reflex Free T4 (Collection Date & Time - 06/06/2025 07:30 AM) L AB: Microalbumin, Random (Collection Date & Time - 06/06/2025 07:30 AM) L AB: Hemoglobin A1c (Collection Date & Time - 06/06/2025 07:30 AM) L AB: UA ClnCatch+Micro w/rflx Cult (Collection Date & Time - 06/06/2025 07:30 AM) * Procedure Codes: 3 6415 VENIPUNCT, ROUTINE* * * The named appointment provid er may or may not be the originator of this progress note, and it is not deemed complete until electronically signed by the appointment provider. Sign off status: Pending * Provider: Silver Raya MD Date: 0 06/06/2025 Generated for Bill somers/Juanita/Richsmitting on: 09/22/2024 01:01 PM EST
--- OUTSIDE RECORDS SUMMARY | 2025-06-13 06:00 | XMS_ITS ---
Author Organization Mati Raya MD Address [address] [place], [place] [id number] Care Team Providers Care Grain Sacker Name Role Phone Mati Raya Primary Care Provider Allergies Allergen (clinical drug ingredient) Drug/Non Drug Allergy documented on EMR Reaction Allergy Type Onset Date Status levoquin (uncoded) rash Allergy A ctive Results Component Value Reference Range Notes TSH reflex Free T4 Reviewed date:06/14/2025 10:12:08 AM Interpretation: Performing Lab:[facility], [address] [place] [id number] Notes/Report: TSH reflex Free T4 37.65 0.32-4.0 uIU/mL REASON FOR VISIT review labs/ must see TSH, Accompanied by son Medications Medication SIG (Take, Route, Frequency, Duration) Notes Start Date End Date Status predniSONE 20 MG 2 tablets Orally Onc e a day for 5 days 07/19/2024 Not-Taking Vitamin D 1000 UNIT 1 tablet Orally Once a day Not-Taking Celecoxib 200 MG TAKE 1 CAPSULE BY MOUTH EVERY DAY WITH FOOD FOR 30 DAYS for 30 Active traMADol HCl 50 MG 1 tablet as needed Orally every 6 hours as needed for 30 days 09/24/2021 Not-Taking Tylenol 325 MG 1 tablet as needed Orally every 4 hrs Not-Taking Valsartan 320 MG TAKE 1 TABLET BY TK TH EVERY DAY FOR 90 DAYS for 90 Active Atorvastatin Calcium 40 MG TAKE 1 TABLET BY MOUTH EVERY DAY Active amLODIPine Besylate 10 MG 1 tablet Orall y Once a day Active Escitalopram Oxalate 5 MG 1 tablet Orall y Once a day 04/09/2025 Active Levothyroxine Sodium 88 MCG TAKE 1 TABLET BY MOUTH EVERY DAY IN THE MORNING ON EMPTY STOMACH FOR 90 DAYS for 90 Active Glucosamine Chond Triple/Vit D - as directed Orally Active Mucinex Fast-Max Chest Jorge MS 400 MG/20ML as directed 20 ml Orally 4 times a day for 10 days 10/23/2024 Active Albuterol Sulfate HFA 108 (90 Base) MCG/ACT 1 puff as needed Inhalation every 4 hrs for 30 days 10/23/2024 Active Donepezil HCl 5 MG 1 tablet at bedtime Orally Once a day for 30 days 10/11/2024 Active Social History Tobacco Use: Social History Observation Description Date Details (start date - stop date) Former Smoker NA - NA Tobacco Use/Smoking Question Answer Notes Patient is a former smoker How long has it been since y ou last smoked? > 10 years Additional Findings: Tobacco Non-User Fo rmer smoker, currently using no form of tobacco Alcohol Screen Question Answer Notes Did you have a drink containing alcohol in the p ast year? No Points 0 Interpretation Negative Vital Signs Blood pressure systolic 154 mm Hg 06/13/20 25 Blood pressure diastolic 70 mm Hg 025 Height 62 in 06/13/2025 Weight 118 lbs 06/13/2025 BMI 21.58 kg/m2 06/13/2025 weight is down 2 pounds sin e 05-28-25 Encounters Encounter Location Date Provider Diagnosis Mati Raya MD [address] [place] [address] [address] [place], [place] [id number] 06/13/2025 Mati Raya Acquired hypothyroid ism E03.9 ; Pure hypercholesterolemia E78.00 and Essential hypertension I10 Assessments Encounter Date Diagnosis (ICD Code) Assessment Notes Treatment Notes Treatment Clinical Notes Section Notes 06/13/2025 Acquired hypothyroid ism (ICD-10 - E03.9) 06/13/2025 Pure hypercholesterolemia (ICD-10 - E78.00) doingwell on meds 06/13/2025 Essential hypertensi on (ICD-10 - I10) well controlled Plan Of Treatment Treatment Notes Assessment Notes Pure hypercholesterolemia doingwell on m eds Essential hypertension well controlled Next Appt Details Follow Up: 3 Months, Reason: Provider Name:Mati landr, 08/02/2025 11:45:00 AM, [address] [place] [address], Suite [facility], [place], [place], [phone], Provider Name:Mati Silverman ier, 09/02/2025 11:15:00 AM, [address] [place] [address], Suite [facility], [place], [place], [phone], Provider Name:Mati landr, 12/02/2025 07:45:00 AM, [address] [place] [address], Suite [facility], [place], [place], [phone], Provider Name:Mati landr, 12/09/2025 11:00:00 AM, [address] [place] [address], Suite [facility], [place], [place], [phone], Provider Name:Mati landr, 07/10/2026 07:00:00 AM, [address] [place] [address], Suite [facility], [place], [place], [phone], Provider Name:Mati landr, 07/17/2026 11:00:00 AM, [address] [place] [address], [address] [place] [address], [phone], Progress Notes * Qian LARA CDOB:[birth year] (89 yo F)Acc No.[id number]:06/13/2025 Patient: Qian MATT Provider: Silver Raya MD :1935 A ge:89 Y S ex:Female Date:06/13/2025 Address:[address] [place] [address], [place], [id number] Subjective: * Chief Complaints: * 1 . review labs/ must see TSH. 2. Accompanied by son. * HPI: D epression Screening: here for yearly exam. PHQ-9 L ittle interest or pleasure in doing things N ot at all, F eeling down, depressed, or hopeless N ot at all, T rouble falling or staying asleep, or sleeping too much N ot at all, F eeling tired or having little energy N ot at all, P oor appetite or overeating N ot [...] N ot at all, T otal Score 0 . I nterpretation and Intervention D epression Screening Findings N egative, F ollow-Up for Depression : review of PHQ-9 found negative result, no follow-up needed, P atient Lifestyle Goals P atient wants to maintain a health emotional balance, B arriers N o specific barriers, is motivated to feel better, works at this everyday, S elf-Managment Goals E xercise at least 3xs per week. C ommunication Needs: Communication Needs D oes the patient have a hearing impairment N o, D oes the patient have a vision impairment? Y es, I f yes, what is the vision impairment? G lasses, D oes the patient have a cognition impairment? N o. F all Risk: History H ave you had any falls with injury in the past year? N o, H ave you had two or more falls in the past year? N o. S ROBERTO Questions: SDOH Questions I n the past year have you been worried about losing housing? N o, I n the past year have you or any family members you live with been unable to get any of the following when it was really needed? Check all that apply: N one. S ymptom(s): patient is a 89 yo female here for review of of recent labs and follow up of chronci issues. * ROS: G eneral/Constitutional: Change in appetite d enies. C hills d enies. F ever d enies. O phthalmologic: Blurred vision d enies. D ischarge d enies. P ain d enies. E NT: Decreased hearing d enies. S ore throat d enies.?Swollen glands d enies. E ndocrine: Cold intolerance d enies. E xcessive thirst d enies. H eat intolerance d enies. W eight loss d enies. R espiratory: Cough d enies. S hortness of breath at rest d enies. S hortness of breath with exertion d enies. W heezing d enies. C ardiovascular: Chest pain at rest d enies. C hest pain with exertion?denies. I rregular heartbeat d enies. S hortness of breath d enies. ? G astrointestinal: Abdominal pain d enies. C hange in bowel habits d enies. D iarrhea d enies. N ausea d enies. R ectal bleeding d enies. V omiting d enies . G enitourinary: Blood in urine d enies. D ifficulty urinating d enies. F requent urination d enies. U rinary incontinence D enies. M usculoskeletal: Painful joints d enies. W eakness d enies. ? S kin: Dry skin d enies. I tching d enies. D enies?Mole(s), changes in moles, new moles or any lesions of concern. D enies P hotosensitivity. R radha d enies. N eurologic: Dizziness d enies. F ainting d enies. H eadache?denies. 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 refuses meds - discussed 06/02/20. * Family History: F ather: 81 yrs, diagnosed with Alzheimer disease. M other: 52 yrs, diagnosed with Cancer. 1 sister(s) . 2 son(s) , 1 daughter(s) . . Denies mental health/substance abuse family history 2 sisters, No pertinent family medical history 1 daughter. * Social History: T obacco Use: T obacco Use/Smoking P atient is a f ormer smoker, H ow long has it been since you last smoked? > 10 years, A dditional Findings: Tobacco Non-User F ormer smoker, currently using no form of tobacco. D rugs/Alcohol: A lcohol Screen D id you have a drink containing alcohol in the past year? N o, P oints 0 , I nterpretation N egative. M iscellaneous: C affeine: yes, frequency:, 1-2 cups per day. Children: yes. Community involvements: no. Exercise: yes, walking daily half an hour. Housing: owning. Living with: alone. Marital status: single. Occupation: unemployed. Pets: none. * Medications: T aking Glucosamine Chond Triple/Vit D - Tablet as directed Orally , Taking Donepezil HCl 5 MG Tablet 1 tablet at bedtime Orally Once a day , Taking Albuterol Sulfate HFA 108 (90 Base) MCG/ACT Aerosol Solution 1 puff as needed Inhalation every 4 hrs , Taking Mucinex Fast-Max Chest Jorge MS 400 MG/20ML Liquid as directed 20 ml Orally 4 times a day , Taking Levothyroxine Sodium 88 MCG Tablet TAKE 1 TABLET BY MOUTH EVERY DAY IN THE MORNING ON EMPTY STOMACH FOR 90 DAYS , Taking amLODIPine Besylate 10 MG Tablet 1 tablet Orally Once a day , Taking Atorvastatin Calcium 40 MG Tablet TAKE 1 TABLET BY MOUTH EVERY DAY , Taking Valsartan 320 MG Tablet TAKE 1 TABLET BY MOUTH EVERY DAY FOR 90 DAYS , Taking Escitalopram Oxalate 5 MG Tablet 1 tablet Orally Once a day , Taking Celecoxib 200 MG Capsule TAKE 1 CAPSULE BY MOUTH EVERY DAY WITH FOOD FOR 30 DAYS , Not-Taking/PRN Vitamin D 1000 UNIT Tablet 1 tablet Orally Once a day , Not-Taking/PRN predniSONE 20 MG Tablet 2 tablets Orally Once a day , Not- Taking/PRN Tylenol 325 MG Tablet 1 tablet as needed Orally every 4 hrs , Not-Taking/PRN traMADol HCl 50 MG Tablet 1 tablet as needed Orally every 6 hours as needed , Medication List reviewed and reconciled with the patient * Allergies: L evoquin: Rash. Objective: * Vitals: H t: 62, Wt: 118, BMI:21.58, BP:154/70, Wt-k.52. weight is down 2 pounds since 05-28-25. * P ast Orders: L ab:Free T4 (Free Thyroxine) (Order Date 06/06/2025) (Collection Date & Time - 06/06/2025 07:30 AM) Value Reference Range Free T4 (Free Thyroxine) 0.90 0.71-1.85 - ng/ dL L ab:Vitamin D 25-OH Total (Order Date 06/06/2025) (Collection Date & Time - 06/06/2025 07:30 AM) Value Reference Range Vitamin D 25-OH Total 54.8 >30 - ng/mL L ab:Microalbumin, Random (Order Date 06/06/2025) (Collection Date & Time - 06/06/2025 07:30 AM) Value Reference Range Creatinine Urine 51.19 - mg/dL Microalbumin Urine 408.0 - mg/L Microalbum Creatinine Ratio Ur 797.0 H <30 - ug/mg cr L ab:Hemoglobin A1c (Order Date 06/06/2025) (Collection Date & Time - 06/06/2025 07:30 AM) Value Reference Range Hemoglobin A1c % 5.5 <6.0 - % Estimated Average Glucose 111 - mg/dL L ab:UA ClnCatch+Micro w/rflx Cult (Order Date 06/06/2025) (Collection Date & Time - 06/06/2025 07:30 AM) Value Reference Range Color Urine Yellow - Appearance Urine Cloudy - PH 5.5 5.0-9.0 - Glucose Urine UA Negative Negative - mg/dL Urine Blood Negative Negative - Specific [place] - Urine 1.015 1.005-1.025 - Urine Protein 100 (2+) A Neg-Trace - mg/dL Urine Ketones Negative Negative - mg/dL Nitrite Urine Negative Negative - Leukocyte Esterase Urine Large (3+) A Negative - RBC Urine 0-2 0-2 - /HPF WBC Urine 21-50 0-5 - /HPF Squamous Epithelial Cell Urine 11-20 0-2 - /HPF Bacteria Urine 2+ None Seen - Hyaline Casts Urine 0-2 0-2 - /LPF L ab:Complete Blood Count Auto Diff (Order Date 06/06/2025) (Collection Date & Time - 06/06/2025 07:30 AM) Value Reference Range White Blood Count 5.8 4.8-10.8 - X10*3/uL Red Blood Count 3.60 L 4.20-5.50 - X10*6/uL Hemoglobin 11.5 L 12.0-16.0 - g/dl Hematocrit 36.7 L 37.0-47.0 - % Mean Corpuscular Volume 101.9 H 80.0-98.0 - fL Mean Corpuscular Hemoglobin 31.9 27.0-33.0 - pg Mean Corpuscular HGB Conc 31.3 31.0-35.0 - g/ dl Red Cell Distribution Width 13.2 11.0-16.0 - % Platelet Count 166 160-400 - X10*3/uL Mean Platelet Volume 12.3 9.4-12.3 - fL Neutrophils Percent Auto 48.8 45-73 - % Imm Gran Pct Auto 0.7 H 0.0-0.4 - % Lymphocytes Percent Auto 32.0 20-40 - % Monocytes Percent Auto 15.8 H 2-11 - % Eosinophils Percent Auto 2.4 0-4 - % Basophils Percent Auto 0.3 0-2 - % NRBC Pct Auto 0.0 0.0-0.2 - /100WBC Neutrophils Absolute Auto 2.8 2.0-8.3 - x10* 3/uL Imm Gran Abs Auto 0.04 H 0.00-0.03 - X10*3/uL Lymphocytes Absolute Auto 1.8 1.2-4.9 - X10* 3/uL Monocytes Absolute Auto 0.9 0.1-1.2 - X10*3/ uL Eosinophils Absolute Auto 0.1 0.0-0.4 - X10* 3/uL Basophils Absolute Auto 0.0 0.0-0.2 - X10*3/ uL NRBC Abs Auto 0.000 0.0-0.012 - X10*3/uL L ab:Comprehensive Met. Panel (Order Date - 06/06/2025) (Collection Date & Time - 06/06/2025 07:30 AM) Value Reference Range Sodium 142 135-145 - mmol/L Bilirubin Total 0.4 0.0-1.0 - mg/dL Aspartate Amino Transferase 32 H 5-31 - U/L Alanine Aminotransferase 22 0-31 - U/L Total Protein 7.8 6.5-8.0 - g/dL Albumin Level 4.6 3.5-5.0 - g/dL Alkaline Phosphatase 88 39-117 - U/L Potassium 4.7 3.3-5.1 - mmol/L Chloride 108 96-108 - mmol/L Carbon Dioxide 29 22-29 - mmol/L Anion Gap 10 L 12-20 - Blood Urea Nitrogen 31 H 9-16 - mg/dL Creatinine 1.57 H 0.5-1.4 - mg/dL Estimated Glomerular Filt Rate 31 - Glucose Random 91 60-115 - mg/dL Calcium 9.5 8.4-10.2 - mg/dL L ab:Lipid Panel (Order Date - 06/06/2025) (Collection Date & Time - 06/06/2025 07:30 AM) Value Reference Range Triglycerides 93 <150 - mg/dL Cholesterol 156 <200 - mg/dL LDL Cholesterol Calculated 78 <100 - mg/dL HDL Cholesterol 60 >40 - mg/dL L ab:Urine Culture (Order Date - 06/06/2025) (Collection Date & Time - 06/06/2025) Value Reference Range Urine Culture urogenital contamination. - * Examination: G eneral Examination: GENERAL APPEARANCE: w ell developed, well nourished, in no acute distress. HEAD: n ormocephalic, atraumatic. EYES: p upils equal, round, reactive to light and accommodation, sclera non-icteric. EARS: n ormal. ORAL CAVITY: m [place] moist. THROAT: c lear. NECK/THYROID: n k[place] supple, full range of motion, no cervical lymphadenopathy, no bruits. SKIN: w arm and dry, no suspicious lesions. HEART: r egular rate and rhythm, S1, S2 normal, no murmurs.? LUNGS: c lear to auscultation bilaterally. BREASTS: N o mass, no lump. ABDOMEN: s oft, nontender, nondistended, bowel sounds present, normal, no organomegaly , no masses palpable. RECTAL EXAM: d eclined. FEMALE GENITOURINARY: d eclined. EXTREMITIES: n o clubbing, cyanosis, or edema. NEUROLOGIC: n onfocal, motor strength normal upper and lower extremities, sensory exam intact. Assessment: * Assessment: 1. A cquired hypothyroidism - E03.9 (Primary) 2 . P ure hypercholesterolemia - E78.00 3 . E ssential hypertension - I10 Plan: * Treatment: 2. P ure hypercholesterolemia Notes: doingwell on meds 3. E ssential hypertension Notes: well controlled * Procedure Codes: 3 6415 VENIPUNCT, ROUTINE* * Follow Up: 3 Months * * The named appointment provid er may or may not be the originator of this progress note, and it is not deemed complete until electronically signed by the appointment provider. Sign off status: Pending * Provider: Silver Raya MD Date: 0 06/13/2025 Generated for Bill somers/Juanita/eTransmitting on: 1 09/22/2024 01:02 PM EST History and Physical Notes * HPI (History of Present Illness) Category Sub-Category Detail Notes Category Not es Symptom(s) patient is a 89 yo female here for review of of recent labs and follow up of chronci issues Depression Screening PHQ-9 Little inte rest or pleasure in doing things: Not at all Feeling down, depressed, or hopeless: No t at all Trouble falling or staying asleep, or sl eeping too much: Not at all Feeling tired or having little energy: N ot at all Poor appetite or overeating: Not at all [...] some way: Not at all Total Score: 0 Interpretation and Intervention Depression Aj ryan Findings: Negative Follow-Up for Depression: : review of PH Q-9 found negative result, no follow-up needed Patient Lifestyle Goals: Patient wants t o maintain a health emotional balance Barriers: No specific barriers , is motivated to feel better, works at this everyday Self-Managment Goals: Exercise at least 3xs per week SDOH Questions SDOH Questions In the past year have you been worried about losing housing?: No In the past year have you or any family members you live with been unable to get any of the following when it was really needed? Check all that apply:: None Fall Risk History Have you had any falls with injury i n the past year?: No Have you had two or more falls in the year?: No Communication Needs Communication Needs Does the patient have a hearing impairment: No Does the patient have a vision impairmen t?: Yes If yes, what is the vision impairment?: Glasses Does the patient have a cognition impair ment?: No Examination Category Sub-Category Detail Notes Category Not es General Examination GENERAL APPEARANCE: well dev eloped, well nourished, in no acute distress HEAD: normocephalic, atrau matic EYES: pupils equal, round, reactive to light and accommodation, sclera non-icteric EARS: normal THROAT: clear NECK/THYROID: neck supple, full ra nge of motion, no cervical lymphadenopathy, no bruits HEART: regular rate and rhy thm, S1, S2 normal, no murmurs LUNGS: clear to auscultatio n bilaterally ABDOMEN: soft, nontender, non distended, bowel sounds present, normal, no organomegaly , no masses palpable NEUROLOGIC: nonfocal, motor stre ngth normal upper and lower extremities, sensory exam intact SKIN: warm and dry, no xavi picious lesions EXTREMITIES: no clubbing, cyanosi s, or edema BREASTS: No mass, no lump RECTAL EXAM: declined FEMALE GENITOURINARY: declined ORAL CAVITY: mucosa moist
--- OUTSIDE RECORDS SUMMARY | 2025-06-14 05:09 | XMS_ITS ---
Author Organization Mati Raya MD Address [address] [place] [phone] Care Team Providers Care Drop Forger Helper Name Role Phone Mati Raya Primary Care Provider Medications Medication SIG (Take, Route, Frequency, Duration) Notes Start Date End Date Status Levothyroxine Sodium 100 MCG TAKE 1 TABL ET BY MOUTH EVERY DAY IN THE MORNING ON EMPTY STOMACH FOR 90 DAYS Orally Once a day for 60 days Active Encounters Encounter Location Date Provider Diagnosis Mati Raya MD [address] [place] [id number] 06/14/2025 Mati Raya Acquired hypothyroidism E03.9 Assessments Encounter Date Diagnosis (ICD Code) Assessment Notes Treatment Notes Treatment Clinical Notes Section Notes 06/14/2025 Acquired hypothyroidism (ICD-10 - E03.9) Plan Of Treatment Medication Medication Name Sig Start Date Stop Date Notes Levothyroxine Sodium 100 MCG TAKE 1 TABL ET BY MOUTH EVERY DAY IN THE MORNING ON EMPTY STOMACH FOR 90 DAYS Orally Once a day for 60 days Next Appt Details Provider Name:Mati sol, 08/02/2025 11:45:00 AM, [address] [facility], [address], [place], [place], [phone], Provider Name:Mati Silverman ier, 09/02/2025 11:15:00 AM, [address] [place] [address], [address], [place], [place], [phone], Provider Name:Mati Silverman ier, 12/02/2025 07:45:00 AM, [address] [place] [address], [address], [place], [place], [phone], Provider Name:Mati Silverman ier, 12/09/2025 11:00:00 AM, [address] [place] [address], Suite [facility], [place], [place], [phone], Provider Name:Mati Silverman ier, 07/10/2026 07:00:00 AM, [address] [place] [address], [place] [address], [place], [place], [phone], Provider Name:Mati Silverman ier, 07/17/2026 11:00:00 AM, [address] [place] [address], Suite [facility], [place], [place], [phone], Progress Notes * Qian LARA CDOB:[birth year] (89 yo F)Acc No.[id number]:06/14/2025 Patient: Qian MATT :1935 A ge:89 Y S ex:Female [facility] [place] [address] * Refills Refill Levothyroxine Sodium Tablet, 100 MCG, Orally, 60, TAKE 1 TABLET BY MOUTH EVERY DAY IN THE MORNING ON EMPTY STOMACH FOR 90 DAYS, Once a day, 60 days, Refills=3 * true * Date: Generated for Bill somers/Juanita/Richsmitting on: 09/22/2024 01:01 PM EST
--- OUTSIDE RECORDS SUMMARY | 2025-06-24 04:14 | XMS_ITS ---
Author Organization Mati Raya MD Address [address] [place] [phone] Care Team Providers Care Civil Clerk Name Role Phone Mati Raya Primary Care Provider REASON FOR VISIT refill Medications Medication SIG (Take, Route, Frequency, Duration) Notes Start Date End Date Status Escitalopram Oxalate 5 MG 1 tablet Orall y Once a day for 30 days 04/09/2025 Active Encounters Encounter Location Date Provider Diagnosis Mati Raya MD [address] [place] [phone] 06/24/2025 Mati Raya Depression F32.9 Assessments Encounter Date Diagnosis (ICD Code) Assessment Notes Treatment Notes Treatment Clinical Notes Section Notes 06/24/2025 Depression (ICD-10 - F32.9) Plan Of Treatment Medication Medication Name Sig Start Date Stop Date Notes Escitalopram Oxalate 5 MG 1 tablet Orall y Once a day for 30 days 04/09/2025 Next Appt Details Provider Name:Mati sol, 08/02/2025 11:45:00 AM, [address] [facility], [address], [place], [place], [phone], Provider Name:Mati Silverman ier, 09/02/2025 11:15:00 AM, [address] [place] [address], [address], [place], [phone], Provider Name:Mati Silverman ier, 12/02/2025 07:45:00 AM, [address] [place] [address], [address], [place], [place], [phone], Provider Name:Mati Silverman ier, 12/09/2025 11:00:00 AM, [address] [place] [address], [address], [place], [place], [phone], Provider Name:Mati Silverman ier, 07/10/2026 07:00:00 AM, [address] [place] [address], [address], [place], [phone], Provider Name:Mati Silverman ier, 07/17/2026 11:00:00 AM, [address] [place] [address], [address] [facility], [place], [phone], Progress Notes * Qian LARA CDOB:[birth year] (89 yo F)Acc No.[id number]:06/24/2025 Patient: Qian MATT :1935 A ge:89 Y S ex:Female Address:[address] [place] [address] , [place] [address] * Refills Refill Escitalopram Oxalate Tablet, 5 MG, Orally, 30, 1 tablet, Once a day, 30 days, Refills=0 * true * Date: Generated for Bill somers/Juanita/eTransmitting on: 09/22/2024 01:02 PM EST
--- OUTSIDE RECORDS SUMMARY | 2025-07-05 06:00 | XMS_ITS ---
Author Organization Mati Raya MD Address [address] [place], [place] [id number] Care Team Providers Care Compliance Analyst Name Role Phone Mati Raya Primary Care Provider Allergies Allergen (clinical drug ingredient) Drug/Non Drug Allergy documented on EMR Reaction Allergy Type Onset Date Status levoquin (uncoded) rash Allergy A ctive REASON FOR VISIT ? UTI ? Thyroid issue, accompanied by son Medications Medication SIG (Take, Route, Frequency, Duration) Notes Start Date End Date Status amLODIPine Besylate 10 MG TAKE 1 TABLET BY MOUTH EVERY DAY FOR 90 DAYS for 90 Active Levothyroxine Sodium 100 MCG TAKE 1 TABLET BY MOUTH EVERY DAY IN THE MORNING ON EMPTY STOMACH FOR 90 DAYS Orally Once a day for 60 days Active Atorvastatin Calcium 40 MG TAKE 1 TABLET BY MOUTH EVERY DAY Active Mucinex Fast-Max Chest Jorge MS 400 MG/20ML as directed 20 ml Orally 4 times a day for 10 days 10/23/2024 Active Valsartan 320 MG TAKE 1 TABLET BY TK TH EVERY DAY FOR 90 DAYS for 90 Active Glucosamine Chond Triple/Vit D - as directed Orally Active Albuterol Sulfate HFA 108 (90 Base) MCG/ACT 1 puff as needed Inhalation every 4 hrs for 30 days 10/23/2024 Active Celecoxib 200 MG TAKE 1 CAPSULE BY MOUTH EVERY DAY WITH FOOD FOR 30 DAYS for 30 Active traMADol HCl 50 MG 1 tablet as needed Orally every 6 hours as needed for 30 days 09/24/2021 Not-Taking Vitamin D 1000 UNIT 1 tablet Orally Once a day Not-Taking Escitalopram Oxalate 5 MG TAKE 1 TABLET BY MOUTH EVERY DAY FOR 30 DAYS for 90 Active Levothyroxine Sodium 112 MCG 1 tablet in the morning on an empty stomach Orally Once a day for 30 days 07/05/2025 Active Tylenol 325 MG 1 tablet as needed Orally every 4 hrs Not-Taking predniSONE 20 MG 2 tablets Orally Onc e a day for 5 days 07/19/2024 Not-Taking Vital Signs Blood pressure systolic 92 mm Hg 07/05/20 Blood pressure diastolic 50 mm Hg 025 Height 62 in 07/05/2025 Weight 120 lbs 07/05/2025 BMI 21.95 kg/m2 07/05/2025 weight is up 2 pounds since 06-13-25 Encounters Encounter Location Date Provider Diagnosis Mati Raya MD [address] [place] [phone] 07/05/2025 Mati Raya Acute idiopathic gou t of left foot M10.072 and Acquired hypothyroidism E03.9 Assessments Encounter Date Diagnosis (ICD Code) Assessment Notes Treatment Notes Treatment Clinical Notes Section Notes 07/05/2025 Acute idiopathic gout of left foot (ICD-10 - M10.072) 07/05/2025 Acquired hypothyroidism (ICD-10 - E03.9) patient verbalized undersanding of medication and directions for use Plan Of Treatment Medication Medication Name Sig Start Date Stop Date Notes Celecoxib 200 MG TAKE 1 CAPSULE BY MO UTH EVERY DAY WITH FOOD FOR 30 DAYS for 30 Levothyroxine Sodium 112 MCG 1 tablet in the morning on an empty stomach Orally Once a day for 30 days 07/05/2025 Treatment Notes Assessment Notes Acquired hypothyroidism patient verbaliz ed undersanding of medication and directions for use Pending Test Test Name Order Date TSH reflex Free T4 07/05/2025 Next Appt Details Follow Up: 4 Weeks, Reason: Provider Name:Mati sol, 08/02/2025 11:45:00 AM, [address], [address], [place], [phone], Provider Name:Mati Silverman ier, 09/02/2025 11:15:00 AM, [address], [address], [place], [phone], Provider Name:Mati Silverman ier, 12/02/2025 07:45:00 AM, [address], [address], [place], [place], [phone], Provider Name:Mati Silverman ier, 12/09/2025 11:00:00 AM, [address], Suite [facility], [place], [phone], Provider Name:Mati Silverman ier, 07/10/2026 07:00:00 AM, [address] [place] [address], Suite [facility], [place], [phone], Provider Name:Mati Silverman ier, 07/17/2026 11:00:00 AM, [address] [place] [address], Suite [facility], [place], [phone], Progress Notes * Qian LARA CDOB:[birth year] (89 yo F)Acc No.[id number]:07/05/2025 Patient: Qian MATT Provider: Silver Raya MD :1935 A ge:89 Y S ex:Female Date:07/05/2025 Address:[address] [place] [address] , [place], [id number] Subjective: * Chief Complaints: * ? UTI ? Thyroid issueAccompanied by son * HPI: S ymptom(s): patient is a 89 yo female with no complaint of UTI, also questioning thyroid issues ?. * ROS: G eneral/Constitutional: Denies C hills. D enies F atigue. D enies F ever. D enies H eadache. E NT: Denies S ore throat. R espiratory: Denies C ough. D enies S hortness of breath at rest. D enies S hortness of breath with exertion. G astrointestinal: Denies D iarrhea. D enies N ausea. G enitourinary: Denies A bdominal pain/swelling. D enies F requent urination. D enies P ain in lower back. D enies P ainful urination. * Medical History: * Surgical History: * Hospitalization/Major Diagno stic Procedure: * Medications: T akingGlucosamine Chond Triple/Vit D - Tablet as directed Orally Albuterol Sulfate HFA 108 (90 Base) MCG/ACT Aerosol Solution 1 puff as needed Inhalation every 4 hrs Mucinex Fast-Max Chest Jorge MS 400 MG/20ML Liquid as directed 20 ml Orally 4 times a day Atorvastatin Calcium 40 MG Tablet TAKE 1 TABLET BY MOUTH EVERY DAY Valsartan 320 MG Tablet TAKE 1 TABLET BY MOUTH EVERY DAY FOR 90 DAYS Celecoxib 200 MG Capsule TAKE 1 CAPSULE BY MOUTH EVERY DAY WITH FOOD FOR 30 DAYS Levothyroxine Sodium 100 MCG Tablet TAKE 1 TABLET BY MOUTH EVERY DAY IN THE MORNING ON EMPTY STOMACH FOR 90 DAYS Orally Once a day amLODIPine Besylate 10 MG Tablet TAKE 1 TABLET BY MOUTH EVERY DAY FOR 90 DAYS Escitalopram Oxalate 5 MG Tablet TAKE 1 TABLET BY MOUTH EVERY DAY FOR 30 DAYS Taking Glucosamine Chond Triple/Vit D - Tablet as directed Orally Taking Albuterol Sulfate HFA 108 (90 Base) [...] MOUTH EVERY DAY FOR 90 DAYS Taking Celecoxib 200 MG Capsule TAKE 1 CAPSULE BY MOUTH EVERY DAY WITH FOOD FOR 30 DAYS Taking Levothyroxine Sodium 100 MCG Tablet TAKE 1 TABLET BY MOUTH EVERY DAY IN THE MORNING ON EMPTY STOMACH FOR 90 DAYS Orally Once a day Taking amLODIPine Besylate 10 MG Tablet TAKE 1 TABLET BY MOUTH EVERY DAY FOR 90 DAYS Taking Escitalopram Oxalate 5 MG Tablet TAKE 1 TABLET BY MOUTH EVERY DAY FOR 30 DAYS Not-Taking/PRNVitamin D 1000 UNIT Tablet 1 tablet Orally Once a day predniSONE 20 MG Tablet 2 tablets Orally Once a day Tylenol 325 MG Tablet 1 tablet as needed Orally every 4 hrs traMADol HCl 50 MG Tablet 1 tablet as needed Orally every 6 hours as needed Not-Taking/PRN Vitamin D 1000 UNIT Tablet 1 tablet Orally Once a day Not-Taking/PRN predniSONE 20 MG Tablet 2 tablets Orally Once a day Not- Taking/PRN Tylenol 325 MG Tablet 1 tablet as needed Orally every 4 hrs Not-Taking/PRN traMADol HCl 50 MG Tablet 1 tablet as needed Orally every 6 hours as needed DiscontinuedDonepezil HCl 5 MG Tablet 1 tablet at bedtime Orally Once a day Medication List reviewed and reconciled with the patientDiscontinued Donepezil HCl 5 MG Tablet 1 tablet at bedtime Orally Once a day Medication List reviewed and reconciled with the patient * Allergies: l evoquin: andrea[Allergies Verified] Objective: * Vitals: H t: 62, Wt: 120, BMI:21.95, BP:92/50, Wt-k.43. weight is up 2 pounds since 06-13-25. * Examination: G eneral Examination: GENERAL APPEARANCE: w ell developed, well nourished. SKIN: g ood turgor. HEART: g rade 2/6 systolic murmur at left sternal border.? LUNGS: a bnormal with few wheezes. Assessment: * Assessment: 1. A cquired hypothyroidism - E03.9 (Primary) 2 . 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 A cute idiopathic gout of left foot Refill Celecoxib Capsule, 200 MG, TAKE 1 CAPSULE BY MOUTH EVERY DAY WITH FOOD FOR 30 DAYS, 30, 30 Capsule, Refills 3. L AB: TSH reflex Free T4 (Ordered for 08/02/2025) * Procedure Codes: * Follow Up: 4 Weeks * * Sign off status: Completed true * Provider: Silver Raya MD Date: Generated for Bill somers/Juanita/Dereck on: 09/22/2024 01:02 PM EST History and Physical Notes * HPI (History of Present Illness) Category Sub-Category Detail Notes Category Not es Symptom(s) patient is a 89 yo female with no complaint of UTI, also questioning thyroid issues ? Examination Category Sub-Category Detail Notes Category Not es General Examination GENERAL APPEARANCE: well developed , well nourished HEART: grade 2/6 systolic m urmur at left sternal border LUNGS: abnormal with few wh eezes SKIN: good turgor
--- OUTSIDE RECORDS SUMMARY | 2025-07-23 03:30 | XMS_ITS ---
Author Organization Mati Raya MD Address [address] [place] [phone] Care Team Providers Care Boiler Welder Name Role Kareen Mati Raya Primary Care Provider [phone] Results Component Value Reference Range Notes TSH reflex Free T4 (Not yet reviewed by provider) Interpretation: Performing Lab:[facility], [address] [place] [phone] Notes/Report: TSH reflex Free T4 8.26 0.32-4.0 uIU/mL REASON FOR VISIT TSH Encounters Encounter Location Date Provider Diagnosis Mati Raya MD [address] [place] [phone] 07/23/2025 Mati Raya 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 Assessments Encounter Date Diagnosis (ICD Code) Assessment Notes Treatment Notes Treatment Clinical Notes Section Notes 07/23/2025 Acute idiopathic gout of left foot (ICD-10 - M10.072) Plan Of Treatment Pending Test Test Name Order Date TSH reflex Free T4 07/23/2025 Next Appt Details Provider Name:Mati Silverman ier, 08/02/2025 11:45:00 AM, [address], [address], [place], [place], [phone], Provider Name:Mati Silverman ier, 09/02/2025 11:15:00 AM, [address], [address], [place], [place], [phone], Provider Name:Mati Silverman ier, 12/02/2025 07:45:00 AM, [address], [address], [place], [place], [phone], Provider Name:Mati Silverman ier, 12/09/2025 11:00:00 AM, [address] [facility], Suite [facility], [place], [place], [phone], Provider Name:Mait Silverman ier, 07/10/2026 07:00:00 AM, [address] [place] [address], Suite [facility], [place], [place], [phone], Provider Name:Mati Silverman ier, 07/17/2026 11:00:00 AM, [address] [place] [address], Suite [facility], [place], [place], [phone], Progress Notes * Qian LARA CDOB:[birth year] (89 yo F)Acc No.[id number]:07/23/2025 Progress Note Patient: Qian MATT Provider: Silver Raya MD :1935 A ge:89 Y S ex:Female Date:07/23/2025 Address:[address] [place] [address] [place], [id number] Subjective: * Chief Complaints: * 1 . TSH. * Medical History: Objective: * Vitals: Assessment: * Assessment: 1. 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 Sign off status: Pending * Provider: Silver Raya MD Date: 09/22/2024 Generated for Bill somers/Juanita/Dereck on: 09/22/2024 01:01 PM EST
[2025-07-23 12:21] LABS: Free T4 (Free Thyroxine) 1.08 ng/dL (0.71-1.85)
--- OUTSIDE RECORDS SUMMARY | 2025-07-23 13:02 | XMS_ITS | Patient Health Record ---
Author Organization Mati Raya MD Address [address] [place], [place] [id number] Care Team Providers Care Land Leasing Examiner Name Role Phone Mati Raya Primary Care Provider [phone] Allergies Allergen (clinical drug ingredient) Drug/Non Drug Allergy documented on EMR Reaction Allergy Type Onset Date Status levoquin (uncoded) rash Allergy A ctive Results Component Value Reference Range Notes UA ClnCatch+Micro w/rflx Cul t Reviewed date:11/09/2024 04:29:25 PM Interpretation: Performing Lab:[facility], [address] [place] [address] Notes/Report: Urine, Clean Catch Color Urine Dark Yellow Appearance Urine Cloudy PH 5.0 5.0-9.0 Glucose Urine UA Negative Negative mg/dL Urine Blood Negative Negative Specific Borden - Urine 1.025 1.005-1.025 Urine Protein 100 [...] ff Reviewed date:11/15/2024 05:01:20 PM Interpretation: Performing Lab:[facility], [address] [place] [address] Notes/Report: White Blood Count 5.7 4.8-10.8 X10*3/uL [...] Panel Reviewed date:12/03/2024 04:21:48 PM Interpretation: Performing Lab:[facility], [address] [place] [address] Notes/Report: Bilirubin Total 0.3 0.0-1.0 mg/dL Bilirubin Direct 0.1 0.0-0.5 mg/dL Aspartate Amino Transferase 31 5-31 U/L Alanine Aminotransferase 28 0-31 U/L Total Protein 7.4 6.5-8.0 g/dL Albumin Level 4.0 3.5-5.0 g/dL Alkaline Phosphatase 71 39-117 U/L Lipid Panel with Reflex Reviewed date:12/03/2024 04:25:46 PM Interpretation: Performing Lab:[address] [address] Notes/Report: Triglycerides 60 <150 mg/dL Desirable Triglyceride: [...] ff Reviewed date:06/06/2025 04:53:16 PM Interpretation: Performing Lab:[address] [address] Notes/Report: White Blood Count 5.8 4.8-10.8 X10*3/uL [...] Panel Reviewed date:06/06/2025 12:24:27 PM Interpretation: Performing Lab:[facility], [address] [place] [address] Notes/Report: Triglycerides 93 <150 mg/dL Desirable Triglyceride: [...] Total Reviewed date:06/06/2025 12:24:53 PM Interpretation: Performing Lab:[address] [address] Notes/Report: Vitamin D 25-OH Total 54.8 >30 [...] T4 Reviewed date:06/13/2025 12:41:11 PM Interpretation:06-13-2025 Performing Lab:[address] [address] Notes/Report: TSH reflex Free T4 40.08 0.32-4.0 uIU/mL Microalbumin, Random Reviewed date:06/06/2025 04:51:34 PM Interpretation: Performing Lab:[facility], [address] [place] [address] Notes/Report: Creatinine Urine 51.19 Microalbumin Urine 408.0 Microalbum/Creatinine Ratio Ur 797.0 <30 ug/mg cr Albumin/Creatinine Ratio Reference Ranges: Normal: < 30 ug/mg creatinine Microalbuminuria: 30 - 300 ug/mg creatinine Clinical Albuminuria: > 300 ug/mg creatinine Hemoglobin A1c Reviewed date:06/06/2025 12:21:31 PM Interpretation: Performing Lab:[address] [address] Notes/Report: Hemoglobin A1c % 5.5 <6.0 % [...] average glucose, using the formula of the S4Q-Yinzagp Average Glucose study (ADAG), Diabetes Care, Vol.31,#8, 2007 UA ClnCatch+Micro w/rflx Cul t Reviewed date:06/06/2025 04:54:25 PM Interpretation: Performing Lab:[facility], [address] [place] [phone] Notes/Report: Urine, Clean Catch Color Urine Yellow Appearance Urine Cloudy PH 5.5 5.0-9.0 Glucose Urine UA Negative Negative mg/dL Urine Blood Negative Negative Specific Borden - Urine 1.015 1.005-1.025 Urine Protein 100 (2+) Neg-Trace mg/dL Urine Ketones Negative Negative mg/dL Nitrite Urine Negative Negative Leukocyte Esterase Urine Large (3+) Negative RBC Urine 0-2 0-2 /HPF WBC Urine 21-50 0-5 /HPF Squamous Epithelial Cell Urine 11-20 0-2 /HPF Bacteria Urine 2+ None Seen Hyaline Casts Urine 0-2 0-2 /LPF TSH reflex Free T4 Reviewed date:06/14/2025 10:12:08 AM Interpretation: Performing Lab:[facility], [address] [place] [address] Notes/Report: TSH reflex Free T4 37.65 0.32-4.0 uIU/mL TSH reflex Free T4 (Not yet reviewed by provider) Interpretation: Performing Lab:[facility], [address] [place] [address] Notes/Report: TSH reflex Free T4 8.26 0.32-4.0 uIU/mL XR chest 2V Reviewed date:10/23/2024 12:30:38 PM Interpretation: Performing Lab: Notes/Report: [address] [address] XRay Report Signed Patient: Qian Lara MR#: [id number] 877 : 1935 Acct:[id number] Age/Sex: 88 / F ADM Date: 10/23/24 Loc: [facility] Attending Dr: Mati Raya MD Ordering Physician: Mati Raya MD Date of Service: 10/23/24 Procedure(s): XR chest 2V Accession Number(s): [id number] cc: Mati Raya MD EXAMINATION: XR CHEST [...] deformities L1 and L4. Electronically signed by: Giullaume Schmidt MD 10/23/2024 11:[address] [facility] Dictated By: Guillaume Schmidt MD Signed By: <Electronically signed by Guillaume Schmidt MD in OV> 10/23/24 1153 DD/ 1123 TD/TT: 10/23/24 1138 Decorative Engraver Apprentice: [address] [address] XRay Report Signed Patient: Perlita Lara MR#: [id number] 877 : 1935 Acct:[id number] Age/Sex: 88 / F ADM Date: 10/23/24 Loc: KERRY Attending Dr: Mati Raya MD Ordering Physician: Mati Raya MD Date of Service: 10/23/24 Procedure(s): XR de[address] st 2V Accession Number(s): [id number] cc: Mati Raya MD EXAMINATION: XR CHEST [...] by: Guillaume Schmidt MD 10/23/2024 11:[address] [facility] Dictated By: Guillaume Schmidt MD Signed By: <Electronically signed by Guillaume Schmidt MD in OV> 10/23/24 1153 DD/ 1123 TD/TT: 10/23/24 1138 Decorative Engraver Apprentice: Vitamin B12 and Folate Reviewed date:10/11/2024 05:35:26 PM Interpretation: Performing Lab:[address] [address] Notes/Report: Vitamin B12 1458 200-900 pg/mL NORMAL 200-900 PG/ML INDETERMINATE 160-199 PG/ML DEFICIENT < 160 PG/ML Folate 5.8 > or = 4.0 ng/mL Reference Values: > or = 4.0 ng/mL < 4.0 ng/mL suggests folate deficiency Methotrexate, aminopterin and folinic acid (leucovorin) are chemotherapeutic agents whose molecular structures are similar to folate; therefore, the Director Of Religious Activities folate assay cannot be used for patients using these drugs. Complete Blood Count Auto Di ff Reviewed date:10/16/2024 12:49:20 PM Interpretation: Performing Lab:[address] [address] Notes/Report: White Blood Count 6.2 4.8-10.8 X10*3/uL [...] Panel Reviewed date:10/16/2024 12:46:26 PM Interpretation: Performing Lab:[facility], [address] [place] [address] Notes/Report: Sodium 140 135-145 mmol/L Potassium 4.3 [...] Magnesium Reviewed date:10/16/2024 12:41:51 PM Interpretation: Performing Lab:[address] [address] Notes/Report: Magnesium 2.1 1.6-2.6 mg/dL Troponin-I High Sensitivity Reviewed date:10/16/2024 12:50:07 PM Interpretation: Performing Lab:[facility], [address] [place] [address] Notes/Report: Troponin-I High Sensitivity 43.3 <3.5-17.0 ng/L The Simpson high sensitivity Troponin-I results should be used in conjunction with other diagnostic information such as ECG, clinical observations and information, and patient symptoms to aid in the diagnosis of UT. Thyroid Stimulating Hormone Reviewed date:10/16/2024 12:40:59 PM Interpretation: Performing Lab:[facility], [address] [place] [address] Notes/Report: Thyroid Stimulating Hormone 0.72 0.32-4.0 uIU/mL TSH 3rd Generation ([facility]) SLIDE REVIEW Reviewed date:10/16/2024 12:42:00 PM Interpretation: Performing Lab:[address] [address] Notes/Report: SLIDE REVIEW VERIFIED SARS-CoV2/FLU/RSV Reviewed date:10/16/2024 12:41:42 PM Interpretation: Performing Lab:[address] [address] Notes/Report: Influenza A PCR NEGATIVE Negative Influenza [...] by authorized laboratories. Testing performed on the [employer] GeneXpert utilizing real-time RT-PCR. All SARS CoV2 and positive influenza A/B results are reported to [facility]. XR chest 2V Reviewed date:10/16/2024 12:41:32 PM Interpretation: Performing Lab: Notes/Report: [address] [address] XRay Report Signed Patient: Qian Lara MR#: [id number] 877 : 1935 Acct:[id number] Age/Sex: 88 / F ADM Date: 10/15/24 Loc: .ED Attending Dr: Ordering Physician: Francy Mario Date of Service: 10/15/24 Procedure(s): XR chest 2V Accession Number(s): [id number] cc: Mati Raya MD; Francy Mario CLINICAL [...] in OV> 10/15/242142 DD/ 41 TD/TT: 10/15/242141 Decorative Engraver Apprentice: [address] [address] XRay Report Signed Patient: Perlita Lara MR#: [id number] 877 : 1935 Acct:[id number] Age/Sex: 88 / F ADM Date: 10/15/24 Loc: HO.ED Attending Dr: Ordering Physician: Francy Mario Date of Service: 10/15/24 Procedure(s): XR de[address] st 2V Accession Number(s): [id number] cc: Mati Raya MD; Francy Mario CLINICAL [...] in OV> 10/15/242142 DD/ 41 TD/TT: 10/15/242141 Decorative Engraver Apprentice: Complete Blood Count Man Dif Reviewed date:10/16/2024 01:01:04 PM Interpretation: Performing Lab:[facility], [address] [place] [address] Notes/Report: White Blood Count 5.6 4.8-10.8 X10*3/uL [...] Panel Reviewed date:10/16/2024 12:42:11 PM Interpretation: Performing Lab:[facility], [address] [place] [address] Notes/Report: Sodium 141 135-145 mmol/L Potassium 4.4 [...] Sensitivity Reviewed date:10/16/2024 12:49:58 PM Interpretation: Performing Lab:[facility], [address] [place] [address] Notes/Report: Troponin-I High Sensitivity 38.9 <3.5-17.0 ng/L The Simpson high sensitivity Troponin-I results should be used in conjunction with other diagnostic information such as ECG, clinical observations and information, and patient symptoms to aid in the diagnosis of UT. B Type Natriuretic Peptide Reviewed date:10/16/2024 12:47:06 PM Interpretation: Performing Lab:[facility], [address] [place] [address] Notes/Report: B Type Natriuretic Peptide 137 <100 pg/mL For those patients who are being treated with Natrecor (nesiritide, recombinant BNP), BNP testing should be performed at least two hours post treatment in order to ensure that only endogenous levels of BNP are detected. UA ClnCatch+Micro w/rflx Cul t Reviewed date:10/16/2024 01:27:52 PM Interpretation: Performing Lab:[address] [address] Notes/Report: Urine, Clean Catch Color Urine Yellow Appearance Urine Clear PH 5.0 5.0-9.0 Glucose Urine UA Negative Negative mg/dL Urine Blood Negative Negative Specific Borden - Urine 1.015 1.005-1.025 Urine Protein 30 [...] date:10/17/2024 05:29:52 PM Interpretation: Performing Lab: Notes/Report: [address] [address] Magnetic Resonance Report Signed Patient: Qian Lara MR#: [id number] 877 : 1935 Acct:[id number] Age/Sex: 88 / F ADM Date: 10/16/24 Loc: [facility] 473-[address]: Wellington Cruz DO Ordering Physician: Viktoriya Reardon MD Date of Service: 10/16/24 Procedure(s): MR head/brain wo con Accession Number(s): [id number] cc: Viktoriya Reardon MD; Mati Raya MD [...] Cross MD on 10/16/2024 19:35:45 Dictated By: nAdrae Cross MD Signed By: <Electronically signed by Andrae Cross MD in OV> 10/16/241935 DD/ 34 TD/TT: 10/16/241934 Decorative Engraver Apprentice: [place] [address] Magnetic Resonance Report Signed Patient: Perlita Lara MR#: [id number] 877 : 1935 Acct:[id number] Age/Sex: 88 / F ADM Date: 10/16/24 Loc: [facility] 473-[address]: Wellington Cruz DO Ordering Physician: Viktoriya Reardon MD Date of Service: 10/16/24 Procedure(s): MR head/brain wo con Accession Number(s): [id number] cc: Kevin Reardon MD; Mati Raya MD [...] in OV> 10/16/241935 DD/ 34 TD/TT: 10/16/241934 Decorative Engraver Apprentice: Complete Blood Count Auto Di ff Reviewed date:10/19/2024 07:34:47 AM Interpretation: Performing Lab:[facility], [address] [place] [address] Notes/Report: White Blood Count 6.4 4.8-10.8 X10*3/uL [...] Panel Reviewed date:10/18/2024 04:53:47 PM Interpretation: Performing Lab:[facility], [address] [place] [address] Notes/Report: Sodium 140 135-145 mmol/L Potassium 4.5 [...] REVIEW Reviewed date:10/17/2024 05:26:13 PM Interpretation: Performing Lab:[facility], [address] [place] [address] Notes/Report: SLIDE REVIEW VERIFIED Urine Culture Reviewed date:11/11/2024 09:34:04 AM Interpretation: Performing Lab:[facility], [address] [place] [address] Notes/Report: Urine Culture Report Result Urine Culture < 10,000 cfu/ml Hold Gold Reviewed date:12/03/2024 11:59:46 AM Interpretation: Performing Lab:[facility], [address] [place] [address] Notes/Report: Tayo Jordan See Note Specimen held untested for 24 hours; Call to request Chemistry testing. Comprehensive Met. Panel Reviewed date:06/06/2025 12:24:18 PM Interpretation: Performing Lab:[address] [address] Notes/Report: Sodium 142 135-145 mmol/L Potassium 4.7 [...] Thyroxine) Reviewed date:06/06/2025 12:33:52 PM Interpretation: Performing Lab:[address] [address] Notes/Report: Free T4 (Free Thyroxine) 0.90 0.71-1.85 ng/dL Hold Gold Reviewed date:06/06/2025 12:17:15 PM Interpretation: Performing Lab:[address] [address] Notes/Report: Tayo Jordan See Note Specimen held untested for 24 hours; Call to request Chemistry testing. Urine Culture Reviewed date:06/09/2025 02:47:09 PM Interpretation: Performing Lab:[address] [address] Notes/Report: Urine Culture Report Result Urine Culture > 100,000 cfu/ml Urine Culture Mixed bacterial el a characteristic of Urine Culture urogenital contamination. Free T4 (Free Thyroxine) Reviewed date:06/13/2025 04:24:47 PM Interpretation: Performing Lab:[place] [address], [place] [address] Notes/Report: Free T4 (Free Thyroxine) 0.92 0.71-1.85 ng/dL Tayo Jordan Reviewed date:06/13/2025 04:18:41 PM Interpretation: Performing Lab:[facility], [address] [place] [address] Notes/Report: Tayo Jordan See Note Specimen held untested for 24 hours; Call to request Chemistry testing. Free T4 (Free Thyroxine) (No t yet reviewed by provider) Interpretation: Performing Lab:[facility], [address] [place] [address] Notes/Report: Free T4 (Free Thyroxine) 1.08 0.71-1.85 ng/dL Tayo Jordan Reviewed date:07/23/2025 12:29:10 PM Interpretation: Performing Lab:[facility], [address] [place] [address] Notes/Report: Tayo Jordan See Note Specimen held [...] Once a day for 60 days Active Vitamin D 1000 UNIT 1 tablet Orally Once a day Not-Taking Escitalopram Oxalate 5 MG TAKE 1 TABLET BY MOUTH EVERY DAY FOR 30 DAYS for 90 Active Atorvastatin Calcium 40 [...] 4 hrs for 30 days 10/23/2024 Active Levothyroxine Sodium 112 MCG 1 tablet in the morning on an empty stomach Orally Once a day for 30 days 07/05/2025 Active Tylenol 325 MG 1 tablet as needed Orally every 4 hrs Not-Taking predniSONE 20 MG 2 tablets Orally Onc e a day for 5 days 07/19/2024 Not-Taking Celecoxib 200 MG TAKE 1 CAPSULE BY MOUTH EVERY DAY WITH FOOD FOR 30 DAYS for 30 Active traMADol HCl 50 MG 1 tablet as needed Orally every 6 hours as needed for 30 days 09/24/2021 Not-Taking Immunizations Vaccine Route Administration Date Status Comme nts Shingles Unknown 03/03/2012 Administered [facility] Flu Vaccine Unknown 06/07/2012 Administered [facility] PPSV23 (Pnemovax) Unknown 04/20/1998 Administered Prevnar 13 IM Intramuscular 04/20/2013 Administered Flu Vaccine Unknown 05/28/2013 Administered [facility] Unknown 04/20/2013 Administered Flu Vaccine ID Intradermal 05/12/2014 Administered [facility] PPSV23 (Pnemovax) IM Intramuscular 01/10/2015 Administered Flu Vaccine IM Intramuscular 05/19/2015 Administered given at [facility] in [facility]. Flu Vaccine IM Intramuscular 06/02/2016 Administered pt wa s given high dose at the [facility] on [facility] Flu Vaccine IM Intramuscular 06/09/2017 Administered pt wa s given the high dose flu at [facility] in [facility] on Str [facility] Unknown 01/21/2018 Administered pt was given the vaccine at [facility] on [facility]. Influenza High Dose Unknown 07/04/2018 Administered pt states she go t it [facility] in [place]. Shingrix IM Intramuscular 08/31/2018 Administered pt was given the vaccine at [facility] on [facility]. [place] Shingrix IM Intramuscular 11/02/2018 Administered pt was given the vaccine at [facility]. Influenza High Dose IM Intramuscular 05/16/2019 Administered Pt was given th e vaccine at [facility]. PPSV23 (Pnemovax) IM Intramuscular 04/08/2020 Administered Influenza High Dose IM Intramuscular 05/06/2020 Administered Given and [facility] i n [place] on [facility]. Influenza High Dose Unknown 05/20/2020 Administered [...] Status Risk Notes Problem Vitamin D deficiency (64569736) Vitamin D deficiency, unspecified (E55.9) Active confirmed Problem 78009515 Age-related osteoporosis without current pathological fracture (M81.0) Active confirmed Problem Depression (728551442) Depression (F32.9) Active confirmed Problem 04135374 Hyperkalemia (E87.5) Active confirmed Problem 793222102 Cough (R05) Active confirmed Problem 33875813 Essential hypert ension (I10) Active confirmed Problem 745633539 Acquired hypothyroidism (E03.9) Active confirmed Problem 1874089 Prediabetes (R73.09) Active confirmed Problem 54108927 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 confirmed Problem 429150573 Gall stones (K80.20) Active confirmed Problem 540710536 Pure hypercholesterolemia (E78.00) Active confirmed Problem 996443880 Age related osteoporosis, unspecified pathological fracture presence (M81.0) Active confirmed Problem 04772280418826 Pressure injury of sacral region, stage 1 (L89.151) Active confirmed Problem 886682418 Thalamic hemorrh age with stroke (I61.9) Active confirmed Vital Signs Blood pressure diastolic 50 mm Hg 07/05/2025 mercedes ght is up 2 pounds since 06-13-25 Height 62 in 07/05/2025 weight is up 2 pounds since 06-13-25 Blood pressure systolic 92 mm Hg 07/05/2025 weig ht is up 2 pounds since 06-13-25 Weight 120 lbs 07/05/2025 weight is up 2 pounds since 06-13-25 BMI 21.95 kg/m2 07/05/2025 weight is up 2 pounds since 06-13-25 Encounters Encounter Location Date Provider Diagnosis Mati Raya MD [address] [place] [id number] 11/09/2024 Mati Raya UTI (urinary tract infection) N39.0 Mati Raya MD [address] [place] [id number] 11/15/2024 Mati Raya Anemia, unspecified type D64.9 Mati Raya MD [address] [place] [id number] 12/03/2024 Mati Raya Pure hypercholestero lemia E78.00 Mati Raya MD [address] [place] [id number] 06/06/2025 Mati Raya Essential hypertensi on I10 ; Prediabetes R73.09 ; Hyperkalemia E87.5 ; Vitamin D deficiency, unspecified E55.9 and Acquired hypothyroidism E03.9 Mati Raya MD [address] [place] [id number] 06/13/2025 Mati Raya Acquired hypothyroid ism E03.9 ; Pure hypercholesterolemia E78.00 and Essential hypertension I10 Mati Raya MD [address] [place] [id number] 07/23/2025 Mati Raya Acute idiopathic gou t of left foot M10.072 Mati Raya MD [address] [place] [id number] 10/11/2024 Mati Raya 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 Mati Raya MD [address] [place] [address] [id number] 10/23/2024 Mati Raya COVID-19 U07.1 Mati Raya MD [address] [place] [id number] 11/01/2024 Mati Raya COVID-19 virus infec tion U07.1 Mati Raya MD [address] [place] [address] [id number] 12/10/2024 Mati Raya Essential hypertensi on I10 ; Thalamic hemorrhage with stroke I61.9 and Pure hypercholesterolemia E78.00 Mati Raya MD [address] [place] [address] [id number] 04/09/2025 Mati Raya Depression F32.9 Mati Raya MD [address] [place] [address] [id number] 04/29/2025 Mati Raya Depression F32.9 Mati Raya MD [address] [place] [id number] 05/28/2025 Mati Raya Encounter for administration of vaccine Z23 and Depression F32.9 Mati Raya MD [address] [place] [address] [id number] 07/05/2025 Mati Raya Acute idiopathic gou t of left foot M10.072 and Acquired hypothyroidism E03.9 Mati Raya MD [address] [place] [address] [id number] 07/23/2024 Mati Raya MD [address] [place] [address] [id number] 08/13/2024 Mati Raya Acute idiopathic gou t of left foot M10.072 Mati Raya MD [address] [place] [address] [id number] 09/18/2024 Mati Raya Acute idiopathic gou t of left foot M10.072 Mati Raya MD [address] [place] [address] [id number] 10/18/2024 Mati Raya MD [address] [place] [address] [id number] 10/22/2024 Mati Raya MD [address] [place] [address] [id number] 10/22/2024 Mati Raya Cough R05.9 Mati Raya MD [address] [place] [address] [id number] 11/08/2024 Mati Raya MD [address] [place] [address] [id number] 06/14/2025 Mati Raya Acquired hypothyroid ism E03.9 Mati Raya MD [address] [facility] [address] [place] [address] [id number] 06/24/2025 Mati Raya Depression F32.9 Assessments Encounter Date Diagnosis (ICD Code) Assessment Notes Treatment Notes Treatment Clinical Notes Section Notes 11/09/2024 UTI (urinary tract infection) (ICD-10 - N39.0) 11/15/2024 Anemia, unspecified type (ICD-10 - D64.9) 12/03/2024 Pure hypercholesterolemia (ICD-10 - E78.00) 06/06/2025 Essential hypertensi on (ICD-10 - I10) 06/13/2025 Acquired hypothyroid ism (ICD-10 - E03.9) 07/23/2025 Acute idiopathic gou t of left foot (ICD-10 - M10.072) 10/11/2024 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) 10/23/2024 [...] have explained that she does not qualify 07/05/2025 Acute idiopathic gou t of left foot (ICD-10 - M10.072) 07/05/2025 Acquired hypothyroid ism (ICD-10 - E03.9) patient verbalized undersanding of medication and directions for use 08/13/2024 Acute idiopathic gou t of left foot (ICD-10 - M10.072) 09/18/2024 Acute idiopathic gou t of left foot (ICD-10 - M10.072) 10/22/2024 Cough (ICD-10 - R05.9) 06/14/2025 Acquired hypothyroid ism (ICD-10 - E03.9) 06/24/2025 Depression (ICD-10 - F32.9) 06/06/2025 Prediabetes (ICD-10 - R73.09) 06/13/2025 Pure [...] XR SHOULDER RT 2 VIEWS 08/17/2021 Comprehensive [place]. Panel Fast Free T4 (Free Thyroxine) 07/23/2025 US abdomen complete 08/07/2021 TSH reflex Free T4 07/23/2025 Next Appt Details Provider Name:Mati sol, 08/02/2025 11:45:00 AM, [address] [place] [address] Drive, [address], [place], [place], [id number], Provider Name:Mati sol, 09/02/2025 11:15:00 AM, [address] [place] [address], [address], [place], [id number], Provider Name:Mati sol, 12/02/2025 07:45:00 AM, [address] [facility] [address], [address], [place], [place], [phone], Provider Name:Mati Silverman ier, 12/09/2025 11:00:00 AM, [address] [facility], [address], [place], [phone], Provider Name:Mati Silverman ier, 07/10/2026 07:00:00 AM, [address] [facility], [address], [place], [phone], Provider Name:Mati Silverman ier, 07/17/2026 11:00:00 AM, [address] [place] [address], Suite [facility], [place], [phone], Insurance Providers Payer Name Payer Address Payer Phone Subscriber Number Group Number Insured Name Patient Relationship to Insured Coverage Start Date Coverage End Date [employer] [address] [place] [address] [id number] Qian Lara Self - patient is the insured [facility] [address] [place] [phone] [id number] Qian Lara Self - patient is the insured Medical (General) History Medical History History ICD Code hashimotos hypercholesterolemia hypertension anemia colonoscopy 2005 due in 2014 [employer] appt 11/30 in [place] osteoporosis. refuses meds - discussed
--- OUTSIDE RECORDS SUMMARY | 2025-07-23 13:03 | XMS_ITS | Patient Health Record ---
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 Rx drug management (4) Plan Of Treatment Pending Test Test Name Order Date X ray : Foot, left 3V 06/25/2024 X ray : Foot, right 3V 06/25/2024 [id number] NAIL, 6 OR MORE 02/24/2017 [id number] NAIL, 6 OR MORE 05/30/2017 [id number] NAIL, 6 OR MORE 08/29/2017 [id number] NAIL, 6 OR MORE 11/28/2017 [id number] NAIL, 6 OR MORE 02/27/2018 [id number] NAIL, 1-5 11/01/2016 66497- Debride <25 sq cm 08/09/2016 92087, [id number]/INJECT, JOINT/BURSA 1 Insurance Providers Payer Name Payer Address Payer Phone Subscriber Number Group Number Insured Name Patient Relationship to Insured Coverage Start Date Coverage End Date Medicare [employer] [address] [place] [address] [id number] Qian Evans Self - patient is the insured 1 [employer]) [address] [place] [address] [id number] Qian Evans Self - patient is the insured Medical (General) History Medical History History ICD Code Thyroid disorder Hypertension covid-19 High Blood Pressure Stroke Mumps Chicken pox Surgical History Surgery Date(Month/Year) tonsillectomy Hospitalization History Reason Date(Month/Year) [facility] [place]- Covid 2021
== END 2025-07-23 10:48 | disposition home or self-care (01) ==
LOC: HO.LNP 10:47
PROVIDERS: Visit Provider Internal Medicine
DX: M10.072 Idiopathic gout, left ankle and foot (principal); Z13.29 Encounter for screening for other suspected endocrine disorder
CPT/HCPCS: 84439; 84443